=== PATIENT | male | born 1995 | race Two or more races ===

== ENCOUNTER 2020-07-23 11:13 | Outpatient (REF) | payer MEDICARE, MEDICAID, SELFPAY ==
[2020-07-23 12:30] LABS: Neut%MD 70.5 %; Neutrophils Absolute Auto 6.4 X10*3/uL (2.0-8.3)
== END 2020-07-23 11:14 | disposition home or self-care (01) ==
LOC: HO.LABR 11:13
PROVIDERS: PCP Internal Medicine; Visit Provider Clinical Nurse Specialist Psychiatric/Mental Health
DX: Z79.899 Other long term (current) drug therapy (principal)
CPT/HCPCS: 36415

== ENCOUNTER 2020-08-31 11:57 | Outpatient (REF) | payer MEDICARE, MEDICAID, SELFPAY ==
[2020-08-31 13:28] LABS: Neut%MD 67.1 %; Neutrophils Absolute Auto 5.8 X10*3/uL (2.0-8.3); WBCANC 8.6 X10*3/uL; White Blood Count 8.6 X10*3/uL (4.8-10.8)
== END 2020-08-31 11:58 | disposition home or self-care (01) ==
LOC: HO.LABR 11:57
PROVIDERS: PCP Internal Medicine; Visit Provider Clinical Nurse Specialist Psychiatric/Mental Health
DX: Z79.899 Other long term (current) drug therapy (principal)
CPT/HCPCS: 36415; 85048

== ENCOUNTER 2020-09-30 10:13 | Outpatient (REF) | payer MEDICARE, MEDICAID, SELFPAY ==
[2020-09-30 11:20] LABS: Neut%MD 63.8 %; Neutrophils Absolute Auto 4.6 X10*3/uL (2.0-8.3); WBCANC 7.3 X10*3/uL; White Blood Count 7.3 X10*3/uL (4.8-10.8)
== END 2020-09-30 10:14 | disposition home or self-care (01) ==
LOC: HO.LABR 10:13
PROVIDERS: PCP Internal Medicine; Visit Provider Clinical Nurse Specialist Psychiatric/Mental Health
DX: Z79.899 Other long term (current) drug therapy (principal)
CPT/HCPCS: 36415; 85048

== ENCOUNTER 2020-10-21 10:43 | Outpatient (REF) | payer MEDICARE, MEDICAID, SELFPAY ==
[2020-10-21 11:44] LABS: Neut%MD 64.1 %; Neutrophils Absolute Auto 4.4 X10*3/uL (2.0-8.3); WBCANC 6.9 X10*3/uL; White Blood Count 6.9 X10*3/uL (4.8-10.8)
[2020-10-24 20:27] LABS: Clozapine (Clozaril) 478 mcg/L; Norclozapine 237 mcg/L (25-400)
== END 2020-10-21 10:44 | disposition home or self-care (01) ==
LOC: HO.LABR 10:43
PROVIDERS: Visit Provider Clinical Nurse Specialist Psychiatric/Mental Health
DX: Z79.899 Other long term (current) drug therapy (principal)
CPT/HCPCS: 36415; 80159; 85048

== ENCOUNTER 2020-11-26 11:00 | Outpatient (REF) | payer MEDICARE, MEDICAID, SELFPAY ==
[2020-11-26 11:51] LABS: Neut%MD 68.2 %; Neutrophils Absolute Auto 4.4 X10*3/uL (2.0-8.3); WBCANC 6.5 X10*3/uL; White Blood Count 6.5 X10*3/uL (4.8-10.8)
== END 2020-11-26 11:01 | disposition home or self-care (01) ==
LOC: HO.LAB 11:00
PROVIDERS: PCP Internal Medicine; Visit Provider Clinical Nurse Specialist Psychiatric/Mental Health
DX: Z79.899 Other long term (current) drug therapy (principal)
CPT/HCPCS: 36415; 85048

== ENCOUNTER 2020-12-24 10:45 | Outpatient (REF) | payer MEDICARE, MEDICAID, SELFPAY ==
[2020-12-24 11:27] LABS: Neut%MD 67.1 %; Neutrophils Absolute Auto 5.2 X10*3/uL (2.0-8.3); WBCANC 7.7 X10*3/uL; White Blood Count 7.7 X10*3/uL (4.8-10.8)
== END 2020-12-24 10:46 | disposition home or self-care (01) ==
LOC: HO.LABR 10:45
PROVIDERS: PCP Internal Medicine; Visit Provider Clinical Nurse Specialist Psychiatric/Mental Health
DX: Z79.899 Other long term (current) drug therapy (principal)
CPT/HCPCS: 36415; 85048

== ENCOUNTER 2021-01-30 10:34 | Outpatient (REF) | payer MEDICARE, MEDICAID, SELFPAY ==
[2021-01-30 11:20] LABS: Neut%MD 64.5 %; Neutrophils Absolute Auto 4.7 X10*3/uL (2.0-8.3); WBCANC 7.3 X10*3/uL; White Blood Count 7.3 X10*3/uL (4.8-10.8)
== END 2021-01-30 10:35 | disposition home or self-care (01) ==
LOC: HO.LABR 10:34
PROVIDERS: Visit Provider Clinical Nurse Specialist Psychiatric/Mental Health
DX: Z79.899 Other long term (current) drug therapy (principal)
CPT/HCPCS: 36415; 85048

== ENCOUNTER 2021-02-18 12:32 | Outpatient (REF) | payer MEDICARE, MEDICAID, SELFPAY ==
[2021-02-18 13:16] LABS: Neut%MD 64.7 %; Neutrophils Absolute Auto 5.1 X10*3/uL (2.0-8.3); WBCANC 7.9 X10*3/uL; White Blood Count 7.9 X10*3/uL (4.8-10.8)
== END 2021-02-18 12:33 | disposition home or self-care (01) ==
LOC: HO.LABR 12:32
PROVIDERS: Visit Provider Clinical Nurse Specialist Psychiatric/Mental Health
DX: Z79.899 Other long term (current) drug therapy (principal)
CPT/HCPCS: 36415; 85048

== ENCOUNTER 2021-03-18 13:53 | Outpatient (REF) | payer MEDICARE, MEDICAID, SELFPAY ==
[2021-03-18 14:32] LABS: Neutrophils Absolute Auto 5.5 X10*3/uL (2.0-8.3); White Blood Count 7.8 X10*3/uL (4.8-10.8)
== END 2021-03-18 13:54 | disposition home or self-care (01) ==
LOC: HO.LABR 13:53
PROVIDERS: PCP Internal Medicine; Visit Provider Clinical Nurse Specialist Psychiatric/Mental Health
DX: Z79.899 Other long term (current) drug therapy (principal)
CPT/HCPCS: 36415; 85048

== ENCOUNTER 2021-04-22 11:56 | Outpatient (REF) | payer MEDICARE, MEDICAID, SELFPAY ==
[2021-04-22 13:05] LABS: White Blood Count 7.2 X10*3/uL (4.8-10.8)
== END 2021-04-22 11:57 | disposition home or self-care (01) ==
LOC: HO.LABR 11:56
PROVIDERS: Visit Provider Clinical Nurse Specialist Psychiatric/Mental Health
DX: Z79.899 Other long term (current) drug therapy (principal)
CPT/HCPCS: 36415; 85048

== ENCOUNTER 2021-05-13 13:52 | Inpatient (IN) | payer MEDICARE, MEDICAID, SELFPAY ==
--- NOTE | ~2021-05-13 | XR_ITS ---
EXAMINATION: XR WRIST, RIGHT CLINICAL INFORMATION: Status post fall COMPARISON: Right hand radiograph from 07/31/2015 TECHNIQUE: PA, lateral, and oblique views of the right wrist. FINDINGS: No acute visible fracture or dislocation. Joint spaces and alignment are maintained. Soft tissues are unremarkable. XR/XR wrist RT 2V IMPRESSION: No acute visible fracture or dislocation.
--- NOTE | ~2021-05-13 | XR_ITS ---
EXAMINATION: XR ANKLE, RIGHT CLINICAL INFORMATION: Status post fall COMPARISON: None TECHNIQUE: AP, lateral, and mortise views of the right ankle. FINDINGS: No acute visible fracture or dislocation. Ankle mortise is symmetric. Mild spurring of the dorsal talus. Joint spaces and alignment are otherwise maintained. No large ankle joint effusion. Soft tissues are unremarkable. XR/XR ankle RT 2V IMPRESSION: No acute visible fracture or dislocation.
[2021-05-13 13:55] VITALS: BP 137/85; PULSE 100; RESP 16; TEMP 35.9; O2SAT 98; BMI 30.5
--- NOTE | 2021-05-13 14:40 | ED.GENADULT ---
HPI - General Adult General Chief complaint: Psychiatric Symptoms Stated complaint: crisis Time Seen by Provider: 05/13/21 14:40 History of Present Illness HPI narrative: 26 years old male is here today with staff member for crisis. Patient was not compliant with his medication, past medical history of schizoaffective disorder. Patient was at the therapy session with the staff member when he voiced statement of wanting to hurt himself and others. No true plan. Patient states that he was not compliant with his medications, he felt like he did not want to take them. Patient was admitted in the past at [facility]. Patient is cooperative and agreeable to Related Data Home Medications Medication Instructions Recorded Confirmed acetaminophen 325 mg tablet (Mapap 650 mg PO Q6H PRN 05/13/21 05/13/21 (acetaminophen)) clozapine 100 mg tablet 3 tab PO BEDTIME 05/13/21 05/13/21 clozapine 25 mg tablet 2 tab PO BEDTIME 05/13/21 05/13/21 lorazepam 2 mg tablet 2 mg PO Q6H 05/13/21 05/13/21 losartan 25 mg tablet 1 tab PO QAM 05/13/21 05/13/21 mirtazapine 30 mg tablet 1 tab PO BEDTIME 05/13/21 05/13/21 montelukast 10 mg tablet 1 tab PO DAILY 05/13/21 05/13/21 prazosin 2 mg capsule 1 cap PO BEDTIME 05/13/21 05/13/21 psyllium 1 packet PO BEDTIME 05/13/21 05/13/21 ursodiol 250 mg tablet 2 tab PO TID 05/13/21 05/13/21 Allergies Allergy/AdvReac Type Severity Reaction Status Date / Time No Known Allergies Allergy Verified 05/13/21 14:00 Review of Systems Review of Systems: Constitutional : No Weight loss, No Fever, No Chills, No Night Sweats, No Fatigue, No Malaise ENT/Mouth : No Hearing loss, No Ear Pain, No Nasal Congestion, No Sinus Pain, No Hoarseness, No sore throat, No Rhinorrhea, No Swallowing Difficulty Eyes: No Eye Pain, No Swelling, No Redness, No Foreign Body, No Discharge, No Vision Changes Cardiovascular : No Chest Pain, No SOB, No Dyspnea on Exertion, No Orthopnea, No Edema, No Palpitations Respiratory : No Cough, No Sputum, No Wheezing, No Smoke Exposure, No Dyspnea Gastrointestinal : No Nausea, No Vomiting, No Diarrhea, No Constipation, No abdominal Pain, No Hematochezia, No Melena Genitourinary : no irregular bleeding, No Dysuria, No Urinary Frequency, No Hematuria, No Urinary Incontinence, No Urgency, No Flank Pain, No Urinary Flow Changes, No Hesitancy Musculoskeletal : No joint pain, No Myalgias, No Joint Swelling Skin : No Skin Lesions, No rash Neuro : No Weakness, No Numbness, No Paresthesias, No Loss of Consciousness, No Dizziness, No Headache Psych : No Anxiety/Panic, No Depression, No SI/HI no Social Issues, Heme/Lymph: No Bruising, No Bleeding,No Lymphadenopathy Endocrine : No Polyuria, No Polydipsia, No Temperature Intolerance [facility] Past Medical History Medical History (Updated 05/13/21 @ 19:[address] [facility]) Bipolar disorder Depression HTN (hypertension) PTSD (post-traumatic stress disorder) Schizophrenia Social History Social History Alcohol intake: never Smoked in Last 30 Days: No Use of substances other than those prescribed or required for medical reasons: No Advance Directives: No Advance Directives Information Provided: Yes Physical Exam Vital Signs: Vital Signs: Last Vital Signs Temp 96.7 F L 05/13/21 13:55 Pulse 100 05/13/21 13:55 Resp 16 05/13/21 13:55 BP 137/85 05/13/21 13:55 Pulse Ox 98 05/13/21 13:55 Body Mass Index 30.5 Const: General: healthy appearing, no acute distress and well developed Nutritional Appearance: well nourished Orientation/consciousness: patient oriented x3 Neck: Neck: Yes normal visual inspection, Yes full ROM and Yes no JVD Resp: Effort & Inspection: normal respiratory effort Auscultation: clear to auscultation bilaterally Cardio: Rate: regular rate Rhythm: regular rhythm GI: Inspection: Yes normal to inspection and No distended Palpation (GI): Soft to palpation, Firmness to palpation present (GI), nontender and no guarding Auscultation: normal bowel sounds Skin: General skin exam: elasticity normal, turgor normal and dry skin Neuro: General: patient oriented x3 and moves all extremities Psych: Appearance: grossly normal Mental Status: mental status grossly normal Speech and movement: Normal speech and movement present Affect: normal affect Attitude: cooperative Thought process: Normal thought process present Thought content: Suicidality present and Homicidality present Course Course Course Narrative: 26 years old male with past medical history of schizoaffective disorder is here today with staff member from [facility]. Patient was at therapy session and voiced to the therapist that he has not taking his medication and is having suicidal and homicidal thoughts. Patient has previously been admitted at [facility] as an inpatient. Patient does not have a true plan. We will order U tox, Tylenol, salicylate, ETOH and have him be seen by crisis team. Patient is cooperative to, plan discussed with him and he is agreeable to this. He was given the opportunity to ask questions and all questions answered. Reevaluation(s) Reevaluation #1: Patient was moved to Behavioral pod, he continues to be cooperative. Denies any neuro, cardiac, respiratory or GI symptoms. Will reconcile his medication awaiting for crisis team to see patient. Reevaluation #2: Spoke to Alejandra from care team. Patient is being interviewed by crisis team now. Most likely will be in patient bed search. Sign out to Jessica PASTRANA Medical Decision Making Lab Data Result diagrams: 05/13/21 17:01 05/13/21 17:01 Labs: Lab Results 05/13/21 05/13/21 05/13/21 Range/Units 16:27 17:01 17:01 WBC 8.5 (4.8-10.8) X10*3/uL RBC 5.28 (4.60-5.80) X10*6/uL Hgb 14.5 (14.0-18.0) g/dl Hct 45.2 (42-52) % MCV 85.6 (80-98) fL MCH 27.5 (27.0-33.0) pg MCHC 32.1 (31.0-36.0) g/dl RDW 14.6 (11.0-16.0) % Plt Count 287 (160-400) X10*3/uL MPV 10.3 (9.4-12.4) fL Immature Gran % (Auto) 0.6 H (0.0-0.4) % Neut % (Auto) 65.6 (45-73) % Lymph % (Auto) 26.1 (20-40) % [place] % (Auto) 7.2 (2-11) % Eos % (Auto) 0.0 (0-4) % Baso % (Auto) 0.5 (0-2) % Lymph # (Auto) 2.2 (1.2-4.9) X10*3/uL [place] # (Auto) 0.6 (0.1-1.2) X10*3/uL Eos # (Auto) 0.0 (0.0-0.4) X10*3/uL Baso # (Auto) 0.0 (0.0-0.2) X10*3/uL Abs Immat Gran (auto) 0.05 H (0.00-0.03) X10*3/uL Absolute Neuts (auto) 5.6 (2.0-8.3) X10*3/uL Absolute Nucleated RBC 0.000 (0.0-0.012) X10*3/uL Nucleated RBC % (auto) 0.0 (0.0-0.2) /100WBC Sodium (135-145) mmol/L Potassium (3.3-5.1) mmol/L Chloride (96-108) mmol/L Carbon Dioxide (22-29) mmol/L Anion Gap (12-20) BUN (9-16) mg/dL Creatinine (0.5-1.4) mg/dL Estim Creat Clear Calc Estimated GFR Random Glucose (60-115) mg/dL Calcium (8.4-10.2) mg/dL Total Bilirubin (0.0-1.0) mg/dL AST (5-37) U/L ALT (0-40) U/L Alkaline Phosphatase (39-117) U/L Total Protein (6.5-8.0) g/dL Albumin (3.5-5.0) g/dL Salicylates < 5.0 L (15-30) mg/dL Urine Opiates Screen Not Detected (Not Detect) Urine Fentanyl Screen Not Detected (Not Detect) Acetaminophen < 1 (<30) mcg/mL Ur Barbiturates Screen Not Detected (Not Detect) Ur Phencyclidine Scrn Not Detected (Not Detect) Ur Amphetamines Screen Not Detected (Not Detect) U Benzodiazepines Scrn Not Detected (Not Detect) Urine Cocaine Screen Not Detected (Not Detect) U Marijuana (THC) Screen Not Detected (Not Detect) COVID-19 ([place]) (Negative) COVID-19 Clin Com 05/13/21 05/13/21 Range/Units 17:01 17:02 WBC (4.8-10.8) X10*3/uL RBC (4.60-5.80) X10*6/uL Hgb (14.0-18.0) g/dl Hct (42-52) % MCV (80-98) fL MCH (27.0-33.0) pg MCHC (31.0-36.0) g/dl RDW (11.0-16.0) % Plt Count (160-400) X10*3/uL MPV (9.4-12.4) fL Immature Gran % (Auto) (0.0-0.4) % Neut % (Auto) (45-73) % Lymph % (Auto) (20-40) % [place] % (Auto) (2-11) % Eos % (Auto) (0-4) % Baso % (Auto) (0-2) % Lymph # (Auto) (1.2-4.9) X10*3/uL [place] # (Auto) (0.1-1.2) X10*3/uL Eos # (Auto) (0.0-0.4) X10*3/uL Baso # (Auto) (0.0-0.2) X10*3/uL Abs Immat Gran (auto) (0.00-0.03) X10*3/uL Absolute Neuts (auto) (2.0-8.3) X10*3/uL Absolute Nucleated RBC (0.0-0.012) X10*3/uL Nucleated RBC % (auto) (0.0-0.2) /100WBC Sodium 140 (135-145) mmol/L Potassium 4.2 (3.3-5.1) mmol/L Chloride 106 (96-108) mmol/L Carbon Dioxide 24 (22-29) mmol/L Anion Gap 14 (12-20) BUN 9 (9-16) mg/dL Creatinine 0.98 (0.5-1.4) mg/dL Estim Creat Clear Calc 137.1 Estimated GFR > 60 Random Glucose 88 (60-115) mg/dL Calcium 9.3 (8.4-10.2) mg/dL Total Bilirubin 0.3 (0.0-1.0) mg/dL AST 32 (5-37) U/L ALT 69 H (0-40) U/L Alkaline Phosphatase 135 H (39-117) U/L Total Protein 7.3 (6.5-8.0) g/dL Albumin 4.3 (3.5-5.0) g/dL Salicylates (15-30) mg/dL Urine Opiates Screen (Not Detect) Urine Fentanyl Screen (Not Detect) Acetaminophen (<30) mcg/mL Ur Barbiturates Screen (Not Detect) Ur Phencyclidine Scrn (Not Detect) Ur Amphetamines Screen (Not Detect) U Benzodiazepines Scrn (Not Detect) Urine Cocaine Screen (Not Detect) U Marijuana (THC) Screen (Not Detect) COVID-19 ([place]) Negative (Negative) COVID-19 Clin Com See Note Discharge Plan Discharge Clinical Impression: Suicidal ideation Prescriptions: No Action acetaminophen [Mapap (acetaminophen)] 325 mg Tablet 650 mg PO Q6H PRN (Reason: Pain) RF: 0 clozapine 100 mg tablet 3 tab PO BEDTIME RF: 0 Metamucil Packet 1 packet PO BEDTIME RF: 0 lorazepam 2 mg tablet 2 mg PO Q6H RF: 0 mirtazapine 30 mg tablet 1 tab PO BEDTIME RF: 0 ursodiol 250 mg tablet 2 tab PO TID RF: 0 losartan 25 mg tablet 1 tab PO QAM RF: 0 montelukast 10 mg tablet 1 tab PO DAILY RF: 0 clozapine 25 mg tablet 2 tab PO BEDTIME RF: 0 prazosin 2 mg capsule 1 cap PO BEDTIME RF: 0
--- NOTE | 2021-05-13 17:04 | PC.NURSE ---
report sent to [facility]- confirmation email obtained
[2021-05-13 17:07] LABS: MANUAL DIFF FLAG NO
[2021-05-13 17:08] LABS: Basophils Percent Auto 0.5 % (0-2); Hematocrit 45.2 % (42-52); Hemoglobin 14.5 g/dl (14.0-18.0); Imm Gran Abs Auto 0.05 X10*3/uL (0.00-0.03); Imm Gran Pct Auto 0.6 % (0.0-0.4); Lymphocytes Absolute Auto 2.2 X10*3/uL (1.2-4.9); Lymphocytes Percent Auto 26.1 % (20-40); Mean Corpuscular HGB Conc 32.1 g/dl (31.0-36.0); Mean Corpuscular Hemoglobin 27.5 pg (27.0-33.0); Mean Corpuscular Volume 85.6 fL (80-98); Mean Platelet Volume 10.3 fL (9.4-12.4); Monocytes Absolute Auto 0.6 X10*3/uL (0.1-1.2); Monocytes Percent Auto 7.2 % (2-11); Neutrophils Absolute Auto 5.6 X10*3/uL (2.0-8.3); Neutrophils Percent Auto 65.6 % (45-73); Platelet Count 287 X10*3/uL (160-400); Red Blood Count 5.28 X10*6/uL (4.60-5.80); Red Cell Distribution Width 14.6 % (11.0-16.0); White Blood Count 8.5 X10*3/uL (4.8-10.8)
[2021-05-13 17:12] LABS: Amphetamine Screen Urine Not Detected (Not Detect); Barbiturates, Urine Not Detected (Not Detect); Benzodiazepines Screen Urine Not Detected (Not Detect); Cannabinoid Screen Urine Not Detected (Not Detect); Cocaine Screen Urine Not Detected (Not Detect); Fentanyl, urine Not Detected (Not Detect); Opiate Screen Urine Not Detected (Not Detect); Phencyclidine Screen Urine Not Detected (Not Detect)
[2021-05-13 17:20] LABS: COVID-19 Test Negative (Negative)
[2021-05-13 17:33] LABS: Acetaminophen LAB < 1 mcg/mL (<30); Salicylate < 5.0 mg/dL (15-30)
[2021-05-13 17:34] LABS: Alanine Aminotransferase 69 U/L (0-40); Albumin Level 4.3 g/dL (3.5-5.0); Alkaline Phosphatase 135 U/L (39-117); Anion Gap 14 (12-20); Aspartate Amino Transferase 32 U/L (5-37); Bilirubin Total 0.3 mg/dL (0.0-1.0); Blood Urea Nitrogen 9 mg/dL (9-16); Calcium 9.3 mg/dL (8.4-10.2); Carbon Dioxide 24 mmol/L (22-29); Chloride 106 mmol/L (96-108); Creatinine Clr Calc Pharmacy 137.1; Estimated Glomerular Filt Rate > 60; Glucose Random 88 mg/dL (60-115); Potassium 4.2 mmol/L (3.3-5.1); Sodium 140 mmol/L (135-145); Total Protein 7.3 g/dL (6.5-8.0)
--- NOTE | 2021-05-13 18:23 | PHA.MEDREC ---
Pharmacy Consult ? Medication Reconciliation Pharmacy has completed the medication reconciliation. PT has reportedly not been compliant with meds.
--- NOTE | 2021-05-13 20:31 | MHC.CARE ---
CARE team assessed pt, pt will be an IP bedsearch
[2021-05-14 03:50] VITALS: BP 127/86; PULSE 78; RESP 18; TEMP 36.6; O2SAT 96
--- NOTE | 2021-05-14 06:06 | PC.NURSE ---
Patient slept through the night, no distress observed/reported, out of room x 2 for bathroom use and back, patient express need well, behavior appropriate with affect flat, med rec completed/provider not comfortable to resume medication based on the jail report that patient may be cheeking his medication, since patient is on Clozaril, psych consult was done to review his medication. will continue to monitor.
--- NOTE | 2021-05-14 07:16 | PC.NURSE ---
patient appears in no distress at present appears asleep with even respirations
[2021-05-14 08:42] VITALS: BP 139/80; PULSE 82; RESP 16; TEMP 36.9; O2SAT 100
--- NOTE | 2021-05-14 16:21 | PC.NURSE ---
nurse to nurse report given to Teresa from [facility], pt awaiting transfer to floor
[2021-05-14 16:52] VITALS: BP 138/84; PULSE 71; RESP 18; TEMP 36.5; O2SAT 100
[2021-05-15] MEDS: cloZAPine 25 MG TABLET PO (00:51)
--- NOTE | 2021-05-15 01:49 | PC.NURSE ---
PT came to the unit from ED, calm and cooperative. Initially endorsing SI and lack of med compliance. PT stated that he did not want to take medications because they made him feel special or SPED . PT also stated that he is experiencing auditory hallucinations with voices in his head. This nurse then asked the PT what the voices were telling him. Initially the PT did not answer this question, but when asked again the PT stated, I'm not actually hearing voices and I did not stop taking my meds. I lied about both so that I could get away from the long-term for a few days . The rest of the admission went smoothly, with no resistance from the PT. PT denied SI/HI. Denies auditory hallucinations. PT took his dose of Clozapine prior to bed.
[2021-05-15 06:00] VITALS: BP 130/75; PULSE 83; RESP 14; TEMP 36.6; O2SAT 98
--- NOTE | 2021-05-15 08:57 | HO.PSYADMNOT ---
HPI Chief Complaint: Psychosis Sources of Information: patient interviewed HPI Subjective Notes: Lau Warning and Conditional Voluntary Narrative: Alexis is a 26-year-old male who was admitted for psychosis and possible suicidal ideations. 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 He lives in [place] in a residential, supervised setting with some other clients. The only available source of information was Alexis who is a very poor historian and unable to give much detail and peripheral information. He had stated that he was hearing voices which were command in nature, telling him to hurt himself. Today he states that ?I sometimes like to leave the program). He does have history of schizophrenia versus schizoaffective disorder. Current medications include clozapine 350 mg daily, Ativan 2 mg p.r.n., Remeron 30 mg q.h.s. and prazosin 2 mg q.h.s.. He denies any side effects. He denies any current auditory or visual hallucinations. No delusions. He denies any current substance use or abuse but states that he used to ?drink a lot?. He denies any alcohol abuse for some years. Diagnosis: [place] I schizoaffective disorder. [place] II rule out developmental disorder [place] III are hypertension Medical Evaluation Reviewed: Hospitalist [place] Pending [facility] Medical History (Updated 05/15/21 @ 09:03 by Demetrio Roger MD) Bipolar disorder Depression HTN (hypertension) PTSD (post-traumatic stress disorder) Schizophrenia Diagnostics Vital Signs (24Hr): Vital Signs - 24 hr 05/14/21 16:52 05/15/21 06:00 Temperature 97.7 F 97.9 F Pulse Rate 71 83 Respiratory Rate 18 14 Blood Pressure 138/84 130/75 Pulse Oximetry 100 98 Body Mass Index 30.5 Labs Results: 05/13/21 17:01 05/13/21 17:01 Labs: Laboratory Results - last 48 hr 05/13/21 05/13/21 05/13/21 16:27 17:01 17:01 WBC 8.5 RBC 5.28 Hgb 14.5 Hct 45.2 MCV 85.6 MCH 27.5 MCHC 32.1 RDW 14.6 Plt Count 287 MPV 10.3 Immature Gran % (Auto) 0.6 H Neut % (Auto) 65.6 Lymph % (Auto) 26.1 [place] % (Auto) 7.2 Eos % (Auto) 0.0 Baso % (Auto) 0.5 Lymph # (Auto) 2.2 [place] # (Auto) 0.6 Eos # (Auto) 0.0 Baso # (Auto) 0.0 Abs Immat Gran (auto) 0.05 H Absolute Neuts (auto) 5.6 Absolute Nucleated RBC 0.000 Nucleated RBC % (auto) 0.0 Sodium Potassium Chloride Carbon Dioxide Anion Gap BUN Creatinine Estim Creat Clear Calc Estimated GFR Random Glucose Calcium Total Bilirubin AST ALT Alkaline Phosphatase Total Protein Albumin Salicylates < 5.0 L Urine Opiates Screen Not Detected Urine Fentanyl Screen Not Detected Acetaminophen < 1 Ur Barbiturates Screen Not Detected Ur Phencyclidine Scrn Not Detected Ur Amphetamines Screen Not Detected U Benzodiazepines Scrn Not Detected Urine Cocaine Screen Not Detected U Marijuana (THC) Screen Not Detected COVID-19 ([place]) COVID-[employer] 05/13/21 05/13/21 17:01 17:02 WBC RBC Hgb Hct MCV MCH MCHC RDW Plt Count MPV Immature Gran % (Auto) Neut % (Auto) Lymph % (Auto) [place] % (Auto) Eos % (Auto) Baso % (Auto) Lymph # (Auto) [place] # (Auto) Eos # (Auto) Baso # (Auto) Abs Immat Gran (auto) Absolute Neuts (auto) Absolute Nucleated RBC Nucleated RBC % (auto) Sodium 140 Potassium 4.2 Chloride 106 Carbon Dioxide 24 Anion Gap 14 BUN 9 Creatinine 0.98 Estim Creat Clear Calc 137.1 Estimated GFR > 60 Random Glucose 88 Calcium 9.3 Total Bilirubin 0.3 AST 32 ALT 69 H Alkaline Phosphatase 135 H Total Protein 7.3 Albumin 4.3 Salicylates Urine Opiates Screen Urine Fentanyl Screen Acetaminophen Ur Barbiturates Screen Ur Phencyclidine Scrn Ur Amphetamines Screen U Benzodiazepines Scrn Urine Cocaine Screen U Marijuana (THC) Screen COVID-19 ([place]) Negative COVID-19 [employer] See Note Meds/Allergies Meds Home Medications Acetaminophen (Acetaminophen 325 Mg Tablet) 650 mg PO Q6H PRN PRN Reason: Headache/Pain Mild Scale (1-3) Al Hydroxide/Mg Hydroxide (Magnesium Hydrox/Alum Hydrox 30 Ml Oral.Susp) 30 ml PO Q6H PRN PRN Reason: Heartburn/Nausea Clozapine (Clozapine 100 Mg Tablet) 300 mg PO BEDTIME NORMA Clozapine (Clozapine 25 Mg Tablet) 50 mg PO DAILY NORMA Hydroxyzine HCl (Hydroxyzine Hcl 25 Mg Tablet) 25 mg PO BEDTIME PRN PRN Reason: Anxiety Lorazepam (Lorazepam 1 Mg Tablet) 2 mg PO DAILY PRN PRN Reason: agitation, anxiety Losartan Potassium (Losartan Potassium 25 Mg Tablet) 25 mg PO DAILY NORMA; Protocol Magnesium Hydroxide (Milk Of Magnesia 30 Ml Oral.Susp) 30 ml PO DAILY PRN PRN Reason: Constipation Mirtazapine (Mirtazapine 30 Mg Tablet) 30 mg PO BEDTIME NORMA Montelukast Sodium (Montelukast Sodium 10 Mg Tablet) 10 mg PO DAILY NORMA Prazosin HCl (Prazosin Hcl 1 Mg Capsule) 2 mg PO BEDTIME NORMA; Protocol Psyllium Hydrophilic Mucilloid (Psyllium Seed 3.4 Gm Powd.Pack) 3.4 gm PO BEDTIME NORMA Trazodone HCl (Trazodone Hcl 50 Mg Tablet) 50 mg PO BEDTIME PRN PRN Reason: Insomnia Ursodiol (Ursodiol 300 Mg Capsule) 600 mg PO TID NORMA Allergies Allergies Allergy/AdvReac Type Severity Reaction Status Date / Time No Known Allergies Allergy Verified 05/13/21 14:00 Mental Status Exam Mental Status Exam Narrative: Alexis was seen for the evaluation today after his admission. He is alert, oriented and cooperative. Speech is normal. Moderate eye contact. Affect is appropriate and subdued. He denies any current auditory or visual hallucinations. No delusions. Cognitively he appears limited. He denies any current suicidal or homicidal ideations. Judgment is intact Assessment & Plan Assessment & Plan (1) Suicidal ideation: Status: Acute Code(s): R45.851 - Suicidal ideations Assessment and Plan: Patient's medications were reviewed and clozapine had been ordered only as 25 mg and the additional 325 mg was added. Admission workup to be done. He will meet with his treatment team on 05/17/2021. Contacts to be made with history years and the program that he is involved with for additional information. I did also speak to the senior db2 systems programmer who verified that he had been taking his Clozaril up to the time he was brought to the emergency room (2) Schizoaffective disorder, bipolar type: Status: Acute Code(s): F25.0 - Schizoaffective disorder, bipolar type Patient educated on: diagnosis, medication risk/benefits, substance abuse, ECT, TMS, therapeutic strategies, medical condition and other Reason for continued inpatient stay Substantial Risk for: harm to self and med/psych decompensation
[2021-05-15 09:09] VITALS: BP 130/62; PULSE 78; TEMP 36.1; O2SAT 98
[2021-05-15] MEDS: UrsodioL 300 MG CAPSULE 600 MG PO ×3 (09:25→21:12)
[2021-05-15] MEDS: Montelukast Sodium 10 MG TABLET PO (09:25)
[2021-05-15] MEDS: cloZAPine 25 MG TABLET 50 MG PO (09:25)
[2021-05-15 09:26] VITALS: BP 130/62; PULSE 78
[2021-05-15] MEDS: Losartan Potassium 25 MG TABLET PO (09:26)
[2021-05-15] MEDS: Mirtazapine 30 MG TABLET PO (21:13)
[2021-05-15] MEDS: cloZAPine 100 MG TABLET 300 MG PO (21:13)
[2021-05-15 21:24] VITALS: BP 129/99; PULSE 92
[2021-05-15] MEDS: Prazosin HCL 1 MG CAPSULE 2 MG PO (21:24)
[2021-05-15 21:48] VITALS: BP 129/99; PULSE 92; RESP 16; TEMP 36.4; O2SAT 95
[2021-05-16 06:00] VITALS: BP 135/80; PULSE 92; RESP 18; TEMP 36.8; O2SAT 98
[2021-05-16 08:41] VITALS: BP 135/80; PULSE 104
[2021-05-16] MEDS: Montelukast Sodium 10 MG TABLET PO (08:41)
[2021-05-16] MEDS: cloZAPine 25 MG TABLET 50 MG PO (08:41)
[2021-05-16] MEDS: Losartan Potassium 25 MG TABLET PO (08:41)
[2021-05-16] MEDS: UrsodioL 300 MG CAPSULE 600 MG PO ×3 (08:41→20:34)
--- NOTE | 2021-05-16 09:31 | HO.PSYCHPN ---
Subjective Subjective Date of Service: 05/16/21 Reason For Visit: Psychosis Subjective Notes: Conditional Voluntary Interim History: Patient was seen in rounds today. He has settled down and is doing fairly well. He continues to deny any auditory hallucinations but is observed to be responding to internal stimuli, having thought blocking. He is med compliant. Attending groups. No complaints for side effects. Eating and sleeping adequately. No changes were made today Medication Compliance: Yes Side effects from medications: No Mental Status Exam Mental Status Exam Narrative: in today's visit he is alert, oriented and pleasant. Normal speech. Good eye contact. Affect is constricted. Thought processes are slow. He denies auditory and visual hallucinations but is observed to be responding to some internal stimuli. No SI. Cognitively limited. Judgment is marginal. Diagnostics Vital Signs (24Hr): Vital Signs - 24 hr 05/15/21 21:24 05/15/21 21:48 05/16/21 06:00 Temperature 97.6 F 98.2 F Pulse Rate 92 92 92 Respiratory Rate 16 18 Blood Pressure 129/99 H 129/99 H 135/80 Pulse Oximetry 95 98 05/16/21 08:41 Temperature Pulse Rate 104 H Respiratory Rate Blood Pressure 135/80 Pulse Oximetry Body Mass Index 30.5 Labs Results: 05/13/21 17:01 05/13/21 17:01 Medications Medications Current Medications Generic Name Dose Route Start Last Admin Trade Name Freq PRN Reason Stop Dose Admin Acetaminophen 650 mg 05/14/21 22:06 Acetaminophen 325 Mg Tablet PO Q6H PRN Headache/Pain Mild Scale (1-3) Al Hydroxide/Mg Hydroxide 30 ml 05/14/21 22:06 Magnesium Hydrox/Alum Hydrox 30 Ml Oral.Susp PO Q6H PRN Heartburn/Nausea Clozapine 300 mg 05/15/21 21:00 05/15/21 21:13 Clozapine 100 Mg Tablet PO 300 mg BEDTIME NORMA Administration Clozapine 50 mg 05/15/21 09:00 05/16/21 08:41 Clozapine 25 Mg Tablet PO 50 mg DAILY NORMA Administration Hydroxyzine HCl 25 mg 05/14/21 22:06 Hydroxyzine Hcl 25 Mg Tablet PO BEDTIME PRN Anxiety Lorazepam 2 mg 05/14/21 22:10 Lorazepam 1 Mg Tablet PO DAILY PRN agitation, anxiety Losartan Potassium 25 mg 05/15/21 09:00 05/16/21 08:41 Losartan Potassium 25 Mg Tablet PO 25 mg DAILY NORMA Administration Protocol Magnesium Hydroxide 30 ml 05/14/21 22:06 Milk Of Magnesia 30 Ml Oral.Susp PO DAILY PRN Constipation Mirtazapine 30 mg 05/15/21 21:00 05/15/21 21:13 Mirtazapine 30 Mg Tablet PO 30 mg BEDTIME NORMA Administration Montelukast Sodium 10 mg 05/15/21 09:00 05/16/21 08:41 Montelukast Sodium 10 Mg Tablet PO 10 mg DAILY NORMA Administration Prazosin HCl 2 mg 05/15/21 21:00 05/15/21 21:24 Prazosin Hcl 1 Mg Capsule PO 2 mg BEDTIME NORMA Administration Protocol Psyllium Hydrophilic Mucilloid 3.4 gm 05/15/21 21:00 05/15/21 21:13 Psyllium Seed 3.4 Gm Powd.Pack PO 3.4 gm BEDTIME NORMA Administration Trazodone HCl 50 mg 05/14/21 22:06 Trazodone Hcl 50 Mg Tablet PO BEDTIME PRN Insomnia Ursodiol 600 mg 05/15/21 09:00 05/16/21 08:41 Ursodiol 300 Mg Capsule PO 600 mg TID NORMA Administration Allergies Allergies Allergy/AdvReac Type Severity Reaction Status Date / Time No Known Allergies Allergy Verified 05/13/21 14:00 Assessment & Plan Assessment & Plan (1) Suicidal ideation: Status: Acute Code(s): R45.851 - Suicidal ideations Assessment and Plan: Continue current medication regimen and plans (2) Schizoaffective disorder, bipolar type: Status: Acute Code(s): F25.0 - Schizoaffective disorder, bipolar type Greater than 50% of the session was spent on counseling and/or coordination of care Reason for contiued inpatient stay Substantial Risk for: med/psych decompensation
[2021-05-16 09:35] VITALS: BP 133/80; PULSE 92; RESP 18; TEMP 36.8; O2SAT 98
[2021-05-16 19:21] VITALS: BP 134/75; PULSE 105; TEMP 36.1; O2SAT 96
[2021-05-16 20:34] VITALS: BP 118/85; PULSE 105
[2021-05-16] MEDS: Mirtazapine 30 MG TABLET PO (20:34)
[2021-05-16] MEDS: cloZAPine 100 MG TABLET 300 MG PO (20:34)
[2021-05-16] MEDS: Prazosin HCL 1 MG CAPSULE 2 MG PO (20:34)
[2021-05-17 06:00] VITALS: BP 143/80; PULSE 84; RESP 16; TEMP 36.3; O2SAT 99
[2021-05-17] MEDS: UrsodioL 300 MG CAPSULE 600 MG PO ×3 (09:25→20:03)
[2021-05-17 09:26] VITALS: BP 138/73; PULSE 100
[2021-05-17] MEDS: cloZAPine 25 MG TABLET 50 MG PO (09:26)
[2021-05-17] MEDS: Montelukast Sodium 10 MG TABLET PO (09:26)
[2021-05-17] MEDS: Losartan Potassium 25 MG TABLET PO (09:26)
--- NOTE | 2021-05-17 10:48 | PC.NURSE ---
Pt states he does not want any nicotine replacement at this time. Reports to this RN he only smokes occasionally states When i am bored
[2021-05-17] MEDS: Acetaminophen 325 MG TABLET 650 MG PO ×2 (11:04→19:33)
--- NOTE | 2021-05-17 18:35 | P.PNPSI_ITS ---
Subjective Subjective Date of Service: 05/17/21 Reason For Visit: Psychosis Subjective Notes: Conditional Voluntary Healthcare Proxy: No Guardianship: No Medical Problems Affecting Mental Status: No Interim History: Pt willing to meet, quiet, engaged, review of medications. Asks for nicotine gum and assist with sleep but reports he sleeps well. Denies SI, HI. Denies worries/concerns/fears. States he is feeling improved, but adds that this does not mean he wants to discharge. Told pt we were just beginning his care and treatment, wanting to understand precipitants and do some active probl em solving and planning with him. I would really like that. Medication Compliance: Yes Side effects from medications: No Attending Groups: No Review of Systems Acute medical concerns: No Medical Review of Systems: unchanged Review of Systems Reports behavioral changes Psychiatric: Reports anxiety, Reports behavioral changes and Reports paranoia Mental Status Exam Mental Status Exam Patient Appearance: Appropriate Patient Orientation: Person and Place Level of Consciousness: Alert Patient Behavior: Talkative and Good Eye Contact Mood Description: Suspicious, Withdrawn and Apprehensive Affect Description: Suspicious, Withdrawn and Apprehensive Patient Cognition Impaired: Yes Ability to Follow Directions: Fair Speech Pattern: Spontaneous Speech Memory Description: Episodic Impaired Hallucinations: None (he denies at this time) Delusions: Paranoid Ideation Perceptual Disturbances: Derealization Thought Process: Distracted and Slowed Thinking Depressive Symptoms: Increased Irritability and Difficulty Concentrating Judgement: Fair Diagnostics Vital Signs (24Hr): Vital Signs - 24 hr 05/16/21 19:21 05/16/21 20:34 05/17/21 06:00 Temperature 96.9 F 97.4 F Pulse Rate 105 H 105 H 84 Respiratory Rate 16 Blood Pressure 134/75 118/85 143/80 H Pulse Oximetry 96 99 05/17/21 09:26 Temperature Pulse Rate 100 Respiratory Rate Blood Pressure 138/73 Pulse Oximetry Body Mass Index 30.5 Labs Results: 05/13/21 17:01 05/13/21 17:01 Medications Medications Current Medications Generic Name Dose Route Start Last Admin Trade Name Freq PRN Reason Stop Dose Admin Acetaminophen 650 mg 05/14/21 22:06 05/17/21 11:04 Acetaminophen 325 Mg Tablet PO 650 mg Q6H PRN Administration Headache/Pain Mild Scale (1-3) Al Hydroxide/Mg Hydroxide 30 ml 05/14/21 22:06 Magnesium Hydrox/Alum Hydrox 30 Ml Oral.Susp PO Q6H PRN Heartburn/Nausea Clozapine 300 mg 05/15/21 21:00 05/16/21 20:34 Clozapine 100 Mg Tablet PO 300 mg BEDTIME NORMA Administration Clozapine 50 mg 05/15/21 09:00 05/17/21 09:26 Clozapine 25 Mg Tablet PO 50 mg DAILY NORMA Administration Hydroxyzine HCl 25 mg 05/14/21 22:06 Hydroxyzine Hcl 25 Mg Tablet PO BEDTIME PRN Anxiety Lorazepam 2 mg 05/14/21 22:10 Lorazepam 1 Mg Tablet PO DAILY PRN agitation, anxiety Losartan Potassium 25 mg 05/15/21 09:00 05/17/21 09:26 Losartan Potassium 25 Mg Tablet PO 25 mg DAILY NORMA Administration Protocol Magnesium Hydroxide 30 ml 05/14/21 22:06 Milk Of Magnesia 30 Ml Oral.Susp PO DAILY PRN Constipation Mirtazapine 45 mg 05/17/21 21:00 Mirtazapine 15 Mg Tablet PO BEDTIME NORMA Montelukast Sodium 10 mg 05/15/21 09:00 05/17/21 09:26 Montelukast Sodium 10 Mg Tablet PO 10 mg DAILY NORMA Administration Nicotine Polacrilex 4 mg 05/17/21 14:54 Nicotine Polacrilex 2 Mg Gum BUCCAL Q2H PRN Nicotine Cravings Prazosin HCl 2 mg 05/15/21 21:00 05/16/21 20:34 Prazosin Hcl 1 Mg Capsule PO 2 mg BEDTIME NORMA Administration Protocol Psyllium Hydrophilic Mucilloid 3.4 gm 05/15/21 21:00 05/16/21 20:34 Psyllium Seed 3.4 Gm Powd.Pack PO 3.4 gm BEDTIME NORMA Administration Trazodone HCl 50 mg 05/14/21 22:06 Trazodone Hcl 50 Mg Tablet PO BEDTIME PRN Insomnia Ursodiol 600 mg 05/15/21 09:00 05/17/21 14:13 Ursodiol 300 Mg Capsule PO 600 mg TID NORMA Administration Allergies Allergies Allergy/AdvReac Type Severity Reaction Status Date / Time No Known Allergies Allergy Verified 05/13/21 14:00 Assessment & Plan Assessment & Plan (1) Suicidal ideation: Status: Acute Code(s): R45.851 - Suicidal ideations Assessment and Plan: Continue current medication regimen and plans (2) Schizoaffective disorder, bipolar type: Status: Acute Code(s): F25.0 - Schizoaffective disorder, bipolar type Assessment and Plan: Continue current regime Greater than 50% of the session was spent on counseling and/or coordination of care Patient educated on: medication risk/benefits and therapeutic strategies Informed Consent: understands and further education needed Reason for contiued inpatient stay Substantial Risk for: harm to self, harm to others, inability to function and rapid decompensation
[2021-05-17 19:55] VITALS: BP 129/73; PULSE 105; TEMP 36.4
[2021-05-17] MEDS: cloZAPine 100 MG TABLET 300 MG PO (20:00)
[2021-05-17] MEDS: Mirtazapine 15 MG TABLET 45 MG PO (20:00)
[2021-05-17 20:02] VITALS: BP 129/73; PULSE 105
[2021-05-17] MEDS: Prazosin HCL 1 MG CAPSULE 2 MG PO (20:02)
--- NOTE | 2021-05-18 | ECG_ITS ---
Test Reason : ATYPICAL USE Blood Pressure : / mmHG Vent. Rate : 090 BPM Atrial Rate : 090 BPM P-R Int : 140 ms QRS Dur : 088 ms QT Int : 334 ms P-R-T Axes : 065 070 030 degrees QTc Int : 408 ms Normal sinus rhythm Normal ECG No previous ECGs available Referred By: Cristina Arizmendi Electronically Signed By:STEPHANIE BYERS
[2021-05-18 06:00] VITALS: BP 140/88; PULSE 89; RESP 16; TEMP 35.5; O2SAT 98
[2021-05-18] MEDS: UrsodioL 300 MG CAPSULE 600 MG PO ×3 (07:55→20:30)
[2021-05-18] MEDS: cloZAPine 25 MG TABLET 50 MG PO (07:55)
[2021-05-18] MEDS: Montelukast Sodium 10 MG TABLET PO (07:55)
[2021-05-18 07:56] VITALS: BP 140/88; PULSE 89
[2021-05-18] MEDS: Losartan Potassium 25 MG TABLET PO (07:56)
[2021-05-18] MEDS: Acetaminophen 325 MG TABLET 650 MG PO ×2 (11:22→17:12)
--- NOTE | 2021-05-18 12:55 | HO.PSYCHPN ---
Subjective Subjective Date of Service: 05/18/21 Reason For Visit: Psychosis Subjective Notes: Conditional Voluntary Healthcare Proxy: No Guardianship: No Medical Problems Affecting Mental Status: No Interim History: Pt reports he is feeling safe on the unit-sleeping better here with medications and has no SI/HI. Wrote a list of items he would like from his home-asked tw to call his home to relay the list. Spoke with Martine who will drop off pt's belongings. Pt denies med SE, reports he is eating and drinking well (was filling out his menu before we met). He is somewhat evasive, minimal eye contact with a guarded, suspicious presentation. Medication Compliance: Yes Side effects from medications: No Attending Groups: No Review of Systems Acute medical concerns: No Medical Review of Systems: unchanged Review of Systems Psychiatric: Reports anxiety, Reports auditory hallucinations, Reports mood swings, Reports paranoia and Reports suicidal ideation (denies) Mental Status Exam Mental Status Exam Patient Appearance: Appropriate Patient Orientation: Person and Place Level of Consciousness: Awake and Alert Patient Behavior: Appropriate, Guarded, Cooperative, Passive, Suspicious, Anxious, Fearful, Avoidant, Distractible, Isolative, Pacing and Poor Eye Contact Mood Description: Suspicious, Withdrawn, Anxious, Nervous and Apprehensive Affect Description: Constricted Patient Cognition Impaired: Yes Ability to Follow Directions: Good Speech Pattern: Difficulty Finding Words, Spontaneous Speech and Soft-Spoken Memory Description: Episodic Impaired Hallucinations: Auditory Delusions: Paranoid Ideation and Present Thought Process: Distracted Thought Content: positive for [place], positive for Circumstantial and positive for Suicidal Ideation (denies) Depressive Symptoms: Increased Anxiety and Difficulty Concentrating Judgement: Fair Diagnostics Vital Signs (24Hr): Vital Signs - 24 hr 05/17/21 19:55 05/17/21 20:02 05/18/21 06:00 Temperature 97.6 F 96 F L Pulse Rate 105 H 105 H 89 Respiratory Rate 16 Blood Pressure 129/73 129/73 140/88 H Pulse Oximetry 98 05/18/21 07:56 Temperature Pulse Rate 89 Respiratory Rate Blood Pressure 140/88 H Pulse Oximetry Body Mass Index 30.5 Labs Results: 05/13/21 17:01 05/13/21 17:01 EKG EKG: reviewed EKG Comment: WNL Medications Medications Current Medications Generic Name Dose Route Start Last Admin Trade Name Freq PRN Reason Stop Dose Admin Acetaminophen 650 mg 05/14/21 22:06 05/18/21 11:22 Acetaminophen 325 Mg Tablet PO 650 mg Q6H PRN Administration Headache/Pain Mild Scale (1-3) Al Hydroxide/Mg Hydroxide 30 ml 05/14/21 22:06 Magnesium Hydrox/Alum Hydrox 30 Ml Oral.Susp PO Q6H PRN Heartburn/Nausea Clozapine 300 mg 05/15/21 21:00 05/17/21 20:00 Clozapine 100 Mg Tablet PO 300 mg BEDTIME NORMA Administration Clozapine 50 mg 05/15/21 09:00 05/18/21 07:55 Clozapine 25 Mg Tablet PO 50 mg DAILY NORMA Administration Hydroxyzine HCl 25 mg 05/14/21 22:06 Hydroxyzine Hcl 25 Mg Tablet PO BEDTIME PRN Anxiety Lorazepam 2 mg 05/14/21 22:10 Lorazepam 1 Mg Tablet PO DAILY PRN agitation, anxiety Losartan Potassium 25 mg 05/15/21 09:00 05/18/21 07:56 Losartan Potassium 25 Mg Tablet PO 25 mg DAILY NORMA Administration Protocol Magnesium Hydroxide 30 ml 05/14/21 22:06 Milk Of Magnesia 30 Ml Oral.Susp PO DAILY PRN Constipation Mirtazapine 45 mg 05/17/21 21:00 05/17/21 20:00 Mirtazapine 15 Mg Tablet PO 45 mg BEDTIME NORMA Administration Montelukast Sodium 10 mg 05/15/21 09:00 05/18/21 07:55 Montelukast Sodium 10 Mg Tablet PO 10 mg DAILY NORMA Administration Nicotine Polacrilex 4 mg 05/17/21 14:54 Nicotine Polacrilex 2 Mg Gum BUCCAL Q2H PRN Nicotine Cravings Prazosin HCl 2 mg 05/15/21 21:00 05/17/21 20:02 Prazosin Hcl 1 Mg Capsule PO 2 mg BEDTIME NORMA Administration Protocol Psyllium Hydrophilic Mucilloid 3.4 gm 05/15/21 21:00 05/17/21 20:00 Psyllium Seed 3.4 Gm Powd.Pack PO 3.4 gm BEDTIME NORMA Administration Trazodone HCl 50 mg 05/14/21 22:06 Trazodone Hcl 50 Mg Tablet PO BEDTIME PRN Insomnia Ursodiol 600 mg 05/15/21 09:00 05/18/21 07:55 Ursodiol 300 Mg Capsule PO 600 mg TID NORMA Administration Allergies Allergies Allergy/AdvReac Type Severity Reaction Status Date / Time No Known Allergies Allergy Verified 05/13/21 14:00 Assessment & Plan Assessment & Plan (1) Suicidal ideation: Status: Acute Code(s): R45.851 - Suicidal ideations Assessment and Plan: Continue current medication regimen and plans (2) Schizoaffective disorder, bipolar type: Status: Acute Code(s): F25.0 - Schizoaffective disorder, bipolar type Assessment and Plan: Continue current regime Greater than 50% of the session was spent on counseling and/or coordination of care Patient educated on: medication risk/benefits and therapeutic strategies Informed Consent: further education needed Reason for contiued inpatient stay Substantial Risk for: harm to self, harm to others, inability to function and rapid decompensation
[2021-05-18 20:25] VITALS: BP 140/83; PULSE 82; TEMP 36.1
[2021-05-18] MEDS: Mirtazapine 15 MG TABLET 45 MG PO (20:29)
[2021-05-18] MEDS: cloZAPine 100 MG TABLET 300 MG PO (20:30)
[2021-05-18] MEDS: Prazosin HCL 1 MG CAPSULE 2 MG PO (20:30)
[2021-05-19 06:33] VITALS: BP 138/85; PULSE 104; RESP 18; O2SAT 96
[2021-05-19] MEDS: Acetaminophen 325 MG TABLET 650 MG PO ×2 (06:44→21:59)
[2021-05-19 08:29] LABS: Neut%MD 72.5 %; Neutrophils Absolute Auto 5.8 X10*3/uL (2.0-8.3)
[2021-05-19 09:01] LABS: Cholesterol 197 mg/dL; HDL Cholesterol 34 mg/dL; LDL Cholesterol Calculated 120 mg/dl; Triglycerides 218 mg/dL
[2021-05-19 09:17] VITALS: BP 135/77; PULSE 88
[2021-05-19] MEDS: cloZAPine 25 MG TABLET 50 MG PO (09:17)
[2021-05-19] MEDS: Montelukast Sodium 10 MG TABLET PO (09:17)
[2021-05-19] MEDS: UrsodioL 300 MG CAPSULE 600 MG PO ×3 (09:17→22:00)
[2021-05-19] MEDS: Losartan Potassium 25 MG TABLET PO (09:17)
[2021-05-19] MEDS: Nicotine 21 MG PATCH.TD24 TRANSDERMA (09:19)
[2021-05-19 09:20] LABS: Thyroid Stimulating Hormone 1.04 uIU/mL (0.32-4.0)
[2021-05-19 09:51] LABS: Folate 11.7 ng/mL (> or = 4.0); Vitamin B12 446 pg/mL (200-900)
[2021-05-19] MEDS: Milk of Magnesia 30 ML ORAL.SUSP PO (11:01)
[2021-05-19 11:17] LABS: Estimated Average Glucose 94 mg/dL; Hemoglobin A1c % 4.9 %
--- NOTE | 2021-05-19 12:28 | HO.PSYCHPN ---
Subjective Subjective Date of Service: 05/19/21 Reason For Visit: Psychosis Subjective Notes: Conditional Voluntary Healthcare Proxy: No Guardianship: No Medical Problems Affecting Mental Status: No Interim History: I feel good No, I don't need to talk-can I shave-I think I want to go to group. Pt appears calmer today with more social engagement focus. Tells team there are still perceptual alterations in the form of deamons. Ambivalent about medications-tells tw no changes are needed. Reports he is feeling safe on the unit. EKG, labs reviewed. No evidence of agitation. Medication Compliance: Yes Side effects from medications: No (denies current SE but resistant to changes he reports.) Attending Groups: Intermittent Review of Systems Acute medical concerns: No Medical Review of Systems: unchanged Mental Status Exam Mental Status Exam Patient Appearance: Appropriate Patient Orientation: Person, Place and Situation Level of Consciousness: Alert Patient Behavior: Appropriate, Guarded, Talkative, Cooperative, Suspicious, Anxious, Avoidant, Distractible, Isolative, Good Eye Contact and Pacing Mood Description: Flat Affect Description: Flat Patient Cognition Impaired: Yes Ability to Follow Directions: Good Speech Pattern: Clear, Appropriate, Spontaneous Speech, Soft-Spoken and Long Pauses Memory Description: Episodic Impaired Hallucinations: Auditory and Visual Delusions: Paranoid Ideation Thought Process: Distracted Thought Content: positive for [place], positive for Suicidal Ideation (denies) and positive for Homicidal Ideation (denies) Depressive Symptoms: Isolating-Friends/Family and Difficulty Concentrating Judgement: Fair Diagnostics Vital Signs (24Hr): Vital Signs - 24 hr 05/18/21 20:25 05/19/21 06:33 05/19/21 09:17 Temperature 97.0 F Pulse Rate 82 104 H 88 Respiratory Rate 18 Blood Pressure 140/83 H 138/85 135/77 Pulse Oximetry 96 Body Mass Index 30.5 Labs Results: 05/13/21 17:01 05/13/21 17:01 Labs: Laboratory Results - last 48 hr 05/19/21 05/19/21 05/19/21 08:00 08:00 08:00 Absolute Neuts (auto) Estimat Average Glucose 94 Hemoglobin A1c % 4.9 Triglycerides 218 Cholesterol 197 LDL Cholesterol, Calc 120 HDL Cholesterol 34 Vitamin B12 446 Folate 11.7 TSH 1.04 05/19/21 08:00 Absolute Neuts (auto) 5.8 Estimat Average Glucose Hemoglobin A1c % Triglycerides Cholesterol LDL Cholesterol, Calc HDL Cholesterol Vitamin B12 Folate TSH Medications Medications Current Medications Generic Name Dose Route Start Last Admin Trade Name Freq PRN Reason Stop Dose Admin Acetaminophen 650 mg 05/14/21 22:06 05/19/21 06:44 Acetaminophen 325 Mg Tablet PO 650 mg Q6H PRN Administration Headache/Pain Mild Scale (1-3) Al Hydroxide/Mg Hydroxide 30 ml 05/14/21 22:06 Magnesium Hydrox/Alum Hydrox 30 Ml Oral.Susp PO Q6H PRN Heartburn/Nausea Clozapine 300 mg 05/15/21 21:00 05/18/21 20:30 Clozapine 100 Mg Tablet PO 300 mg BEDTIME NORMA Administration Clozapine 50 mg 05/15/21 09:00 05/19/21 09:17 Clozapine 25 Mg Tablet PO 50 mg DAILY NORMA Administration Hydroxyzine HCl 25 mg 05/14/21 22:06 Hydroxyzine Hcl 25 Mg Tablet PO BEDTIME PRN Anxiety Lorazepam 2 mg 05/14/21 22:10 Lorazepam 1 Mg Tablet PO DAILY PRN agitation, anxiety Losartan Potassium 25 mg 05/15/21 09:00 05/19/21 09:17 Losartan Potassium 25 Mg Tablet PO 25 mg DAILY NORMA Administration Protocol Magnesium Hydroxide 30 ml 05/14/21 22:06 05/19/21 11:01 Milk Of Magnesia 30 Ml Oral.Susp PO 30 ml DAILY PRN Administration Constipation Mirtazapine 45 mg 05/17/21 21:00 05/18/21 20:29 Mirtazapine 15 Mg Tablet PO 45 mg BEDTIME NORMA Administration Montelukast Sodium 10 mg 05/15/21 09:00 05/19/21 09:17 Montelukast Sodium 10 Mg Tablet PO 10 mg DAILY NORMA Administration Nicotine 21 mg 05/18/21 15:30 05/19/21 09:19 Nicotine 21 Mg Patch.Td24 TRANSDERMA 21 mg DAILY NORMA Administration Nicotine Polacrilex 4 mg 05/17/21 14:54 Nicotine Polacrilex 2 Mg Gum BUCCAL Q2H PRN Nicotine Cravings Prazosin HCl 2 mg 05/15/21 21:00 05/18/21 20:30 Prazosin Hcl 1 Mg Capsule PO 2 mg BEDTIME NORMA Administration Protocol Psyllium Hydrophilic Mucilloid 3.4 gm 05/15/21 21:00 05/18/21 20:30 Psyllium Seed 3.4 Gm Powd.Pack PO 3.4 gm BEDTIME NORMA Administration Trazodone HCl 50 mg 05/14/21 22:06 Trazodone Hcl 50 Mg Tablet PO BEDTIME PRN Insomnia Ursodiol 600 mg 05/15/21 09:00 05/19/21 09:17 Ursodiol 300 Mg Capsule PO 600 mg TID NORMA Administration Allergies Allergies Allergy/AdvReac Type Severity Reaction Status Date / Time No Known Allergies Allergy Verified 05/13/21 14:00 Assessment & Plan Assessment & Plan (1) Schizoaffective disorder, bipolar type: Status: Acute Code(s): F25.0 - Schizoaffective disorder, bipolar type Assessment and Plan: Continue current regime. Discussed with pt briefly adding another medication to assist with improved symptom managment. He declines today but will consider. Greater than 50% of the session was spent on counseling and/or coordination of care Reason for contiued inpatient stay Substantial Risk for: harm to self, harm to others, inability to function and rapid decompensation
[2021-05-19 17:47] VITALS: BP 118/72; PULSE 109; RESP 18; TEMP 36
[2021-05-19 21:59] VITALS: BP 126/91; PULSE 103
[2021-05-19] MEDS: Prazosin HCL 1 MG CAPSULE 2 MG PO (21:59)
[2021-05-19] MEDS: cloZAPine 100 MG TABLET 300 MG PO (22:00)
[2021-05-19] MEDS: Mirtazapine 15 MG TABLET 45 MG PO (22:00)
[2021-05-20 06:50] VITALS: BP 117/63; PULSE 93; TEMP 36.6; O2SAT 98
[2021-05-20 07:00] VITALS: BMI 32.1
[2021-05-20] MEDS: Nicotine 21 MG PATCH.TD24 TRANSDERMA (09:20)
[2021-05-20] MEDS: cloZAPine 25 MG TABLET 50 MG PO (09:21)
[2021-05-20] MEDS: Montelukast Sodium 10 MG TABLET PO (09:22)
[2021-05-20] MEDS: UrsodioL 300 MG CAPSULE 600 MG PO ×3 (09:23→21:52)
[2021-05-20 09:24] VITALS: BP 138/76; PULSE 101
[2021-05-20] MEDS: Losartan Potassium 25 MG TABLET PO (09:24)
[2021-05-20 09:26] LABS: Estimated Average Glucose 97 mg/dL
[2021-05-20] MEDS: Acetaminophen 325 MG TABLET 650 MG PO ×2 (10:21→19:34)
[2021-05-20 17:15] VITALS: BP 134/72; PULSE 105; RESP 18; TEMP 36.4; O2SAT 94
[2021-05-20] MEDS: LORazepam 1 MG TABLET 2 MG PO (19:35)
--- NOTE | 2021-05-20 19:42 | P.PNPSI_ITS ---
Subjective Subjective Date of Service: 05/20/21 Reason For Visit: Psychosis Subjective Notes: Conditional Voluntary Healthcare Proxy: No Guardianship: No Medical Problems Affecting Mental Status: No Interim History: Alexis reports he is feeling well. He believes his medications are effective, denies perceptual alterations, SI, HI. Reports he is safe on the unit. Team reports some observation of response to internal stimuli, however pt denies when asked. Medication Compliance: Yes Side effects from medications: No Attending Groups: No Review of Systems Acute medical concerns: No Medical Review of Systems: unchanged Review of Systems Reports behavioral changes Psychiatric: Reports behavioral changes, Reports auditory hallucinations, Reports mood swings, Reports paranoia and Reports suicidal ideation (denies SI, plan or intent) Mental Status Exam Mental Status Exam Patient Appearance: Appropriate Patient Orientation: Person, Place and Situation Level of Consciousness: Alert Patient Behavior: Guarded, Talkative, Suspicious and Poor Eye Contact Mood Description: Suspicious and Withdrawn Affect Description: Suspicious and Withdrawn Patient Cognition Impaired: No Ability to Follow Directions: Good Speech Pattern: Spontaneous Speech and Soft-Spoken Memory Description: Episodic Impaired Hallucinations: Auditory Delusions: Paranoid Ideation Thought Process: Distracted Thought Content: positive for [place] Depressive Symptoms: Increased Irritability Judgement: Fair Diagnostics Vital Signs (24Hr): Vital Signs - 24 hr 05/19/21 21:59 05/20/21 06:50 05/20/21 09:24 Temperature 97.8 F Pulse Rate 103 H 93 101 H Respiratory Rate Blood Pressure 126/91 H 117/63 138/76 Pulse Oximetry 98 05/20/21 17:15 Temperature 97.5 F Pulse Rate 105 H Respiratory Rate 18 Blood Pressure 134/72 Pulse Oximetry 94 Body Mass Index 32.1 Labs Results: 05/13/21 17:01 05/13/21 17:01 Labs: Laboratory Results - last 48 hr 05/19/21 05/19/21 05/19/21 08:00 08:00 08:00 Absolute Neuts (auto) Estimat Average Glucose 94 Hemoglobin A1c % 4.9 Triglycerides 218 Cholesterol 197 LDL Cholesterol, Calc 120 HDL Cholesterol 34 Vitamin B12 446 Folate 11.7 TSH 1.04 05/19/21 05/20/21 08:00 08:08 Absolute Neuts (auto) 5.8 Estimat Average Glucose 97 Hemoglobin A1c % 5.0 Triglycerides Cholesterol LDL Cholesterol, Calc HDL Cholesterol Vitamin B12 Folate TSH Medications Medications Current Medications Generic Name Dose Route Start Last Admin Trade Name Freq PRN Reason Stop Dose Admin Acetaminophen 650 mg 05/14/21 22:06 05/20/21 19:34 Acetaminophen 325 Mg Tablet PO 650 mg Q6H PRN Administration Headache/Pain Mild Scale (1-3) Al Hydroxide/Mg Hydroxide 30 ml 05/14/21 22:06 Magnesium Hydrox/Alum Hydrox 30 Ml Oral.Susp PO Q6H PRN Heartburn/Nausea Clozapine 300 mg 05/15/21 21:00 05/19/21 22:00 Clozapine 100 Mg Tablet PO 300 mg BEDTIME NORMA Administration Clozapine 50 mg 05/15/21 09:00 05/20/21 09:21 Clozapine 25 Mg Tablet PO 50 mg DAILY NORMA Administration Hydroxyzine HCl 25 mg 05/14/21 22:06 Hydroxyzine Hcl 25 Mg Tablet PO BEDTIME PRN Anxiety Lorazepam 2 mg 05/14/21 22:10 05/20/21 19:35 Lorazepam 1 Mg Tablet PO 2 mg DAILY PRN Administration agitation, anxiety Losartan Potassium 25 mg 05/15/21 09:00 05/20/21 09:24 Losartan Potassium 25 Mg Tablet PO 25 mg DAILY NORMA Administration Protocol Magnesium Hydroxide 30 ml 05/14/21 22:06 05/19/21 11:01 Milk Of Magnesia 30 Ml Oral.Susp PO 30 ml DAILY PRN Administration Constipation Mirtazapine 45 mg 05/17/21 21:00 05/19/21 22:00 Mirtazapine 15 Mg Tablet PO 45 mg BEDTIME NORMA Administration Montelukast Sodium 10 mg 05/15/21 09:00 05/20/21 09:22 Montelukast Sodium 10 Mg Tablet PO 10 mg DAILY NORMA Administration Nicotine 21 mg 05/18/21 15:30 05/20/21 09:20 Nicotine 21 Mg Patch.Td24 TRANSDERMA 21 mg DAILY NORMA Administration Nicotine Polacrilex 4 mg 05/17/21 14:54 Nicotine Polacrilex 2 Mg Gum BUCCAL Q2H PRN Nicotine Cravings Prazosin HCl 2 mg 05/15/21 21:00 05/19/21 21:59 Prazosin Hcl 1 Mg Capsule PO 2 mg BEDTIME NORMA Administration Protocol Psyllium Hydrophilic Mucilloid 3.4 gm 05/15/21 21:00 05/19/21 22:00 Psyllium Seed 3.4 Gm Powd.Pack PO 3.4 gm BEDTIME NORMA Administration Trazodone HCl 50 mg 05/14/21 22:06 Trazodone Hcl 50 Mg Tablet PO BEDTIME PRN Insomnia Ursodiol 600 mg 05/15/21 09:00 05/20/21 14:42 Ursodiol 300 Mg Capsule PO 600 mg TID NORMA Administration Allergies Allergies Allergy/AdvReac Type Severity Reaction Status Date / Time No Known Allergies Allergy Verified 05/13/21 14:00 Assessment & Plan Assessment & Plan (1) Schizoaffective disorder, bipolar type: Status: Acute Code(s): F25.0 - Schizoaffective disorder, bipolar type Assessment and Plan: Continue current regime. Greater than 50% of the session was spent on counseling and/or coordination of care Reason for contiued inpatient stay Substantial Risk for: harm to self, harm to others, inability to function and rapid decompensation
[2021-05-20] MEDS: traZODone HCL 50 MG TABLET PO (21:52)
[2021-05-20] MEDS: cloZAPine 100 MG TABLET 300 MG PO (21:52)
[2021-05-20 21:53] VITALS: BP 143/78; PULSE 99
[2021-05-20] MEDS: Mirtazapine 15 MG TABLET 45 MG PO (21:53)
[2021-05-20] MEDS: Prazosin HCL 1 MG CAPSULE 2 MG PO (21:53)
[2021-05-21] MEDS: Nicotine 21 MG PATCH.TD24 TRANSDERMA (08:48)
[2021-05-21] MEDS: UrsodioL 300 MG CAPSULE 600 MG PO ×3 (08:49→20:51)
[2021-05-21] MEDS: Montelukast Sodium 10 MG TABLET PO (08:50)
[2021-05-21] MEDS: cloZAPine 25 MG TABLET 50 MG PO (08:50)
[2021-05-21 08:51] VITALS: BP 133/70; PULSE 92
[2021-05-21] MEDS: Losartan Potassium 25 MG TABLET PO (08:51)
[2021-05-21] MEDS: Acetaminophen 325 MG TABLET 650 MG PO ×3 (08:52→20:51)
[2021-05-21] MEDS: Milk of Magnesia 30 ML ORAL.SUSP PO (11:20)
[2021-05-21 14:51] VITALS: BMI 32.1
--- NOTE | 2021-05-21 15:35 | HO.PSYCHPN ---
Subjective Subjective Date of Service: 05/21/21 Reason For Visit: Psychosis Subjective Notes: Conditional Voluntary Healthcare Proxy: No Guardianship: No Medical Problems Affecting Mental Status: No Interim History: Team reports an increase in anxiety and isolation with environmental stimuli. They also report he asked them this a.m. what his name was. Pt seen in his room-he was folding laundry, states he is well, appears anxious and isolative-denies SI,HI. Denies internal stimuli. Is alert, oriented to person, place and time. Appears anxious. Declines Clozapine increase. Medication Compliance: No Side effects from medications: No Attending Groups: Intermittent Review of Systems Acute medical concerns: No Medical Review of Systems: unchanged Review of Systems Reports behavioral changes Psychiatric: Reports anxiety, Reports behavioral changes, Reports difficulty concentrating, Reports paranoia, Reports homicidal ideation (denies) and Reports suicidal ideation (denies) Mental Status Exam Mental Status Exam Patient Appearance: Appropriate Patient Orientation: Person, Place and Situation Level of Consciousness: Alert Patient Behavior: Guarded, Talkative, Suspicious and Poor Eye Contact Mood Description: Suspicious and Withdrawn Affect Description: Suspicious and Withdrawn Patient Cognition Impaired: No Ability to Follow Directions: Good Speech Pattern: Spontaneous Speech and Soft-Spoken Memory Description: Episodic Impaired Hallucinations: Auditory Delusions: Paranoid Ideation Thought Process: Distracted Thought Content: positive for [place] Depressive Symptoms: Increased Irritability Judgement: Fair Diagnostics Vital Signs (24Hr): Vital Signs - 24 hr 05/20/21 17:15 05/20/21 21:53 05/21/21 08:51 Temperature 97.5 F Pulse Rate 105 H 99 92 Respiratory Rate 18 Blood Pressure 134/72 143/78 H 133/70 Pulse Oximetry 94 Body Mass Index 32.1 Labs Results: 05/13/21 17:01 05/13/21 17:01 Labs: Laboratory Results - last 48 hr 05/20/21 08:08 Estimat Average Glucose 97 Hemoglobin A1c % 5.0 Medications Medications Current Medications Generic Name Dose Route Start Last Admin Trade Name Freq PRN Reason Stop Dose Admin Acetaminophen 650 mg 05/14/21 22:06 05/21/21 15:10 Acetaminophen 325 Mg Tablet PO 650 mg Q6H PRN Administration Headache/Pain Mild Scale (1-3) Al Hydroxide/Mg Hydroxide 30 ml 05/14/21 22:06 Magnesium Hydrox/Alum Hydrox 30 Ml Oral.Susp PO Q6H PRN Heartburn/Nausea Clozapine 300 mg 05/15/21 21:00 05/20/21 21:52 Clozapine 100 Mg Tablet PO 300 mg BEDTIME NORMA Administration Clozapine 50 mg 05/15/21 09:00 05/21/21 08:50 Clozapine 25 Mg Tablet PO 50 mg DAILY NORMA Administration Hydroxyzine HCl 25 mg 05/14/21 22:06 Hydroxyzine Hcl 25 Mg Tablet PO BEDTIME PRN Anxiety Lamotrigine 25 mg 05/21/21 21:00 Lamotrigine 25 Mg Tablet PO BEDTIME NORMA Lorazepam 2 mg 05/14/21 22:10 05/20/21 19:35 Lorazepam 1 Mg Tablet PO 2 mg DAILY PRN Administration agitation, anxiety Losartan Potassium 25 mg 05/15/21 09:00 05/21/21 08:51 Losartan Potassium 25 Mg Tablet PO 25 mg DAILY NORMA Administration Protocol Magnesium Hydroxide 30 ml 05/14/21 22:06 05/21/21 11:20 Milk Of Magnesia 30 Ml Oral.Susp PO 30 ml DAILY PRN Administration Constipation Mirtazapine 45 mg 05/17/21 21:00 05/20/21 21:53 Mirtazapine 15 Mg Tablet PO 45 mg BEDTIME NORMA Administration Montelukast Sodium 10 mg 05/15/21 09:00 05/21/21 08:50 Montelukast Sodium 10 Mg Tablet PO 10 mg DAILY NORMA Administration Nicotine 21 mg 05/18/21 15:30 05/21/21 08:48 Nicotine 21 Mg Patch.Td24 TRANSDERMA 21 mg DAILY NORMA Administration Nicotine Polacrilex 4 mg 05/17/21 14:54 Nicotine Polacrilex 2 Mg Gum BUCCAL Q2H PRN Nicotine Cravings Prazosin HCl 2 mg 05/15/21 21:00 05/20/21 21:53 Prazosin Hcl 1 Mg Capsule PO 2 mg BEDTIME NORMA Administration Protocol Psyllium Hydrophilic Mucilloid 3.4 gm 05/15/21 21:00 05/20/21 21:52 Psyllium Seed 3.4 Gm Powd.Pack PO 3.4 gm BEDTIME NORMA Administration Trazodone HCl 50 mg 05/14/21 22:06 05/20/21 21:52 Trazodone Hcl 50 Mg Tablet PO 50 mg BEDTIME PRN Administration Insomnia Ursodiol 600 mg 05/15/21 09:00 05/21/21 15:08 Ursodiol 300 Mg Capsule PO 600 mg TID NORMA Administration Allergies Allergies Allergy/AdvReac Type Severity Reaction Status Date / Time No Known Allergies Allergy Verified 05/13/21 14:00 Assessment & Plan Assessment & Plan (1) Schizoaffective disorder, bipolar type: Status: Acute Code(s): F25.0 - Schizoaffective disorder, bipolar type Assessment and Plan: Continue current regime. Lamictal 25 mg HS to assist with mood, anxiety mgt. Greater than 50% of the session was spent on counseling and/or coordination of care Patient educated on: medication risk/benefits Informed Consent: further education needed Reason for contiued inpatient stay Substantial Risk for: harm to self, harm to others, inability to function and rapid decompensation
[2021-05-21 18:00] VITALS: BP 146/70; PULSE 110; TEMP 36.4
[2021-05-21 20:50] VITALS: BP 146/70; PULSE 113
[2021-05-21] MEDS: Prazosin HCL 1 MG CAPSULE 2 MG PO (20:50)
[2021-05-21] MEDS: cloZAPine 100 MG TABLET 300 MG PO (20:50)
[2021-05-21] MEDS: lamoTRIgine 25 MG TABLET PO (20:51)
[2021-05-21] MEDS: Mirtazapine 15 MG TABLET 45 MG PO (20:51)
[2021-05-21] MEDS: hydrOXYzine HCL 25 MG TABLET PO (21:34)
[2021-05-22] MEDS: cloZAPine 25 MG TABLET 50 MG PO (08:55)
[2021-05-22 08:56] VITALS: BP 121/84; PULSE 95
[2021-05-22] MEDS: Montelukast Sodium 10 MG TABLET PO (08:56)
[2021-05-22] MEDS: Losartan Potassium 25 MG TABLET PO (08:56)
[2021-05-22] MEDS: UrsodioL 300 MG CAPSULE 600 MG PO ×3 (08:57→20:23)
[2021-05-22] MEDS: Nicotine 21 MG PATCH.TD24 TRANSDERMA (08:58)
[2021-05-22] MEDS: Acetaminophen 325 MG TABLET 650 MG PO (13:23)
[2021-05-22 16:57] VITALS: BP 139/71; PULSE 102; RESP 16; TEMP 36.6; O2SAT 98
[2021-05-22] MEDS: Mirtazapine 15 MG TABLET 45 MG PO (20:22)
[2021-05-22 20:23] VITALS: BP 140/78; PULSE 102
[2021-05-22] MEDS: Prazosin HCL 1 MG CAPSULE 2 MG PO (20:23)
[2021-05-22] MEDS: lamoTRIgine 25 MG TABLET PO (20:23)
[2021-05-22] MEDS: cloZAPine 100 MG TABLET 300 MG PO (20:24)
--- NOTE | 2021-05-22 21:03 | PM.PSYDC ---
DS: Providers Provider Date of admission: 05/14/21 20:49 Primary care physician: HAYES MURRAY MD Consults: 05/13/21 15:24 Consult to Crisis Stat Reason for consultation: SUSHMA GLORIA 05/13/21 22:16 Consult to Psychiatry Stat Consulting Provider: Laz Lopez Reason for consultation: med review clozaril DS: Diagnosis Discharge Diagnosis (1) Schizoaffective disorder, bipolar type: Status: Acute DS: Medications Discharge Medications Home Medications: Home Medications Medication Instructions Recorded Confirmed acetaminophen 325 mg tablet (Mapap 650 mg PO Q6H PRN 05/13/21 05/13/21 (acetaminophen)) clozapine 100 mg tablet 3 tab PO BEDTIME 05/13/21 05/13/21 clozapine 25 mg tablet 2 tab PO QAM 05/13/21 05/13/21 lorazepam 2 mg tablet 2 mg PO Q6H 05/13/21 05/13/21 losartan 25 mg tablet 1 tab PO QAM 05/13/21 05/13/21 mirtazapine 30 mg tablet 1 tab PO BEDTIME 05/13/21 05/13/21 montelukast 10 mg tablet 1 tab PO DAILY 05/13/21 05/13/21 prazosin 2 mg capsule 1 cap PO BEDTIME 05/13/21 05/13/21 psyllium 1 packet PO BEDTIME 05/13/21 05/13/21 ursodiol 250 mg tablet 2 tab PO TID 05/13/21 05/13/21 Data Data Completed and Pending Completed studies during hospitalization [Text1]: 05/19/21 05/19/21 05/19/21 08:00 08:00 08:00 Absolute Neuts (auto) Estimat Average Glucose 94 Hemoglobin A1c % 4.9 Triglycerides 218 Cholesterol 197 LDL Cholesterol, Calc 120 HDL Cholesterol 34 Vitamin B12 446 Folate 11.7 TSH 1.04 05/19/21 05/20/21 08:00 08:08 Absolute Neuts (auto) 5.8 Estimat Average Glucose 97 Hemoglobin A1c % 5.0 Triglycerides Cholesterol LDL Cholesterol, Calc HDL Cholesterol Vitamin B12 Folate TSH DS: Summary Time Spent with Patient Time attestation: Total time spent providing and/or coordinating discharge services: Discharge Plan Discharge Referrals: Hayes Murray [Primary Care Provider] - 1 Week Discharge Medications: No Action acetaminophen [Mapap (acetaminophen)] 325 mg Tablet 650 mg PO Q6H PRN (Reason: Pain) RF: 0 clozapine 100 mg tablet 3 tab PO BEDTIME RF: 0 Metamucil Packet 1 packet PO BEDTIME RF: 0 lorazepam 2 mg tablet 2 mg PO Q6H RF: 0 mirtazapine 30 mg tablet 1 tab PO BEDTIME RF: 0 ursodiol 250 mg tablet 2 tab PO TID RF: 0 losartan 25 mg tablet 1 tab PO QAM RF: 0 montelukast 10 mg tablet 1 tab PO DAILY RF: 0 clozapine 25 mg tablet 2 tab PO QAM RF: 0 prazosin 2 mg capsule 1 cap PO BEDTIME RF: 0
--- NOTE | 2021-05-22 21:05 | HO.PSYCHPN ---
Subjective Subjective Date of Service: 05/22/21 Reason For Visit: Psychosis Subjective Notes: Conditional Voluntary Medical Problems Affecting Mental Status: No Medication Compliance: Yes Side effects from medications: No Review of Systems Acute medical concerns: No Review of Systems Review of Systems no change Yes all other systems are reviewed and are negative Mental Status Exam Mental Status Exam Patient Appearance: Disheveled Level of Consciousness: Awake Patient Behavior: Appropriate, Guarded and Suspicious Mood Description: Suspicious, Anxious and Apprehensive Affect Description: Suspicious Ability to Follow Directions: Fair Speech Pattern: Spontaneous Speech Thought Process: Distracted Thought Content: positive for Preoccupation and positive for Disorganized Judgement: Fair Diagnostics Vital Signs (24Hr): Vital Signs - 24 hr 05/22/21 08:56 05/22/21 16:57 05/22/21 20:23 Temperature 97.9 F Pulse Rate 95 102 H 102 H Respiratory Rate 16 Blood Pressure 121/84 139/71 140/78 H Pulse Oximetry 98 Body Mass Index 32.1 Labs Results: 05/13/21 17:01 05/13/21 17:01 Medications Medications Current Medications Generic Name Dose Route Start Last Admin Trade Name Freq PRN Reason Stop Dose Admin Acetaminophen 650 mg 05/14/21 22:06 05/22/21 13:23 Acetaminophen 325 Mg Tablet PO 650 mg Q6H PRN Administration Headache/Pain Mild Scale (1-3) Al Hydroxide/Mg Hydroxide 30 ml 05/14/21 22:06 Magnesium Hydrox/Alum Hydrox 30 Ml Oral.Susp PO Q6H PRN Heartburn/Nausea Clozapine 300 mg 05/15/21 21:00 05/22/21 20:24 Clozapine 100 Mg Tablet PO 300 mg BEDTIME NORMA Administration Clozapine 50 mg 05/15/21 09:00 05/22/21 08:55 Clozapine 25 Mg Tablet PO 50 mg DAILY NORMA Administration Hydroxyzine HCl 25 mg 05/14/21 22:06 05/21/21 21:34 Hydroxyzine Hcl 25 Mg Tablet PO 25 mg BEDTIME PRN Administration Anxiety Lamotrigine 25 mg 05/21/21 21:00 05/22/21 20:23 Lamotrigine 25 Mg Tablet PO 25 mg BEDTIME NORMA Administration Lorazepam 2 mg 05/14/21 22:10 05/20/21 19:35 Lorazepam 1 Mg Tablet PO 2 mg DAILY PRN Administration agitation, anxiety Losartan Potassium 25 mg 05/15/21 09:00 05/22/21 08:56 Losartan Potassium 25 Mg Tablet PO 25 mg DAILY NORMA Administration Protocol Magnesium Hydroxide 30 ml 05/14/21 22:06 05/21/21 11:20 Milk Of Magnesia 30 Ml Oral.Susp PO 30 ml DAILY PRN Administration Constipation Mirtazapine 45 mg 05/17/21 21:00 05/22/21 20:22 Mirtazapine 15 Mg Tablet PO 45 mg BEDTIME NORMA Administration Montelukast Sodium 10 mg 05/15/21 09:00 05/22/21 08:56 Montelukast Sodium 10 Mg Tablet PO 10 mg DAILY NORMA Administration Nicotine 21 mg 05/18/21 15:30 05/22/21 08:58 Nicotine 21 Mg Patch.Td24 TRANSDERMA 21 mg DAILY NORMA Administration Nicotine Polacrilex 4 mg 05/17/21 14:54 Nicotine Polacrilex 2 Mg Gum BUCCAL Q2H PRN Nicotine Cravings Prazosin HCl 2 mg 05/15/21 21:00 05/22/21 20:23 Prazosin Hcl 1 Mg Capsule PO 2 mg BEDTIME NORMA Administration Protocol Psyllium Hydrophilic Mucilloid 3.4 gm 05/15/21 21:00 05/22/21 20:24 Psyllium Seed 3.4 Gm Powd.Pack PO 3.4 gm BEDTIME NORMA Administration Trazodone HCl 50 mg 05/14/21 22:06 05/20/21 21:52 Trazodone Hcl 50 Mg Tablet PO 50 mg BEDTIME PRN Administration Insomnia Ursodiol 600 mg 05/15/21 09:00 05/22/21 20:23 Ursodiol 300 Mg Capsule PO 600 mg TID NORMA Administration Allergies Allergies Allergy/AdvReac Type Severity Reaction Status Date / Time No Known Allergies Allergy Verified 05/13/21 14:00 Assessment & Plan Assessment & Plan (1) Schizoaffective disorder, bipolar type: Status: Acute Code(s): F25.0 - Schizoaffective disorder, bipolar type Assessment and Plan: Continue plan below: Continue current regime. Lamictal 25 mg HS to assist with mood, anxiety mgt. Greater than 50% of the session was spent on counseling and/or coordination of care Reason for contiued inpatient stay Substantial Risk for: harm to self, inability to function and med/psych decompensation
--- NOTE | 2021-05-22 21:09 | PC.NURSE ---
Pt put in a 3-Day Notice on Tuesday 05/22 up on Saturday 05/26.
--- NOTE | 2021-05-22 23:38 | PC.NURSE ---
Pt signed a 3-day notice 05/22, up on 05/26.
[2021-05-23 06:00] VITALS: BP 138/88; PULSE 88; TEMP 36.2; O2SAT 100
[2021-05-23 08:31] VITALS: BP 144/82; PULSE 100
[2021-05-23] MEDS: cloZAPine 25 MG TABLET 50 MG PO (08:31)
[2021-05-23] MEDS: Losartan Potassium 25 MG TABLET PO (08:31)
[2021-05-23] MEDS: Montelukast Sodium 10 MG TABLET PO (08:32)
[2021-05-23] MEDS: UrsodioL 300 MG CAPSULE 600 MG PO ×3 (08:32→20:33)
[2021-05-23] MEDS: Nicotine 21 MG PATCH.TD24 TRANSDERMA (08:33)
--- NOTE | 2021-05-23 11:07 | HO.PSYCHPN ---
Subjective Subjective Date of Service: 05/23/21 Reason For Visit: Psychosis Subjective Notes: 3 Day Medical Problems Affecting Mental Status: No Interim History: quiet, withdrawn, denies complaints, focused on going home Medication Compliance: Yes Side effects from medications: No Attending Groups: Intermittent Review of Systems Acute medical concerns: No Medical Review of Systems: unchanged Review of Systems Review of Systems unchanged Yes all other systems are reviewed and are negative Reports behavioral changes Psychiatric: Reports anxiety, Reports behavioral changes, Reports difficulty concentrating, Reports auditory hallucinations, Reports mood swings, Reports paranoia, Reports homicidal ideation (denies) and Reports suicidal ideation (denies) Mental Status Exam Mental Status Exam Patient Appearance: Disheveled Patient Orientation: Person, Place and Situation Level of Consciousness: Awake Patient Behavior: Appropriate, Guarded and Suspicious Mood Description: Suspicious, Anxious and Apprehensive Affect Description: Suspicious and Withdrawn Patient Cognition Impaired: No Ability to Follow Directions: Fair Speech Pattern: Spontaneous Speech Memory Description: Episodic Impaired Judgement: Fair Diagnostics Vital Signs (24Hr): Vital Signs - 24 hr 05/22/21 16:57 05/22/21 20:23 05/23/21 06:00 Temperature 97.9 F 97.1 F Pulse Rate 102 H 102 H 88 Respiratory Rate 16 Blood Pressure 139/71 140/78 H 138/88 Pulse Oximetry 98 100 05/23/21 08:31 Temperature Pulse Rate 100 Respiratory Rate Blood Pressure 144/82 H Pulse Oximetry Body Mass Index 32.1 Labs Results: 05/13/21 17:01 05/13/21 17:01 Medications Medications Current Medications Generic Name Dose Route Start Last Admin Trade Name Freq PRN Reason Stop Dose Admin Acetaminophen 650 mg 05/14/21 22:06 05/22/21 13:23 Acetaminophen 325 Mg Tablet PO 650 mg Q6H PRN Administration Headache/Pain Mild Scale (1-3) Al Hydroxide/Mg Hydroxide 30 ml 05/14/21 22:06 Magnesium Hydrox/Alum Hydrox 30 Ml Oral.Susp PO Q6H PRN Heartburn/Nausea Clozapine 300 mg 05/15/21 21:00 05/22/21 20:24 Clozapine 100 Mg Tablet PO 300 mg BEDTIME NORMA Administration Clozapine 50 mg 05/15/21 09:00 05/23/21 08:31 Clozapine 25 Mg Tablet PO 50 mg DAILY NORMA Administration Hydroxyzine HCl 25 mg 05/14/21 22:06 05/21/21 21:34 Hydroxyzine Hcl 25 Mg Tablet PO 25 mg BEDTIME PRN Administration Anxiety Lamotrigine 25 mg 05/21/21 21:00 05/22/21 20:23 Lamotrigine 25 Mg Tablet PO 25 mg BEDTIME NORMA Administration Lorazepam 2 mg 05/14/21 22:10 05/20/21 19:35 Lorazepam 1 Mg Tablet PO 2 mg DAILY PRN Administration agitation, anxiety Losartan Potassium 25 mg 05/15/21 09:00 05/23/21 08:31 Losartan Potassium 25 Mg Tablet PO 25 mg DAILY NORMA Administration Protocol Magnesium Hydroxide 30 ml 05/14/21 22:06 05/21/21 11:20 Milk Of Magnesia 30 Ml Oral.Susp PO 30 ml DAILY PRN Administration Constipation Mirtazapine 45 mg 05/17/21 21:00 05/22/21 20:22 Mirtazapine 15 Mg Tablet PO 45 mg BEDTIME NORMA Administration Montelukast Sodium 10 mg 05/15/21 09:00 05/23/21 08:32 Montelukast Sodium 10 Mg Tablet PO 10 mg DAILY NORMA Administration Nicotine 21 mg 05/18/21 15:30 05/23/21 08:33 Nicotine 21 Mg Patch.Td24 TRANSDERMA 21 mg DAILY NORMA Administration Nicotine Polacrilex 4 mg 05/17/21 14:54 Nicotine Polacrilex 2 Mg Gum BUCCAL Q2H PRN Nicotine Cravings Prazosin HCl 2 mg 05/15/21 21:00 05/22/21 20:23 Prazosin Hcl 1 Mg Capsule PO 2 mg BEDTIME NORMA Administration Protocol Psyllium Hydrophilic Mucilloid 3.4 gm 05/15/21 21:00 05/22/21 20:24 Psyllium Seed 3.4 Gm Powd.Pack PO 3.4 gm BEDTIME NORMA Administration Trazodone HCl 50 mg 05/14/21 22:06 05/20/21 21:52 Trazodone Hcl 50 Mg Tablet PO 50 mg BEDTIME PRN Administration Insomnia Ursodiol 600 mg 05/15/21 09:00 05/23/21 08:32 Ursodiol 300 Mg Capsule PO 600 mg TID NORMA Administration Allergies Allergies Allergy/AdvReac Type Severity Reaction Status Date / Time No Known Allergies Allergy Verified 05/13/21 14:00 Assessment & Plan Assessment & Plan (1) Schizoaffective disorder, bipolar type: Status: Acute Code(s): F25.0 - Schizoaffective disorder, bipolar type Assessment and Plan: Continue plan below: Continue current regime. Lamictal 25 mg HS to assist with mood, anxiety mgt. Greater than 50% of the session was spent on counseling and/or coordination of care Reason for contiued inpatient stay Substantial Risk for: harm to self, inability to function and rapid decompensation
[2021-05-23] MEDS: Nicotine Polacrilex 2 MG GUM 4 MG BUCCAL (14:40)
[2021-05-23 20:15] VITALS: BP 132/69; PULSE 97; TEMP 36.9
[2021-05-23 20:32] VITALS: BP 132/69; PULSE 97
[2021-05-23] MEDS: Mirtazapine 15 MG TABLET 45 MG PO (20:32)
[2021-05-23] MEDS: Prazosin HCL 1 MG CAPSULE 2 MG PO (20:32)
[2021-05-23] MEDS: cloZAPine 100 MG TABLET 300 MG PO (20:33)
[2021-05-23] MEDS: lamoTRIgine 25 MG TABLET PO (20:34)
[2021-05-24 06:00] VITALS: BP 135/85; PULSE 93; RESP 16; TEMP 36.4; O2SAT 93
[2021-05-24] MEDS: Nicotine 21 MG PATCH.TD24 TRANSDERMA (08:27)
[2021-05-24] MEDS: Losartan Potassium 25 MG TABLET PO (08:28)
[2021-05-24] MEDS: Montelukast Sodium 10 MG TABLET PO (08:28)
[2021-05-24] MEDS: cloZAPine 25 MG TABLET 50 MG PO (08:28)
[2021-05-24] MEDS: UrsodioL 300 MG CAPSULE 600 MG PO ×3 (08:28→20:45)
[2021-05-24] MEDS: Acetaminophen 325 MG TABLET 650 MG PO ×2 (08:39→18:15)
--- NOTE | 2021-05-24 12:26 | HO.PSYCHPN ---
Subjective Subjective Date of Service: 05/24/21 Reason For Visit: Psychosis Subjective Notes: Conditional Voluntary Healthcare Proxy: No Guardianship: No Medical Problems Affecting Mental Status: No Interim History: Pt continues to report he is well, not in need of medication changes and is ready for discharge. He has signed a three day notice of intent. 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 Team reports pt is not sleeping well and is up staring for parts of the night. Mother visited. Medication Compliance: Yes Side effects from medications: No Attending Groups: Yes Review of Systems Acute medical concerns: No Medical Review of Systems: unchanged Review of Systems Psychiatric: Reports abnormal sleep pattern, Reports anxiety, Reports auditory hallucinations and Reports paranoia Mental Status Exam Mental Status Exam Patient Appearance: Appropriate Patient Orientation: Person and Place Level of Consciousness: Alert Patient Behavior: Guarded, Talkative, Cooperative, Suspicious, Avoidant and Poor Eye Contact Mood Description: Suspicious, Withdrawn and Constricted Affect Description: Suspicious, Withdrawn and Constricted Patient Cognition Impaired: Yes Ability to Follow Directions: Good Speech Pattern: Spontaneous Speech Memory Description: Remote Impaired and Episodic Impaired Hallucinations: Auditory Delusions: Paranoid Ideation Thought Process: Distracted and Goal Oriented Thought Content: positive for Goal Oriented and positive for Thought Blocking Depressive Symptoms: Insomnia, Difficulty Sleeping and Difficulty Concentrating Abnormal Motor Activity Signs and Symptoms: Restlessness Judgement: Fair Diagnostics Vital Signs (24Hr): Vital Signs - 24 hr 05/23/21 20:15 05/23/21 20:32 05/24/21 06:00 Temperature 98.5 F 97.6 F Pulse Rate 97 97 93 Respiratory Rate 16 Blood Pressure 132/69 132/69 135/85 Pulse Oximetry 93 Body Mass Index 32.1 Labs Results: 05/13/21 17:01 05/13/21 17:01 Medications Medications Current Medications Generic Name Dose Route Start Last Admin Trade Name Freq PRN Reason Stop Dose Admin Acetaminophen 650 mg 05/14/21 22:06 05/24/21 08:39 Acetaminophen 325 Mg Tablet PO 650 mg Q6H PRN Administration Headache/Pain Mild Scale (1-3) Al Hydroxide/Mg Hydroxide 30 ml 05/14/21 22:06 Magnesium Hydrox/Alum Hydrox 30 Ml Oral.Susp PO Q6H PRN Heartburn/Nausea Clozapine 300 mg 05/15/21 21:00 05/23/21 20:33 Clozapine 100 Mg Tablet PO 300 mg BEDTIME NORMA Administration Clozapine 50 mg 05/15/21 09:00 05/24/21 08:28 Clozapine 25 Mg Tablet PO 50 mg DAILY NORMA Administration Hydroxyzine HCl 25 mg 05/14/21 22:06 05/21/21 21:34 Hydroxyzine Hcl 25 Mg Tablet PO 25 mg BEDTIME PRN Administration Anxiety Lamotrigine 25 mg 05/21/21 21:00 05/23/21 20:34 Lamotrigine 25 Mg Tablet PO 25 mg BEDTIME NORMA Administration Lorazepam 2 mg 05/14/21 22:10 05/20/21 19:35 Lorazepam 1 Mg Tablet PO 2 mg DAILY PRN Administration agitation, anxiety Losartan Potassium 25 mg 05/15/21 09:00 05/24/21 08:28 Losartan Potassium 25 Mg Tablet PO 25 mg DAILY NORMA Administration Protocol Magnesium Hydroxide 30 ml 05/14/21 22:06 05/21/21 11:20 Milk Of Magnesia 30 Ml Oral.Susp PO 30 ml DAILY PRN Administration Constipation Mirtazapine 45 mg 05/17/21 21:00 05/23/21 20:32 Mirtazapine 15 Mg Tablet PO 45 mg BEDTIME NORMA Administration Montelukast Sodium 10 mg 05/15/21 09:00 05/24/21 08:28 Montelukast Sodium 10 Mg Tablet PO 10 mg DAILY NORMA Administration Nicotine 21 mg 05/18/21 15:30 05/24/21 08:27 Nicotine 21 Mg Patch.Td24 TRANSDERMA 21 mg DAILY NORMA Administration Nicotine Polacrilex 4 mg 05/17/21 14:54 05/23/21 14:40 Nicotine Polacrilex 2 Mg Gum BUCCAL 4 mg Q2H PRN Administration Nicotine Cravings Prazosin HCl 2 mg 05/15/21 21:00 05/23/21 20:32 Prazosin Hcl 1 Mg Capsule PO 2 mg BEDTIME NORMA Administration Protocol Psyllium Hydrophilic Mucilloid 3.4 gm 05/15/21 21:00 05/23/21 20:34 Psyllium Seed 3.4 Gm Powd.Pack PO 3.4 gm BEDTIME NORMA Administration Trazodone HCl 50 mg 05/14/21 22:06 05/20/21 21:52 Trazodone Hcl 50 Mg Tablet PO 50 mg BEDTIME PRN Administration Insomnia Ursodiol 600 mg 05/15/21 09:00 05/24/21 08:28 Ursodiol 300 Mg Capsule PO 600 mg TID NORMA Administration Allergies Allergies Allergy/AdvReac Type Severity Reaction Status Date / Time No Known Allergies Allergy Verified 05/13/21 14:00 Assessment & Plan Assessment & Plan (1) Schizoaffective disorder, bipolar type: Status: Acute Code(s): F25.0 - Schizoaffective disorder, bipolar type Assessment and Plan: Continue current regime. Meeting 05/25/21 with pt, Naresh VELAZQUEZ, and pt's laboratory director, Martine, who has worked with him for several years. Greater than 50% of the session was spent on counseling and/or coordination of care Patient educated on: medication risk/benefits and therapeutic strategies Informed Consent: does not understand Reason for contiued inpatient stay Substantial Risk for: harm to self, harm to others, inability to function and rapid decompensation
[2021-05-24] MEDS: Nicotine Polacrilex 2 MG GUM 4 MG BUCCAL (12:38)
[2021-05-24 18:00] VITALS: BP 136/74; PULSE 103; RESP 16; TEMP 37.2; O2SAT 99
[2021-05-24] MEDS: Mirtazapine 15 MG TABLET 45 MG PO (20:44)
[2021-05-24] MEDS: cloZAPine 100 MG TABLET 300 MG PO (20:44)
[2021-05-24] MEDS: lamoTRIgine 25 MG TABLET PO (20:45)
[2021-05-24 20:48] VITALS: BP 136/74; PULSE 99
[2021-05-24] MEDS: Prazosin HCL 1 MG CAPSULE 2 MG PO (20:48)
[2021-05-25 06:00] VITALS: BP 139/77; PULSE 100; RESP 16; TEMP 36.1; O2SAT 99
[2021-05-25 08:19] LABS: Neut%MD 63.3 %; WBCANC 6.4 X10*3/uL
[2021-05-25 08:37] VITALS: BP 133/82; PULSE 102
[2021-05-25] MEDS: Losartan Potassium 25 MG TABLET PO (08:37)
[2021-05-25] MEDS: UrsodioL 300 MG CAPSULE 600 MG PO ×3 (08:37→20:26)
[2021-05-25] MEDS: cloZAPine 25 MG TABLET 50 MG PO (08:37)
[2021-05-25] MEDS: Montelukast Sodium 10 MG TABLET PO (08:37)
[2021-05-25] MEDS: Nicotine 21 MG PATCH.TD24 TRANSDERMA (08:38)
[2021-05-25] MEDS: Acetaminophen 325 MG TABLET 650 MG PO (14:10)
[2021-05-25 16:11] VITALS: BP 138/78; PULSE 109; TEMP 36.2; O2SAT 99
[2021-05-25] MEDS: cloZAPine 100 MG TABLET 350 MG PO (20:21)
[2021-05-25] MEDS: Mirtazapine 15 MG TABLET 45 MG PO (20:24)
[2021-05-25] MEDS: lamoTRIgine 25 MG TABLET PO (20:24)
[2021-05-25] MEDS: traZODone HCL 50 MG TABLET PO (20:25)
[2021-05-25 20:27] VITALS: BP 151/76; PULSE 101
[2021-05-25] MEDS: Prazosin HCL 1 MG CAPSULE 2 MG PO (20:27)
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
[2021-05-25 20:38] VITALS: BP 151/76; PULSE 101; O2SAT 99
[2021-05-26 06:00] VITALS: BP 147/66; PULSE 98; RESP 16; TEMP 36.1; O2SAT 98
[2021-05-26] MEDS: Nicotine 21 MG PATCH.TD24 TRANSDERMA (08:26)
[2021-05-26 08:27] VITALS: BP 145/68; PULSE 96
[2021-05-26] MEDS: cloZAPine 25 MG TABLET 50 MG PO (08:27)
[2021-05-26] MEDS: Acetaminophen 325 MG TABLET 650 MG PO ×2 (08:27→17:53)
[2021-05-26] MEDS: Losartan Potassium 25 MG TABLET PO (08:27)
[2021-05-26] MEDS: UrsodioL 300 MG CAPSULE 600 MG PO ×3 (08:27→20:44)
[2021-05-26] MEDS: Montelukast Sodium 10 MG TABLET PO (08:27)
[2021-05-26] MEDS: Nicotine Polacrilex 2 MG GUM 4 MG BUCCAL ×2 (08:38→14:38)
[2021-05-26 17:11] VITALS: BP 138/74; PULSE 111; RESP 18; TEMP 35.9; O2SAT 97
--- NOTE | 2021-05-26 17:53 | HO.PSYCHPN ---
Subjective Subjective Date of Service: 05/26/21 Reason For Visit: Psychosis Subjective Notes: Conditional Voluntary Healthcare Proxy: No Guardianship: Yes (Srinivas [facility]) Medical Problems Affecting Mental Status: No Interim History: Pt reports he was able to sleep last night. Remains isolative, staying in his room much of the time. Denies med SE from Clozaril increase at this time. Medication Compliance: Yes Side effects from medications: No Attending Groups: Intermittent Review of Systems Acute medical concerns: No Medical Review of Systems: unchanged Review of Systems Psychiatric: Reports anxiety, Reports depression, Reports auditory hallucinations, Reports anhedonia and Reports paranoia Mental Status Exam Mental Status Exam Patient Appearance: Appropriate Patient Orientation: Person, Place, Time and Situation Level of Consciousness: Alert Patient Behavior: Appropriate, Cooperative, Avoidant, Isolative and Good Eye Contact Mood Description: Suspicious and Withdrawn Affect Description: Suspicious and Withdrawn Patient Cognition Impaired: Yes Ability to Follow Directions: Good Speech Pattern: Spontaneous Speech and Long Pauses Memory Description: Episodic Impaired Hallucinations: Auditory Delusions: Paranoid Ideation Thought Process: Distracted Thought Content: positive for Perseveration and positive for Thought Blocking Judgement: Fair Diagnostics Vital Signs (24Hr): Vital Signs - 24 hr 05/25/21 20:27 05/25/21 20:38 05/26/21 06:00 Temperature 97 F Pulse Rate 101 H 101 H 98 Respiratory Rate 16 Blood Pressure 151/76 H 151/76 H 147/66 H Pulse Oximetry 99 98 05/26/21 08:27 05/26/21 17:11 Temperature 96.7 F L Pulse Rate 96 111 H Respiratory Rate 18 Blood Pressure 145/68 H 138/74 Pulse Oximetry 97 Body Mass Index 32.1 Labs Results: 05/13/21 17:01 05/13/21 17:01 Labs: Laboratory Results - last 48 hr 05/25/21 07:59 Absolute Neuts (auto) 4.0 Medications Medications Current Medications Generic Name Dose Route Start Last Admin Trade Name Freq PRN Reason Stop Dose Admin Acetaminophen 650 mg 05/14/21 22:06 05/26/21 17:53 Acetaminophen 325 Mg Tablet PO 650 mg Q6H PRN Administration Headache/Pain Mild Scale (1-3) Al Hydroxide/Mg Hydroxide 30 ml 05/14/21 22:06 Magnesium Hydrox/Alum Hydrox 30 Ml Oral.Susp PO Q6H PRN Heartburn/Nausea Clozapine 50 mg 05/15/21 09:00 05/26/21 08:27 Clozapine 25 Mg Tablet PO 50 mg DAILY NORMA Administration Clozapine 350 mg 05/25/21 21:00 05/25/21 20:21 Clozapine 100 Mg Tablet PO 350 mg BEDTIME NORMA Administration Hydroxyzine HCl 25 mg 05/14/21 22:06 05/21/21 21:34 Hydroxyzine Hcl 25 Mg Tablet PO 25 mg BEDTIME PRN Administration Anxiety Ibuprofen 600 mg 05/26/21 09:55 Ibuprofen 600 Mg Tablet PO Q8H PRN Pain, Mild (Pain Scale 1-3) Lamotrigine 25 mg 05/21/21 21:00 05/25/21 20:24 Lamotrigine 25 Mg Tablet PO 25 mg BEDTIME NORMA Administration Losartan Potassium 25 mg 05/15/21 09:00 05/26/21 08:27 Losartan Potassium 25 Mg Tablet PO 25 mg DAILY NORMA Administration Protocol Magnesium Hydroxide 30 ml 05/14/21 22:06 05/21/21 11:20 Milk Of Magnesia 30 Ml Oral.Susp PO 30 ml DAILY PRN Administration Constipation Mirtazapine 45 mg 05/17/21 21:00 05/25/21 20:24 Mirtazapine 15 Mg Tablet PO 45 mg BEDTIME NORMA Administration Montelukast Sodium 10 mg 05/15/21 09:00 05/26/21 08:27 Montelukast Sodium 10 Mg Tablet PO 10 mg DAILY NORMA Administration Nicotine 21 mg 05/18/21 15:30 05/26/21 08:26 Nicotine 21 Mg Patch.Td24 TRANSDERMA 21 mg DAILY NORMA Administration Nicotine Polacrilex 4 mg 05/17/21 14:54 05/26/21 14:38 Nicotine Polacrilex 2 Mg Gum BUCCAL 4 mg Q2H PRN Administration Nicotine Cravings Prazosin HCl 2 mg 05/15/21 21:00 05/25/21 20:27 Prazosin Hcl 1 Mg Capsule PO 2 mg BEDTIME NORMA Administration Protocol Psyllium Hydrophilic Mucilloid 3.4 gm 05/15/21 21:00 05/25/21 20:33 Psyllium Seed 3.4 Gm Powd.Pack PO 3.4 gm BEDTIME NORMA Administration Trazodone HCl 50 mg 05/25/21 21:00 05/25/21 20:25 Trazodone Hcl 50 Mg Tablet PO 50 mg BEDTIME NORMA Administration Ursodiol 600 mg 05/15/21 09:00 05/26/21 14:35 Ursodiol 300 Mg Capsule PO 600 mg TID NORMA Administration Allergies Allergies Allergy/AdvReac Type Severity Reaction Status Date / Time No Known Allergies Allergy Verified 05/13/21 14:00 Assessment & Plan Assessment & Plan (1) Schizoaffective disorder, bipolar type: Status: Acute Code(s): F25.0 - Schizoaffective disorder, bipolar type Assessment and Plan: Continue HS Clozaril 350 mg. Trazodone 50 mg HS scheduled. Possibly add Risperdal, Invega for improved sx mgt if Clozaril increase is not helpful. Greater than 50% of the session was spent on counseling and/or coordination of care Reason for contiued inpatient stay Substantial Risk for: harm to self, harm to others, inability to function and rapid decompensation
[2021-05-26] MEDS: Mirtazapine 15 MG TABLET 45 MG PO (20:42)
[2021-05-26] MEDS: cloZAPine 100 MG TABLET 350 MG PO (20:42)
[2021-05-26 20:44] VITALS: BP 146/71; PULSE 94
[2021-05-26] MEDS: lamoTRIgine 25 MG TABLET PO (20:44)
[2021-05-26] MEDS: Prazosin HCL 1 MG CAPSULE 2 MG PO (20:44)
[2021-05-26] MEDS: traZODone HCL 50 MG TABLET PO (20:53)
[2021-05-27 06:00] VITALS: BP 147/81; PULSE 85; RESP 16; TEMP 35.9; O2SAT 99
[2021-05-27] MEDS: Acetaminophen 325 MG TABLET 650 MG PO (08:21)
[2021-05-27] MEDS: UrsodioL 300 MG CAPSULE 600 MG PO ×3 (08:22→20:19)
[2021-05-27] MEDS: cloZAPine 25 MG TABLET 50 MG PO (08:22)
[2021-05-27] MEDS: Montelukast Sodium 10 MG TABLET PO (08:22)
[2021-05-27] MEDS: Losartan Potassium 25 MG TABLET PO (08:22)
[2021-05-27] MEDS: Nicotine 21 MG PATCH.TD24 TRANSDERMA (08:23)
[2021-05-27 08:28] VITALS: BP 141/86; PULSE 106
[2021-05-27 18:00] VITALS: BP 164/72; PULSE 110; TEMP 37
[2021-05-27 20:17] VITALS: BP 164/72; PULSE 110
[2021-05-27] MEDS: Prazosin HCL 1 MG CAPSULE 2 MG PO (20:17)
[2021-05-27] MEDS: lamoTRIgine 25 MG TABLET PO (20:17)
[2021-05-27] MEDS: Mirtazapine 15 MG TABLET 45 MG PO (20:19)
[2021-05-27] MEDS: cloZAPine 100 MG TABLET 350 MG PO (20:19)
[2021-05-27] MEDS: traZODone HCL 50 MG TABLET PO (20:19)
--- NOTE | 2021-05-27 21:29 | HO.PSYCHPN ---
Subjective Subjective Date of Service: 05/27/21 Reason For Visit: Psychosis Subjective Notes: Conditional Voluntary Healthcare Proxy: No Guardianship: Yes (david shrestha) Medical Problems Affecting Mental Status: No Interim History: Tolerating Clozaril increase. If no relief will augment with Risperdal on 05/28. Pt in agreement. He remains isolative. He does report voices happen off and on. He reports feeling safe on M5. He reports improved sleep quality. Medication Compliance: Yes Side effects from medications: No Attending Groups: No Review of Systems Acute medical concerns: No Medical Review of Systems: unchanged Review of Systems Reports behavioral changes Psychiatric: Reports abnormal sleep pattern, Reports behavioral changes, Reports difficulty concentrating, Reports auditory hallucinations, Reports hopelessness, Reports irritability, Reports paranoia, Reports visual hallucinations, Reports homicidal ideation (denies) and Reports suicidal ideation (denies) Mental Status Exam Mental Status Exam Patient Appearance: Appropriate Patient Orientation: Person, Place, Time and Situation Level of Consciousness: Alert Patient Behavior: Appropriate, Cooperative, Avoidant, Isolative and Good Eye Contact Mood Description: Suspicious and Withdrawn Affect Description: Suspicious and Withdrawn Patient Cognition Impaired: Yes Ability to Follow Directions: Good Speech Pattern: Spontaneous Speech and Long Pauses Memory Description: Episodic Impaired Hallucinations: Auditory Delusions: Paranoid Ideation Thought Process: Distracted Thought Content: positive for Per[place] and positive for Thought Blocking Judgement: Fair Diagnostics Vital Signs (24Hr): Vital Signs - 24 hr 05/27/21 06:00 05/27/21 08:28 05/27/21 18:00 Temperature 96.6 F L 98.6 F Pulse Rate 85 106 H 110 H Respiratory Rate 16 Blood Pressure 147/81 H 141/86 H 164/72 H Pulse Oximetry 99 05/27/21 20:17 Temperature Pulse Rate 110 H Respiratory Rate Blood Pressure 164/72 H Pulse Oximetry Body Mass Index 32.1 Labs Results: 05/13/21 17:01 05/13/21 17:01 Medications Medications Current Medications Generic Name Dose Route Start Last Admin Trade Name Freq PRN Reason Stop Dose Admin Acetaminophen 650 mg 05/14/21 22:06 05/27/21 08:21 Acetaminophen 325 Mg Tablet PO 650 mg Q6H PRN Administration Headache/Pain Mild Scale (1-3) Al Hydroxide/Mg Hydroxide 30 ml 05/14/21 22:06 Magnesium Hydrox/Alum Hydrox 30 Ml Oral.Susp PO Q6H PRN Heartburn/Nausea Clozapine 50 mg 05/15/21 09:00 05/27/21 08:22 Clozapine 25 Mg Tablet PO 50 mg DAILY NORMA Administration Clozapine 350 mg 05/25/21 21:00 05/27/21 20:19 Clozapine 100 Mg Tablet PO 350 mg BEDTIME NORMA Administration Hydroxyzine HCl 25 mg 05/14/21 22:06 05/21/21 21:34 Hydroxyzine Hcl 25 Mg Tablet PO 25 mg BEDTIME PRN Administration Anxiety Ibuprofen 600 mg 05/26/21 09:55 Ibuprofen 600 Mg Tablet PO Q8H PRN Pain, Mild (Pain Scale 1-3) Lamotrigine 25 mg 05/21/21 21:00 05/27/21 20:17 Lamotrigine 25 Mg Tablet PO 25 mg BEDTIME NORMA Administration Losartan Potassium 25 mg 05/15/21 09:00 05/27/21 08:22 Losartan Potassium 25 Mg Tablet PO 25 mg DAILY NORMA Administration Protocol Magnesium Hydroxide 30 ml 05/14/21 22:06 05/21/21 11:20 Milk Of Magnesia 30 Ml Oral.Susp PO 30 ml DAILY PRN Administration Constipation Mirtazapine 45 mg 05/17/21 21:00 05/27/21 20:19 Mirtazapine 15 Mg Tablet PO 45 mg BEDTIME NORMA Administration Montelukast Sodium 10 mg 05/15/21 09:00 05/27/21 08:22 Montelukast Sodium 10 Mg Tablet PO 10 mg DAILY NORMA Administration Nicotine 21 mg 05/18/21 15:30 05/27/21 08:23 Nicotine 21 Mg Patch.Td24 TRANSDERMA 21 mg DAILY NORMA Administration Nicotine Polacrilex 4 mg 05/17/21 14:54 05/26/21 14:38 Nicotine Polacrilex 2 Mg Gum BUCCAL 4 mg Q2H PRN Administration Nicotine Cravings Prazosin HCl 2 mg 05/15/21 21:00 05/27/21 20:17 Prazosin Hcl 1 Mg Capsule PO 2 mg BEDTIME NORMA Administration Protocol Psyllium Hydrophilic Mucilloid 3.4 gm 05/15/21 21:00 05/27/21 20:20 Psyllium Seed 3.4 Gm Powd.Pack PO 3.4 gm BEDTIME NORMA Administration Trazodone HCl 50 mg 05/25/21 21:00 05/27/21 20:19 Trazodone Hcl 50 Mg Tablet PO 50 mg BEDTIME NORMA Administration Ursodiol 600 mg 05/15/21 09:00 05/27/21 20:19 Ursodiol 300 Mg Capsule PO 600 mg TID NORMA Administration Allergies Allergies Allergy/AdvReac Type Severity Reaction Status Date / Time No Known Allergies Allergy Verified 05/13/21 14:00 Assessment & Plan Assessment & Plan (1) Schizoaffective disorder, bipolar type: Status: Acute Code(s): F25.0 - Schizoaffective disorder, bipolar type Assessment and Plan: Continue HS Clozaril 350 mg. Trazodone 50 mg HS scheduled. Possibly add Risperdal, Invega for improved sx mgt if Clozaril increase is not helpful. Greater than 50% of the session was spent on counseling and/or coordination of care Reason for contiued inpatient stay Substantial Risk for: harm to self, harm to others, inability to function and rapid decompensation
[2021-05-28] MEDS: Acetaminophen 325 MG TABLET 650 MG PO ×2 (05:37→19:11)
[2021-05-28] MEDS: Nicotine 21 MG PATCH.TD24 TRANSDERMA (08:19)
[2021-05-28 08:20] VITALS: BP 164/72; PULSE 110
[2021-05-28] MEDS: cloZAPine 25 MG TABLET 50 MG PO (08:20)
[2021-05-28] MEDS: Ibuprofen 600 MG TABLET PO (08:20)
[2021-05-28] MEDS: Montelukast Sodium 10 MG TABLET PO (08:20)
[2021-05-28] MEDS: UrsodioL 300 MG CAPSULE 600 MG PO ×3 (08:20→20:29)
[2021-05-28] MEDS: Losartan Potassium 25 MG TABLET PO (08:20)
[2021-05-28 18:00] VITALS: BP 137/80; PULSE 106; TEMP 37.1
--- NOTE | 2021-05-28 18:00 | HO.PSYCHPN ---
Subjective Subjective Date of Service: 05/29/21 Reason For Visit: Psychosis Subjective Notes: Conditional Voluntary Healthcare Proxy: No Guardianship: Yes (david shrestha) Medical Problems Affecting Mental Status: No Interim History: Alexis reports he is able to sleep longer, reports some decrease in auditory perceptual alterations and reports feeling hungry (eating a brownie when we met). He presents with an increased relaxed modality and it appears easier for him to respond to questions although perceptual alterations are still present. Reported headache but then reports it was because I was not eating enough food. Denies current headache Medication Compliance: Yes Side effects from medications: No Attending Groups: No Review of Systems Acute medical concerns: No Medical Review of Systems: unchanged Review of Systems Psychiatric: Reports abnormal sleep pattern (improving per his report), Reports anxiety, Reports depression, Reports auditory hallucinations, Reports paranoia and Reports suicidal ideation (denies) Mental Status Exam Mental Status Exam Patient Appearance: Appropriate Patient Orientation: Person, Place, Time and Situation Level of Consciousness: Alert Patient Behavior: Appropriate, Cooperative, Avoidant, Isolative and Good Eye Contact Mood Description: Suspicious and Withdrawn Affect Description: Suspicious and Withdrawn Patient Cognition Impaired: Yes Ability to Follow Directions: Good Speech Pattern: Spontaneous Speech and Long Pauses Memory Description: Episodic Impaired Hallucinations: Auditory Delusions: Paranoid Ideation Thought Process: Distracted Thought Content: positive for [place] and positive for Thought Blocking Judgement: Fair Diagnostics Vital Signs (24Hr): Vital Signs - 24 hr 05/27/21 20:17 05/28/21 08:20 Pulse Rate 110 H 110 H Blood Pressure 164/72 H 164/72 H Body Mass Index 32.1 Labs Results: 05/13/21 17:01 05/13/21 17:01 Medications Medications Current Medications Generic Name Dose Route Start Last Admin Trade Name Freq PRN Reason Stop Dose Admin Acetaminophen 650 mg 05/14/21 22:06 05/28/21 05:37 Acetaminophen 325 Mg Tablet PO 650 mg Q6H PRN Administration Headache/Pain Mild Scale (1-3) Al Hydroxide/Mg Hydroxide 30 ml 05/14/21 22:06 Magnesium Hydrox/Alum Hydrox 30 Ml Oral.Susp PO Q6H PRN Heartburn/Nausea Clozapine 50 mg 05/15/21 09:00 05/28/21 08:20 Clozapine 25 Mg Tablet PO 50 mg DAILY NORMA Administration Clozapine 350 mg 05/25/21 21:00 05/27/21 20:19 Clozapine 100 Mg Tablet PO 350 mg BEDTIME NORMA Administration Hydroxyzine HCl 25 mg 05/14/21 22:06 05/21/21 21:34 Hydroxyzine Hcl 25 Mg Tablet PO 25 mg BEDTIME PRN Administration Anxiety Ibuprofen 600 mg 05/26/21 09:55 05/28/21 08:20 Ibuprofen 600 Mg Tablet PO 600 mg Q8H PRN Administration Pain, Mild (Pain Scale 1-3) Lamotrigine 25 mg 05/21/21 21:00 05/27/21 20:17 Lamotrigine 25 Mg Tablet PO 25 mg BEDTIME NORMA Administration Losartan Potassium 25 mg 05/15/21 09:00 05/28/21 08:20 Losartan Potassium 25 Mg Tablet PO 25 mg DAILY NORMA Administration Protocol Magnesium Hydroxide 30 ml 05/14/21 22:06 05/21/21 11:20 Milk Of Magnesia 30 Ml Oral.Susp PO 30 ml DAILY PRN Administration Constipation Mirtazapine 45 mg 05/17/21 21:00 05/27/21 20:19 Mirtazapine 15 Mg Tablet PO 45 mg BEDTIME NORMA Administration Montelukast Sodium 10 mg 05/15/21 09:00 05/28/21 08:20 Montelukast Sodium 10 Mg Tablet PO 10 mg DAILY NORMA Administration Nicotine 21 mg 05/18/21 15:30 05/28/21 08:19 Nicotine 21 Mg Patch.Td24 TRANSDERMA 21 mg DAILY NORMA Administration Nicotine Polacrilex 4 mg 05/17/21 14:54 05/26/21 14:38 Nicotine Polacrilex 2 Mg Gum BUCCAL 4 mg Q2H PRN Administration Nicotine Cravings Prazosin HCl 2 mg 05/15/21 21:00 05/27/21 20:17 Prazosin Hcl 1 Mg Capsule PO 2 mg BEDTIME NORMA Administration Protocol Psyllium Hydrophilic Mucilloid 3.4 gm 05/15/21 21:00 05/27/21 20:20 Psyllium Seed 3.4 Gm Powd.Pack PO 3.4 gm BEDTIME NORMA Administration Trazodone HCl 50 mg 05/25/21 21:00 05/27/21 20:19 Trazodone Hcl 50 Mg Tablet PO 50 mg BEDTIME NORMA Administration Ursodiol 600 mg 05/15/21 09:00 05/28/21 14:37 Ursodiol 300 Mg Capsule PO 600 mg TID NORMA Administration Allergies Allergies Allergy/AdvReac Type Severity Reaction Status Date / Time No Known Allergies Allergy Verified 05/13/21 14:00 Assessment & Plan Assessment & Plan (1) Schizoaffective disorder, bipolar type: Status: Acute Code(s): F25.0 - Schizoaffective disorder, bipolar type Assessment and Plan: Continue HS Clozaril 350 mg. Trazodone 50 mg HS scheduled. Possibly add Risperdal, Invega for improved sx mgt if Clozaril increase is not helpful. Greater than 50% of the session was spent on counseling and/or coordination of care Reason for contiued inpatient stay Substantial Risk for: harm to self, harm to others, inability to function and rapid decompensation
[2021-05-28 20:27] VITALS: BP 137/80; PULSE 106
[2021-05-28] MEDS: Prazosin HCL 1 MG CAPSULE 2 MG PO (20:27)
[2021-05-28] MEDS: cloZAPine 100 MG TABLET 350 MG PO (20:28)
[2021-05-28] MEDS: traZODone HCL 50 MG TABLET PO (20:29)
[2021-05-28] MEDS: lamoTRIgine 25 MG TABLET PO (20:30)
[2021-05-28] MEDS: Mirtazapine 15 MG TABLET 45 MG PO (20:30)
[2021-05-29] MEDS: Acetaminophen 325 MG TABLET 650 MG PO ×2 (05:52→14:25)
[2021-05-29] MEDS: cloZAPine 25 MG TABLET 50 MG PO (08:17)
[2021-05-29] MEDS: Nicotine 21 MG PATCH.TD24 TRANSDERMA (08:17)
[2021-05-29] MEDS: Montelukast Sodium 10 MG TABLET PO (08:17)
[2021-05-29] MEDS: UrsodioL 300 MG CAPSULE 600 MG PO ×3 (08:18→20:53)
[2021-05-29] MEDS: Ibuprofen 600 MG TABLET PO ×2 (08:18→18:19)
[2021-05-29] MEDS: Losartan Potassium 25 MG TABLET PO (08:18)
[2021-05-29] MEDS: Nicotine Polacrilex 2 MG GUM 4 MG BUCCAL (08:27)
[2021-05-29 18:00] VITALS: BP 137/63; PULSE 104; TEMP 36.8
--- NOTE | 2021-05-29 20:16 | HO.PSYCHPN ---
Subjective Subjective Date of Service: 05/29/21 Reason For Visit: Psychosis Subjective Notes: Conditional Voluntary Healthcare Proxy: No Guardianship: Yes (david shrestha) Medical Problems Affecting Mental Status: No Interim History: Team reports Alexis is more visable in milieu with less time in his room. Pt reports a decrease in sx of perceptual alterations, internal stimuli. He appears more relaxed and less hesitant to engage. Medication Compliance: Yes Side effects from medications: No Attending Groups: Intermittent Review of Systems Acute medical concerns: No Medical Review of Systems: unchanged Review of Systems Psychiatric: Reports anxiety, Reports auditory hallucinations (decreased) and Reports visual hallucinations (decreased) Mental Status Exam Mental Status Exam Patient Appearance: Appropriate Patient Orientation: Person, Place and Situation Level of Consciousness: Alert Patient Behavior: Guarded and Good Eye Contact Mood Description: Constricted Affect Description: Constricted Patient Cognition Impaired: Yes Ability to Follow Directions: Good Speech Pattern: Spontaneous Speech Memory Description: Episodic Impaired Hallucinations: Auditory (decreased) and Visual (decreased) Delusions: Paranoid Ideation and Present (decreased) Thought Process: Distracted Thought Content: positive for [place] and positive for Thought Blocking Depressive Symptoms: Increased Anxiety Judgement: Poor Diagnostics Vital Signs (24Hr): Vital Signs - 24 hr 05/28/21 20:27 Pulse Rate 106 H Blood Pressure 137/80 Body Mass Index 32.1 Labs Results: 05/13/21 17:01 05/13/21 17:01 Medications Medications Current Medications Generic Name Dose Route Start Last Admin Trade Name Freq PRN Reason Stop Dose Admin Acetaminophen 650 mg 05/14/21 22:06 05/29/21 14:25 Acetaminophen 325 Mg Tablet PO 650 mg Q6H PRN Administration Headache/Pain Mild Scale (1-3) Al Hydroxide/Mg Hydroxide 30 ml 05/14/21 22:06 Magnesium Hydrox/Alum Hydrox 30 Ml Oral.Susp PO Q6H PRN Heartburn/Nausea Clozapine 50 mg 05/15/21 09:00 05/29/21 08:17 Clozapine 25 Mg Tablet PO 50 mg DAILY NORMA Administration Clozapine 350 mg 05/25/21 21:00 05/28/21 20:28 Clozapine 100 Mg Tablet PO 350 mg BEDTIME NORMA Administration Hydroxyzine HCl 25 mg 05/14/21 22:06 05/21/21 21:34 Hydroxyzine Hcl 25 Mg Tablet PO 25 mg BEDTIME PRN Administration Anxiety Ibuprofen 600 mg 05/26/21 09:55 05/29/21 18:19 Ibuprofen 600 Mg Tablet PO 600 mg Q8H PRN Administration Pain, Mild (Pain Scale 1-3) Lamotrigine 25 mg 05/21/21 21:00 05/28/21 20:30 Lamotrigine 25 Mg Tablet PO 25 mg BEDTIME NORMA Administration Losartan Potassium 25 mg 05/15/21 09:00 05/29/21 08:18 Losartan Potassium 25 Mg Tablet PO 25 mg DAILY NORMA Administration Protocol Magnesium Hydroxide 30 ml 05/14/21 22:06 05/21/21 11:20 Milk Of Magnesia 30 Ml Oral.Susp PO 30 ml DAILY PRN Administration Constipation Mirtazapine 45 mg 05/17/21 21:00 05/28/21 20:30 Mirtazapine 15 Mg Tablet PO 45 mg BEDTIME NORMA Administration Montelukast Sodium 10 mg 05/15/21 09:00 05/29/21 08:17 Montelukast Sodium 10 Mg Tablet PO 10 mg DAILY NORMA Administration Nicotine 21 mg 05/18/21 15:30 05/29/21 08:17 Nicotine 21 Mg Patch.Td24 TRANSDERMA 21 mg DAILY NORMA Administration Nicotine Polacrilex 4 mg 05/17/21 14:54 05/29/21 08:27 Nicotine Polacrilex 2 Mg Gum BUCCAL 4 mg Q2H PRN Administration Nicotine Cravings Prazosin HCl 2 mg 05/15/21 21:00 05/28/21 20:27 Prazosin Hcl 1 Mg Capsule PO 2 mg BEDTIME NORMA Administration Protocol Psyllium Hydrophilic Mucilloid 3.4 gm 05/15/21 21:00 05/28/21 20:30 Psyllium Seed 3.4 Gm Powd.Pack PO 3.4 gm BEDTIME NORMA Administration Trazodone HCl 50 mg 05/25/21 21:00 05/28/21 20:29 Trazodone Hcl 50 Mg Tablet PO 50 mg BEDTIME NORMA Administration Ursodiol 600 mg 05/15/21 09:00 05/29/21 14:25 Ursodiol 300 Mg Capsule PO 600 mg TID NORMA Administration Allergies Allergies Allergy/AdvReac Type Severity Reaction Status Date / Time No Known Allergies Allergy Verified 05/13/21 14:00 Assessment & Plan Assessment & Plan (1) Schizoaffective disorder, bipolar type: Status: Acute Code(s): F25.0 - Schizoaffective disorder, bipolar type Assessment and Plan: Continue HS Clozaril 350 mg. Some improvement noted. Trazodone 50 mg HS scheduled. Begin Risperdal 0.5 mg bid for augmentation. Greater than 50% of the session was spent on counseling and/or coordination of care Patient educated on: medication risk/benefits and therapeutic strategies Informed Consent: understands and further education needed Reason for contiued inpatient stay Substantial Risk for: harm to self, harm to others, inability to function and rapid decompensation
[2021-05-29 20:50] VITALS: BP 137/63; PULSE 104
[2021-05-29] MEDS: Prazosin HCL 1 MG CAPSULE 2 MG PO (20:50)
[2021-05-29] MEDS: lamoTRIgine 25 MG TABLET PO (20:53)
[2021-05-29] MEDS: Mirtazapine 15 MG TABLET 45 MG PO (20:53)
[2021-05-29] MEDS: traZODone HCL 50 MG TABLET PO (20:53)
[2021-05-29] MEDS: cloZAPine 100 MG TABLET 350 MG PO (20:54)
[2021-05-30 08:52] VITALS: BP 134/76; PULSE 104
[2021-05-30] MEDS: Nicotine 21 MG PATCH.TD24 TRANSDERMA (08:52)
[2021-05-30] MEDS: cloZAPine 25 MG TABLET 50 MG PO (08:52)
[2021-05-30] MEDS: Losartan Potassium 25 MG TABLET PO (08:52)
[2021-05-30] MEDS: UrsodioL 300 MG CAPSULE 600 MG PO ×3 (08:53→20:29)
[2021-05-30] MEDS: Acetaminophen 325 MG TABLET 650 MG PO ×2 (08:53→15:22)
[2021-05-30] MEDS: risperiDONE 0.5 MG TABLET PO ×2 (08:53→20:29)
[2021-05-30] MEDS: Montelukast Sodium 10 MG TABLET PO (08:53)
[2021-05-30] MEDS: Nicotine Polacrilex 2 MG GUM 4 MG BUCCAL ×2 (09:01→15:22)
[2021-05-30 18:00] VITALS: BP 152/71; PULSE 104; TEMP 36.6
--- NOTE | 2021-05-30 18:12 | P.PNPSI_ITS ---
Subjective Subjective Date of Service: 05/30/21 Reason For Visit: Psychosis Interim History: Some improvement noted. Initiates conversation, visable in milieu, more peer interaction. Denies med SE Medication Compliance: Yes Side effects from medications: No Attending Groups: Intermittent Review of Systems Acute medical concerns: No Medical Review of Systems: unchanged Review of Systems Psychiatric: Reports anxiety, Reports auditory hallucinations (decreased) and Reports visual hallucinations (decreased) Mental Status Exam Mental Status Exam Patient Appearance: Appropriate Patient Orientation: Person, Place and Situation Level of Consciousness: Alert Patient Behavior: Guarded and Good Eye Contact Mood Description: Constricted Affect Description: Constricted Patient Cognition Impaired: Yes Ability to Follow Directions: Good Speech Pattern: Spontaneous Speech Memory Description: Episodic Impaired Hallucinations: Auditory (decreased) and Visual (decreased) Delusions: Paranoid Ideation and Present (decreased) Thought Process: Distracted Thought Content: positive for [place] and positive for Thought Blocking Depressive Symptoms: Increased Anxiety Judgement: Poor Diagnostics Vital Signs (24Hr): Vital Signs - 24 hr 05/29/21 20:50 05/30/21 08:52 Pulse Rate 104 H 104 H Blood Pressure 137/63 134/76 Body Mass Index 32.1 Labs Results: 05/13/21 17:01 05/13/21 17:01 Medications Medications Current Medications Generic Name Dose Route Start Last Admin Trade Name Freq PRN Reason Stop Dose Admin Acetaminophen 650 mg 05/14/21 22:06 05/30/21 15:22 Acetaminophen 325 Mg Tablet PO 650 mg Q6H PRN Administration Headache/Pain Mild Scale (1-3) Al Hydroxide/Mg Hydroxide 30 ml 05/14/21 22:06 Magnesium Hydrox/Alum Hydrox 30 Ml Oral.Susp PO Q6H PRN Heartburn/Nausea Clozapine 50 mg 05/15/21 09:00 05/30/21 08:52 Clozapine 25 Mg Tablet PO 50 mg DAILY NORMA Administration Clozapine 350 mg 05/25/21 21:00 05/29/21 20:54 Clozapine 100 Mg Tablet PO 350 mg BEDTIME NORMA Administration Hydroxyzine HCl 25 mg 05/14/21 22:06 05/21/21 21:34 Hydroxyzine Hcl 25 Mg Tablet PO 25 mg BEDTIME PRN Administration Anxiety Ibuprofen 600 mg 05/26/21 09:55 05/29/21 18:19 Ibuprofen 600 Mg Tablet PO 600 mg Q8H PRN Administration Pain, Mild (Pain Scale 1-3) Lamotrigine 25 mg 05/21/21 21:00 05/29/21 20:53 Lamotrigine 25 Mg Tablet PO 25 mg BEDTIME NORMA Administration Losartan Potassium 25 mg 05/15/21 09:00 05/30/21 08:52 Losartan Potassium 25 Mg Tablet PO 25 mg DAILY NORMA Administration Protocol Magnesium Hydroxide 30 ml 05/14/21 22:06 05/21/21 11:20 Milk Of Magnesia 30 Ml Oral.Susp PO 30 ml DAILY PRN Administration Constipation Mirtazapine 45 mg 05/17/21 21:00 05/29/21 20:53 Mirtazapine 15 Mg Tablet PO 45 mg BEDTIME NORMA Administration Montelukast Sodium 10 mg 05/15/21 09:00 05/30/21 08:53 Montelukast Sodium 10 Mg Tablet PO 10 mg DAILY NORMA Administration Nicotine 21 mg 05/18/21 15:30 05/30/21 08:52 Nicotine 21 Mg Patch.Td24 TRANSDERMA 21 mg DAILY NORMA Administration Nicotine Polacrilex 4 mg 05/17/21 14:54 05/30/21 15:22 Nicotine Polacrilex 2 Mg Gum BUCCAL 4 mg Q2H PRN Administration Nicotine Cravings Prazosin HCl 2 mg 05/15/21 21:00 05/29/21 20:50 Prazosin Hcl 1 Mg Capsule PO 2 mg BEDTIME NORMA Administration Protocol Psyllium Hydrophilic Mucilloid 3.4 gm 05/15/21 21:00 05/29/21 20:51 Psyllium Seed 3.4 Gm Powd.Pack PO 3.4 gm BEDTIME NORMA Administration Risperidone 0.5 mg 05/30/21 09:00 05/30/21 08:53 Risperidone 0.5 Mg Tablet PO 0.5 mg BID NORMA Administration Trazodone HCl 50 mg 05/25/21 21:00 05/29/21 20:53 Trazodone Hcl 50 Mg Tablet PO 50 mg BEDTIME NORMA Administration Ursodiol 600 mg 05/15/21 09:00 05/30/21 14:47 Ursodiol 300 Mg Capsule PO 600 mg TID NORMA Administration Allergies Allergies Allergy/AdvReac Type Severity Reaction Status Date / Time No Known Allergies Allergy Verified 05/13/21 14:00 Assessment & Plan Assessment & Plan (1) Schizoaffective disorder, bipolar type: Status: Acute Code(s): F25.0 - Schizoaffective disorder, bipolar type Assessment and Plan: Continue HS Clozaril 350 mg. Some improvement noted. Trazodone 50 mg HS scheduled. Begin Risperdal 0.5 mg bid for augmentation. Greater than 50% of the session was spent on counseling and/or coordination of c are Informed Consent: understands Reason for contiued inpatient stay Substantial Risk for: harm to self, harm to others, inability to function and rapid decompensation
[2021-05-30] MEDS: Ibuprofen 600 MG TABLET PO (18:40)
[2021-05-30] MEDS: lamoTRIgine 25 MG TABLET PO (20:28)
[2021-05-30] MEDS: Mirtazapine 15 MG TABLET 45 MG PO (20:28)
[2021-05-30] MEDS: traZODone HCL 50 MG TABLET PO (20:29)
[2021-05-30] MEDS: cloZAPine 100 MG TABLET 350 MG PO (20:30)
[2021-05-30 20:31] VITALS: BP 152/71; PULSE 104
[2021-05-30] MEDS: Prazosin HCL 1 MG CAPSULE 2 MG PO (20:31)
[2021-05-31 06:00] VITALS: PULSE 96; RESP 16; TEMP 35.9; O2SAT 100
[2021-05-31] MEDS: cloZAPine 25 MG TABLET 50 MG PO (08:09)
[2021-05-31] MEDS: UrsodioL 300 MG CAPSULE 600 MG PO ×3 (08:09→20:11)
[2021-05-31] MEDS: Montelukast Sodium 10 MG TABLET PO (08:11)
[2021-05-31] MEDS: risperiDONE 0.5 MG TABLET PO ×2 (08:12→20:13)
[2021-05-31 08:16] VITALS: BP 150/80; PULSE 92
[2021-05-31] MEDS: Losartan Potassium 25 MG TABLET PO (08:16)
[2021-05-31] MEDS: Nicotine 21 MG PATCH.TD24 TRANSDERMA (08:18)
[2021-05-31] MEDS: hydroCHLOROthiazide 12.5 MG TABLET PO (11:12)
--- NOTE | 2021-05-31 14:22 | P.PNPSI_ITS ---
Subjective Subjective Date of Service: 05/31/21 Reason For Visit: Psychosis Subjective Notes: Conditional Voluntary Guardianship: Yes (Srinivas Forrester) Medical Problems Affecting Mental Status: Yes (Increase in BP) Interim History: Reports anxiety-identifies the cause as I don't want to have a room-mate Identifies 02/08. BP elevations since 05/30. Discussed low dose antihypertensive with pt who agrees. Discussed effects of anxiety on blood pressure. Team reports pt is attending groups, but is continuing to respond to internal stimuli. Pt reports feeling safe on the unit. Medication Compliance: Yes Side effects from medications: No Attending Groups: Intermittent Review of Systems Acute medical concerns: Yes HTN Medical Review of Systems: unchanged Review of Systems Cardiovascular: Reports other (HTN) Psychiatric: Reports anxiety, Reports auditory hallucinations, Reports anhedonia, Reports paranoia, Reports homicidal ideation (denies) and Reports randy cidal ideation (denies) Mental Status Exam Mental Status Exam Patient Appearance: Appropriate Patient Orientation: Person, Place, Time and Situation Level of Consciousness: Alert Patient Behavior: Talkative and Good Eye Contact Mood Description: Flat Affect Description: Flat Patient Cognition Impaired: Yes Ability to Follow Directions: Good Speech Pattern: Spontaneous Speech Memory Description: Episodic Impaired Hallucinations: Auditory Delusions: Paranoid Ideation Thought Process: Distracted Thought Content: positive for Circumstantial Depressive Symptoms: Increased Anxiety Judgement: Fair Diagnostics Vital Signs (24Hr): Vital Signs - 24 hr 05/30/21 18:00 05/30/21 20:31 05/31/21 06:00 Temperature 97.8 F 96.6 F L Pulse Rate 104 H 104 H 96 Respiratory Rate 16 Blood Pressure 152/71 H 152/71 H Pulse Oximetry 100 05/31/21 08:16 Temperature Pulse Rate 92 Respiratory Rate Blood Pressure 150/80 H Pulse Oximetry Body Mass Index 32.1 Labs Results: 06/01/21 08:04 05/13/21 17:01 Medications Medications Current Medications Generic Name Dose Route Start Last Admin Trade Name Freq PRN Reason Stop Dose Admin Acetaminophen 650 mg 05/14/21 22:06 05/30/21 15:22 Acetaminophen 325 Mg Tablet PO 650 mg Q6H PRN Administration Headache/Pain Mild Scale (1-3) Al Hydroxide/Mg Hydroxide 30 ml 05/14/21 22:06 Magnesium Hydrox/Alum Hydrox 30 Ml Oral.Susp PO Q6H PRN Heartburn/Nausea Clozapine 50 mg 05/15/21 09:00 05/31/21 08:09 Clozapine 25 Mg Tablet PO 50 mg DAILY NORMA Administration Clozapine 350 mg 05/25/21 21:00 05/30/21 20:30 Clozapine 100 Mg Tablet PO 350 mg BEDTIME NORMA Administration Hydrochlorothiazide 12.5 mg 05/31/21 09:15 05/31/21 11:12 Hydrochlorothiazide 12.5 Mg Tablet PO 12.5 mg DAILY NORMA Administration Protocol Hydroxyzine HCl 25 mg 05/14/21 22:06 05/21/21 21:34 Hydroxyzine Hcl 25 Mg Tablet PO 25 mg BEDTIME PRN Administration Anxiety Ibuprofen 600 mg 05/26/21 09:55 05/30/21 18:40 Ibuprofen 600 Mg Tablet PO 600 mg Q8H PRN Administration Pain, Mild (Pain Scale 1-3) Lamotrigine 25 mg 05/21/21 21:00 05/30/21 20:28 Lamotrigine 25 Mg Tablet PO 25 mg BEDTIME NORMA Administration Losartan Potassium 25 mg 05/15/21 09:00 05/31/21 08:16 Losartan Potassium 25 Mg Tablet PO 25 mg DAILY NORMA Administration Protocol Magnesium Hydroxide 30 ml 05/14/21 22:06 05/21/21 11:20 Milk Of Magnesia 30 Ml Oral.Susp PO 30 ml DAILY PRN Administration Constipation Mirtazapine 45 mg 05/17/21 21:00 05/30/21 20:28 Mirtazapine 15 Mg Tablet PO 45 mg BEDTIME NORMA Administration Montelukast Sodium 10 mg 05/15/21 09:00 05/31/21 08:11 Montelukast Sodium 10 Mg Tablet PO 10 mg DAILY NORMA Administration Nicotine 21 mg 05/18/21 15:30 05/31/21 08:18 Nicotine 21 Mg Patch.Td24 TRANSDERMA 21 mg DAILY NORMA Administration Nicotine Polacrilex 4 mg 05/17/21 14:54 05/30/21 15:22 Nicotine Polacrilex 2 Mg Gum BUCCAL 4 mg Q2H PRN Administration Nicotine Cravings Prazosin HCl 2 mg 05/15/21 21:00 05/30/21 20:31 Prazosin Hcl 1 Mg Capsule PO 2 mg BEDTIME NORMA Administration Protocol Psyllium Hydrophilic Mucilloid 3.4 gm 05/15/21 21:00 05/30/21 20:33 Psyllium Seed 3.4 Gm Powd.Pack PO 3.4 gm BEDTIME NORMA Administration Risperidone 0.5 mg 05/30/21 09:00 05/31/21 08:12 Risperidone 0.5 Mg Tablet PO 0.5 mg BID NORMA Administration Trazodone HCl 50 mg 05/25/21 21:00 05/30/21 20:29 Trazodone Hcl 50 Mg Tablet PO 50 mg BEDTIME NORMA Administration Ursodiol 600 mg 05/15/21 09:00 05/31/21 08:09 Ursodiol 300 Mg Capsule PO 600 mg TID NORMA Administration Allergies Allergies Allergy/AdvReac Type Severity Reaction Status Date / Time No Known Allergies Allergy Verified 05/13/21 14:00 Assessment & Plan Assessment & Plan (1) Schizoaffective disorder, bipolar type: Status: Acute Code(s): F25.0 - Schizoaffective disorder, bipolar type Assessment and Plan: Continue current regime HCTZ 12.5 mg daily Greater than 50% of the session was spent on counseling and/or coordination of care Patient educated on: medication risk/benefits and therapeutic strategies Informed Consent: further education needed Reason for contiued inpatient stay Substantial Risk for: harm to self, inability to function and rapid decompensation
[2021-05-31 17:35] VITALS: BP 143/86; PULSE 104; RESP 16; TEMP 36.7; O2SAT 96
[2021-05-31] MEDS: lamoTRIgine 25 MG TABLET PO (20:12)
[2021-05-31] MEDS: Mirtazapine 15 MG TABLET 45 MG PO (20:12)
[2021-05-31] MEDS: traZODone HCL 50 MG TABLET PO (20:13)
[2021-05-31] MEDS: cloZAPine 100 MG TABLET 350 MG PO (20:13)
[2021-05-31] MEDS: Nicotine Polacrilex 2 MG GUM 4 MG BUCCAL (20:14)
[2021-05-31] MEDS: Prazosin HCL 1 MG CAPSULE 2 MG PO (20:14)
[2021-05-31] MEDS: Acetaminophen 325 MG TABLET 650 MG PO (23:52)
[2021-06-01 06:00] VITALS: BP 142/70; PULSE 92; RESP 16; TEMP 36.1; O2SAT 98
[2021-06-01] MEDS: cloZAPine 25 MG TABLET 50 MG PO (08:20)
[2021-06-01 08:21] VITALS: BP 142/77; PULSE 95
[2021-06-01] MEDS: hydroCHLOROthiazide 12.5 MG TABLET PO (08:21)
[2021-06-01] MEDS: Losartan Potassium 25 MG TABLET PO (08:21)
[2021-06-01 08:22] LABS: MANUAL DIFF FLAG NO
[2021-06-01] MEDS: Montelukast Sodium 10 MG TABLET PO (08:22)
[2021-06-01] MEDS: risperiDONE 0.5 MG TABLET PO ×2 (08:23→20:00)
[2021-06-01] MEDS: UrsodioL 300 MG CAPSULE 600 MG PO ×3 (08:23→20:00)
[2021-06-01] MEDS: Nicotine 21 MG PATCH.TD24 TRANSDERMA (08:24)
[2021-06-01 08:30] LABS: Basophils Percent Auto 0.3 % (0-2); Hematocrit 44.2 % (42-52); Hemoglobin 14.2 g/dl (14.0-18.0); Imm Gran Abs Auto 0.07 X10*3/uL (0.00-0.03); Imm Gran Pct Auto 0.9 % (0.0-0.4); Lymphocytes Absolute Auto 1.7 X10*3/uL (1.2-4.9); Lymphocytes Percent Auto 21.4 % (20-40); Mean Corpuscular HGB Conc 32.1 g/dl (31.0-36.0); Mean Corpuscular Hemoglobin 26.8 pg (27.0-33.0); Mean Corpuscular Volume 83.6 fL (80-98); Monocytes Absolute Auto 0.5 X10*3/uL (0.1-1.2); Monocytes Percent Auto 6.8 % (2-11); Neutrophils Absolute Auto 5.5 X10*3/uL (2.0-8.3); Neutrophils Percent Auto 70.6 % (45-73); Platelet Count 277 X10*3/uL (160-400); Red Blood Count 5.29 X10*6/uL (4.60-5.80); White Blood Count 7.8 X10*3/uL (4.8-10.8)
[2021-06-01 16:06] VITALS: BP 149/70; PULSE 106; TEMP 36.6
--- NOTE | 2021-06-01 16:47 | P.PNPSI_ITS ---
Subjective Subjective Date of Service: 06/01/21 Reason For Visit: Psychosis Subjective Notes: Conditional Voluntary Healthcare Proxy: No Guardianship: Yes ([facility]) Medical Problems Affecting Mental Status: No Interim History: Requested to meet today. Reviewed his menu. Several questions regarding his treatment plan and what he should do to be considered ready for discharge. Discussed how he is feeling-difficult to have others in his room with him but I am going to try to be OK with this . Anxiety 01/09. Review of meds and purpose for use. Review of regime, care plan with his Ricardo's guardian as well. Medication Compliance: Yes Side effects from medications: No Attending Groups: Intermittent Review of Systems Acute medical concerns: No Medical Review of Systems: unchanged Review of Systems Psychiatric: Reports anxiety, Reports auditory hallucinations, Reports homicidal ideation (denies) and Reports suicidal ideation (denies) Mental Status Exam Mental Status Exam Patient Appearance: Appropriate Patient Orientation: Person, Place and Situation Level of Consciousness: Alert Patient Behavior: Appropriate and Talkative Mood Description: Calm Affect Description: Calm Patient Cognition Impaired: Yes Ability to Follow Directions: Good Speech Pattern: Spontaneous Speech Memory Description: Intact Hallucinations: Auditory Delusions: Paranoid Ideation Thought Process: Goal Oriented Thought Content: positive for [place], positive for Circumstantial and positive for Goal Oriented Judgement: Fair Diagnostics Vital Signs (24Hr): Vital Signs - 24 hr 05/31/21 17:35 06/01/21 06:00 06/01/21 08:21 Temperature 98.0 F 97 F Pulse Rate 104 H 92 95 Respiratory Rate 16 16 Blood Pressure 143/86 H 142/70 H 142/77 H Pulse Oximetry 96 98 06/01/21 16:06 Temperature 97.8 F Pulse Rate 106 H Respiratory Rate Blood Pressure 149/70 H Pulse Oximetry Body Mass Index 32.1 Labs Results: 06/01/21 08:04 05/13/21 17:01 Labs: Laboratory Results - last 48 hr 06/01/21 08:04 WBC 7.8 RBC 5.29 Hgb 14.2 Hct 44.2 MCV 83.6 MCH 26.8 L MCHC 32.1 RDW 14.0 Plt Count 277 MPV 10.0 Immature Gran % (Auto) 0.9 H Neut % (Auto) 70.6 Lymph % (Auto) 21.4 [place] % (Auto) 6.8 Eos % (Auto) 0.0 Baso % (Auto) 0.3 Lymph # (Auto) 1.7 [place] # (Auto) 0.5 Eos # (Auto) 0.0 Baso # (Auto) 0.0 Abs Immat Gran (auto) 0.07 H Absolute Neuts (auto) 5.5 Absolute Nucleated RBC 0.000 Nucleated RBC % (auto) 0.0 Medications Medications Current Medications Generic Name Dose Route Start Last Admin Trade Name Freq PRN Reason Stop Dose Admin Acetaminophen 650 mg 05/14/21 22:06 05/31/21 23:52 Acetaminophen 325 Mg Tablet PO 650 mg Q6H PRN Administration Headache/Pain Mild Scale (1-3) Al Hydroxide/Mg Hydroxide 30 ml 05/14/21 22:06 Magnesium Hydrox/Alum Hydrox 30 Ml Oral.Susp PO Q6H PRN Heartburn/Nausea Clozapine 50 mg 05/15/21 09:00 06/01/21 08:20 Clozapine 25 Mg Tablet PO 50 mg DAILY NORMA Administration Clozapine 350 mg 05/25/21 21:00 05/31/21 20:13 Clozapine 100 Mg Tablet PO 350 mg BEDTIME NORMA Administration Hydrochlorothiazide 12.5 mg 05/31/21 09:15 06/01/21 08:21 Hydrochlorothiazide 12.5 Mg Tablet PO 12.5 mg DAILY NORMA Administration Protocol Hydroxyzine HCl 25 mg 05/14/21 22:06 05/21/21 21:34 Hydroxyzine Hcl 25 Mg Tablet PO 25 mg BEDTIME PRN Administration Anxiety Ibuprofen 600 mg 05/26/21 09:55 05/30/21 18:40 Ibuprofen 600 Mg Tablet PO 600 mg Q8H PRN Administration Pain, Mild (Pain Scale 1-3) Lamotrigine 25 mg 05/21/21 21:00 05/31/21 20:12 Lamotrigine 25 Mg Tablet PO 25 mg BEDTIME NORMA Administration Losartan Potassium 25 mg 05/15/21 09:00 06/01/21 08:21 Losartan Potassium 25 Mg Tablet PO 25 mg DAILY NORMA Administration Protocol Magnesium Hydroxide 30 ml 05/14/21 22:06 05/21/21 11:20 Milk Of Magnesia 30 Ml Oral.Susp PO 30 ml DAILY PRN Administration Constipation Mirtazapine 45 mg 05/17/21 21:00 05/31/21 20:12 Mirtazapine 15 Mg Tablet PO 45 mg BEDTIME NORMA Administration Montelukast Sodium 10 mg 05/15/21 09:00 06/01/21 08:22 Montelukast Sodium 10 Mg Tablet PO 10 mg DAILY NORMA Administration Nicotine 21 mg 05/18/21 15:30 06/01/21 08:24 Nicotine 21 Mg Patch.Td24 TRANSDERMA 21 mg DAILY NORMA Administration Nicotine Polacrilex 4 mg 05/17/21 14:54 05/31/21 20:14 Nicotine Polacrilex 2 Mg Gum BUCCAL 4 mg Q2H PRN Administration Nicotine Cravings Prazosin HCl 2 mg 05/15/21 21:00 05/31/21 20:14 Prazosin Hcl 1 Mg Capsule PO 2 mg BEDTIME NORMA Administration Protocol Psyllium Hydrophilic Mucilloid 3.4 gm 05/15/21 21:00 05/31/21 20:15 Psyllium Seed 3.4 Gm Powd.Pack PO 3.4 gm BEDTIME NORMA Administration Risperidone 0.5 mg 05/30/21 09:00 06/01/21 08:23 Risperidone 0.5 Mg Tablet PO 0.5 mg BID NORMA Administration Trazodone HCl 50 mg 05/25/21 21:00 05/31/21 20:13 Trazodone Hcl 50 Mg Tablet PO 50 mg BEDTIME NORMA Administration Ursodiol 600 mg 05/15/21 09:00 06/01/21 14:06 Ursodiol 300 Mg Capsule PO 600 mg TID NORMA Administration Allergies Allergies Allergy/AdvReac Type Severity Reaction Status Date / Time No Known Allergies Allergy Verified 05/13/21 14:00 Assessment & Plan Assessment & Plan (1) Schizoaffective disorder, bipolar type: Status: Acute Code(s): F25.0 - Schizoaffective disorder, bipolar type Assessment and Plan: Continue HS Clozaril 350 mg. Some improvement noted. Trazodone 50 mg HS scheduled. Begin Risperdal 0.5 mg bid for augmentation. Greater than 50% of the session was spent on counseling and/or coordination of care Reason for contiued inpatient stay Substantial Risk for: harm to self, harm to others, inability to function and rapid decompensation
[2021-06-01 19:45] VITALS: BP 128/77; PULSE 107
[2021-06-01] MEDS: cloZAPine 100 MG TABLET 350 MG PO (20:00)
[2021-06-01 20:01] VITALS: BP 128/77; PULSE 107
[2021-06-01] MEDS: lamoTRIgine 25 MG TABLET PO (20:01)
[2021-06-01] MEDS: Prazosin HCL 1 MG CAPSULE 2 MG PO (20:01)
[2021-06-01] MEDS: Mirtazapine 15 MG TABLET 45 MG PO (20:01)
[2021-06-02 06:00] VITALS: BP 163/87; PULSE 101; RESP 16; TEMP 36.2; O2SAT 98
[2021-06-02] MEDS: Nicotine Polacrilex 2 MG GUM 4 MG BUCCAL ×2 (06:35→18:47)
[2021-06-02] MEDS: Nicotine 21 MG PATCH.TD24 TRANSDERMA (08:07)
[2021-06-02] MEDS: UrsodioL 300 MG CAPSULE 600 MG PO ×3 (08:07→20:25)
[2021-06-02] MEDS: cloZAPine 25 MG TABLET 50 MG PO (08:07)
[2021-06-02 08:08] VITALS: BP 141/82; PULSE 104
[2021-06-02] MEDS: Losartan Potassium 25 MG TABLET PO (08:08)
[2021-06-02] MEDS: Montelukast Sodium 10 MG TABLET PO (08:08)
[2021-06-02] MEDS: hydroCHLOROthiazide 12.5 MG TABLET PO (08:08)
[2021-06-02] MEDS: risperiDONE 0.5 MG TABLET PO ×2 (08:08→20:26)
[2021-06-02 18:00] VITALS: BP 139/82; PULSE 106; TEMP 36.5
[2021-06-02] MEDS: Acetaminophen 325 MG TABLET 650 MG PO (18:47)
[2021-06-02 20:24] VITALS: BP 139/82; PULSE 106
[2021-06-02] MEDS: Prazosin HCL 1 MG CAPSULE 2 MG PO (20:24)
[2021-06-02] MEDS: Mirtazapine 15 MG TABLET 45 MG PO (20:26)
[2021-06-02] MEDS: traZODone HCL 50 MG TABLET PO (20:26)
[2021-06-02] MEDS: lamoTRIgine 25 MG TABLET PO (20:27)
[2021-06-02] MEDS: cloZAPine 100 MG TABLET 350 MG PO (20:27)
[2021-06-03] MEDS: Nicotine Polacrilex 2 MG GUM 4 MG BUCCAL ×3 (04:49→17:15)
[2021-06-03] MEDS: Acetaminophen 325 MG TABLET 650 MG PO ×2 (04:50→16:42)
[2021-06-03 06:00] VITALS: BP 132/70; PULSE 92; RESP 16; TEMP 36.4; O2SAT 99
[2021-06-03 07:00] VITALS: BMI 33.6
[2021-06-03] MEDS: Nicotine 21 MG PATCH.TD24 TRANSDERMA (08:43)
[2021-06-03 08:48] VITALS: BP 136/70; PULSE 101
[2021-06-03] MEDS: hydroCHLOROthiazide 12.5 MG TABLET PO (08:48)
[2021-06-03] MEDS: UrsodioL 300 MG CAPSULE 600 MG PO ×3 (08:48→20:17)
[2021-06-03] MEDS: Montelukast Sodium 10 MG TABLET PO (08:48)
[2021-06-03] MEDS: Losartan Potassium 25 MG TABLET PO (08:48)
[2021-06-03] MEDS: cloZAPine 25 MG TABLET 50 MG PO (08:48)
[2021-06-03] MEDS: risperiDONE 0.5 MG TABLET PO (08:49)
--- NOTE | 2021-06-03 13:38 | P.PNPSI_ITS ---
Subjective Subjective Date of Service: 06/02/21 Reason For Visit: Psychosis Subjective Notes: Conditional Voluntary Healthcare Proxy: No Guardianship: Yes ([facility]) Medical Problems Affecting Mental Status: No Interim History: Met with pt, Naresh VELAZQUEZ and pts home mortgage disclosure act specialist, Martine. Pt and Martine believe there is improvement. Discussed having his housing team visit him next week to offer their perspective and possibly plan discharge which pt agrees to. Pt reports voices yesterday of self-harm and harm to others. Pt reports he is now able to sleep in his room, without a light and is more comfortable with his room-mate. He feels an overall decrease in worry.Pt's mother will plan a visit on Monday. Pt reports he feels having Martine visit is a good spiritual help for him and appreciates her time spent with him. Pt feeling ready to plan to go home. He does report an increase in appetite and required a snack during our meeting. Medication Compliance: Yes Side effects from medications: Yes (Increase in appetite) Attending Groups: Intermittent Review of Systems Acute medical concerns: No Medical Review of Systems: unchanged Review of Systems Psychiatric: Reports anxiety and Reports change in appetite Mental Status Exam Mental Status Exam Patient Appearance: Appropriate Patient Orientation: Person, Place, Time and Situation Level of Consciousness: Alert Patient Behavior: Talkative and Good Eye Contact Mood Description: Calm and Withdrawn Affect Description: Calm and Withdrawn Patient Cognition Impaired: Yes Ability to Follow Directions: Good Speech Pattern: Spontaneous Speech and Long Pauses Memory Description: Intact Hallucinations: None Delusions: Not Present Thought Process: Distracted Thought Content: positive for [place], positive for Suicidal Ideation (denies) and positive for Homicidal Ideation (denies) Depressive Symptoms: Changes in Appetite Judgement: Fair Diagnostics Vital Signs (24Hr): Vital Signs - 24 hr 06/02/21 18:00 06/02/21 20:24 06/03/21 06:00 Temperature 97.7 F 97.6 F Pulse Rate 106 H 106 H 92 Respiratory Rate 16 Blood Pressure 139/82 139/82 132/70 Pulse Oximetry 99 06/03/21 08:48 Temperature Pulse Rate 101 H Respiratory Rate Blood Pressure 136/70 Pulse Oximetry Body Mass Index 32.1 Labs Results: 06/01/21 08:04 05/13/21 17:01 Medications Medications Current Medications Generic Name Dose Route Start Last Admin Trade Name Freq PRN Reason Stop Dose Admin Acetaminophen 650 mg 05/14/21 22:06 06/03/21 04:50 Acetaminophen 325 Mg Tablet PO 650 mg Q6H PRN Administration Headache/Pain Mild Scale (1-3) Al Hydroxide/Mg Hydroxide 30 ml 05/14/21 22:06 Magnesium Hydrox/Alum Hydrox 30 Ml Oral.Susp PO Q6H PRN Heartburn/Nausea Clozapine 50 mg 05/15/21 09:00 06/03/21 08:48 Clozapine 25 Mg Tablet PO 50 mg DAILY NORMA Administration Clozapine 350 mg 05/25/21 21:00 06/02/21 20:27 Clozapine 100 Mg Tablet PO 350 mg BEDTIME NORMA Administration Hydrochlorothiazide 12.5 mg 05/31/21 09:15 06/03/21 08:48 Hydrochlorothiazide 12.5 Mg Tablet PO 12.5 mg DAILY NORMA Administration Protocol Hydroxyzine HCl 25 mg 05/14/21 22:06 05/21/21 21:34 Hydroxyzine Hcl 25 Mg Tablet PO 25 mg BEDTIME PRN Administration Anxiety Ibuprofen 600 mg 05/26/21 09:55 05/30/21 18:40 Ibuprofen 600 Mg Tablet PO 600 mg Q8H PRN Administration Pain, Mild (Pain Scale 1-3) Lamotrigine 25 mg 05/21/21 21:00 06/02/21 20:27 Lamotrigine 25 Mg Tablet PO 25 mg BEDTIME NORMA Administration Losartan Potassium 25 mg 05/15/21 09:00 06/03/21 08:48 Losartan Potassium 25 Mg Tablet PO 25 mg DAILY NORMA Administration Protocol Magnesium Hydroxide 30 ml 05/14/21 22:06 05/21/21 11:20 Milk Of Magnesia 30 Ml Oral.Susp PO 30 ml DAILY PRN Administration Constipation Mirtazapine 45 mg 05/17/21 21:00 06/02/21 20:26 Mirtazapine 15 Mg Tablet PO 45 mg BEDTIME NORMA Administration Montelukast Sodium 10 mg 05/15/21 09:00 06/03/21 08:48 Montelukast Sodium 10 Mg Tablet PO 10 mg DAILY NORMA Administration Nicotine 21 mg 05/18/21 15:30 06/03/21 08:43 Nicotine 21 Mg Patch.Td24 TRANSDERMA 21 mg DAILY NORMA Administration Nicotine Polacrilex 4 mg 05/17/21 14:54 06/03/21 11:14 Nicotine Polacrilex 2 Mg Gum BUCCAL 4 mg Q2H PRN Administration Nicotine Cravings Prazosin HCl 2 mg 05/15/21 21:00 06/02/21 20:24 Prazosin Hcl 1 Mg Capsule PO 2 mg BEDTIME NORMA Administration Protocol Psyllium Hydrophilic Mucilloid 3.4 gm 05/15/21 21:00 06/02/21 20:27 Psyllium Seed 3.4 Gm Powd.Pack PO 3.4 gm BEDTIME NORMA Administration Risperidone 0.5 mg 06/04/21 09:00 Risperidone 0.5 Mg Tablet PO DAILY NORMA Risperidone 1 mg 06/03/21 21:00 Risperidone 1 Mg Tablet PO BEDTIME NORMA Trazodone HCl 50 mg 05/25/21 21:00 06/02/21 20:26 Trazodone Hcl 50 Mg Tablet PO 50 mg BEDTIME NORMA Administration Ursodiol 600 mg 05/15/21 09:00 06/03/21 08:48 Ursodiol 300 Mg Capsule PO 600 mg TID NORMA Administration Allergies Allergies Allergy/AdvReac Type Severity Reaction Status Date / Time No Known Allergies Allergy Verified 05/13/21 14:00 Assessment & Plan Assessment & Plan (1) Schizoaffective disorder, bipolar type: Status: Acute Code(s): F25.0 - Schizoaffective disorder, bipolar type Assessment and Plan: Increase Risperdal to 0.5 mg a.m. and 1 mg p.m. Continue remainder of regime. Labs, EKG next week Greater than 50% of the session was spent on counseling and/or coordination of care Reason for contiued inpatient stay Substantial Risk for: harm to self, harm to others, inability to function and rapid decompensation
--- NOTE | 2021-06-03 17:20 | HO.PSYCHPN ---
Subjective Subjective Date of Service: 06/03/21 Reason For Visit: Psychosis Subjective Notes: Conditional Voluntary Healthcare Proxy: No Guardianship: Yes ([facility]) Medical Problems Affecting Mental Status: No Interim History: Denies anxiety, some response to internal stimuli. Continuing to titrate Risperdal Medication Compliance: Yes Side effects from medications: No Attending Groups: Intermittent Review of Systems Acute medical concerns: No Medical Review of Systems: unchanged Review of Systems Psychiatric: Reports anxiety and Reports change in appetite Mental Status Exam Mental Status Exam Patient Appearance: Appropriate Patient Orientation: Person, Place, Time and Situation Level of Consciousness: Alert Patient Behavior: Talkative and Good Eye Contact Mood Description: Calm and Withdrawn Affect Description: Calm and Withdrawn Patient Cognition Impaired: Yes Ability to Follow Directions: Good Speech Pattern: Spontaneous Speech and Long Pauses Memory Description: Intact Hallucinations: None Delusions: Not Present Thought Process: Distracted Thought Content: positive for [place], positive for Suicidal Ideation (denies) and positive for Homicidal Ideation (denies) Depressive Symptoms: Changes in Appetite Judgement: Fair Diagnostics Vital Signs (24Hr): Vital Signs - 24 hr 06/02/21 18:00 06/02/21 20:24 06/03/21 06:00 Temperature 97.7 F 97.6 F Pulse Rate 106 H 106 H 92 Respiratory Rate 16 Blood Pressure 139/82 139/82 132/70 Pulse Oximetry 99 06/03/21 08:48 Temperature Pulse Rate 101 H Respiratory Rate Blood Pressure 136/70 Pulse Oximetry Body Mass Index 33.6 Labs Results: 06/01/21 08:04 05/13/21 17:01 Medications Medications Current Medications Generic Name Dose Route Start Last Admin Trade Name Freq PRN Reason Stop Dose Admin Acetaminophen 650 mg 05/14/21 22:06 06/03/21 16:42 Acetaminophen 325 Mg Tablet PO 650 mg Q6H PRN Administration Headache/Pain Mild Scale (1-3) Al Hydroxide/Mg Hydroxide 30 ml 05/14/21 22:06 Magnesium Hydrox/Alum Hydrox 30 Ml Oral.Susp PO Q6H PRN Heartburn/Nausea Clozapine 50 mg 05/15/21 09:00 06/03/21 08:48 Clozapine 25 Mg Tablet PO 50 mg DAILY NORMA Administration Clozapine 350 mg 05/25/21 21:00 06/02/21 20:27 Clozapine 100 Mg Tablet PO 350 mg BEDTIME NORMA Administration Hydrochlorothiazide 12.5 mg 05/31/21 09:15 06/03/21 08:48 Hydrochlorothiazide 12.5 Mg Tablet PO 12.5 mg DAILY NORMA Administration Protocol Hydroxyzine HCl 25 mg 05/14/21 22:06 05/21/21 21:34 Hydroxyzine Hcl 25 Mg Tablet PO 25 mg BEDTIME PRN Administration Anxiety Ibuprofen 600 mg 05/26/21 09:55 05/30/21 18:40 Ibuprofen 600 Mg Tablet PO 600 mg Q8H PRN Administration Pain, Mild (Pain Scale 1-3) Lamotrigine 25 mg 05/21/21 21:00 06/02/21 20:27 Lamotrigine 25 Mg Tablet PO 25 mg BEDTIME NORMA Administration Losartan Potassium 25 mg 05/15/21 09:00 06/03/21 08:48 Losartan Potassium 25 Mg Tablet PO 25 mg DAILY NORMA Administration Protocol Magnesium Hydroxide 30 ml 05/14/21 22:06 05/21/21 11:20 Milk Of Magnesia 30 Ml Oral.Susp PO 30 ml DAILY PRN Administration Constipation Mirtazapine 45 mg 05/17/21 21:00 06/02/21 20:26 Mirtazapine 15 Mg Tablet PO 45 mg BEDTIME NORMA Administration Montelukast Sodium 10 mg 05/15/21 09:00 06/03/21 08:48 Montelukast Sodium 10 Mg Tablet PO 10 mg DAILY NORMA Administration Nicotine 21 mg 05/18/21 15:30 06/03/21 08:43 Nicotine 21 Mg Patch.Td24 TRANSDERMA 21 mg DAILY NORMA Administration Nicotine Polacrilex 4 mg 05/17/21 14:54 06/03/21 17:15 Nicotine Polacrilex 2 Mg Gum BUCCAL 4 mg Q2H PRN Administration Nicotine Cravings Prazosin HCl 2 mg 05/15/21 21:00 06/02/21 20:24 Prazosin Hcl 1 Mg Capsule PO 2 mg BEDTIME NORMA Administration Protocol Psyllium Hydrophilic Mucilloid 3.4 gm 05/15/21 21:00 06/02/21 20:27 Psyllium Seed 3.4 Gm Powd.Pack PO 3.4 gm BEDTIME NORMA Administration Risperidone 0.5 mg 06/04/21 09:00 Risperidone 0.5 Mg Tablet PO DAILY NORMA Risperidone 1 mg 06/03/21 21:00 Risperidone 1 Mg Tablet PO BEDTIME NORMA Trazodone HCl 50 mg 05/25/21 21:00 09/01/21 20:26 Trazodone Hcl 50 Mg Tablet PO 50 mg BEDTIME NORMA Administration Ursodiol 600 mg 05/15/21 09:00 06/03/21 14:38 Ursodiol 300 Mg Capsule PO 600 mg TID NORMA Administration Allergies Allergies Allergy/AdvReac Type Severity Reaction Status Date / Time No Known Allergies Allergy Verified 05/13/21 14:00 Assessment & Plan Assessment & Plan (1) Schizoaffective disorder, bipolar type: Status: Acute Code(s): F25.0 - Schizoaffective disorder, bipolar type Assessment and Plan: Increase Risperdal to 0.5 mg a.m. and 1 mg p.m. Continue remainder of regime. Labs, EKG next week Greater than 50% of the session was spent on counseling and/or coordination of care Patient educated on: medication risk/benefits Informed Consent: further education needed Reason for contiued inpatient stay Substantial Risk for: harm to self, harm to others, inability to function and rapid decompensation
[2021-06-03 18:00] VITALS: BP 137/78; PULSE 99; TEMP 36.7
[2021-06-03] MEDS: Mirtazapine 15 MG TABLET 45 MG PO (20:15)
[2021-06-03] MEDS: lamoTRIgine 25 MG TABLET PO (20:15)
[2021-06-03] MEDS: cloZAPine 100 MG TABLET 350 MG PO (20:16)
[2021-06-03] MEDS: traZODone HCL 50 MG TABLET PO (20:17)
[2021-06-03] MEDS: risperiDONE 1 MG TABLET PO (20:17)
[2021-06-03 20:18] VITALS: BP 137/78; PULSE 99
[2021-06-03] MEDS: Prazosin HCL 1 MG CAPSULE 2 MG PO (20:18)
[2021-06-04 06:00] VITALS: BP 138/74; PULSE 104; RESP 18; TEMP 36.6; O2SAT 97
[2021-06-04] MEDS: Nicotine 21 MG PATCH.TD24 TRANSDERMA (08:53)
[2021-06-04 08:54] VITALS: BP 140/73; PULSE 97
[2021-06-04] MEDS: Losartan Potassium 25 MG TABLET PO (08:54)
[2021-06-04] MEDS: cloZAPine 25 MG TABLET 50 MG PO (08:54)
[2021-06-04] MEDS: Montelukast Sodium 10 MG TABLET PO (08:54)
[2021-06-04] MEDS: hydroCHLOROthiazide 12.5 MG TABLET PO (08:55)
[2021-06-04] MEDS: risperiDONE 0.5 MG TABLET PO (08:55)
[2021-06-04] MEDS: UrsodioL 300 MG CAPSULE 600 MG PO ×3 (08:55→20:37)
[2021-06-04 18:00] VITALS: BP 151/66; PULSE 113; TEMP 36.9
[2021-06-04 20:36] VITALS: BP 151/66; PULSE 113
[2021-06-04] MEDS: Prazosin HCL 1 MG CAPSULE 2 MG PO (20:36)
[2021-06-04] MEDS: lamoTRIgine 25 MG TABLET PO (20:38)
[2021-06-04] MEDS: cloZAPine 100 MG TABLET 350 MG PO (20:38)
[2021-06-04] MEDS: Mirtazapine 15 MG TABLET 45 MG PO (20:40)
[2021-06-04] MEDS: traZODone HCL 50 MG TABLET PO (20:40)
[2021-06-04] MEDS: risperiDONE 1 MG TABLET PO (22:33)
[2021-06-05 06:00] VITALS: BP 136/81; PULSE 98; RESP 20; TEMP 36.1; O2SAT 98
[2021-06-05] MEDS: risperiDONE 0.5 MG TABLET PO (08:31)
[2021-06-05] MEDS: Montelukast Sodium 10 MG TABLET PO (08:31)
[2021-06-05] MEDS: UrsodioL 300 MG CAPSULE 600 MG PO ×3 (08:31→20:37)
[2021-06-05] MEDS: cloZAPine 25 MG TABLET 50 MG PO (08:31)
[2021-06-05] MEDS: Nicotine 21 MG PATCH.TD24 TRANSDERMA (08:31)
[2021-06-05 08:32] VITALS: BP 156/87; PULSE 101
[2021-06-05] MEDS: hydroCHLOROthiazide 12.5 MG TABLET PO (08:32)
[2021-06-05] MEDS: Losartan Potassium 25 MG TABLET PO (08:32)
[2021-06-05] MEDS: Acetaminophen 325 MG TABLET 650 MG PO (11:44)
[2021-06-05] MEDS: Nicotine Polacrilex 2 MG GUM 4 MG BUCCAL ×2 (11:44→16:51)
--- NOTE | 2021-06-05 13:08 | HO.PSYCHPN ---
Subjective Subjective Date of Service: 06/05/21 Reason For Visit: Psychosis Interim History: had a positive visit with his mom yesterday. Medication adherent. Awaiting meeting with director group sales as part of disposition planning. With proposal manager writer today he was pleasant but concrete. Was focused on cranberry juice and orange juice. Was also focused on getting a certain type brush for his hair and also hair gel. Denied depression. Denied psychosis or SI. No medication concerns. Medication Compliance: Yes Side effects from medications: No Review of Systems Acute medical concerns: No Review of Systems Review of Systems Noncontributory Mental Status Exam Mental Status Exam Narrative: casually dressed. Fair hygiene. [place]. Flat affect. No SI. No HI. No overt psychosis. Insight and judgment fair Diagnostics Vital Signs (24Hr): Vital Signs - 24 hr 06/04/21 18:00 06/04/21 20:36 06/05/21 06:00 Temperature 98.4 F 96.9 F Pulse Rate 113 H 113 H 98 Respiratory Rate 20 Blood Pressure 151/66 H 151/66 H 136/81 Pulse Oximetry 98 06/05/21 08:32 Temperature Pulse Rate 101 H Respiratory Rate Blood Pressure 156/87 H Pulse Oximetry Body Mass Index 33.6 Labs Results: 06/01/21 08:04 05/13/21 17:01 Medications Medications Current Medications Generic Name Dose Route Start Last Admin Trade Name Rolando PRN Reason Stop Dose Admin Acetaminophen 650 mg 05/14/21 22:06 06/05/21 11:44 Acetaminophen 325 Mg Tablet PO 650 mg Q6H PRN Administration Headache/Pain Mild Scale (1-3) Al Hydroxide/Mg Hydroxide 30 ml 05/14/21 22:06 Magnesium Hydrox/Alum Hydrox 30 Ml Oral.Susp PO Q6H PRN Heartburn/Nausea Clozapine 50 mg 05/15/21 09:00 06/05/21 08:31 Clozapine 25 Mg Tablet PO 50 mg DAILY NORMA Administration Clozapine 350 mg 05/25/21 21:00 06/04/21 20:38 Clozapine 100 Mg Tablet PO 350 mg BEDTIME NORMA Administration Hydrochlorothiazide 12.5 mg 05/31/21 09:15 06/05/21 08:32 Hydrochlorothiazide 12.5 Mg Tablet PO 12.5 mg DAILY NORMA Administration Protocol Hydroxyzine HCl 25 mg 05/14/21 22:06 05/21/21 21:34 Hydroxyzine Hcl 25 Mg Tablet PO 25 mg BEDTIME PRN Administration Anxiety Ibuprofen 600 mg 05/26/21 09:55 05/30/21 18:40 Ibuprofen 600 Mg Tablet PO 600 mg Q8H PRN Administration Pain, Mild (Pain Scale 1-3) Lamotrigine 25 mg 05/21/21 21:00 06/04/21 20:38 Lamotrigine 25 Mg Tablet PO 25 mg BEDTIME NORMA Administration Losartan Potassium 25 mg 05/15/21 09:00 06/05/21 08:32 Losartan Potassium 25 Mg Tablet PO 25 mg DAILY NORMA Administration Protocol Magnesium Hydroxide 30 ml 05/14/21 22:06 05/21/21 11:20 Milk Of Magnesia 30 Ml Oral.Susp PO 30 ml DAILY PRN Administration Constipation Mirtazapine 45 mg 05/17/21 21:00 06/04/21 20:40 Mirtazapine 15 Mg Tablet PO 45 mg BEDTIME NORMA Administration Montelukast Sodium 10 mg 05/15/21 09:00 06/05/21 08:31 Montelukast Sodium 10 Mg Tablet PO 10 mg DAILY NORMA Administration Nicotine 21 mg 05/18/21 15:30 06/05/21 08:31 Nicotine 21 Mg Patch.Td24 TRANSDERMA 21 mg DAILY NORMA Administration Nicotine Polacrilex 4 mg 05/17/21 14:54 06/05/21 11:44 Nicotine Polacrilex 2 Mg Gum BUCCAL 4 mg Q2H PRN Administration Nicotine Cravings Prazosin HCl 2 mg 05/15/21 21:00 06/04/21 20:36 Prazosin Hcl 1 Mg Capsule PO 2 mg BEDTIME NORMA Administration Protocol Psyllium Hydrophilic Mucilloid 3.4 gm 05/15/21 21:00 06/04/21 20:36 Psyllium Seed 3.4 Gm Powd.Pack PO 3.4 gm BEDTIME NORMA Administration Risperidone 0.5 mg 06/04/21 09:00 06/05/21 08:31 Risperidone 0.5 Mg Tablet PO 0.5 mg DAILY NORMA Administration Risperidone 1 mg 06/03/21 21:00 06/04/21 22:33 Risperidone 1 Mg Tablet PO 1 mg BEDTIME NORMA Administration Trazodone HCl 50 mg 05/25/21 21:00 06/04/21 20:40 Trazodone Hcl 50 Mg Tablet PO 50 mg BEDTIME NORMA Administration Ursodiol 600 mg 05/15/21 09:00 06/05/21 08:31 Ursodiol 300 Mg Capsule PO 600 mg TID NORMA Administration Allergies Allergies Allergy/AdvReac Type Severity Reaction Status Date / Time No Known Allergies Allergy Verified 05/13/21 14:00 Assessment & Plan Assessment & Plan (1) Schizoaffective disorder, bipolar type: Status: Acute Code(s): F25.0 - Schizoaffective disorder, bipolar type Assessment and Plan: Increase Risperdal to 0.5 mg a.m. and 1 mg p.m. Continue remainder of regime. Labs, EKG next week 06/05/2021: No changes to primary treatment team's plan Greater than 50% of the session was spent on counseling and/or coordination of care Reason for contiued inpatient stay Substantial Risk for: inability to function and rapid decompensation
[2021-06-05 16:10] VITALS: BP 112/68; PULSE 111; TEMP 36.5
[2021-06-05 20:36] VITALS: BP 143/84; PULSE 99
[2021-06-05] MEDS: lamoTRIgine 25 MG TABLET PO (20:36)
[2021-06-05] MEDS: Prazosin HCL 1 MG CAPSULE 2 MG PO (20:36)
[2021-06-05] MEDS: Mirtazapine 15 MG TABLET 45 MG PO (20:36)
[2021-06-05] MEDS: cloZAPine 100 MG TABLET 350 MG PO (20:37)
[2021-06-05] MEDS: traZODone HCL 50 MG TABLET PO (20:38)
[2021-06-05] MEDS: risperiDONE 1 MG TABLET PO (20:38)
[2021-06-06 05:15] VITALS: BP 142/72; PULSE 95; RESP 18; TEMP 36.2; O2SAT 98
[2021-06-06] MEDS: Acetaminophen 325 MG TABLET 650 MG PO ×2 (06:26→16:52)
[2021-06-06] MEDS: UrsodioL 300 MG CAPSULE 600 MG PO ×3 (07:55→19:39)
[2021-06-06 07:56] VITALS: BP 141/79; PULSE 95
[2021-06-06] MEDS: cloZAPine 25 MG TABLET 50 MG PO (07:56)
[2021-06-06] MEDS: Nicotine Polacrilex 2 MG GUM 4 MG BUCCAL (07:56)
[2021-06-06] MEDS: risperiDONE 0.5 MG TABLET PO (07:56)
[2021-06-06] MEDS: Losartan Potassium 25 MG TABLET PO (07:56)
[2021-06-06] MEDS: Nicotine 21 MG PATCH.TD24 TRANSDERMA (07:56)
[2021-06-06] MEDS: hydroCHLOROthiazide 12.5 MG TABLET PO (07:56)
[2021-06-06] MEDS: Montelukast Sodium 10 MG TABLET PO (07:56)
[2021-06-06] MEDS: Ibuprofen 600 MG TABLET PO (12:02)
--- NOTE | 2021-06-06 12:27 | HO.PSYCHPN ---
Subjective Subjective Date of Service: 06/06/21 Reason For Visit: Psychosis Interim History: Medication adherent. Awaiting meeting with group home worker as part of disposition planning. With typewriter ribbon winder today he was pleasant and concrete. looking forward to next visit with mom. Denied depression. Denied psychosis or SI. No medication concerns. Medication Compliance: Yes Side effects from medications: No Review of Systems Acute medical concerns: No Review of Systems Review of Systems Noncontributory Mental Status Exam Mental Status Exam Narrative: casually dressed. Fair hygiene. [place]. Flat affect. No SI. No HI. No overt psychosis. Insight and judgment fair Diagnostics Vital Signs (24Hr): Vital Signs - 24 hr 06/05/21 16:10 06/05/21 20:36 06/06/21 05:15 Temperature 97.7 F 97.1 F Pulse Rate 111 H 99 95 Respiratory Rate 18 Blood Pressure 112/68 143/84 H 142/72 H Pulse Oximetry 98 06/06/21 07:56 Temperature Pulse Rate 95 Respiratory Rate Blood Pressure 141/79 H Pulse Oximetry Body Mass Index 33.6 Labs Results: 06/01/21 08:04 05/13/21 17:01 Medications Medications Current Medications Generic Name Dose Route Start Last Admin Trade Name Freq PRN Reason Stop Dose Admin Acetaminophen 650 mg 05/14/21 22:06 06/06/21 06:26 Acetaminophen 325 Mg Tablet PO 650 mg Q6H PRN Administration Headache/Pain Mild Scale (1-3) Al Hydroxide/Mg Hydroxide 30 ml 05/14/21 22:06 Magnesium Hydrox/Alum Hydrox 30 Ml Oral.Susp PO Q6H PRN Heartburn/Nausea Clozapine 50 mg 05/15/21 09:00 06/06/21 07:56 Clozapine 25 Mg Tablet PO 50 mg DAILY NORMA Administration Clozapine 350 mg 05/25/21 21:00 06/05/21 20:37 Clozapine 100 Mg Tablet PO 350 mg BEDTIME NORMA Administration Hydrochlorothiazide 12.5 mg 05/31/21 09:15 06/06/21 07:56 Hydrochlorothiazide 12.5 Mg Tablet PO 12.5 mg DAILY NORMA Administration Protocol Hydroxyzine HCl 25 mg 05/14/21 22:06 05/21/21 21:34 Hydroxyzine Hcl 25 Mg Tablet PO 25 mg BEDTIME PRN Administration Anxiety Ibuprofen 600 mg 05/26/21 09:55 06/06/21 12:02 Ibuprofen 600 Mg Tablet PO 600 mg Q8H PRN Administration Pain, Mild (Pain Scale 1-3) Lamotrigine 25 mg 05/21/21 21:00 06/05/21 20:36 Lamotrigine 25 Mg Tablet PO 25 mg BEDTIME NORMA Administration Losartan Potassium 25 mg 05/15/21 09:00 06/06/21 07:56 Losartan Potassium 25 Mg Tablet PO 25 mg DAILY NORMA Administration Protocol Magnesium Hydroxide 30 ml 05/14/21 22:06 05/21/21 11:20 Milk Of Magnesia 30 Ml Oral.Susp PO 30 ml DAILY PRN Administration Constipation Mirtazapine 45 mg 05/17/21 21:00 06/05/21 20:36 Mirtazapine 15 Mg Tablet PO 45 mg BEDTIME NORMA Administration Montelukast Sodium 10 mg 05/15/21 09:00 06/06/21 07:56 Montelukast Sodium 10 Mg Tablet PO 10 mg DAILY NORMA Administration Nicotine 21 mg 05/18/21 15:30 06/06/21 07:56 Nicotine 21 Mg Patch.Td24 TRANSDERMA 21 mg DAILY NORMA Administration Nicotine Polacrilex 4 mg 05/17/21 14:54 06/06/21 07:56 Nicotine Polacrilex 2 Mg Gum BUCCAL 4 mg Q2H PRN Administration Nicotine Cravings Prazosin HCl 2 mg 05/15/21 21:00 06/05/21 20:36 Prazosin Hcl 1 Mg Capsule PO 2 mg BEDTIME NORMA Administration Protocol Psyllium Hydrophilic Mucilloid 3.4 gm 05/15/21 21:00 06/05/21 20:38 Psyllium Seed 3.4 Gm Powd.Pack PO 3.4 gm BEDTIME NORMA Administration Risperidone 0.5 mg 06/04/21 09:00 06/06/21 07:56 Risperidone 0.5 Mg Tablet PO 0.5 mg DAILY NORMA Administration Risperidone 1 mg 06/03/21 21:00 06/05/21 20:38 Risperidone 1 Mg Tablet PO 1 mg BEDTIME NORMA Administration Trazodone HCl 50 mg 05/25/21 21:00 06/05/21 20:38 Trazodone Hcl 50 Mg Tablet PO 50 mg BEDTIME NORMA Administration Ursodiol 600 mg 05/15/21 09:00 06/06/21 07:55 Ursodiol 300 Mg Capsule PO 600 mg TID NORMA Administration Allergies Allergies Allergy/AdvReac Type Severity Reaction Status Date / Time No Known Allergies Allergy Verified 05/13/21 14:00 Assessment & Plan Assessment & Plan (1) Schizoaffective disorder, bipolar type: Status: Acute Code(s): F25.0 - Schizoaffective disorder, bipolar type Assessment and Plan: Increase Risperdal to 0.5 mg a.m. and 1 mg p.m. Continue remainder of regime. Labs, EKG next week 06/06/2021: No changes to primary treatment team's plan Greater than 50% of the session was spent on counseling and/or coordination of care Reason for contiued inpatient stay Substantial Risk for: inability to function
[2021-06-06 16:31] VITALS: BP 165/96; PULSE 100; TEMP 36.6
[2021-06-06] MEDS: risperiDONE 1 MG TABLET PO (19:38)
[2021-06-06] MEDS: Mirtazapine 15 MG TABLET 45 MG PO (19:38)
[2021-06-06] MEDS: lamoTRIgine 25 MG TABLET PO (19:38)
[2021-06-06] MEDS: traZODone HCL 50 MG TABLET PO (19:38)
[2021-06-06 19:39] VITALS: BP 143/78; PULSE 108
[2021-06-06] MEDS: Prazosin HCL 1 MG CAPSULE 2 MG PO (19:39)
[2021-06-06] MEDS: cloZAPine 100 MG TABLET 350 MG PO (19:39)
[2021-06-07 06:00] VITALS: BP 133/87; PULSE 99; RESP 18; TEMP 36.5; O2SAT 99
[2021-06-07 07:50] LABS: Neut%MD 71.4 %; Neutrophils Absolute Auto 5.3 X10*3/uL (2.0-8.3); WBCANC 7.4 X10*3/uL
[2021-06-07] MEDS: Nicotine 21 MG PATCH.TD24 TRANSDERMA (08:14)
[2021-06-07] MEDS: hydroCHLOROthiazide 12.5 MG TABLET PO (08:15)
[2021-06-07] MEDS: Montelukast Sodium 10 MG TABLET PO (08:17)
[2021-06-07] MEDS: UrsodioL 300 MG CAPSULE 600 MG PO ×3 (08:17→20:22)
[2021-06-07 08:18] VITALS: BP 139/73; PULSE 91
[2021-06-07] MEDS: cloZAPine 25 MG TABLET 50 MG PO (08:18)
[2021-06-07] MEDS: Losartan Potassium 25 MG TABLET PO (08:18)
[2021-06-07] MEDS: risperiDONE 0.5 MG TABLET PO (08:18)
[2021-06-07] MEDS: Acetaminophen 325 MG TABLET 650 MG PO (12:27)
--- NOTE | 2021-06-07 12:28 | HO.PSYCHPN ---
Subjective Subjective Date of Service: 06/07/21 Reason For Visit: Psychosis Interim History: Medication adherent. [place]. Denied depression. Denied psychosis or SI. No medication concerns. was showing junior technical writer some paperwork around coping skills at things that help him when he feels upset. Awaiting meeting with numerical analysis group manager as part of disposition planning. . Medication Compliance: Yes Side effects from medications: No Review of Systems Acute medical concerns: No Review of Systems Review of Systems Noncontributory Mental Status Exam Mental Status Exam Narrative: ?casually dressed.? Fair hygiene.? [place].? Flat affect.? No SI.? No HI.? No overt psychosis.? Insight and judgment fair Diagnostics Vital Signs (24Hr): Vital Signs - 24 hr 06/06/21 16:31 06/06/21 19:39 06/07/21 06:00 Temperature 97.9 F 97.7 F Pulse Rate 100 108 H 99 Respiratory Rate 18 Blood Pressure 165/96 H 143/78 H 133/87 Pulse Oximetry 99 06/07/21 08:18 Temperature Pulse Rate 91 Respiratory Rate Blood Pressure 139/73 Pulse Oximetry Body Mass Index 33.6 Labs Results: 06/01/21 08:04 05/13/21 17:01 Labs: Laboratory Results - last 48 hr 06/07/21 07:42 Absolute Neuts (auto) 5.3 Medications Medications Current Medications Generic Name Dose Route Start Last Admin Trade Name Freq PRN Reason Stop Dose Admin Acetaminophen 650 mg 05/14/21 22:06 06/07/21 12:27 Acetaminophen 325 Mg Tablet PO 650 mg Q6H PRN Administration Headache/Pain Mild Scale (1-3) Al Hydroxide/Mg Hydroxide 30 ml 05/14/21 22:06 Magnesium Hydrox/Alum Hydrox 30 Ml Oral.Susp PO Q6H PRN Heartburn/Nausea Clozapine 50 mg 05/15/21 09:00 06/07/21 08:18 Clozapine 25 Mg Tablet PO 50 mg DAILY NORMA Administration Clozapine 350 mg 05/25/21 21:00 06/06/21 19:39 Clozapine 100 Mg Tablet PO 350 mg BEDTIME NORMA Administration Hydrochlorothiazide 12.5 mg 05/31/21 09:15 06/07/21 08:15 Hydrochlorothiazide 12.5 Mg Tablet PO 12.5 mg DAILY NORMA Administration Protocol Hydroxyzine HCl 25 mg 05/14/21 22:06 05/21/21 21:34 Hydroxyzine Hcl 25 Mg Tablet PO 25 mg BEDTIME PRN Administration Anxiety Ibuprofen 600 mg 05/26/21 09:55 06/06/21 12:02 Ibuprofen 600 Mg Tablet PO 600 mg Q8H PRN Administration Pain, Mild (Pain Scale 1-3) Lamotrigine 25 mg 05/21/21 21:00 06/06/21 19:38 Lamotrigine 25 Mg Tablet PO 25 mg BEDTIME NORMA Administration Losartan Potassium 25 mg 05/15/21 09:00 06/07/21 08:18 Losartan Potassium 25 Mg Tablet PO 25 mg DAILY NORMA Administration Protocol Magnesium Hydroxide 30 ml 05/14/21 22:06 05/21/21 11:20 Milk Of Magnesia 30 Ml Oral.Susp PO 30 ml DAILY PRN Administration Constipation Mirtazapine 45 mg 05/17/21 21:00 06/06/21 19:38 Mirtazapine 15 Mg Tablet PO 45 mg BEDTIME NORMA Administration Montelukast Sodium 10 mg 05/15/21 09:00 06/07/21 08:17 Montelukast Sodium 10 Mg Tablet PO 10 mg DAILY NORMA Administration Nicotine 21 mg 05/18/21 15:30 06/07/21 08:14 Nicotine 21 Mg Patch.Td24 TRANSDERMA 21 mg DAILY NORMA Administration Nicotine Polacrilex 4 mg 05/17/21 14:54 06/06/21 07:56 Nicotine Polacrilex 2 Mg Gum BUCCAL 4 mg Q2H PRN Administration Nicotine Cravings Prazosin HCl 2 mg 05/15/21 21:00 06/06/21 19:39 Prazosin Hcl 1 Mg Capsule PO 2 mg BEDTIME NORMA Administration Protocol Psyllium Hydrophilic Mucilloid 3.4 gm 05/15/21 21:00 06/06/21 19:39 Psyllium Seed 3.4 Gm Powd.Pack PO 3.4 gm BEDTIME NORMA Administration Risperidone 0.5 mg 06/04/21 09:00 06/07/21 08:18 Risperidone 0.5 Mg Tablet PO 0.5 mg DAILY NORMA Administration Risperidone 1 mg 06/03/21 21:00 06/06/21 19:38 Risperidone 1 Mg Tablet PO 1 mg BEDTIME NORMA Administration Trazodone HCl 50 mg 05/25/21 21:00 06/06/21 19:38 Trazodone Hcl 50 Mg Tablet PO 50 mg BEDTIME NORMA Administration Ursodiol 600 mg 05/15/21 09:00 06/07/21 08:17 Ursodiol 300 Mg Capsule PO 600 mg TID NORMA Administration Allergies Allergies Allergy/AdvReac Type Severity Reaction Status Date / Time No Known Allergies Allergy Verified 05/13/21 14:00 Assessment & Plan Assessment & Plan (1) Schizoaffective disorder, bipolar type: Status: Acute Code(s): F25.0 - Schizoaffective disorder, bipolar type Assessment and Plan: Increase Risperdal to 0.5 mg a.m. and 1 mg p.m. Continue remainder of regime. Labs, EKG next week 06/07/2021: No changes to primary treatment team's plan Greater than 50% of the session was spent on counseling and/or coordination of care Reason for contiued inpatient stay Substantial Risk for: inability to function
[2021-06-07] MEDS: Nicotine Polacrilex 2 MG GUM 4 MG BUCCAL (14:13)
[2021-06-07 18:00] VITALS: BP 124/77; PULSE 104; TEMP 36.2
[2021-06-07 20:22] VITALS: BP 124/71; PULSE 104
[2021-06-07] MEDS: Prazosin HCL 1 MG CAPSULE 2 MG PO (20:22)
[2021-06-07] MEDS: lamoTRIgine 25 MG TABLET PO (20:23)
[2021-06-07] MEDS: traZODone HCL 50 MG TABLET PO (20:24)
[2021-06-07] MEDS: risperiDONE 1 MG TABLET PO (20:24)
[2021-06-07] MEDS: Mirtazapine 15 MG TABLET 45 MG PO (20:24)
[2021-06-07] MEDS: cloZAPine 100 MG TABLET 350 MG PO (20:25)
[2021-06-08 06:00] VITALS: BP 133/86; PULSE 93; RESP 16; TEMP 35.7; O2SAT 98
[2021-06-08] MEDS: Nicotine 21 MG PATCH.TD24 TRANSDERMA (08:22)
[2021-06-08 08:23] VITALS: BP 133/86; PULSE 93
[2021-06-08] MEDS: hydroCHLOROthiazide 12.5 MG TABLET PO (08:23)
[2021-06-08] MEDS: Losartan Potassium 25 MG TABLET PO (08:23)
[2021-06-08] MEDS: UrsodioL 300 MG CAPSULE 600 MG PO ×3 (08:23→20:09)
[2021-06-08] MEDS: Montelukast Sodium 10 MG TABLET PO (08:23)
[2021-06-08] MEDS: cloZAPine 25 MG TABLET 50 MG PO (08:24)
[2021-06-08] MEDS: risperiDONE 0.5 MG TABLET PO (08:24)
[2021-06-08] MEDS: Nicotine Polacrilex 2 MG GUM 4 MG BUCCAL ×2 (08:29→20:16)
[2021-06-08 09:21] LABS: Alanine Aminotransferase 39 U/L (0-40); Albumin Level 4.4 g/dL (3.5-5.0); Alkaline Phosphatase 112 U/L (39-117); Anion Gap 10 (12-20); Aspartate Amino Transferase 28 U/L (5-37); Bilirubin Total 0.3 mg/dL (0.0-1.0); Blood Urea Nitrogen 18 mg/dL (9-16); Calcium 9.6 mg/dL (8.4-10.2); Carbon Dioxide 28 mmol/L (22-29); Chloride 105 mmol/L (96-108); Creatinine Clr Calc Pharmacy 158.1; Estimated Glomerular Filt Rate > 60; Glucose Random 112 mg/dL (60-115); Potassium 4.1 mmol/L (3.3-5.1); Sodium 139 mmol/L (135-145); Total Protein 7.4 g/dL (6.5-8.0)
[2021-06-08] MEDS: Acetaminophen 325 MG TABLET 650 MG PO ×2 (11:42→17:42)
[2021-06-08] MEDS: Ibuprofen 600 MG TABLET PO (14:01)
[2021-06-08] MEDS: cloZAPine 100 MG TABLET 350 MG PO (20:08)
[2021-06-08] MEDS: Prazosin HCL 1 MG CAPSULE 2 MG PO (20:08)
[2021-06-08] MEDS: traZODone HCL 50 MG TABLET PO (20:09)
[2021-06-08] MEDS: hydrOXYzine HCL 25 MG TABLET PO (20:09)
[2021-06-08] MEDS: lamoTRIgine 25 MG TABLET PO (20:09)
[2021-06-08] MEDS: Mirtazapine 15 MG TABLET 45 MG PO (20:09)
[2021-06-08] MEDS: risperiDONE 1 MG TABLET PO (20:09)
[2021-06-08 22:00] VITALS: BP 138/82; PULSE 88; TEMP 36.6; O2SAT 98
[2021-06-09 06:00] VITALS: BP 141/67; PULSE 102; TEMP 35.9; O2SAT 99
[2021-06-09] MEDS: Nicotine 21 MG PATCH.TD24 TRANSDERMA (08:12)
[2021-06-09] MEDS: UrsodioL 300 MG CAPSULE 600 MG PO ×3 (08:13→20:46)
[2021-06-09 08:14] VITALS: BP 141/67; PULSE 102
[2021-06-09] MEDS: Losartan Potassium 25 MG TABLET PO (08:14)
[2021-06-09] MEDS: cloZAPine 25 MG TABLET 50 MG PO (08:14)
[2021-06-09] MEDS: risperiDONE 0.5 MG TABLET PO (08:15)
[2021-06-09] MEDS: Montelukast Sodium 10 MG TABLET PO (08:15)
[2021-06-09] MEDS: hydroCHLOROthiazide 12.5 MG TABLET PO (08:15)
[2021-06-09] MEDS: Ibuprofen 600 MG TABLET PO (12:08)
[2021-06-09] MEDS: Acetaminophen 325 MG TABLET 650 MG PO (14:46)
[2021-06-09] MEDS: Nicotine Polacrilex 2 MG GUM 4 MG BUCCAL ×2 (14:46→19:40)
--- NOTE | 2021-06-09 16:11 | P.PNPSI_ITS ---
Subjective Subjective Date of Service: 06/08/21 Reason For Visit: Psychosis Interim History: Alexis reports feeling well. Some voices, not a lot. Denies SI, appears pre-occupied at times, however, more visable and participatory in group and milieu. Team reports pt spent much time during the weekend appearing blank and staring at the wall with organization to task but overall disorganization. Pt disagrees with this assessment, stating he does think about many things, but does not feel blank or disorganized. Today he is focused on ordering Greek food and obtaining his hair spring winder and hair products from his home. He reports he sleeps reasonably and enjoys organizing his daily tasks-laundry, self-care, and his room. Medication Compliance: Yes Side effects from medications: No Attending Groups: Yes Review of Systems Acute medical concerns: No Review of Systems Psychiatric: Reports anxiety, Reports paranoia and Reports suicidal ideation (denies SI plan or intent) Mental Status Exam Mental Status Exam Patient Appearance: Appropriate Patient Orientation: Person, Place and Situation Level of Consciousness: Alert Patient Behavior: Talkative and Good Eye Contact Mood Description: Anxious Affect Description: Anxious Patient Cognition Impaired: No Ability to Follow Directions: Good Speech Pattern: Spontaneous Speech and Soft-Spoken Memory Description: Intact Hallucinations: None (denies) Thought Process: Goal Oriented Thought Content: positive for Circumstantial and positive for Goal Oriented Depressive Symptoms: Increased Anxiety Judgement: Fair Diagnostics Vital Signs (24Hr): Vital Signs - 24 hr 06/08/21 22:00 06/09/21 06:00 06/09/21 08:14 Temperature 97.8 F 96.7 F L Pulse Rate 88 102 H 102 H Blood Pressure 138/82 141/67 H 141/67 H Pulse Oximetry 98 99 Body Mass Index 33.6 Labs Results: 06/01/21 08:04 06/08/21 08:42 Labs: Laboratory Results - last 48 hr 06/08/21 08:42 Sodium 139 Potassium 4.1 Chloride 105 Carbon Dioxide 28 Anion Gap 10 L BUN 18 H D Creatinine 0.89 Estim Creat Clear Calc 158.1 Estimated GFR > 60 Random Glucose 112 Calcium 9.6 Total Bilirubin 0.3 AST 28 ALT 39 Alkaline Phosphatase 112 Total Protein 7.4 Albumin 4.4 Medications Medications Current Medications Generic Name Dose Route Start Last Admin Trade Name Freq PRN Reason Stop Dose Admin Acetaminophen 650 mg 05/14/21 22:06 06/09/21 14:46 Acetaminophen 325 Mg Tablet PO 650 mg Q6H PRN Administration Headache/Pain Mild Scale (1-3) Al Hydroxide/Mg Hydroxide 30 ml 05/14/21 22:06 Magnesium Hydrox/Alum Hydrox 30 Ml Oral.Susp PO Q6H PRN Heartburn/Nausea Clozapine 50 mg 05/15/21 09:00 06/09/21 08:14 Clozapine 25 Mg Tablet PO 50 mg DAILY NORMA Administration Clozapine 350 mg 05/25/21 21:00 06/08/21 20:08 Clozapine 100 Mg Tablet PO 350 mg BEDTIME NORMA Administration Hydrochlorothiazide 12.5 mg 05/31/21 09:15 06/09/21 08:15 Hydrochlorothiazide 12.5 Mg Tablet PO 12.5 mg DAILY NORMA Administration Protocol Hydroxyzine HCl 25 mg 05/14/21 22:06 06/08/21 20:09 Hydroxyzine Hcl 25 Mg Tablet PO 25 mg BEDTIME PRN Administration Anxiety Ibuprofen 600 mg 05/26/21 09:55 06/09/21 12:08 Ibuprofen 600 Mg Tablet PO 600 mg Q8H PRN Administration Pain, Mild (Pain Scale 1-3) Lamotrigine 25 mg 05/21/21 21:00 06/08/21 20:09 Lamotrigine 25 Mg Tablet PO 25 mg BEDTIME NORMA Administration Losartan Potassium 25 mg 05/15/21 09:00 06/09/21 08:14 Losartan Potassium 25 Mg Tablet PO 25 mg DAILY NORMA Administration Protocol Magnesium Hydroxide 30 ml 05/14/21 22:06 05/21/21 11:20 Milk Of Magnesia 30 Ml Oral.Susp PO 30 ml DAILY PRN Administration Constipation Mirtazapine 45 mg 05/17/21 21:00 06/08/21 20:09 Mirtazapine 15 Mg Tablet PO 45 mg BEDTIME NORMA Administration Montelukast Sodium 10 mg 05/15/21 09:00 06/09/21 08:15 Montelukast Sodium 10 Mg Tablet PO 10 mg DAILY NORMA Administration Nicotine 21 mg 05/18/21 15:30 06/09/21 08:12 Nicotine 21 Mg Patch.Td24 TRANSDERMA 21 mg DAILY NORMA Administration Nicotine Polacrilex 4 mg 05/17/21 14:54 06/09/21 14:46 Nicotine Polacrilex 2 Mg Gum BUCCAL 4 mg Q2H PRN Administration Nicotine Cravings Prazosin HCl 2 mg 05/15/21 21:00 06/08/21 20:08 Prazosin Hcl 1 Mg Capsule PO 2 mg BEDTIME NORMA Administration Protocol Psyllium Hydrophilic Mucilloid 3.4 gm 05/15/21 21:00 06/08/21 20:16 Psyllium Seed 3.4 Gm Powd.Pack PO 3.4 gm BEDTIME NORMA Administration Risperidone 0.5 mg 06/04/21 09:00 06/09/21 08:15 Risperidone 0.5 Mg Tablet PO 0.5 mg DAILY NORMA Administration Risperidone 1 mg 06/03/21 21:00 06/08/21 20:09 Risperidone 1 Mg Tablet PO 1 mg BEDTIME NORMA Administration Trazodone HCl 50 mg 05/25/21 21:00 06/08/21 20:09 Trazodone Hcl 50 Mg Tablet PO 50 mg BEDTIME NORMA Administration Ursodiol 600 mg 05/15/21 09:00 06/09/21 14:18 Ursodiol 300 Mg Capsule PO 600 mg TID NORMA Administration Allergies Allergies Allergy/AdvReac Type Severity Reaction Status Date / Time No Known Allergies Allergy Verified 05/13/21 14:00 Assessment & Plan Assessment & Plan (1) Schizoaffective disorder, bipolar type: Status: Acute Code(s): F25.0 - Schizoaffective disorder, bipolar type Assessment and Plan: Continue current plan. Residential team will visit pt this week to assess his progress and give the team feedback. Greater than 50% of the session was spent on counseling and/or coordination of care Patient educated on: therapeutic strategies Guardian/Caregiver educated on: therapeutic strategies Informed Consent: understands and further education needed Reason for contiued inpatient stay Substantial Risk for: rapid decompensation
--- NOTE | 2021-06-09 16:58 | P.PNPSI_ITS ---
Subjective Subjective Date of Service: 06/09/21 Reason For Visit: Psychosis Interim History: Alexis reports he is feeling good . Denies SI, HI. Denies overt perceptual alterations, citing once in a while but not like it was . Reports he feels he is having proper sleep, appetite is increased. States he is looking forward to preparing to see his residential team. Tells tw sure, you can in crease the medicine, however, no current target sx he reports so will keep dosage consistent and continue to monitor as well as take feedback from residential team as well as our team. Medication Compliance: Yes Side effects from medications: No Attending Groups: Yes Review of Systems Acute medical concerns: No Medical Review of Systems: unchanged Review of Systems Psychiatric: Reports no additional psychiatric complaints Mental Status Exam Mental Status Exam Patient Appearance: Appropriate Patient Orientation: Person, Place, Time and Situation Level of Consciousness: Alert Patient Behavior: Appropriate, Talkative and Cooperative Mood Description: Anxious (mild) and Apprehensive (mild) Affect Description: Constricted Patient Cognition Impaired: Yes Ability to Follow Directions: Good Speech Pattern: Spontaneous Speech Memory Description: Episodic Impaired Hallucinations: None (denies) Delusions: Not Present Thought Process: Goal Oriented Thought Content: positive for Goal Oriented Depressive Symptoms: Increased Anxiety (mild) Judgement: Fair Diagnostics Vital Signs (24Hr): Vital Signs - 24 hr 06/08/21 22:00 06/09/21 06:00 06/09/21 08:14 Temperature 97.8 F 96.7 F L Pulse Rate 88 102 H 102 H Blood Pressure 138/82 141/67 H 141/67 H Pulse Oximetry 98 99 Body Mass Index 33.6 Labs Results: 06/01/21 08:04 06/08/21 08:42 Labs: Laboratory Results - last 48 hr 06/08/21 08:42 Sodium 139 Potassium 4.1 Chloride 105 Carbon Dioxide 28 Anion Gap 10 L BUN 18 H D Creatinine 0.89 Estim Creat Clear Calc 158.1 Estimated GFR > 60 Random Glucose 112 Calcium 9.6 Total Bilirubin 0.3 AST 28 ALT 39 Alkaline Phosphatase 112 Total Protein 7.4 Albumin 4.4 Medications Medications Current Medications Generic Name Dose Route Start Last Admin Trade Name Freq PRN Reason Stop Dose Admin Acetaminophen 650 mg 05/14/21 22:06 06/09/21 14:46 Acetaminophen 325 Mg Tablet PO 650 mg Q6H PRN Administration Headache/Pain Mild Scale (1-3) Al Hydroxide/Mg Hydroxide 30 ml 05/14/21 22:06 Magnesium Hydrox/Alum Hydrox 30 Ml Oral.Susp PO Q6H PRN Heartburn/Nausea Clozapine 50 mg 05/15/21 09:00 06/09/21 08:14 Clozapine 25 Mg Tablet PO 50 mg DAILY NORMA Administration Clozapine 350 mg 05/25/21 21:00 06/08/21 20:08 Clozapine 100 Mg Tablet PO 350 mg BEDTIME NORMA Administration Hydrochlorothiazide 12.5 mg 05/31/21 09:15 06/09/21 08:15 Hydrochlorothiazide 12.5 Mg Tablet PO 12.5 mg DAILY NORMA Administration Protocol Hydroxyzine HCl 25 mg 05/14/21 22:06 06/08/21 20:09 Hydroxyzine Hcl 25 Mg Tablet PO 25 mg BEDTIME PRN Administration Anxiety Ibuprofen 600 mg 05/26/21 09:55 06/09/21 12:08 Ibuprofen 600 Mg Tablet PO 600 mg Q8H PRN Administration Pain, Mild (Pain Scale 1-3) Lamotrigine 25 mg 05/21/21 21:00 06/08/21 20:09 Lamotrigine 25 Mg Tablet PO 25 mg BEDTIME NORMA Administration Losartan Potassium 25 mg 05/15/21 09:00 06/09/21 08:14 Losartan Potassium 25 Mg Tablet PO 25 mg DAILY NORMA Administration Protocol Magnesium Hydroxide 30 ml 05/14/21 22:06 05/21/21 11:20 Milk Of Magnesia 30 Ml Oral.Susp PO 30 ml DAILY PRN Administration Constipation Mirtazapine 45 mg 05/17/21 21:00 06/08/21 20:09 Mirtazapine 15 Mg Tablet PO 45 mg BEDTIME NORMA Administration Montelukast Sodium 10 mg 05/15/21 09:00 06/09/21 08:15 Montelukast Sodium 10 Mg Tablet PO 10 mg DAILY NORMA Administration Nicotine 21 mg 05/18/21 15:30 06/09/21 08:12 Nicotine 21 Mg Patch.Td24 TRANSDERMA 21 mg DAILY NORMA Administration Nicotine Polacrilex 4 mg 05/17/21 14:54 06/09/21 14:46 Nicotine Polacrilex 2 Mg Gum BUCCAL 4 mg Q2H PRN Administration Nicotine Cravings Prazosin HCl 2 mg 05/15/21 21:00 06/08/21 20:08 Prazosin Hcl 1 Mg Capsule PO 2 mg BEDTIME NORMA Administration Protocol Psyllium Hydrophilic Mucilloid 3.4 gm 05/15/21 21:00 06/08/21 20:16 Psyllium Seed 3.4 Gm Powd.Pack PO 3.4 gm BEDTIME NORMA Administration Risperidone 0.5 mg 06/04/21 09:00 06/09/21 08:15 Risperidone 0.5 Mg Tablet PO 0.5 mg DAILY NORMA Administration Risperidone 1 mg 06/03/21 21:00 06/08/21 20:09 Risperidone 1 Mg Tablet PO 1 mg BEDTIME NORMA Administration Trazodone HCl 50 mg 05/25/21 21:00 06/08/21 20:09 Trazodone Hcl 50 Mg Tablet PO 50 mg BEDTIME NORMA Administration Ursodiol 600 mg 05/15/21 09:00 06/09/21 14:18 Ursodiol 300 Mg Capsule PO 600 mg TID NORMA Administration Allergies Allergies Allergy/AdvReac Type Severity Reaction Status Date / Time No Known Allergies Allergy Verified 05/13/21 14:00 Assessment & Plan Assessment & Plan (1) Schizoaffective disorder, bipolar type: Status: Acute Code(s): F25.0 - Schizoaffective disorder, bipolar type Assessment and Plan: Continue current plan. Residential team will visit pt this week to assess his progress and give the team feedback. Greater than 50% of the session was spent on counseling and/or coordination of care Patient educated on: medication risk/benefits Informed Consent: understands and further education needed Reason for contiued inpatient stay Substantial Risk for: rapid decompensation
[2021-06-09 19:27] VITALS: BP 136/82; PULSE 103; RESP 18; TEMP 36.9; O2SAT 97
[2021-06-09] MEDS: Prazosin HCL 1 MG CAPSULE 2 MG PO (20:45)
[2021-06-09] MEDS: lamoTRIgine 25 MG TABLET PO (20:45)
[2021-06-09] MEDS: traZODone HCL 50 MG TABLET PO (20:45)
[2021-06-09] MEDS: cloZAPine 100 MG TABLET 350 MG PO (20:46)
[2021-06-09] MEDS: risperiDONE 1 MG TABLET PO (20:47)
[2021-06-09] MEDS: Mirtazapine 15 MG TABLET 45 MG PO (20:47)
[2021-06-10 06:00] VITALS: BP 142/75; PULSE 90; RESP 16; TEMP 36.1; O2SAT 99
[2021-06-10 08:25] VITALS: BP 142/75
[2021-06-10] MEDS: risperiDONE 0.5 MG TABLET PO (08:25)
[2021-06-10] MEDS: Nicotine 21 MG PATCH.TD24 TRANSDERMA (08:25)
[2021-06-10] MEDS: hydroCHLOROthiazide 12.5 MG TABLET PO (08:25)
[2021-06-10] MEDS: Losartan Potassium 25 MG TABLET PO (08:25)
[2021-06-10] MEDS: Montelukast Sodium 10 MG TABLET PO (08:25)
[2021-06-10] MEDS: cloZAPine 25 MG TABLET 50 MG PO (08:25)
[2021-06-10] MEDS: UrsodioL 300 MG CAPSULE 600 MG PO ×3 (08:26→21:34)
[2021-06-10] MEDS: Nicotine Polacrilex 2 MG GUM 4 MG BUCCAL ×3 (09:20→17:50)
[2021-06-10] MEDS: Ibuprofen 600 MG TABLET PO (13:51)
--- NOTE | 2021-06-10 17:07 | HO.PSYCHPN ---
Subjective Subjective Date of Service: 06/10/21 Reason For Visit: Psychosis Subjective Notes: Conditional Voluntary Healthcare Proxy: No Guardianship: Yes ([facility]ly [facility]) Medical Problems Affecting Mental Status: No Interim History: Team reports pt responding to internal stimuli today. Pt denies, but struggling with an active, tense milieu, ? dissociative sx. Several questions regarding another pt's difficult time and outbursts of emotion. Pt stating I have been there too-you will help him right? Pt reports sleep and appetite are intact. Expects mother to visit and residential team as well. Denies SI, HI. Visable in milieu. Well engaged this evening in the common area with other patients-observed relaxed talking laughing and interacting with ease. Medication Compliance: Yes Side effects from medications: No Attending Groups: Yes Review of Systems Acute medical concerns: No Medical Review of Systems: unchanged Review of Systems Psychiatric: Reports anxiety, Reports auditory hallucinations and Reports paranoia Mental Status Exam Mental Status Exam Patient Appearance: Appropriate Patient Orientation: Person, Place, Time and Situation Level of Consciousness: Alert Patient Behavior: Appropriate, Talkative and Cooperative Mood Description: Anxious (mild) and Apprehensive (mild) Affect Description: Constricted Patient Cognition Impaired: Yes Ability to Follow Directions: Good Speech Pattern: Spontaneous Speech Memory Description: Episodic Impaired Hallucinations: None (denies) Delusions: Not Present Thought Process: Goal Oriented Thought Content: positive for Goal Oriented Depressive Symptoms: Increased Anxiety (mild) Judgement: Fair Diagnostics Vital Signs (24Hr): Vital Signs - 24 hr 06/09/21 19:27 06/10/21 06:00 06/10/21 08:25 Temperature 98.4 F 97 F Pulse Rate 103 H 90 Respiratory Rate 18 16 Blood Pressure 136/82 142/75 H 142/75 H Pulse Oximetry 97 99 Body Mass Index 33.6 Labs Results: 06/01/21 08:04 06/08/21 08:42 Medications Medications Current Medications Generic Name Dose Route Start Last Admin Trade Name Freq PRN Reason Stop Dose Admin Acetaminophen 650 mg 05/14/21 22:06 06/09/21 14:46 Acetaminophen 325 Mg Tablet PO 650 mg Q6H PRN Administration Headache/Pain Mild Scale (1-3) Al Hydroxide/Mg Hydroxide 30 ml 05/14/21 22:06 Magnesium Hydrox/Alum Hydrox 30 Ml Oral.Susp PO Q6H PRN Heartburn/Nausea Clozapine 50 mg 05/15/21 09:00 06/10/21 08:25 Clozapine 25 Mg Tablet PO 50 mg DAILY NORMA Administration Clozapine 350 mg 05/25/21 21:00 06/09/21 20:46 Clozapine 100 Mg Tablet PO 350 mg BEDTIME NORMA Administration Hydrochlorothiazide 12.5 mg 05/31/21 09:15 06/10/21 08:25 Hydrochlorothiazide 12.5 Mg Tablet PO 12.5 mg DAILY NORMA Administration Protocol Hydroxyzine HCl 25 mg 05/14/21 22:06 06/08/21 20:09 Hydroxyzine Hcl 25 Mg Tablet PO 25 mg BEDTIME PRN Administration Anxiety Ibuprofen 600 mg 05/26/21 09:55 06/10/21 13:51 Ibuprofen 600 Mg Tablet PO 600 mg Q8H PRN Administration Pain, Mild (Pain Scale 1-3) Lamotrigine 25 mg 05/21/21 21:00 06/09/21 20:45 Lamotrigine 25 Mg Tablet PO 25 mg BEDTIME NORMA Administration Losartan Potassium 25 mg 05/15/21 09:00 06/10/21 08:25 Losartan Potassium 25 Mg Tablet PO 25 mg DAILY NORMA Administration Protocol Magnesium Hydroxide 30 ml 05/14/21 22:06 05/21/21 11:20 Milk Of Magnesia 30 Ml Oral.Susp PO 30 ml DAILY PRN Administration Constipation Mirtazapine 45 mg 05/17/21 21:00 06/09/21 20:47 Mirtazapine 15 Mg Tablet PO 45 mg BEDTIME NORMA Administration Montelukast Sodium 10 mg 05/15/21 09:00 06/10/21 08:25 Montelukast Sodium 10 Mg Tablet PO 10 mg DAILY NORMA Administration Nicotine 21 mg 05/18/21 15:30 06/10/21 08:25 Nicotine 21 Mg Patch.Td24 TRANSDERMA 21 mg DAILY NORMA Administration Nicotine Polacrilex 4 mg 05/17/21 14:54 06/10/21 15:09 Nicotine Polacrilex 2 Mg Gum BUCCAL 4 mg Q2H PRN Administration Nicotine Cravings Prazosin HCl 2 mg 05/15/21 21:00 06/09/21 20:45 Prazosin Hcl 1 Mg Capsule PO 2 mg BEDTIME NORMA Administration Protocol Psyllium Hydrophilic Mucilloid 3.4 gm 05/15/21 21:00 06/09/21 20:47 Psyllium Seed 3.4 Gm Powd.Pack PO 3.4 gm BEDTIME NORMA Administration Risperidone 0.5 mg 06/04/21 09:00 06/10/21 08:25 Risperidone 0.5 Mg Tablet PO 0.5 mg DAILY NORMA Administration Risperidone 1 mg 06/03/21 21:00 06/09/21 20:47 Risperidone 1 Mg Tablet PO 1 mg BEDTIME NORMA Administration Trazodone HCl 50 mg 05/25/21 21:00 06/09/21 20:45 Trazodone Hcl 50 Mg Tablet PO 50 mg BEDTIME NORMA Administration Ursodiol 600 mg 05/15/21 09:00 06/10/21 13:51 Ursodiol 300 Mg Capsule PO 600 mg TID NORMA Administration Allergies Allergies Allergy/AdvReac Type Severity Reaction Status Date / Time No Known Allergies Allergy Verified 05/13/21 14:00 Assessment & Plan Assessment & Plan (1) Schizoaffective disorder, bipolar type: Status: Acute Code(s): F25.0 - Schizoaffective disorder, bipolar type Assessment and Plan: Continue current plan. Residential team will visit pt this week to assess his progress and give the team feedback. Greater than 50% of the session was spent on counseling and/or coordination of care Patient educated on: therapeutic strategies Informed Consent: understands Reason for contiued inpatient stay Substantial Risk for: harm to self, harm to others, inability to function and rapid decompensation
[2021-06-10 17:34] VITALS: BP 134/78; PULSE 104; RESP 16
[2021-06-10] MEDS: Acetaminophen 325 MG TABLET 650 MG PO (17:51)
[2021-06-10] MEDS: traZODone HCL 50 MG TABLET PO (21:34)
[2021-06-10] MEDS: risperiDONE 1 MG TABLET PO (21:34)
[2021-06-10] MEDS: Mirtazapine 15 MG TABLET 45 MG PO (21:34)
[2021-06-10] MEDS: cloZAPine 100 MG TABLET 350 MG PO (21:34)
[2021-06-10] MEDS: lamoTRIgine 25 MG TABLET PO (21:34)
[2021-06-10 21:42] VITALS: BP 143/74
[2021-06-10] MEDS: Prazosin HCL 1 MG CAPSULE 2 MG PO (21:42)
[2021-06-11 05:59] VITALS: BP 141/82; PULSE 91; RESP 16; TEMP 36.1; O2SAT 98
[2021-06-11] MEDS: Losartan Potassium 25 MG TABLET PO (08:27)
[2021-06-11] MEDS: hydroCHLOROthiazide 12.5 MG TABLET PO (08:27)
[2021-06-11] MEDS: risperiDONE 0.5 MG TABLET PO (08:27)
[2021-06-11] MEDS: Montelukast Sodium 10 MG TABLET PO (08:27)
[2021-06-11] MEDS: cloZAPine 25 MG TABLET 50 MG PO (08:27)
[2021-06-11] MEDS: Acetaminophen 325 MG TABLET 650 MG PO (08:27)
[2021-06-11] MEDS: UrsodioL 300 MG CAPSULE 600 MG PO ×3 (08:27→21:02)
[2021-06-11] MEDS: Nicotine Polacrilex 2 MG GUM 4 MG BUCCAL ×4 (08:28→21:10)
[2021-06-11] MEDS: Nicotine 21 MG PATCH.TD24 TRANSDERMA (08:28)
--- NOTE | 2021-06-11 12:04 | P.PNPSI_ITS ---
Subjective Subjective Date of Service: 06/11/21 Reason For Visit: Psychosis Interim History: Pt's residential team met with him today. They describe improvement but do not believe he is prepared to discharge. 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 Medication Compliance: Yes Side effects from medications: No Attending Groups: No Review of Systems Acute medical concerns: No Medical Review of Systems: unchanged Review of Systems Psychiatric: Reports anxiety, Reports auditory hallucinations and Reports paranoia Mental Status Exam Mental Status Exam Patient Appearance: Appropriate Patient Orientation: Person, Place, Time and Situation Level of Consciousness: Alert Patient Behavior: Appropriate, Talkative and Cooperative Mood Description: Anxious (mild) and Apprehensive (mild) Affect Description: Constricted Patient Cognition Impaired: Yes Ability to Follow Directions: Good Speech Pattern: Spontaneous Speech Memory Description: Episodic Impaired Hallucinations: Auditory (residential team observes these sx in pt although he denies.) Delusions: Not Present and Paranoid Ideation Thought Process: Goal Oriented Thought Content: positive for Goal Oriented Depressive Symptoms: Increased Anxiety (mild) Judgement: Fair Diagnostics Vital Signs (24Hr): Vital Signs - 24 hr 06/10/21 17:34 06/10/21 21:42 06/11/21 05:59 Temperature 96.9 F Pulse Rate 104 H 91 Respiratory Rate 16 16 Blood Pressure 134/78 143/74 H 141/82 H Pulse Oximetry 98 Body Mass Index 33.6 Labs Results: 06/01/21 08:04 06/08/21 08:42 Medications Medications Current Medications Generic Name Dose Route Start Last Admin Trade Name Freq PRN Reason Stop Dose Admin Acetaminophen 650 mg 05/14/21 22:06 06/11/21 08:27 Acetaminophen 325 Mg Tablet PO 650 mg Q6H PRN Administration Headache/Pain Mild Scale (1-3) Al Hydroxide/Mg Hydroxide 30 ml 05/14/21 22:06 Magnesium Hydrox/Alum Hydrox 30 Ml Oral.Susp PO Q6H PRN Heartburn/Nausea Clozapine 50 mg 05/15/21 09:00 06/11/21 08:27 Clozapine 25 Mg Tablet PO 50 mg DAILY NORMA Administration Clozapine 350 mg 05/25/21 21:00 06/10/21 21:34 Clozapine 100 Mg Tablet PO 350 mg BEDTIME NORMA Administration Hydrochlorothiazide 12.5 mg 05/31/21 09:15 06/11/21 08:27 Hydrochlorothiazide 12.5 Mg Tablet PO 12.5 mg DAILY NORMA Administration Protocol Hydroxyzine HCl 25 mg 05/14/21 22:06 06/08/21 20:09 Hydroxyzine Hcl 25 Mg Tablet PO 25 mg BEDTIME PRN Administration Anxiety Ibuprofen 600 mg 05/26/21 09:55 06/10/21 13:51 Ibuprofen 600 Mg Tablet PO 600 mg Q8H PRN Administration Pain, Mild (Pain Scale 1-3) Lamotrigine 25 mg 05/21/21 21:00 06/10/21 21:34 Lamotrigine 25 Mg Tablet PO 25 mg BEDTIME NORMA Administration Losartan Potassium 25 mg 05/15/21 09:00 06/11/21 08:27 Losartan Potassium 25 Mg Tablet PO 25 mg DAILY NORMA Administration Protocol Magnesium Hydroxide 30 ml 05/14/21 22:06 05/21/21 11:20 Milk Of Magnesia 30 Ml Oral.Susp PO 30 ml DAILY PRN Administration Constipation Mirtazapine 45 mg 05/17/21 21:00 06/10/21 21:34 Mirtazapine 15 Mg Tablet PO 45 mg BEDTIME NORMA Administration Montelukast Sodium 10 mg 05/15/21 09:00 06/11/21 08:27 Montelukast Sodium 10 Mg Tablet PO 10 mg DAILY NORMA Administration Nicotine 21 mg 05/18/21 15:30 06/11/21 08:28 Nicotine 21 Mg Patch.Td24 TRANSDERMA 21 mg DAILY NORMA Administration Nicotine Polacrilex 4 mg 05/17/21 14:54 06/11/21 11:58 Nicotine Polacrilex 2 Mg Gum BUCCAL 4 mg Q2H PRN Administration Nicotine Cravings Prazosin HCl 2 mg 05/15/21 21:00 06/10/21 21:42 Prazosin Hcl 1 Mg Capsule PO 2 mg BEDTIME NORMA Administration Protocol Psyllium Hydrophilic Mucilloid 3.4 gm 05/15/21 21:00 06/10/21 21:35 Psyllium Seed 3.4 Gm Powd.Pack PO 3.4 gm BEDTIME NORMA Administration Risperidone 0.5 mg 06/04/21 09:00 06/11/21 08:27 Risperidone 0.5 Mg Tablet PO 0.5 mg DAILY NORMA Administration Risperidone 1 mg 06/03/21 21:00 06/10/21 21:34 Risperidone 1 Mg Tablet PO 1 mg BEDTIME NORMA Administration Trazodone HCl 50 mg 05/25/21 21:00 06/10/21 21:34 Trazodone Hcl 50 Mg Tablet PO 50 mg BEDTIME NORMA Administration Ursodiol 600 mg 05/15/21 09:00 06/11/21 08:27 Ursodiol 300 Mg Capsule PO 600 mg TID NORMA Administration Allergies Allergies Allergy/AdvReac Type Severity Reaction Status Date / Time No Known Allergies Allergy Verified 05/13/21 14:00 Assessment & Plan Assessment & Plan (1) Schizoaffective disorder, bipolar type: Status: Acute Code(s): F25.0 - Schizoaffective disorder, bipolar type Assessment and Plan: Residential team input appreciated. 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 As a result, will titrate Risperdal to 1.5 mg bid. Greater than 50% of the session was spent on counseling and/or coordination of care Patient educated on: medication risk/benefits Informed Consent: understands and further education needed Reason for contiued inpatient stay Substantial Risk for: harm to self, harm to others, inability to function and rapid decompensation
[2021-06-11 17:41] VITALS: BP 141/68; PULSE 94; RESP 18; TEMP 36.8; O2SAT 98
[2021-06-11] MEDS: risperiDONE 0.5 MG TABLET 1.5 MG PO (21:02)
[2021-06-11] MEDS: cloZAPine 100 MG TABLET 350 MG PO (21:02)
[2021-06-11] MEDS: Mirtazapine 15 MG TABLET 45 MG PO (21:02)
[2021-06-11] MEDS: traZODone HCL 50 MG TABLET PO (21:02)
[2021-06-11] MEDS: lamoTRIgine 25 MG TABLET PO (21:02)
[2021-06-11] MEDS: Prazosin HCL 1 MG CAPSULE 2 MG PO (21:02)
[2021-06-11] MEDS: Ibuprofen 600 MG TABLET PO (21:21)
[2021-06-12 06:00] VITALS: BP 150/68; PULSE 97; RESP 16; TEMP 36.4; O2SAT 100
[2021-06-12 08:29] VITALS: BP 134/72; PULSE 99; RESP 16
[2021-06-12] MEDS: UrsodioL 300 MG CAPSULE 600 MG PO ×3 (08:33→20:35)
[2021-06-12] MEDS: Nicotine 21 MG PATCH.TD24 TRANSDERMA (08:33)
[2021-06-12] MEDS: Losartan Potassium 25 MG TABLET PO (08:33)
[2021-06-12] MEDS: Montelukast Sodium 10 MG TABLET PO (08:33)
[2021-06-12] MEDS: cloZAPine 25 MG TABLET 50 MG PO (08:33)
[2021-06-12] MEDS: hydroCHLOROthiazide 12.5 MG TABLET PO (08:33)
[2021-06-12] MEDS: risperiDONE 0.5 MG TABLET 1.5 MG PO ×2 (08:33→20:35)
[2021-06-12] MEDS: Nicotine Polacrilex 2 MG GUM 4 MG BUCCAL ×2 (08:59→13:16)
[2021-06-12 19:30] VITALS: BP 137/78; PULSE 113; RESP 18; TEMP 36.3; O2SAT 97
[2021-06-12] MEDS: lamoTRIgine 25 MG TABLET PO (20:35)
[2021-06-12] MEDS: traZODone HCL 50 MG TABLET PO (20:35)
[2021-06-12] MEDS: Mirtazapine 15 MG TABLET 45 MG PO (20:35)
[2021-06-12] MEDS: cloZAPine 100 MG TABLET 350 MG PO (20:35)
[2021-06-12] MEDS: Prazosin HCL 1 MG CAPSULE 2 MG PO (20:35)
--- NOTE | 2021-06-13 00:26 | P.PNPSI_ITS ---
Subjective Subjective Date of Service: 06/12/21 Reason For Visit: Psychosis Subjective Notes: Lau Warning and Conditional Voluntary Healthcare Proxy: No Guardianship: No Medical Problems Affecting Mental Status: No Interim History: Patient seen and discussed with team. Per staff, he has been improved on medication, closer to baseline, less isolative. CBC reviewed, ANC wnl. Patient evaluated this morning and upon interview he is doing good, sleep and appetite are good. Says his medications are working. Initially says I need a stronger dose for my pain and my head and stuff, but then says his meds and doses are good. Reports I oversleep, no nightmares. Does not want med adjus tments as he says sleep is helpful. Denies anxiety. denies hallucinations, says i space out sometimes. In the milieu, patient is safe and appropriate in behavior, more visible, did his hair and presenting with improved hygiene. Denies SI/SIB/HI upon inquiry. Denies irritability or assaultive ideation. Says he feels safe. Medication Compliance: Yes Side effects from medications: No Attending Groups: Yes Review of Systems Medical Review of Systems: unchanged Mental Status Exam Mental Status Exam Narrative: Patient Appearance:?Appropriate Patient Orientation:?Person, Place, Time and Situation Level of Consciousness:?Alert Patient Behavior:?Appropriate, Talkative and Cooperative Mood Description:?Anxious (mild) and Apprehensive (mild) Affect Description:?Constricted Patient Cognition Impaired:?Yes Ability to Follow Directions:?Good Speech Pattern:?Spontaneous Speech Memory Description:?Episodic Impaired Hallucinations:?Auditory (residential team observes these sx in pt although he denies.) Delusions:?Not Present and Paranoid Ideation Thought Process:?Goal Oriented Thought Content:?positive for Goal Oriented Depressive Symptoms:?Increased Anxiety (mild) Judgement:?Fair Diagnostics Vital Signs (24Hr): Vital Signs - 24 hr 06/12/21 06:00 06/12/21 08:29 06/12/21 19:30 Temperature 97.6 F 97.3 F Pulse Rate 97 99 113 H Respiratory Rate 16 16 18 Blood Pressure 150/68 H 134/72 137/78 Pulse Oximetry 100 97 Body Mass Index 33.6 Labs Results: 06/01/21 08:04 06/08/21 08:42 Medications Medications Current Medications Generic Name Dose Route Start Last Admin Trade Name Freq PRN Reason Stop Dose Admin Acetaminophen 650 mg 05/14/21 22:06 06/11/21 08:27 Acetaminophen 325 Mg Tablet PO 650 mg Q6H PRN Administration Headache/Pain Mild Scale (1-3) Al Hydroxide/Mg Hydroxide 30 ml 05/14/21 22:06 Magnesium Hydrox/Alum Hydrox 30 Ml Oral.Susp PO Q6H PRN Heartburn/Nausea Clozapine 50 mg 05/15/21 09:00 06/12/21 08:33 Clozapine 25 Mg Tablet PO 50 mg DAILY NORMA Administration Clozapine 350 mg 05/25/21 21:00 06/12/21 20:35 Clozapine 100 Mg Tablet PO 350 mg BEDTIME NORMA Administration Hydrochlorothiazide 12.5 mg 05/31/21 09:15 06/12/21 08:33 Hydrochlorothiazide 12.5 Mg Tablet PO 12.5 mg DAILY NORMA Administration Protocol Hydroxyzine HCl 25 mg 05/14/21 22:06 06/08/21 20:09 Hydroxyzine Hcl 25 Mg Tablet PO 25 mg BEDTIME PRN Administration Anxiety Ibuprofen 600 mg 05/26/21 09:55 06/11/21 21:21 Ibuprofen 600 Mg Tablet PO 600 mg Q8H PRN Administration Pain, Mild (Pain Scale 1-3) Lamotrigine 25 mg 05/21/21 21:00 06/12/21 20:35 Lamotrigine 25 Mg Tablet PO 25 mg BEDTIME NORMA Administration Losartan Potassium 25 mg 05/15/21 09:00 06/12/21 08:33 Losartan Potassium 25 Mg Tablet PO 25 mg DAILY NORMA Administration Protocol Magnesium Hydroxide 30 ml 05/14/21 22:06 05/21/21 11:20 Milk Of Magnesia 30 Ml Oral.Susp PO 30 ml DAILY PRN Administration Constipation Mirtazapine 45 mg 05/17/21 21:00 06/12/21 20:35 Mirtazapine 15 Mg Tablet PO 45 mg BEDTIME NORMA Administration Montelukast Sodium 10 mg 05/15/21 09:00 06/12/21 08:33 Montelukast Sodium 10 Mg Tablet PO 10 mg DAILY NORMA Administration Nicotine 21 mg 05/18/21 15:30 06/12/21 08:33 Nicotine 21 Mg Patch.Td24 TRANSDERMA 21 mg DAILY NORMA Administration Nicotine Polacrilex 4 mg 05/17/21 14:54 06/12/21 13:16 Nicotine Polacrilex 2 Mg Gum BUCCAL 4 mg Q2H PRN Administration Nicotine Cravings Prazosin HCl 2 mg 05/15/21 21:00 06/12/21 20:35 Prazosin Hcl 1 Mg Capsule PO 2 mg BEDTIME NORMA Administration Protocol Psyllium Hydrophilic Mucilloid 3.4 gm 05/15/21 21:00 06/12/21 20:34 Psyllium Seed 3.4 Gm Powd.Pack PO 3.4 gm BEDTIME NORMA Administration Risperidone 1.5 mg 06/11/21 21:00 06/12/21 20:35 Risperidone 0.5 Mg Tablet PO 1.5 mg BID NORMA Administration Trazodone HCl 50 mg 05/25/21 21:00 06/12/21 20:35 Trazodone Hcl 50 Mg Tablet PO 50 mg BEDTIME NORMA Administration Ursodiol 600 mg 05/15/21 09:00 06/12/21 20:35 Ursodiol 300 Mg Capsule PO 600 mg TID NORMA Administration Allergies Allergies Allergy/AdvReac Type Severity Reaction Status Date / Time No Known Allergies Allergy Verified 05/13/21 14:00 Assessment & Plan Assessment & Plan (1) Schizoaffective disorder, bipolar type: Status: Acute Code(s): F25.0 - Schizoaffective disorder, bipolar type Assessment and Plan: Residential team input appreciated. 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 As a result, will titrate Risperdal to 1.5 mg bid. 06/12: Continue meds per primary team, staff report improvement in overall sx, no behavioral concerns. Greater than 50% of the session was spent on counseling and/or coordination of care Reason for contiued inpatient stay Substantial Risk for: rapid decompensation and med/psych decompensation
[2021-06-13 06:00] VITALS: BP 154/92; PULSE 85; TEMP 36.4; O2SAT 99
[2021-06-13 08:05] VITALS: BP 154/92
[2021-06-13] MEDS: Nicotine 21 MG PATCH.TD24 TRANSDERMA (08:05)
[2021-06-13] MEDS: Losartan Potassium 25 MG TABLET PO (08:05)
[2021-06-13] MEDS: risperiDONE 0.5 MG TABLET 1.5 MG PO ×2 (08:06→21:01)
[2021-06-13] MEDS: cloZAPine 25 MG TABLET 50 MG PO (08:06)
[2021-06-13] MEDS: UrsodioL 300 MG CAPSULE 600 MG PO ×3 (08:06→21:02)
[2021-06-13] MEDS: Montelukast Sodium 10 MG TABLET PO (08:06)
[2021-06-13] MEDS: hydroCHLOROthiazide 12.5 MG TABLET PO (08:06)
--- NOTE | 2021-06-13 15:04 | HO.PSYCHPN ---
Subjective Subjective Date of Service: 06/13/21 Reason For Visit: Psychosis Subjective Notes: Lau Warning and Conditional Voluntary Healthcare Proxy: No Guardianship: No Medical Problems Affecting Mental Status: No Interim History: Patient seen and discussed with team. Per staff, he has been improved on medication, closer to baseline, less isolative. CBC reviewed, ANC wnl. Staff report he still needs help with med management as he can be forgetful and requires redirection. Patient evaluated this morning and upon interview he is doing good. Denies having questions or concerns. Says I slept good and overall I feel better on medication. Says he plans to go back to [employer] program on discharge, asked about getting labs at [facility] monthly. Denies anxiety. Energy is tired. In the milieu, patient is safe and appropriate in behavior, more visible, did his hair and presenting with improved hygiene. Denies SI/SIB/HI upon inquiry. Denies irritability or assaultive ideation. Says he feels safe. Medication Compliance: Yes Side effects from medications: No Attending Groups: Yes Review of Systems Medical Review of Systems: unchanged Mental Status Exam Mental Status Exam Narrative: Narrative:?Patient Appearance:?Appropriate Patient Orientation:?Person, Place, Time and Situation Level of Consciousness:?Alert Patient Behavior:?Appropriate, Talkative and Cooperative Mood Description:?Anxious (mild) and Apprehensive (mild) Affect Description:?Constricted Patient Cognition Impaired:?Yes Ability to Follow Directions:?Good Speech Pattern:?Spontaneous Speech Memory Description:?Episodic Impaired Hallucinations:?Auditory (residential team observes these sx in pt although he denies.) Delusions:?Not Present and Paranoid Ideation Thought Process:?Goal Oriented Thought Content:?positive for Goal Oriented Depressive Symptoms:?Increased Anxiety (mild) Judgement:?Fair Diagnostics Vital Signs (24Hr): Vital Signs - 24 hr 06/12/21 19:30 06/13/21 06:00 06/13/21 08:05 Temperature 97.3 F 97.5 F Pulse Rate 113 H 85 Respiratory Rate 18 Blood Pressure 137/78 154/92 H 154/92 H Pulse Oximetry 97 99 Body Mass Index 33.6 Labs Results: 06/01/21 08:04 06/08/21 08:42 Medications Medications Current Medications Generic Name Dose Route Start Last Admin Trade Name Freq PRN Reason Stop Dose Admin Acetaminophen 650 mg 05/14/21 22:06 06/11/21 08:27 Acetaminophen 325 Mg Tablet PO 650 mg Q6H PRN Administration Headache/Pain Mild Scale (1-3) Al Hydroxide/Mg Hydroxide 30 ml 05/14/21 22:06 Magnesium Hydrox/Alum Hydrox 30 Ml Oral.Susp PO Q6H PRN Heartburn/Nausea Clozapine 50 mg 05/15/21 09:00 06/13/21 08:06 Clozapine 25 Mg Tablet PO 50 mg DAILY NORMA Administration Clozapine 350 mg 05/25/21 21:00 06/12/21 20:35 Clozapine 100 Mg Tablet PO 350 mg BEDTIME NORMA Administration Hydrochlorothiazide 12.5 mg 05/31/21 09:15 06/13/21 08:06 Hydrochlorothiazide 12.5 Mg Tablet PO 12.5 mg DAILY NORMA Administration Protocol Hydroxyzine HCl 25 mg 05/14/21 22:06 06/08/21 20:09 Hydroxyzine Hcl 25 Mg Tablet PO 25 mg BEDTIME PRN Administration Anxiety Ibuprofen 600 mg 05/26/21 09:55 06/11/21 21:21 Ibuprofen 600 Mg Tablet PO 600 mg Q8H PRN Administration Pain, Mild (Pain Scale 1-3) Lamotrigine 25 mg 05/21/21 21:00 06/12/21 20:35 Lamotrigine 25 Mg Tablet PO 25 mg BEDTIME NORMA Administration Losartan Potassium 25 mg 05/15/21 09:00 06/13/21 08:05 Losartan Potassium 25 Mg Tablet PO 25 mg DAILY NORMA Administration Protocol Magnesium Hydroxide 30 ml 05/14/21 22:06 05/21/21 11:20 Milk Of Magnesia 30 Ml Oral.Susp PO 30 ml DAILY PRN Administration Constipation Mirtazapine 45 mg 05/17/21 21:00 06/12/21 20:35 Mirtazapine 15 Mg Tablet PO 45 mg BEDTIME NORMA Administration Montelukast Sodium 10 mg 05/15/21 09:00 06/13/21 08:06 Montelukast Sodium 10 Mg Tablet PO 10 mg DAILY NORMA Administration Nicotine 21 mg 05/18/21 15:30 06/13/21 08:05 Nicotine 21 Mg Patch.Td24 TRANSDERMA 21 mg DAILY NORMA Administration Nicotine Polacrilex 4 mg 05/17/21 14:54 06/12/21 13:16 Nicotine Polacrilex 2 Mg Gum BUCCAL 4 mg Q2H PRN Administration Nicotine Cravings Prazosin HCl 2 mg 05/15/21 21:00 06/12/21 20:35 Prazosin Hcl 1 Mg Capsule PO 2 mg BEDTIME NORMA Administration Protocol Psyllium Hydrophilic Mucilloid 3.4 gm 05/15/21 21:00 06/12/21 20:34 Psyllium Seed 3.4 Gm Powd.Pack PO 3.4 gm BEDTIME NORMA Administration Risperidone 1.5 mg 06/11/21 21:00 06/13/21 08:06 Risperidone 0.5 Mg Tablet PO 1.5 mg BID NORMA Administration Trazodone HCl 50 mg 05/25/21 21:00 06/12/21 20:35 Trazodone Hcl 50 Mg Tablet PO 50 mg BEDTIME NORMA Administration Ursodiol 600 mg 05/15/21 09:00 06/13/21 14:49 Ursodiol 300 Mg Capsule PO 600 mg TID NORMA Administration Allergies Allergies Allergy/AdvReac Type Severity Reaction Status Date / Time No Known Allergies Allergy Verified 05/13/21 14:00 Assessment & Plan Assessment & Plan (1) Schizoaffective disorder, bipolar type: Status: Acute Code(s): F25.0 - Schizoaffective disorder, bipolar type Assessment and Plan: Residential team input appreciated. 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 As a result, will titrate Risperdal to 1.5 mg bid. 06/12: Continue meds per primary team, staff report improvement in overall sx, no behavioral concerns. 06/13: Continue medication regimen due to positive benefit, has been more visible and asking appropriate questions about his meds, lab monitoring. Greater than 50% of the session was spent on counseling and/or coordination of care Reason for contiued inpatient stay Substantial Risk for: rapid decompensation and med/psych decompensation
[2021-06-13 16:56] VITALS: BP 139/90; PULSE 106; RESP 18; TEMP 36.1; O2SAT 97
[2021-06-13 21:01] VITALS: BP 144/91; PULSE 99
[2021-06-13] MEDS: Mirtazapine 15 MG TABLET 45 MG PO (21:01)
[2021-06-13] MEDS: Prazosin HCL 1 MG CAPSULE 2 MG PO (21:01)
[2021-06-13] MEDS: cloZAPine 100 MG TABLET 350 MG PO (21:02)
[2021-06-13] MEDS: lamoTRIgine 25 MG TABLET PO (21:02)
[2021-06-13] MEDS: traZODone HCL 50 MG TABLET PO (21:02)
[2021-06-14 06:00] VITALS: BP 139/80; PULSE 94; RESP 18; TEMP 36.2; O2SAT 97
[2021-06-14 08:12] LABS: Neut%MD 68.9 %; Neutrophils Absolute Auto 5.7 X10*3/uL (2.0-8.3); WBCANC 8.3 X10*3/uL
[2021-06-14] MEDS: cloZAPine 25 MG TABLET 50 MG PO (09:05)
[2021-06-14] MEDS: Montelukast Sodium 10 MG TABLET PO (09:06)
[2021-06-14] MEDS: UrsodioL 300 MG CAPSULE 600 MG PO ×3 (09:06→20:48)
[2021-06-14 09:07] VITALS: BP 140/85; PULSE 94
[2021-06-14] MEDS: hydroCHLOROthiazide 12.5 MG TABLET PO (09:07)
[2021-06-14] MEDS: Losartan Potassium 25 MG TABLET PO (09:07)
[2021-06-14] MEDS: risperiDONE 0.5 MG TABLET 1.5 MG PO ×2 (09:08→20:46)
[2021-06-14] MEDS: Nicotine Polacrilex 2 MG GUM 4 MG BUCCAL (09:10)
[2021-06-14] MEDS: Nicotine 21 MG PATCH.TD24 TRANSDERMA (10:29)
[2021-06-14 18:00] VITALS: BP 138/83; PULSE 107; TEMP 36.7
[2021-06-14] MEDS: cloZAPine 100 MG TABLET 350 MG PO (20:45)
[2021-06-14] MEDS: lamoTRIgine 25 MG TABLET PO (20:47)
[2021-06-14] MEDS: traZODone HCL 50 MG TABLET PO (20:47)
[2021-06-14] MEDS: Mirtazapine 15 MG TABLET 45 MG PO (20:47)
[2021-06-14 20:49] VITALS: BP 138/83; PULSE 107
[2021-06-14] MEDS: Prazosin HCL 1 MG CAPSULE 2 MG PO (20:49)
[2021-06-15 06:00] VITALS: BP 135/78; PULSE 94; TEMP 36.1; O2SAT 98
[2021-06-15] MEDS: Nicotine 21 MG PATCH.TD24 TRANSDERMA (08:48)
[2021-06-15] MEDS: risperiDONE 0.5 MG TABLET 1.5 MG PO (08:48)
[2021-06-15 08:49] VITALS: BP 138/80; PULSE 97
[2021-06-15] MEDS: cloZAPine 25 MG TABLET 50 MG PO (08:49)
[2021-06-15] MEDS: Losartan Potassium 25 MG TABLET PO (08:49)
[2021-06-15] MEDS: Montelukast Sodium 10 MG TABLET PO (08:49)
[2021-06-15] MEDS: UrsodioL 300 MG CAPSULE 600 MG PO ×3 (08:49→20:42)
[2021-06-15] MEDS: hydroCHLOROthiazide 12.5 MG TABLET PO (08:49)
[2021-06-15 11:15] LABS: Clozapine (Clozaril) 433 mcg/L; Norclozapine 315 mcg/L (25-400)
[2021-06-15] MEDS: Nicotine Polacrilex 2 MG GUM 4 MG BUCCAL (13:34)
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
[2021-06-15 18:00] VITALS: BP 140/83; PULSE 96
[2021-06-15] MEDS: lamoTRIgine 25 MG TABLET PO (20:41)
[2021-06-15] MEDS: traZODone HCL 50 MG TABLET PO (20:41)
[2021-06-15] MEDS: Prazosin HCL 1 MG CAPSULE 2 MG PO (20:41)
[2021-06-15] MEDS: Mirtazapine 15 MG TABLET 45 MG PO (20:42)
[2021-06-15] MEDS: risperiDONE 1 MG TABLET PO (20:42)
[2021-06-15] MEDS: cloZAPine 100 MG TABLET 350 MG PO (20:42)
[2021-06-16 06:00] VITALS: BP 129/86; PULSE 94; RESP 18; TEMP 36.3; O2SAT 97
[2021-06-16 10:05] VITALS: BP 146/71; PULSE 99
[2021-06-16] MEDS: UrsodioL 300 MG CAPSULE 600 MG PO ×3 (10:05→21:01)
[2021-06-16] MEDS: Nicotine 21 MG PATCH.TD24 TRANSDERMA (10:05)
[2021-06-16] MEDS: Montelukast Sodium 10 MG TABLET PO (10:05)
[2021-06-16] MEDS: hydroCHLOROthiazide 12.5 MG TABLET PO (10:05)
[2021-06-16] MEDS: cloZAPine 25 MG TABLET 50 MG PO (10:05)
[2021-06-16] MEDS: Losartan Potassium 25 MG TABLET PO (10:05)
[2021-06-16] MEDS: risperiDONE 1 MG TABLET PO (10:05)
--- NOTE | 2021-06-16 15:43 | P.PNPSI_ITS ---
Subjective Subjective Date of Service: 06/16/21 Reason For Visit: Psychosis Subjective Notes: Conditional Voluntary Healthcare Proxy: No Guardianship: Yes Medical Problems Affecting Mental Status: No Interim History: Meeting with pt's residential team who reports they do not assess a return to baseline as yet. Discussed recent medication titrations with pt report of feeling overmedicated and resulting decrease. Team reports pt will often say this when he is feeling improved as he does not believe he is in need of medication. Asked team to begin to meet with pt daily to assess as we will be setting a discharge date with them soon. They agreed. Pt reports appropriate sleep, appetite, able to sleep without a light. Also more visable in milieu and social with peers. Medication Compliance: Yes Side effects from medications: No Attending Groups: Intermittent Review of Systems Acute medical concerns: No Review of Systems Reports behavioral changes (in the meeting today, pt seemed anxious and was rubbing his hair often) Psychiatric: Reports anxiety, Reports behavioral changes (in the meeting today, pt seemed anxious and was rubbing his hair often), Reports auditory hallucinations (denies) and Reports visual hallucinations (denies) Mental Status Exam Mental Status Exam Patient Appearance: Appropriate Patient Orientation: Person, Place, Time and Situation Level of Consciousness: Alert Patient Behavior: Appropriate, Talkative, Cooperative and Anxious Mood Description: Anxious and Blunted Affect Description: Blunted Patient Cognition Impaired: Yes Ability to Follow Directions: Good Speech Pattern: Spontaneous Speech Memory Description: Intact Hallucinations: None (denies) Delusions: Not Present Thought Process: Distracted, Rumination and Goal Oriented Thought Content: positive for [place], positive for Circumstantial, positive for Goal Oriented (wanting to return home), positive for Suicidal Ideation ( denies) and positive for Homicidal Ideation (denies) Depressive Symptoms: Increased Anxiety Abnormal Motor Activity Signs and Symptoms: Restlessness Judgement: Fair Diagnostics Vital Signs (24Hr): Vital Signs - 24 hr 06/15/21 18:00 06/16/21 06:00 06/16/21 10:05 Temperature 97.4 F Pulse Rate 96 94 99 Respiratory Rate 18 Blood Pressure 140/83 H 129/86 146/71 H Pulse Oximetry 97 Body Mass Index 33.6 Labs Results: 06/01/21 08:04 06/08/21 08:42 Labs: Laboratory Results - last 48 hr 06/10/21 07:48 Clozapine 433 Norclozapine 315 Medications Medications Current Medications Generic Name Dose Route Start Last Admin Trade Name Freq PRN Reason Stop Dose Admin Acetaminophen 650 mg 05/14/21 22:06 06/11/21 08:27 Acetaminophen 325 Mg Tablet PO 650 mg Q6H PRN Administration Headache/Pain Mild Scale (1-3) Al Hydroxide/Mg Hydroxide 30 ml 05/14/21 22:06 Magnesium Hydrox/Alum Hydrox 30 Ml Oral.Susp PO Q6H PRN Heartburn/Nausea Clozapine 50 mg 05/15/21 09:00 06/16/21 10:05 Clozapine 25 Mg Tablet PO 50 mg DAILY NORMA Administration Clozapine 350 mg 05/25/21 21:00 06/15/21 20:42 Clozapine 100 Mg Tablet PO 350 mg BEDTIME NORMA Administration Hydrochlorothiazide 12.5 mg 05/31/21 09:15 06/16/21 10:05 Hydrochlorothiazide 12.5 Mg Tablet PO 12.5 mg DAILY NORMA Administration Protocol Hydroxyzine HCl 25 mg 05/14/21 22:06 06/08/21 20:09 Hydroxyzine Hcl 25 Mg Tablet PO 25 mg BEDTIME PRN Administration Anxiety Ibuprofen 600 mg 05/26/21 09:55 06/11/21 21:21 Ibuprofen 600 Mg Tablet PO 600 mg Q8H PRN Administration Pain, Mild (Pain Scale 1-3) Lamotrigine 50 mg 06/16/21 21:00 Lamotrigine 25 Mg Tablet PO BEDTIME NORMA Losartan Potassium 25 mg 05/15/21 09:00 06/16/21 10:05 Losartan Potassium 25 Mg Tablet PO 25 mg DAILY NORMA Administration Protocol Magnesium Hydroxide 30 ml 05/14/21 22:06 05/21/21 11:20 Milk Of Magnesia 30 Ml Oral.Susp PO 30 ml DAILY PRN Administration Constipation Mirtazapine 45 mg 05/17/21 21:00 06/15/21 20:42 Mirtazapine 15 Mg Tablet PO 45 mg BEDTIME NORMA Administration Montelukast Sodium 10 mg 05/15/21 09:00 06/16/21 10:05 Montelukast Sodium 10 Mg Tablet PO 10 mg DAILY NORMA Administration Nicotine 21 mg 05/18/21 15:30 06/16/21 10:05 Nicotine 21 Mg Patch.Td24 TRANSDERMA 21 mg DAILY NORMA Administration Nicotine Polacrilex 4 mg 05/17/21 14:54 06/15/21 13:34 Nicotine Polacrilex 2 Mg Gum BUCCAL 4 mg Q2H PRN Administration Nicotine Cravings Prazosin HCl 2 mg 05/15/21 21:00 06/15/21 20:41 Prazosin Hcl 1 Mg Capsule PO 2 mg BEDTIME NORMA Administration Protocol Psyllium Hydrophilic Mucilloid 3.4 gm 05/15/21 21:00 06/15/21 20:41 Psyllium Seed 3.4 Gm Powd.Pack PO 3.4 gm BEDTIME NORMA Administration Risperidone 1 mg 06/17/21 09:00 Risperidone 1 Mg Tablet PO DAILY NORMA Risperidone 2 mg 06/16/21 21:00 Risperidone 2 Mg Tablet PO BEDTIME NORMA Trazodone HCl 50 mg 05/25/21 21:00 06/15/21 20:41 Trazodone Hcl 50 Mg Tablet PO 50 mg BEDTIME NORMA Administration Ursodiol 600 mg 05/15/21 09:00 06/16/21 15:35 Ursodiol 300 Mg Capsule PO 600 mg TID NORMA Administration Allergies Allergies Allergy/AdvReac Type Severity Reaction Status Date / Time No Known Allergies Allergy Verified 05/13/21 14:00 Assessment & Plan Assessment & Plan (1) Schizoaffective disorder, bipolar type: Status: Acute Code(s): F25.0 - Schizoaffective disorder, bipolar type Assessment and Plan: Residential team assessment is that pt is still symptomatic. They report that pt will often tell providers that he feels overmedicated when his symptoms are well controlled as he does not believe he has a need for the medication. They are not willing to have pt return to the residence. We have requested daily visits from the residence to have ongoing assessment. 1. Increase Lamictal to 50 mg daily 2. Increase Risperdal to 1 mg am, 2 mg hs Greater than 50% of the session was spent on counseling and/or coordination of care Patient educated on: medication risk/benefits and therapeutic strategies Informed Consent: further education needed Reason for contiued inpatient stay Substantial Risk for: harm to self, harm to others, inability to function and rapid decompensation
[2021-06-16 18:00] VITALS: BP 142/72; PULSE 101; RESP 18; TEMP 36.5; O2SAT 98
[2021-06-16] MEDS: Nicotine Polacrilex 2 MG GUM 4 MG BUCCAL (19:31)
[2021-06-16] MEDS: cloZAPine 100 MG TABLET 350 MG PO (20:58)
[2021-06-16] MEDS: Mirtazapine 15 MG TABLET 45 MG PO (20:58)
[2021-06-16] MEDS: traZODone HCL 50 MG TABLET PO (21:01)
[2021-06-16] MEDS: risperiDONE 2 MG TABLET PO (21:01)
[2021-06-16 21:02] VITALS: BP 128/56; PULSE 99
[2021-06-16] MEDS: lamoTRIgine 25 MG TABLET 50 MG PO (21:02)
[2021-06-16] MEDS: Prazosin HCL 1 MG CAPSULE 2 MG PO (21:02)
[2021-06-17 06:00] VITALS: BP 138/77; PULSE 89; RESP 16; TEMP 36; O2SAT 98
[2021-06-17 07:00] VITALS: BMI 34.6
[2021-06-17] MEDS: cloZAPine 25 MG TABLET 50 MG PO (09:41)
[2021-06-17] MEDS: hydroCHLOROthiazide 12.5 MG TABLET PO (09:42)
[2021-06-17] MEDS: UrsodioL 300 MG CAPSULE 600 MG PO ×3 (09:44→20:57)
[2021-06-17 09:45] VITALS: BP 140/75; PULSE 95
[2021-06-17] MEDS: Losartan Potassium 25 MG TABLET PO (09:45)
[2021-06-17] MEDS: Montelukast Sodium 10 MG TABLET PO (09:45)
[2021-06-17] MEDS: Nicotine 21 MG PATCH.TD24 TRANSDERMA (09:45)
[2021-06-17] MEDS: risperiDONE 1 MG TABLET PO (10:08)
[2021-06-17] MEDS: Nicotine Polacrilex 2 MG GUM 4 MG BUCCAL ×2 (10:35→17:53)
--- NOTE | 2021-06-17 16:14 | P.PNPSI_ITS ---
Subjective Subjective Date of Service: 06/18/21 Reason For Visit: Psychosis Subjective Notes: Conditional Voluntary Healthcare Proxy: No Guardianship: Yes ([facility]) Medical Problems Affecting Mental Status: No Interim History: Alexis reports feeling well. He asks about going home. We di scussed that his residential team will visit daily to review his progress and we will plan for discharge next week. Team reports some isolative behaviors. Today, pt is at the nursing station for a good amount of time, denies current need, states just seeing what is happening here. Regarding sleep, there are mixed reports-he reports to tw he slept, to team that he did not and team documentation report states he slept. Will continue to monitor. Denies any SE from med [facility]. Medication Compliance: Yes Side effects from medications: No Attending Groups: Intermittent Review of Systems Acute medical concerns: No Medical Review of Systems: unchanged Review of Systems Psychiatric: Reports no additional psychiatric complaints Mental Status Exam Mental Status Exam Patient Appearance: Appropriate Patient Orientation: Person, Place, Time and Situation Level of Consciousness: Alert Patient Behavior: Appropriate, Talkative, Cooperative and Anxious Mood Description: Anxious and Blunted Affect Description: Blunted Patient Cognition Impaired: Yes Ability to Follow Directions: Good Speech Pattern: Spontaneous Speech Memory Description: Intact Hallucinations: None (denies) Delusions: Not Present Thought Process: Distracted, Rumination and Goal Oriented Thought Content: positive for [place], positive for Circumstantial, positive for Goal Oriented (wanting to return home), positive for Suicidal Ideation (denies) and positive for Homicidal Ideation (denies) Abnormal Motor Activity Signs and Symptoms: Restlessness Judgement: Fair Diagnostics Vital Signs (24Hr): Vital Signs - 24 hr 06/16/21 18:00 06/16/21 21:02 06/17/21 06:00 Temperature 97.7 F 96.8 F Pulse Rate 101 H 99 89 Respiratory Rate 18 16 Blood Pressure 142/72 H 128/56 L 138/77 Pulse Oximetry 98 98 06/17/21 09:45 Temperature Pulse Rate 95 Respiratory Rate Blood Pressure 140/75 H Pulse Oximetry Body Mass Index 34.6 Labs Results: 06/01/21 08:04 06/08/21 08:42 Medications Medications Current Medications Generic Name Dose Route Start Last Admin Trade Name Freq PRN Reason Stop Dose Admin Acetaminophen 650 mg 05/14/21 22:06 06/11/21 08:27 Acetaminophen 325 Mg Tablet PO 650 mg Q6H PRN Administration Headache/Pain Mild Scale (1-3) Al Hydroxide/Mg Hydroxide 30 ml 05/14/21 22:06 Magnesium Hydrox/Alum Hydrox 30 Ml Oral.Susp PO Q6H PRN Heartburn/Nausea Clozapine 50 mg 05/15/21 09:00 06/17/21 09:41 Clozapine 25 Mg Tablet PO 50 mg DAILY NORMA Administration Clozapine 350 mg 05/25/21 21:00 06/16/21 20:58 Clozapine 100 Mg Tablet PO 350 mg BEDTIME [facility]MA Administration Hydrochlorothiazide 12.5 mg 05/31/21 09:15 06/17/21 09:42 Hydrochlorothiazide 12.5 Mg Tablet PO 12.5 mg DAILY NORMA Administration Protocol Hydroxyzine HCl 25 mg 05/14/21 22:06 06/08/21 20:09 Hydroxyzine Hcl 25 Mg Tablet PO 25 mg BEDTIME PRN Administration Anxiety Ibuprofen 600 mg 05/26/21 09:55 06/11/21 21:21 Ibuprofen 600 Mg Tablet PO 600 mg Q8H PRN Administration Pain, Mild (Pain Scale 1-3) Lamotrigine 50 mg 06/16/21 21:00 06/16/21 21:02 Lamotrigine 25 Mg Tablet PO 50 mg BEDTIME NORMA Administration Losartan Potassium 25 mg 05/15/21 09:00 06/17/21 09:45 Losartan Potassium 25 Mg Tablet PO 25 mg DAILY NORMA Administration Protocol Magnesium Hydroxide 30 ml 05/14/21 22:06 05/21/21 11:20 Milk Of Magnesia 30 Ml Oral.Susp PO 30 ml DAILY PRN Administration Constipation Mirtazapine 45 mg 05/17/21 21:00 06/16/21 20:58 Mirtazapine 15 Mg Tablet PO 45 mg BEDTIME [facility] Administration Montelukast Sodium 10 mg 05/15/21 09:00 06/17/21 09:45 Montelukast Sodium 10 Mg Tablet PO 10 mg DAILY [facility]MA Administration Nicotine 21 mg 05/18/21 15:30 06/17/21 09:45 Nicotine 21 Mg Patch.Td24 TRANSDERMA 21 mg DAILY [facility]MA Administration Nicotine Polacrilex 4 mg 05/17/21 14:54 06/17/21 10:35 Nicotine Polacrilex 2 Mg Gum BUCCAL 4 mg Q2H PRN Administration Nicotine Cravings Prazosin HCl 2 mg 05/15/21 21:00 06/16/21 21:02 Prazosin Hcl 1 Mg Capsule PO 2 mg BEDTIME [facility] Administration Protocol Psyllium Hydrophilic Mucilloid 3.4 gm 05/15/21 21:00 06/16/21 20:58 Psyllium Seed 3.4 Gm Powd.Pack PO 3.4 gm BEDTIME NORMA Administration Risperidone 1 mg 06/17/21 09:00 06/17/21 10:08 Risperidone 1 Mg Tablet PO 1 mg DAILY NORMA Administration Risperidone 2 mg 06/16/21 21:00 06/16/21 21:01 Risperidone 2 Mg Tablet PO 2 mg BEDTIME [facility]MA Administration Trazodone HCl 50 mg 05/25/21 21:00 06/16/21 21:01 Trazodone Hcl 50 Mg Tablet PO 50 mg BEDTIME [facility] Administration Ursodiol 600 mg 05/15/21 09:00 06/17/21 15:04 Ursodiol 300 Mg Capsule PO 600 mg TID NORMA Administration Allergies Allergies Allergy/AdvReac Type Severity Reaction Status Date / Time No Known Allergies Allergy Verified 05/13/21 14:00 Assessment & Plan Assessment & Plan (1) Schizoaffective disorder, bipolar type: Status: Acute Code(s): F25.0 - Schizoaffective disorder, bipolar type Assessment and Plan: Continue current regime Daily assessment by residential team in preparation for discharge Greater than 50% of the session was spent on counseling and/or coordination of care Patient educated on: therapeutic strategies Informed Consent: understands Reason for contiued inpatient stay Substantial Risk for: harm to self, harm to others, inability to function and rapid decompensation
[2021-06-17] MEDS: cloZAPine 100 MG TABLET 350 MG PO (20:55)
[2021-06-17 20:56] VITALS: BP 165/75; PULSE 80
[2021-06-17] MEDS: Prazosin HCL 1 MG CAPSULE 2 MG PO (20:56)
[2021-06-17] MEDS: risperiDONE 2 MG TABLET PO (20:58)
[2021-06-17] MEDS: lamoTRIgine 25 MG TABLET 50 MG PO (20:58)
[2021-06-17] MEDS: Mirtazapine 15 MG TABLET 45 MG PO (20:58)
[2021-06-17] MEDS: traZODone HCL 50 MG TABLET PO (21:00)
[2021-06-17 21:12] VITALS: BP 160/80; PULSE 80; TEMP 36.7
[2021-06-18 06:00] VITALS: BP 130/78; PULSE 80; RESP 15; TEMP 36.6; O2SAT 98
[2021-06-18] MEDS: hydroCHLOROthiazide 12.5 MG TABLET PO (08:16)
[2021-06-18] MEDS: UrsodioL 300 MG CAPSULE 600 MG PO ×3 (08:16→19:51)
[2021-06-18 08:17] VITALS: BP 130/77; PULSE 80
[2021-06-18] MEDS: Losartan Potassium 25 MG TABLET PO (08:17)
[2021-06-18] MEDS: risperiDONE 1 MG TABLET PO (08:17)
[2021-06-18] MEDS: Montelukast Sodium 10 MG TABLET PO (08:17)
[2021-06-18] MEDS: cloZAPine 25 MG TABLET 50 MG PO (08:17)
[2021-06-18] MEDS: Nicotine 21 MG PATCH.TD24 TRANSDERMA (08:18)
--- NOTE | 2021-06-18 09:05 | P.PNPSI_ITS ---
Subjective Subjective Date of Service: 06/18/21 Reason For Visit: Psychosis Subjective Notes: Conditional Voluntary Healthcare Proxy: No Guardianship: No Medical Problems Affecting Mental Status: No Interim History: Alexis denies perceptual alterations, SI, HI. He did express anger with room-mate as he alleges room-mate was going through his belongings. At home he reports he has more privacy and space. He is missing this and hopes to be discharged soon. Team reports he appears pre-occupied at times with blank staring episodes and self-dialoguing. Overt sx he denies. X rays of right wrist and ankle are negative. Team reports pt was walking backwards in the [place] and sustained a fall. Medication Compliance: Yes Side effects from medications: No Attending Groups: Yes Review of Systems Acute medical concerns: No Medical Review of Systems: unchanged Review of Systems Psychiatric: Reports no additional psychiatric complaints Mental Status Exam Mental Status Exam Patient Appearance: Appropriate Patient Orientation: Person, Place, Time and Situation Level of Consciousness: Alert Patient Behavior: Appropriate, Talkative, Cooperative and Anxious Mood Description: Anxious and Blunted Affect Description: Blunted Patient Cognition Impaired: Yes Ability to Follow Directions: Good Speech Pattern: Spontaneous Speech Memory Description: Intact Hallucinations: None (denies) Delusions: Not Present Thought Process: Distracted, Rumination and Goal Oriented Thought Content: positive for [place], positive for Circumstantial, positive for Goal Oriented (wanting to return home), positive for Suicidal Ideation (denies) and positive for Homicidal Ideation (denies) Abnormal Motor Activity Signs and Symptoms: Restlessness Judgement: Fair Diagnostics Vital Signs (24Hr): Vital Signs - 24 hr 06/17/21 09:45 06/17/21 20:56 06/17/21 21:12 Temperature 98.0 F Pulse Rate 95 80 80 Blood Pressure 140/75 H 165/75 H 160/80 H 06/18/21 08:17 Temperature Pulse Rate 80 Blood Pressure 130/77 Body Mass Index 34.6 Labs Results: 06/01/21 08:04 06/08/21 08:42 Medications Medications Current Medications Generic Name Dose Route Start Last Admin Trade Name Freq PRN Reason Stop Dose Admin Acetaminophen 650 mg 05/14/21 22:06 06/11/21 08:27 Acetaminophen 325 Mg Tablet PO 650 mg Q6H PRN Administration Headache/Pain Mild Scale (1-3) Al Hydroxide/Mg Hydroxide 30 ml 05/14/21 22:06 Magnesium Hydrox/Alum Hydrox 30 Ml Oral.Susp PO Q6H PRN Heartburn/Nausea Clozapine 50 mg 05/15/21 09:00 06/18/21 08:17 Clozapine 25 Mg Tablet PO 50 mg DAILY NORMA Administration Clozapine 350 mg 05/25/21 21:00 06/17/21 20:55 Clozapine 100 Mg Tablet PO 350 mg BEDTIME NORMA Administration Hydrochlorothiazide 12.5 mg 05/31/21 09:15 06/18/21 08:16 Hydrochlorothiazide 12.5 Mg Tablet PO 12.5 mg DAILY NORMA Administration Protocol Hydroxyzine HCl 25 mg 05/14/21 22:06 06/08/21 20:09 Hydroxyzine Hcl 25 Mg Tablet PO 25 mg BEDTIME PRN Administration Anxiety Ibuprofen 600 mg 05/26/21 09:55 06/11/21 21:21 Ibuprofen 600 Mg Tablet PO 600 mg Q8H PRN Administration Pain, Mild (Pain Scale 1-3) Lamotrigine 50 mg 06/16/21 21:00 06/17/21 20:58 Lamotrigine 25 Mg Tablet PO 50 mg BEDTIME NORMA Administration Losartan Potassium 25 mg 05/15/21 09:00 06/18/21 08:17 Losartan Potassium 25 Mg Tablet PO 25 mg DAILY NORMA Administration Protocol Magnesium Hydroxide 30 ml 05/14/21 22:06 05/21/21 11:20 Milk Of Magnesia 30 Ml Oral.Susp PO 30 ml DAILY PRN Administration Constipation Mirtazapine 45 mg 05/17/21 21:00 06/17/21 20:58 Mirtazapine 15 Mg Tablet PO 45 mg BEDTIME [facility] Administration Montelukast Sodium 10 mg 05/15/21 09:00 06/18/21 08:17 Montelukast Sodium 10 Mg Tablet PO 10 mg DAILY NORMA Administration Nicotine 21 mg 05/18/21 15:30 06/18/21 08:18 Nicotine 21 Mg Patch.Td24 TRANSDERMA 21 mg DAILY NORMA Administration Nicotine Polacrilex 4 mg 05/17/21 14:54 06/17/21 17:53 Nicotine Polacrilex 2 Mg Gum BUCCAL 4 mg Q2H PRN Administration Nicotine Cravings Prazosin HCl 2 mg 05/15/21 21:00 06/17/21 20:56 Prazosin Hcl 1 Mg Capsule PO 2 mg BEDTIME [facility] Administration Protocol Psyllium Hydrophilic Mucilloid 3.4 gm 05/15/21 21:00 06/17/21 21:00 Psyllium Seed 3.4 Gm Powd.Pack PO 3.4 gm BEDTIME NORMA Administration Risperidone 1 mg 06/17/21 09:00 06/18/21 08:17 Risperidone 1 Mg Tablet PO 1 mg DAILY NORMA Administration Risperidone 2 mg 06/16/21 21:00 06/17/21 20:58 Risperidone 2 Mg Tablet PO 2 mg BEDTIME [facility] Administration Trazodone HCl 50 mg 05/25/21 21:00 06/17/21 21:00 Trazodone Hcl 50 Mg Tablet PO 50 mg BEDTIME [facility] Administration Ursodiol 600 mg 05/15/21 09:00 06/18/21 08:16 Ursodiol 300 Mg Capsule PO 600 mg TID NORMA Administration Allergies Allergies Allergy/AdvReac Type Severity Reaction Status Date / Time No Known Allergies Allergy Verified 05/13/21 14:00 Assessment & Plan Assessment & Plan (1) Schizoaffective disorder, bipolar type: Status: Acute Code(s): F25.0 - Schizoaffective disorder, bipolar type Assessment and Plan: Continue current regime Daily assessment by residential team in preparation for discharge Greater than 50% of the session was spent on counseling and/or coordination of care Reason for contiued inpatient stay Substantial Risk for: harm to self, harm to others, inability to function and rapid decompensation
[2021-06-18 18:25] VITALS: BP 144/83; PULSE 98; TEMP 37
[2021-06-18 19:51] VITALS: BP 155/91; PULSE 102
[2021-06-18] MEDS: Prazosin HCL 1 MG CAPSULE 2 MG PO (19:51)
[2021-06-18] MEDS: lamoTRIgine 25 MG TABLET 50 MG PO (19:51)
[2021-06-18] MEDS: traZODone HCL 50 MG TABLET PO (19:51)
[2021-06-18] MEDS: risperiDONE 2 MG TABLET PO (19:51)
[2021-06-18] MEDS: cloZAPine 100 MG TABLET 350 MG PO (19:52)
[2021-06-18] MEDS: Mirtazapine 15 MG TABLET 45 MG PO (19:52)
[2021-06-19 06:00] VITALS: BP 157/91; PULSE 88; RESP 16; TEMP 36.8; O2SAT 98
[2021-06-19] MEDS: cloZAPine 25 MG TABLET 50 MG PO (08:13)
[2021-06-19] MEDS: hydroCHLOROthiazide 12.5 MG TABLET PO (08:14)
[2021-06-19] MEDS: UrsodioL 300 MG CAPSULE 600 MG PO ×3 (08:14→20:33)
[2021-06-19] MEDS: risperiDONE 1 MG TABLET PO (08:14)
[2021-06-19 08:15] VITALS: BP 126/70; PULSE 80
[2021-06-19] MEDS: Montelukast Sodium 10 MG TABLET PO (08:15)
[2021-06-19] MEDS: Losartan Potassium 25 MG TABLET PO (08:15)
[2021-06-19] MEDS: Nicotine 21 MG PATCH.TD24 TRANSDERMA (08:16)
--- NOTE | 2021-06-19 09:45 | HO.PSYCHPN ---
Subjective Subjective Date of Service: 06/19/21 Reason For Visit: Psychosis Interim History: pt seen on 06/19 pt reports he's good. he denies SI, HI or aVH and says he feels ready to discharge home. Pt also reports he's sleeping and eating well., No other complaints, no requests. Mental Status Exam Mental Status Exam Narrative: Patient Appearance:?Appropriate Patient Orientation:?Person, Place, Time and Situation Level of Consciousness:?Alert Patient Behavior:?Appropriate, Talkative, Cooperative and Anxious Mood Description: good Affect Description:?Blunted Patient Cognition Impaired:?Yes Ability to Follow Directions:?Good Speech Pattern:?Spontaneous Speech Memory Description:?Intact Hallucinations:?None (denies) Delusions:?Not Present Thought Process:?Goal Oriented, concrete Thought Content:?Denies SI and HI; on discharge Judgement:?Fair Diagnostics Vital Signs (24Hr): Vital Signs - 24 hr 06/18/21 18:25 06/18/21 19:51 06/19/21 06:00 Temperature 98.6 F 98.3 F Pulse Rate 98 102 H 88 Respiratory Rate 16 Blood Pressure 144/83 H 155/91 H 157/91 H Pulse Oximetry 98 06/19/21 08:15 Temperature Pulse Rate 80 Respiratory Rate Blood Pressure 126/70 Pulse Oximetry Body Mass Index 34.6 Labs Results: 06/01/21 08:04 06/08/21 08:42 Imaging Radiology Impressions: ITS Impressions Ankle X-Ray 06/18/21 14:20 IMPRESSION: No acute visible fracture or dislocation. Wrist X-Ray 06/18/21 14:20 IMPRESSION: No acute visible fracture or dislocation. Medications Medications Current Medications Acetaminophen (Acetaminophen 325 Mg Tablet) 650 mg PO Q6H PRN PRN Reason: Headache/Pain Mild Scale (1-3) Last Admin: 06/11/21 08:27 Dose: 650 mg Documented by: Al Hydroxide/Mg Hydroxide (Magnesium Hydrox/Alum Hydrox 30 Ml Oral.Susp) 30 ml PO Q6H PRN PRN Reason: Heartburn/Nausea Clozapine (Clozapine 25 Mg Tablet) 50 mg PO DAILY NORMA Last Admin: 06/19/21 08:13 Dose: 50 mg Documented by: Clozapine (Clozapine 100 Mg Tablet) 350 mg PO BEDTIME NORMA Last Admin: 06/18/21 19:52 Dose: 350 mg Documented by: Hydrochlorothiazide (Hydrochlorothiazide 12.5 Mg Tablet) 12.5 mg PO DAILY NORMA; Protocol Last Admin: 06/19/21 08:14 Dose: 12.5 mg Documented by: Hydroxyzine HCl (Hydroxyzine Hcl 25 Mg Tablet) 25 mg PO BEDTIME PRN PRN Reason: Anxiety Last Admin: 06/08/21 20:09 Dose: 25 mg Documented by: Ibuprofen (Ibuprofen 600 Mg Tablet) 600 mg PO Q8H PRN PRN Reason: Pain, Mild (Pain Scale 1-3) Last Admin: 06/11/21 21:21 Dose: 600 mg Documented by: Lamotrigine (Lamotrigine 25 Mg Tablet) 50 mg PO BEDTIME NORMA Last Admin: 06/18/21 19:51 Dose: 50 mg Documented by: Losartan Potassium (Losartan Potassium 25 Mg Tablet) 25 mg PO DAILY NORMA; Protocol Last Admin: 06/19/21 08:15 Dose: 25 mg Documented by: Magnesium Hydroxide (Milk Of Magnesia 30 Ml Oral.Susp) 30 ml PO DAILY PRN PRN Reason: Constipation Last Admin: 05/21/21 11:20 Dose: 30 ml Documented by: Mirtazapine (Mirtazapine 15 Mg Tablet) 45 mg PO BEDTIME NORMA Last Admin: 06/18/21 19:52 Dose: 45 mg Documented by: Montelukast Sodium (Montelukast Sodium 10 Mg Tablet) 10 mg PO DAILY NORMA Last Admin: 06/19/21 08:15 Dose: 10 mg Documented by: Nicotine (Nicotine 21 Mg Patch.Td24) 21 mg TRANSDERMA DAILY [facility]MA Last Admin: 06/19/21 08:16 Dose: 21 mg Documented by: Nicotine Polacrilex (Nicotine Polacrilex 2 Mg Gum) 4 mg BUCCAL Q2H PRN PRN Reason: Nicotine Cravings Last Admin: 06/17/21 17:53 Dose: 4 mg Documented by: Prazosin HCl (Prazosin Hcl 1 Mg Capsule) 2 mg PO BEDTIME NORMA; Protocol Last Admin: 06/18/21 19:51 Dose: 2 mg Documented by: Psyllium Hydrophilic Mucilloid (Psyllium Seed 3.4 Gm Powd.Pack) 3.4 gm PO BEDTIME NORMA Last Admin: 06/18/21 19:51 Dose: 3.4 gm Documented by: Risperidone (Risperidone 1 Mg Tablet) 1 mg PO DAILY NORMA Last Admin: 06/19/21 08:14 Dose: 1 mg Documented by: Risperidone (Risperidone 2 Mg Tablet) 2 mg PO BEDTIME [facility] Last Admin: 06/18/21 19:51 Dose: 2 mg Documented by: Trazodone HCl (Trazodone Hcl 50 Mg Tablet) 50 mg PO BEDTIME [facility] Last Admin: 06/18/21 19:51 Dose: 50 mg Documented by: Ursodiol (Ursodiol 300 Mg Capsule) 600 mg PO TID [facility] Last Admin: 06/19/21 08:14 Dose: 600 mg Documented by: Allergies Allergies Allergy/AdvReac Type Severity Reaction Status Date / Time No Known Allergies Allergy Verified 05/13/21 14:00 Assessment & Plan Assessment & Plan (1) Schizoaffective disorder, bipolar type: Status: Acute Code(s): F25.0 - Schizoaffective disorder, bipolar type Assessment and Plan: 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
[2021-06-19] MEDS: Nicotine Polacrilex 2 MG GUM 4 MG BUCCAL (17:54)
[2021-06-19 20:32] VITALS: BP 187/83; PULSE 99
[2021-06-19] MEDS: Prazosin HCL 1 MG CAPSULE 2 MG PO (20:32)
[2021-06-19] MEDS: traZODone HCL 50 MG TABLET PO (20:32)
[2021-06-19] MEDS: risperiDONE 2 MG TABLET PO (20:32)
[2021-06-19] MEDS: Mirtazapine 15 MG TABLET 45 MG PO (20:32)
[2021-06-19] MEDS: lamoTRIgine 25 MG TABLET 50 MG PO (20:33)
[2021-06-19] MEDS: cloZAPine 100 MG TABLET 350 MG PO (20:33)
[2021-06-20 06:00] VITALS: BP 155/73; PULSE 97; RESP 16; TEMP 35.5; O2SAT 97
[2021-06-20] MEDS: hydroCHLOROthiazide 12.5 MG TABLET PO (08:10)
[2021-06-20] MEDS: risperiDONE 1 MG TABLET PO (08:10)
[2021-06-20] MEDS: Nicotine 21 MG PATCH.TD24 TRANSDERMA (08:11)
[2021-06-20] MEDS: cloZAPine 25 MG TABLET 50 MG PO (08:11)
[2021-06-20] MEDS: UrsodioL 300 MG CAPSULE 600 MG PO ×3 (08:11→22:11)
[2021-06-20 08:42] VITALS: BP 130/78; PULSE 80
[2021-06-20] MEDS: Losartan Potassium 25 MG TABLET PO (08:42)
[2021-06-20] MEDS: Montelukast Sodium 10 MG TABLET PO (08:48)
[2021-06-20] MEDS: Nicotine Polacrilex 2 MG GUM 4 MG BUCCAL (14:35)
--- NOTE | 2021-06-20 21:23 | HO.PSYCHPN ---
Subjective Subjective Date of Service: 06/20/21 Reason For Visit: Psychosis Interim History: pt continues to reports he's good and denies any SI, HI or aVH. He says he feels ready for discharge and will discuss this with primary team tomorrow. Mental Status Exam Mental Status Exam Narrative: Patient Appearance:?Appropriate Patient Orientation:?Person, Place, Time and Situation Level of Consciousness:?Alert Patient Behavior:?Appropriate, Talkative, Cooperative and Anxious Mood Description: good Affect Description:?Blunted Patient Cognition Impaired:?Yes Ability to Follow Directions:?Good Speech Pattern:?Spontaneous Speech Memory Description:?Intact Hallucinations:?None (denies) Delusions:?Not Present Thought Process:?Goal Oriented, concrete Thought Content:?Denies SI and HI; on discharge Judgement:?Fair Diagnostics Vital Signs (24Hr): Vital Signs - 24 hr 06/20/21 06:00 06/20/21 08:42 Temperature 96 F L Pulse Rate 97 80 Respiratory Rate 16 Blood Pressure 155/73 H 130/78 Pulse Oximetry 97 Body Mass Index 34.6 Labs Results: 06/01/21 08:04 06/08/21 08:42 Imaging Radiology Impressions: ITS Impressions Ankle X-Ray 06/18/21 14:20 IMPRESSION: No acute visible fracture or dislocation. Wrist X-Ray 06/18/21 14:20 IMPRESSION: No acute visible fracture or dislocation. Medications Medications Current Medications Acetaminophen (Acetaminophen 325 Mg Tablet) 650 mg PO Q6H PRN PRN Reason: Headache/Pain Mild Scale (1-3) Last Admin: 06/11/21 08:27 Dose: 650 mg Documented by: Al Hydroxide/Mg Hydroxide (Magnesium Hydrox/Alum Hydrox 30 Ml Oral.Susp) 30 ml PO Q6H PRN PRN Reason: Heartburn/Nausea Clozapine (Clozapine 25 Mg Tablet) 50 mg PO DAILY [facility]MA Last Admin: 06/20/21 08:11 Dose: 50 mg Documented by: Clozapine (Clozapine 100 Mg Tablet) 350 mg PO BEDTIME [facility] Last Admin: 06/19/21 20:33 Dose: 350 mg Documented by: Hydrochlorothiazide (Hydrochlorothiazide 12.5 Mg Tablet) 12.5 mg PO DAILY NORMA; Protocol Last Admin: 06/20/21 08:10 Dose: 12.5 mg Documented by: Hydroxyzine HCl (Hydroxyzine Hcl 25 Mg Tablet) 25 mg PO BEDTIME PRN PRN Reason: Anxiety Last Admin: 06/08/21 20:09 Dose: 25 mg Documented by: Ibuprofen (Ibuprofen 600 Mg Tablet) 600 mg PO Q8H PRN PRN Reason: Pain, Mild (Pain Scale 1-3) Last Admin: 06/11/21 21:21 Dose: 600 mg Documented by: Lamotrigine (Lamotrigine 25 Mg Tablet) 50 mg PO BEDTIME [facility] Last Admin: 06/19/21 20:33 Dose: 50 mg Documented by: Losartan Potassium (Losartan Potassium 25 Mg Tablet) 25 mg PO DAILY NORMA; Protocol Last Admin: 06/20/21 08:42 Dose: 25 mg Documented by: Magnesium Hydroxide (Milk Of Magnesia 30 Ml Oral.Susp) 30 ml PO DAILY PRN PRN Reason: Constipation Last Admin: 05/21/21 11:20 Dose: 30 ml Documented by: Mirtazapine (Mirtazapine 15 Mg Tablet) 45 mg PO BEDTIME [facility] Last Admin: 06/19/21 20:32 Dose: 45 mg Documented by: Montelukast Sodium (Montelukast Sodium 10 Mg Tablet) 10 mg PO DAILY [facility]MA Last Admin: 06/20/21 08:48 Dose: 10 mg Documented by: Nicotine (Nicotine 21 Mg Patch.Td24) 21 mg TRANSDERMA DAILY [facility] Last Admin: 06/20/21 08:11 Dose: 21 mg Documented by: Nicotine Polacrilex (Nicotine Polacrilex 2 Mg Gum) 4 mg BUCCAL Q2H PRN PRN Reason: Nicotine Cravings Last Admin: 06/20/21 14:35 Dose: 4 mg Documented by: Prazosin HCl (Prazosin Hcl 1 Mg Capsule) 2 mg PO BEDTIME NORMA; Protocol Last Admin: 06/19/21 20:32 Dose: 2 mg Documented by: Psyllium Hydrophilic Mucilloid (Psyllium Seed 3.4 Gm Powd.Pack) 3.4 gm PO BEDTIME NORMA Last Admin: 06/19/21 20:34 Dose: 3.4 gm Documented by: Risperidone (Risperidone 1 Mg Tablet) 1 mg PO DAILY [facility]MA Last Admin: 06/20/21 08:10 Dose: 1 mg Documented by: Risperidone (Risperidone 2 Mg Tablet) 2 mg PO BEDTIME [facility]MA Last Admin: 06/19/21 20:32 Dose: 2 mg Documented by: Trazodone HCl (Trazodone Hcl 50 Mg Tablet) 50 mg PO BEDTIME [facility] Last Admin: 06/19/21 20:32 Dose: 50 mg Documented by: Ursodiol (Ursodiol 300 Mg Capsule) 600 mg PO TID [facility] Last Admin: 06/20/21 14:28 Dose: 600 mg Documented by: Allergies Allergies Allergy/AdvReac Type Severity Reaction Status Date / Time No Known Allergies Allergy Verified 05/13/21 14:00 Assessment & Plan Assessment & Plan (1) Schizoaffective disorder, bipolar type: Status: Acute Code(s): F25.0 - Schizoaffective disorder, bipolar type Assessment and Plan: 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
[2021-06-20 22:00] VITALS: BP 149/79; PULSE 91; TEMP 36.7
[2021-06-20] MEDS: cloZAPine 100 MG TABLET 350 MG PO (22:09)
[2021-06-20] MEDS: Mirtazapine 15 MG TABLET 45 MG PO (22:11)
[2021-06-20] MEDS: lamoTRIgine 25 MG TABLET 50 MG PO (22:11)
[2021-06-20 22:12] VITALS: BP 149/79; PULSE 91
[2021-06-20] MEDS: Prazosin HCL 1 MG CAPSULE 2 MG PO (22:12)
[2021-06-20] MEDS: traZODone HCL 50 MG TABLET PO (22:12)
[2021-06-20] MEDS: risperiDONE 2 MG TABLET PO (22:12)
[2021-06-21 06:50] VITALS: BP 141/68; PULSE 88; TEMP 36.8
[2021-06-21 08:25] VITALS: BP 128/78; PULSE 86
[2021-06-21] MEDS: Losartan Potassium 25 MG TABLET PO (08:25)
[2021-06-21] MEDS: Nicotine 21 MG PATCH.TD24 TRANSDERMA (08:25)
[2021-06-21] MEDS: cloZAPine 25 MG TABLET 50 MG PO (08:25)
[2021-06-21] MEDS: risperiDONE 1 MG TABLET PO (08:26)
[2021-06-21] MEDS: hydroCHLOROthiazide 12.5 MG TABLET PO (08:26)
[2021-06-21] MEDS: UrsodioL 300 MG CAPSULE 600 MG PO ×3 (08:26→20:20)
[2021-06-21 08:35] LABS: Neut%MD 66.3 %; WBCANC 7.6 X10*3/uL
[2021-06-21] MEDS: Montelukast Sodium 10 MG TABLET PO (08:44)
[2021-06-21] MEDS: Nicotine Polacrilex 2 MG GUM 4 MG BUCCAL (08:59)
[2021-06-21 16:23] VITALS: BP 142/81; PULSE 98; TEMP 36.1
--- NOTE | 2021-06-21 16:35 | P.PNPSI_ITS ---
Subjective Subjective Date of Service: 06/21/21 Reason For Visit: Psychosis Subjective Notes: Conditional Voluntary Healthcare Proxy: No Guardianship: No Medical Problems Affecting Mental Status: No Interim History: Pt and team report a positive weekend. Described as a model patient. 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 Reports he is feeling well, sleeping, eating, denies SI, HI, denies voices. Does appear at times to be lost in thought, ?responding to internal stimuli, ?thought blocking. Pt believes he is prepared to leave. Medication Compliance: Yes Side effects from medications: No Attending Groups: Yes Review of Systems Acute medical concerns: No Medical Review of Systems: unchanged Review of Systems Review of Systems Yes all other systems are reviewed and are negative Psychiatric: Reports anxiety, Reports homicidal ideation (denies HI plan or intent) and Reports suicidal ideation (denies SI plan or intent) Mental Status Exam Mental Status Exam Patient Appearance: Appropriate Patient Orientation: Person, Place, Time and Situation Level of Consciousness: Alert Patient Behavior: Appropriate, Talkative, Cooperative and Good Eye Contact Mood Description: Apprehensive Affect Description: Flat Patient Cognition Impaired: Yes Ability to Follow Directions: Good Speech Pattern: Spontaneous Speech and Soft-Spoken Memory Description: Intact Hallucinations: None (denies) Delusions: Not Present Thought Process: Distracted Thought Content: positive for [place], positive for Circumstantial, positive for Goal Oriented and positive for Thought Blocking Judgement: Good Diagnostics Vital Signs (24Hr): Vital Signs - 24 hr 06/20/21 22:00 06/20/21 22:12 06/21/21 06:50 Temperature 98.1 F 98.3 F Pulse Rate 91 91 88 Blood Pressure 149/79 H 149/79 H 141/68 H 06/21/21 08:25 06/21/21 16:23 Temperature 97.0 F Pulse Rate 86 98 Blood Pressure 128/78 142/81 H Body Mass Index 34.6 Labs Results: 06/01/21 08:04 06/08/21 08:42 Labs: Laboratory Results - last 48 hr 06/21/21 07:53 Absolute Neuts (auto) 5.0 Imaging Radiology Impressions: ITS Impressions Ankle X-Ray 06/18/21 14:20 IMPRESSION: No acute visible fracture or dislocation. Wrist X-Ray 06/18/21 14:20 IMPRESSION: No acute visible fracture or dislocation. Medications Medications Current Medications Acetaminophen (Acetaminophen 325 Mg Tablet) 650 mg PO Q6H PRN PRN Reason: Headache/Pain Mild Scale (1-3) Last Admin: 06/11/21 08:27 Dose: 650 mg Documented by: Al Hydroxide/Mg Hydroxide (Magnesium Hydrox/Alum Hydrox 30 Ml Oral.Susp) 30 ml PO Q6H PRN PRN Reason: Heartburn/Nausea Clozapine (Clozapine 25 Mg Tablet) 50 mg PO DAILY [facility] Last Admin: 06/21/21 08:25 Dose: 50 mg Documented by: Clozapine (Clozapine 100 Mg Tablet) 350 mg PO BEDTIME NORMA Last Admin: 06/20/21 22:09 Dose: 350 mg Documented by: Hydrochlorothiazide (Hydrochlorothiazide 12.5 Mg Tablet) 12.5 mg PO DAILY [facility]; Protocol Last Admin: 06/21/21 08:26 Dose: 12.5 mg Documented by: Hydroxyzine HCl (Hydroxyzine Hcl 25 Mg Tablet) 25 mg PO BEDTIME PRN PRN Reason: Anxiety Last Admin: 06/08/21 20:09 Dose: 25 mg Documented by: Ibuprofen (Ibuprofen 600 Mg Tablet) 600 mg PO Q8H PRN PRN Reason: Pain, Mild (Pain Scale 1-3) Last Admin: 06/11/21 21:21 Dose: 600 mg Documented by: Lamotrigine (Lamotrigine 25 Mg Tablet) 50 mg PO BEDTIME NORMA Last Admin: 06/20/21 22:11 Dose: 50 mg Documented by: Losartan Potassium (Losartan Potassium 25 Mg Tablet) 25 mg PO DAILY [facility]MA; Protocol Last Admin: 06/21/21 08:25 Dose: 25 mg Documented by: Magnesium Hydroxide (Milk Of Magnesia 30 Ml Oral.Susp) 30 ml PO DAILY PRN PRN Reason: Constipation Last Admin: 05/21/21 11:20 Dose: 30 ml Documented by: Mirtazapine (Mirtazapine 15 Mg Tablet) 45 mg PO BEDTIME NORMA Last Admin: 06/20/21 22:11 Dose: 45 mg Documented by: Montelukast Sodium (Montelukast Sodium 10 Mg Tablet) 10 mg PO DAILY [facility] Last Admin: 06/21/21 08:44 Dose: 10 mg Documented by: Nicotine (Nicotine 21 Mg Patch.Td24) 21 mg TRANSDERMA DAILY NORMA Last Admin: 06/21/21 08:25 Dose: 21 mg Documented by: Nicotine Polacrilex (Nicotine Polacrilex 2 Mg Gum) 4 mg BUCCAL Q2H PRN PRN Reason: Nicotine Cravings Last Admin: 06/21/21 08:59 Dose: 4 mg Documented by: Prazosin HCl (Prazosin Hcl 1 Mg Capsule) 2 mg PO BEDTIME NORMA; Protocol Last Admin: 06/20/21 22:12 Dose: 2 mg Documented by: Psyllium Hydrophilic Mucilloid (Psyllium Seed 3.4 Gm Powd.Pack) 3.4 gm PO BEDTIME NORMA Last Admin: 06/20/21 22:13 Dose: 3.4 gm Documented by: Risperidone (Risperidone 1 Mg Tablet) 1 mg PO DAILY [facility]MA Last Admin: 06/21/21 08:26 Dose: 1 mg Documented by: Risperidone (Risperidone 2 Mg Tablet) 2 mg PO BEDTIME NORMA Last Admin: 06/20/21 22:12 Dose: 2 mg Documented by: Trazodone HCl (Trazodone Hcl 50 Mg Tablet) 50 mg PO BEDTIME NORMA Last Admin: 06/20/21 22:12 Dose: 50 mg Documented by: Ursodiol (Ursodiol 300 Mg Capsule) 600 mg PO TID NORMA Last Admin: 06/21/21 14:28 Dose: 600 mg Documented by: Allergies Allergies Allergy/AdvReac Type Severity Reaction Status Date / Time No Known Allergies Allergy Verified 05/13/21 14:00 Assessment & Plan Assessment & Plan (1) Schizoaffective disorder, bipolar type: Status: Acute Code(s): F25.0 - Schizoaffective disorder, bipolar type Assessment and Plan: Discharge 06/22/21. Greater than 50% of the session was spent on counseling and/or coordination of care Patient educated on: medication risk/benefits Informed Consent: understands and further education needed Reason for contiued inpatient stay Substantial Risk for: stable for discharge
[2021-06-21] MEDS: lamoTRIgine 25 MG TABLET 50 MG PO (20:20)
[2021-06-21] MEDS: risperiDONE 2 MG TABLET PO (20:20)
[2021-06-21] MEDS: traZODone HCL 50 MG TABLET PO (20:20)
[2021-06-21] MEDS: Prazosin HCL 1 MG CAPSULE 2 MG PO (20:20)
[2021-06-21] MEDS: cloZAPine 100 MG TABLET 350 MG PO (20:21)
[2021-06-21] MEDS: Mirtazapine 15 MG TABLET 45 MG PO (20:23)
[2021-06-21] MEDS: Ibuprofen 600 MG TABLET PO (22:11)
[2021-06-22 06:00] VITALS: BP 151/74; PULSE 82; RESP 16; TEMP 36.3; O2SAT 97
[2021-06-22 08:59] VITALS: BP 147/74; PULSE 85; TEMP 36.5
[2021-06-22] MEDS: hydroCHLOROthiazide 12.5 MG TABLET PO (09:10)
[2021-06-22] MEDS: Losartan Potassium 25 MG TABLET PO (09:10)
[2021-06-22] MEDS: cloZAPine 25 MG TABLET 50 MG PO (09:10)
[2021-06-22] MEDS: UrsodioL 300 MG CAPSULE 600 MG PO ×2 (09:10→14:26)
[2021-06-22] MEDS: Montelukast Sodium 10 MG TABLET PO (09:10)
[2021-06-22] MEDS: risperiDONE 1 MG TABLET PO (09:10)
[2021-06-22] MEDS: Nicotine 21 MG PATCH.TD24 TRANSDERMA (09:10)
--- NOTE | 2021-06-23 21:36 | PM.PSYDC ---
DS: Providers Provider Date of Service: 06/22/21 Date of admission: 05/14/21 20:49 Date of discharge: 06/22/21 Primary care physician: BALDEMAR NAJERA MD Admitting clinician: Demetrio Roger Attending physician on admission: Demetrio Roger Consults: 05/13/21 15:24 Consult to Crisis Stat Reason for consultation: SI, HI 05/13/21 22:16 Consult to Psychiatry Stat Consulting Provider: Laz Lopez Reason for consultation: med review clozaril Attending physician on discharge: Laz Lopez Discharging clinician: Cristina Arizmendi DS: Diagnosis Discharge Diagnosis (1) Schizoaffective disorder, bipolar type: Status: Acute DS: Medications Discharge Medications Home Medications: Home Medications Medication Instructions Recorded Confirmed acetaminophen 325 mg tablet (Mapap 650 mg PO Q6H PRN 05/13/21 05/13/21 (acetaminophen)) Previous Rx's Medication Instructions Recorded clozapine 100 mg tablet 350 mg PO BEDTIME #105 tab 06/21/21 clozapine 25 mg tablet 2 tab PO QAM #60 tab 06/21/21 hydrochlorothiazide 12.5 mg tablet 12.5 mg PO DAILY #15 tab 06/21/21 lamotrigine 25 mg tablet 50 mg PO BEDTIME #60 tab 06/21/21 losartan 25 mg tablet 1 tab PO QAM #30 tab 06/21/21 mirtazapine 15 mg tablet 45 mg PO BEDTIME #30 tab 06/21/21 montelukast 10 mg tablet 1 tab PO DAILY #30 tab 06/21/21 prazosin 2 mg capsule 1 cap PO BEDTIME #30 cap 06/21/21 psyllium husk (aspartame) 3.4 gram 3.4 g PO BEDTIME #30 ea 06/21/21 oral powder packet (Metamucil Fiber Singles) risperidone 1 mg tablet 1 mg PO DAILY #30 tab 06/21/21 risperidone 2 mg tablet 2 mg PO BEDTIME #30 tab 06/21/21 ursodiol 300 mg capsule 600 mg PO TID #90 cap 06/21/21 Mental Status Exam Mental Status Exam Patient Appearance: Appropriate Patient Orientation: Person, Place, Time and Situation Level of Consciousness: Alert Patient Behavior: Appropriate, Talkative, Cooperative and Good Eye Contact Mood Description: Apprehensive Affect Description: Flat Patient Cognition Impaired: Yes Ability to Follow Directions: Good Speech Pattern: Spontaneous Speech and Soft-Spoken Memory Description: Intact Hallucinations: None (denies) Delusions: Not Present Thought Process: Distracted Thought Content: positive for [place], positive for Circumstantial, positive for Goal Oriented and positive for Thought Blocking Judgement: Good Data Data Completed and Pending Completed studies during hospitalization [Text1]: 06/21/21 07:53 Absolute Neuts (auto) 5.0 Imaging Diagnostic Imaging Impressions Ankle X-Ray 06/18/21 14:20 IMPRESSION: No acute visible fracture or dislocation. Wrist X-Ray 06/18/21 14:20 IMPRESSION: No acute visible fracture or dislocation. DS: Summary Hospital Course Hospital Course: Pt admitted under conditional voluntary status. Pt is a resident of a community [facility] and [facility] and guardian in place Folder Machine Adjuster Aamir Isael [phone]. Parameters of the [facility] were kept, medications adjusted and titrated. Pt's residential team was very involved with the admission, offering helpful input on pts progress and baseline so the team could accurately evaluate progress on an ongoing basis. Initially, pt was guarded, isolative and did not interact much with the team. This decreased somewhat as the admission progressed. Gradually, pt's symptoms did resolve to a level where his team was comfortable in having him return to the program and his out pt team. Time spent discussing smoking cessation with patient: 3 to 10 minutes Status at Discharge Cognitive/behavioral status at discharge: non-psychotic, non-suicidal. Pleased to be going home. Functional status at discharge: independent ambulation Overall status at discharge: patient is progressing back to baseline Time Spent with Patient Time attestation: Total time spent providing and/or coordinating discharge services: 35 Time spent: Greater than 30 minutes Discharge Plan Discharge Anticipated Discharge Date/Time: 06/22/21 13:55 Patient Disposition: Home, Self-Care Discharge Diagnosis: Schizoaffective Disorder, Bipolar Type Referrals: Ligia Cunningham [Other] - 07/01/21 11:00 am (Psychiatry Appointment with Ligia at [facility] following discharge from Inpatient Hospitalization. Patient needs to conduct psychiatry via zoom from home. However if unable to do so needs to present to [facility] and be set up by staff for scheduled appointment.) Ashley Walsh [Other] - 06/24/21 1:15 pm (therapy appointment with Ashley at [facility] following discharge from inpatient hospitalization. ) Baldemar Najera [Primary Care Provider] - 06/01/21 2:00 pm (in office. KATHYFELIBERTO MOSQUEDA WILL BE COVERING DR. FERGUSON) Discharge Medications: New clozapine 100 mg Tablet 350 mg PO BEDTIME Qty: 105 RF: 0 mirtazapine 15 mg Tablet 45 mg PO BEDTIME Qty: 30 RF: 0 lamotrigine 25 mg Tablet 50 mg PO BEDTIME Qty: 60 RF: 0 risperidone 2 mg Tablet 2 mg PO BEDTIME Qty: 30 RF: 0 ursodiol 300 mg Capsule 600 mg PO TID Qty: 90 RF: 0 risperidone 1 mg Tablet 1 mg PO DAILY Qty: 30 RF: 0 hydrochlorothiazide 12.5 mg Tablet 12.5 mg PO DAILY Qty: 15 RF: 0 Metamucil Fiber Singles 3.4 gram Powder In Packet 3.4 g PO BEDTIME Qty: 30 RF: 0 Continued acetaminophen [Mapap (acetaminophen)] 325 mg Tablet 650 mg PO Q6H PRN (Reason: Pain) RF: 0 losartan 25 mg tablet 1 tab PO QAM Qty: 30 RF: 0 montelukast 10 mg tablet 1 tab PO DAILY Qty: 30 RF: 0 clozapine 25 mg tablet 2 tab PO QAM Qty: 60 RF: 0 prazosin 2 mg capsule 1 cap PO BEDTIME Qty: 30 RF: 0 Discontinued clozapine 100 mg tablet 3 tab PO BEDTIME RF: 0 Metamucil Packet 1 packet PO BEDTIME RF: 0 lorazepam 2 mg tablet 2 mg PO Q6H RF: 0 mirtazapine 30 mg tablet 1 tab PO BEDTIME RF: 0 ursodiol 250 mg tablet 2 tab PO TID RF: 0 Discharge Orders: Discharge Order (Routine); Ordered 06/22/21 Ordered By: Anita Pratt Diet: advance to usual diet Activity on Discharge: As tolerated Stand Alone Forms: Patient Portal Discharge page Care Plan Goals: Stabilization of mood and thoughts Health Concerns: Schizoaffective Disorder, Bipolar Type Plan of Treatment: Attend scheduled appointments Take medications as directed Assessment: Pt less guarded, less paranoid. No signs of aggression towards self or others. No SI/HI. Less AH. Discharge Date/Time: 06/22/21 15:10
== END 2021-06-22 15:10 | disposition home or self-care (01) | DRG 885 ==
LOC: HO.ED 05-14 08:38 → HO.PM5 05-14 20:54
PROVIDERS: Nurse Practitioner Family; Admitting Provider Registered Nurse; Emergency Provider Emergency Medicine Emergency Medical Services; PCP Internal Medicine; Visit Provider Clinical Nurse Specialist Psychiatric/Mental Health, Adult
DX: F25.0 Schizoaffective disorder, bipolar type (principal); R45.851 Suicidal ideations; F17.210 Nicotine dependence, cigarettes, uncomplicated; Z71.6 Tobacco abuse counseling; Z20.822 Contact with and (suspected) exposure to COVID-19; Z79.899 Other long term (current) drug therapy
CPT/HCPCS: 36415; 73100; 73600; 80053; 80061; 80143; 80159; 80179; 80307; 82607; 82746; 83036; 84443; 85025; 85048; 87635; 93005; 99285

== ENCOUNTER 2021-07-01 14:18 | Outpatient (REF) | payer MEDICARE, MEDICAID, SELFPAY ==
[2021-07-01 14:37] LABS: Neutrophils Absolute Auto 6.4 X10*3/uL (2.0-8.3)
== END 2021-07-01 14:19 | disposition home or self-care (01) ==
LOC: HO.LABR 14:18
PROVIDERS: PCP Internal Medicine; Visit Provider Clinical Nurse Specialist Psychiatric/Mental Health
DX: Z79.899 Other long term (current) drug therapy (principal)
CPT/HCPCS: 36415; 85048

== ENCOUNTER 2021-07-08 12:32 | Outpatient (REF) | payer MEDICARE, MEDICAID, SELFPAY ==
[2021-07-08 13:03] LABS: Neutrophils Absolute Auto 4.9 X10*3/uL (2.0-8.3); White Blood Count 7.5 X10*3/uL (4.8-10.8)
== END 2021-07-08 12:33 | disposition home or self-care (01) ==
LOC: HO.LABR 12:32
PROVIDERS: Visit Provider Clinical Nurse Specialist Psychiatric/Mental Health
DX: Z79.899 Other long term (current) drug therapy (principal)
CPT/HCPCS: 36415; 85048

== ENCOUNTER 2021-07-15 12:15 | Outpatient (REF) | payer MEDICARE, MEDICAID, SELFPAY ==
[2021-07-15 12:46] LABS: Neut%MD 68.7 %; Neutrophils Absolute Auto 5.4 X10*3/uL (2.0-8.3); WBCANC 7.8 X10*3/uL
== END 2021-07-15 12:16 | disposition home or self-care (01) ==
LOC: HO.LABR 12:15
PROVIDERS: PCP Internal Medicine; Visit Provider Clinical Nurse Specialist Psychiatric/Mental Health
DX: Z79.899 Other long term (current) drug therapy (principal)
CPT/HCPCS: 36415; 85048

== ENCOUNTER 2021-07-22 12:12 | Outpatient (REF) | payer MEDICARE, MEDICAID, SELFPAY ==
[2021-07-22 13:41] LABS: Neutrophils Absolute Auto 4.5 X10*3/uL (2.0-8.3)
== END 2021-07-22 12:13 | disposition home or self-care (01) ==
LOC: HO.LABR 12:12
PROVIDERS: PCP Internal Medicine; Visit Provider Clinical Nurse Specialist Psychiatric/Mental Health
DX: Z79.899 Other long term (current) drug therapy (principal)
CPT/HCPCS: 36415; 85048

== ENCOUNTER 2021-07-29 12:22 | Outpatient (REF) | payer MEDICARE, MEDICAID, SELFPAY ==
[2021-07-29 13:01] LABS: Neutrophils Absolute Auto 4.3 X10*3/uL (2.0-8.3)
== END 2021-07-29 12:23 | disposition home or self-care (01) ==
LOC: HO.LABR 12:22
PROVIDERS: PCP Internal Medicine; Visit Provider Clinical Nurse Specialist Psychiatric/Mental Health
DX: Z79.899 Other long term (current) drug therapy (principal)
CPT/HCPCS: 36415; 85048

== ENCOUNTER 2021-08-05 12:20 | Outpatient (REF) | payer MEDICARE, MEDICAID, SELFPAY ==
[2021-08-05 13:12] LABS: Neutrophils Absolute Auto 4.51 x10*3/uL (2.0-8.3); White Blood Count 6.7 X10*3/uL (4.8-10.8)
== END 2021-08-05 12:21 | disposition home or self-care (01) ==
LOC: HO.LABR 12:20
PROVIDERS: Visit Provider Clinical Nurse Specialist Psychiatric/Mental Health
DX: Z79.899 Other long term (current) drug therapy (principal)
CPT/HCPCS: 36415; 85048

== ENCOUNTER 2021-08-12 12:10 | Outpatient (REF) | payer MEDICARE, MEDICAID, SELFPAY ==
[2021-08-12 13:37] LABS: White Blood Count 6.2 X10*3/uL (4.8-10.8)
== END 2021-08-12 12:11 | disposition home or self-care (01) ==
LOC: HO.LABR 12:10
PROVIDERS: PCP Internal Medicine; Visit Provider Clinical Nurse Specialist Psychiatric/Mental Health
DX: Z79.899 Other long term (current) drug therapy (principal)
CPT/HCPCS: 36415; 85048

== ENCOUNTER 2021-08-19 11:52 | Outpatient (REF) | payer MEDICARE, MEDICAID, SELFPAY ==
[2021-08-19 12:29] LABS: Neutrophils Absolute Auto 4.8 x10*3/uL (2.0-8.3); White Blood Count 7.3 X10*3/uL (4.8-10.8)
== END 2021-08-19 11:53 | disposition home or self-care (01) ==
LOC: HO.LABR 11:52
PROVIDERS: PCP Internal Medicine; Visit Provider Clinical Nurse Specialist Psychiatric/Mental Health
DX: Z79.899 Other long term (current) drug therapy (principal)
CPT/HCPCS: 36415; 85048

== ENCOUNTER 2021-08-27 11:05 | Outpatient (REF) | payer MEDICARE, MEDICAID, SELFPAY ==
[2021-08-27 11:13] LABS: MANUAL DIFF FLAG NO
[2021-08-27 11:23] LABS: Basophils Percent Auto 0.5 % (0-2); Eosinophils Percent Auto 0.1 % (0-4); Hematocrit 45.1 % (42.0-52.0); Hemoglobin 14.4 g/dl (14.0-18.0); Imm Gran Abs Auto 0.05 X10*3/uL (0.00-0.03); Imm Gran Pct Auto 0.6 % (0.0-0.4); Lymphocytes Absolute Auto 1.9 X10*3/uL (1.2-4.9); Lymphocytes Percent Auto 24.5 % (20-40); Mean Corpuscular HGB Conc 31.9 g/dl (31.0-36.0); Mean Corpuscular Hemoglobin 26.3 pg (27.0-33.0); Mean Corpuscular Volume 82.4 fL (80.0-98.0); Mean Platelet Volume 9.9 fL (9.4-12.4); Monocytes Absolute Auto 0.6 X10*3/uL (0.1-1.2); Monocytes Percent Auto 7.8 % (2-11); Neutrophils Absolute Auto 5.3 x10*3/uL (2.0-8.3); Neutrophils Percent Auto 66.5 % (45-73); Platelet Count 277 X10*3/uL (160-400); Red Blood Count 5.47 X10*6/uL (4.60-5.80); Red Cell Distribution Width 14.5 % (11.0-16.0); White Blood Count 7.9 X10*3/uL (4.8-10.8)
== END 2021-08-27 11:06 | disposition home or self-care (01) ==
LOC: HO.LABR 11:05
PROVIDERS: PCP Internal Medicine; Visit Provider Clinical Nurse Specialist Psychiatric/Mental Health
DX: Z79.899 Other long term (current) drug therapy (principal)
CPT/HCPCS: 36415; 85025

== ENCOUNTER 2021-09-02 11:47 | Outpatient (REF) | payer MEDICARE, MEDICAID, SELFPAY ==
[2021-09-02 12:44] LABS: Neutrophils Absolute Auto 4.7 x10*3/uL (2.0-8.3); White Blood Count 7.2 X10*3/uL (4.8-10.8)
== END 2021-09-02 11:48 | disposition home or self-care (01) ==
LOC: HO.LAB 11:47
PROVIDERS: PCP Internal Medicine; Visit Provider Clinical Nurse Specialist Psychiatric/Mental Health
DX: Z79.899 Other long term (current) drug therapy (principal)
CPT/HCPCS: 36415; 85048

== ENCOUNTER 2021-09-09 12:14 | Outpatient (REF) | payer MEDICARE, MEDICAID, SELFPAY ==
[2021-09-09 12:28] LABS: MANUAL DIFF FLAG NO
[2021-09-09 12:40] LABS: Basophils Percent Auto 0.4 % (0-2); Hematocrit 44.1 % (42.0-52.0); Hemoglobin 14.3 g/dl (14.0-18.0); Imm Gran Abs Auto 0.03 X10*3/uL (0.00-0.03); Imm Gran Pct Auto 0.4 % (0.0-0.4); Lymphocytes Absolute Auto 1.7 X10*3/uL (1.2-4.9); Lymphocytes Percent Auto 24.3 % (20-40); Mean Corpuscular HGB Conc 32.4 g/dl (31.0-36.0); Mean Corpuscular Hemoglobin 26.5 pg (27.0-33.0); Mean Corpuscular Volume 81.8 fL (80.0-98.0); Mean Platelet Volume 9.9 fL (9.4-12.4); Monocytes Absolute Auto 0.7 X10*3/uL (0.1-1.2); Monocytes Percent Auto 9.5 % (2-11); Neutrophils Absolute Auto 4.5 x10*3/uL (2.0-8.3); Neutrophils Percent Auto 65.4 % (45-73); Platelet Count 281 X10*3/uL (160-400); Red Blood Count 5.39 X10*6/uL (4.60-5.80); Red Cell Distribution Width 14.1 % (11.0-16.0)
== END 2021-09-09 12:15 | disposition home or self-care (01) ==
LOC: HO.LABR 12:14
PROVIDERS: PCP Internal Medicine; Visit Provider Clinical Nurse Specialist Psychiatric/Mental Health
DX: Z79.899 Other long term (current) drug therapy (principal)
CPT/HCPCS: 36415; 85025

== ENCOUNTER 2021-09-16 11:12 | Outpatient (REF) | payer MEDICARE, MEDICAID, SELFPAY ==
[2021-09-16 11:45] LABS: Neutrophils Absolute Auto 4.8 x10*3/uL (2.0-8.3); White Blood Count 7.3 X10*3/uL (4.8-10.8)
== END 2021-09-16 11:13 | disposition home or self-care (01) ==
LOC: HO.LABR 11:12
PROVIDERS: PCP Internal Medicine; Visit Provider Clinical Nurse Specialist Psychiatric/Mental Health
DX: Z79.899 Other long term (current) drug therapy (principal)
CPT/HCPCS: 36415; 85048

== ENCOUNTER 2021-09-23 12:07 | Outpatient (REF) | payer MEDICARE, MEDICAID, SELFPAY ==
[2021-09-23 12:54] LABS: Neutrophils Absolute Auto 4.6 x10*3/uL (2.0-8.3); White Blood Count 7.1 X10*3/uL (4.8-10.8)
== END 2021-09-23 12:08 | disposition home or self-care (01) ==
LOC: HO.LABR 12:07
PROVIDERS: Visit Provider Clinical Nurse Specialist Psychiatric/Mental Health
DX: Z79.899 Other long term (current) drug therapy (principal)
CPT/HCPCS: 36415; 85048

== ENCOUNTER 2021-09-30 11:13 | Outpatient (REF) | payer MEDICARE, MEDICAID, SELFPAY ==
[2021-09-30 11:42] LABS: MANUAL DIFF FLAG NO
[2021-09-30 11:53] LABS: Basophils Percent Auto 0.4 % (0-2); Hematocrit 44.2 % (42.0-52.0); Hemoglobin 14.3 g/dl (14.0-18.0); Imm Gran Abs Auto 0.03 X10*3/uL (0.00-0.03); Imm Gran Pct Auto 0.4 % (0.0-0.4); Lymphocytes Absolute Auto 1.9 X10*3/uL (1.2-4.9); Lymphocytes Percent Auto 24.9 % (20-40); Mean Corpuscular HGB Conc 32.4 g/dl (31.0-36.0); Mean Corpuscular Hemoglobin 26.6 pg (27.0-33.0); Mean Corpuscular Volume 82.3 fL (80.0-98.0); Mean Platelet Volume 10.1 fL (9.4-12.4); Monocytes Absolute Auto 0.6 X10*3/uL (0.1-1.2); Monocytes Percent Auto 7.6 % (2-11); Neutrophils Absolute Auto 5.2 x10*3/uL (2.0-8.3); Neutrophils Percent Auto 66.7 % (45-73); Platelet Count 259 X10*3/uL (160-400); Red Blood Count 5.37 X10*6/uL (4.60-5.80); Red Cell Distribution Width 14.2 % (11.0-16.0); White Blood Count 7.7 X10*3/uL (4.8-10.8)
== END 2021-09-30 11:14 | disposition home or self-care (01) ==
LOC: HO.LABR 11:13
PROVIDERS: PCP Clinical Nurse Specialist Psychiatric/Mental Health; Visit Provider Clinical Nurse Specialist Psychiatric/Mental Health
DX: Z79.899 Other long term (current) drug therapy (principal)
CPT/HCPCS: 36415; 85025

== ENCOUNTER 2021-10-07 12:56 | Outpatient (REF) | payer MEDICARE, MEDICAID, SELFPAY ==
[2021-10-07 13:18] LABS: Neutrophils Absolute Auto 4.4 x10*3/uL (2.0-8.3); White Blood Count 7.1 X10*3/uL (4.8-10.8)
== END 2021-10-07 12:57 | disposition home or self-care (01) ==
LOC: HO.LABR 12:56
PROVIDERS: Visit Provider Clinical Nurse Specialist Psychiatric/Mental Health
DX: Z79.899 Other long term (current) drug therapy (principal)
CPT/HCPCS: 36415; 85048

== ENCOUNTER 2021-10-14 11:30 | Outpatient (REF) | payer MEDICARE, MEDICAID, SELFPAY ==
[2021-10-14 13:05] LABS: Neutrophils Absolute Auto 4.5 x10*3/uL (2.0-8.3)
== END 2021-10-14 11:31 | disposition home or self-care (01) ==
LOC: HO.LABR 11:30
PROVIDERS: PCP Clinical Nurse Specialist Psychiatric/Mental Health; Visit Provider Clinical Nurse Specialist Psychiatric/Mental Health
DX: Z79.899 Other long term (current) drug therapy (principal)
CPT/HCPCS: 36415; 85048

== ENCOUNTER 2021-10-21 12:14 | Outpatient (REF) | payer MEDICARE, MEDICAID, SELFPAY ==
[2021-10-21 12:43] LABS: Neutrophils Absolute Auto 4.3 x10*3/uL (2.0-8.3); White Blood Count 6.8 X10*3/uL (4.8-10.8)
== END 2021-10-21 12:15 | disposition home or self-care (01) ==
LOC: HO.LABR 12:14
PROVIDERS: PCP Internal Medicine; Visit Provider Clinical Nurse Specialist Psychiatric/Mental Health
DX: Z79.899 Other long term (current) drug therapy (principal)
CPT/HCPCS: 36415; 85048

== ENCOUNTER 2021-10-28 12:19 | Outpatient (REF) | payer MEDICARE, MEDICAID, SELFPAY ==
[2021-10-28 13:04] LABS: Neutrophils Absolute Auto 4.1 x10*3/uL (2.0-8.3); White Blood Count 6.5 X10*3/uL (4.8-10.8)
== END 2021-10-28 12:20 | disposition home or self-care (01) ==
LOC: HO.LABR 12:19
PROVIDERS: PCP Internal Medicine; Visit Provider Clinical Nurse Specialist Psychiatric/Mental Health
DX: Z79.899 Other long term (current) drug therapy (principal)
CPT/HCPCS: 36415; 85048

== ENCOUNTER 2021-11-04 11:53 | Outpatient (REF) | payer MEDICARE, MEDICAID, SELFPAY ==
[2021-11-04 12:37] LABS: Neutrophils Absolute Auto 4.7 x10*3/uL (2.0-8.3); White Blood Count 7.2 X10*3/uL (4.8-10.8)
== END 2021-11-04 11:54 | disposition home or self-care (01) ==
LOC: HO.LABR 11:53
PROVIDERS: Visit Provider Clinical Nurse Specialist Psychiatric/Mental Health
DX: Z79.899 Other long term (current) drug therapy (principal)
CPT/HCPCS: 36415; 85048

== ENCOUNTER 2021-11-11 12:36 | Outpatient (REF) | payer MEDICARE, MEDICAID, SELFPAY ==
[2021-11-11 13:03] LABS: Neutrophils Absolute Auto 4.5 x10*3/uL (2.0-8.3); White Blood Count 7.2 X10*3/uL (4.8-10.8)
== END 2021-11-11 12:37 | disposition home or self-care (01) ==
LOC: HO.LABR 12:36
PROVIDERS: Visit Provider Clinical Nurse Specialist Psychiatric/Mental Health
DX: Z79.899 Other long term (current) drug therapy (principal)
CPT/HCPCS: 36415; 85048

== ENCOUNTER 2021-11-18 12:20 | Outpatient (REF) | payer MEDICARE, MEDICAID, SELFPAY ==
[2021-11-18 12:44] LABS: Neutrophils Absolute Auto 3.7 x10*3/uL (2.0-8.3)
== END 2021-11-18 12:21 | disposition home or self-care (01) ==
LOC: HO.LABR 12:20
PROVIDERS: Visit Provider Clinical Nurse Specialist Psychiatric/Mental Health
DX: Z79.899 Other long term (current) drug therapy (principal)
CPT/HCPCS: 36415; 85048

== ENCOUNTER 2021-11-25 14:14 | Outpatient (REF) | payer MEDICARE, MEDICAID, SELFPAY ==
[2021-11-25 14:58] LABS: Baso%MD 0.3 %; Hematocrit 42.7 % (42.0-52.0); Hemoglobin 13.6 g/dl (14.0-18.0); IG%MD 0.3 %; Lymph%MD 26.6 %; Mean Corpuscular HGB Conc 31.9 g/dl (31.0-36.0); Mean Corpuscular Hemoglobin 26.7 pg (27.0-33.0); Mean Corpuscular Volume 83.7 fL (80.0-98.0); Mean Platelet Volume 10.3 fL (9.4-12.4); Mono%MD 7.7 %; Neut%MD 65.1 %; Neutrophils Absolute Auto 4.6 x10*3/uL (2.0-8.3); Platelet Count 223 X10*3/uL (160-400); Red Cell Distribution Width 13.9 % (11.0-16.0)
[2021-11-25 16:19] LABS: Basophils Abs Manual 0.1 X10*3/uL (0.0-0.2); Basophils Percent Manual 1 % (0-2); Lymphocytes Absolute Manual 1.8 X10*3/uL (1.2-4.9); Lymphocytes Percent Manual 26 % (20-40); Monocytes Absolute Manual 0.3 X10*3/uL (0.1-1.2); Monocytes Percent Manual 4 % (2-11); Neutrophils Percent Manual 69 % (45-73); Platelet Estimate NORMAL (NORMAL); Platelet Morphology Comment NORMAL; RBC Morphology NORMAL
[2021-11-25 16:20] LABS: Neutrophils Absolute Manual 4.8 X10*3/uL (2.0-8.3)
== END 2021-11-25 14:15 | disposition home or self-care (01) ==
LOC: HO.LABR 14:14
PROVIDERS: Visit Provider Registered Nurse
DX: Z51.81 Encounter for therapeutic drug level monitoring (principal)
CPT/HCPCS: 36415; 85007; 85027; 85048

== ENCOUNTER 2021-12-23 11:26 | Outpatient (REF) | payer MEDICARE, MEDICAID, SELFPAY ==
[2021-12-23 12:17] LABS: Baso%MD 0.3 %; Hematocrit 45.9 % (42.0-52.0); Hemoglobin 14.5 g/dl (14.0-18.0); IG%MD 0.4 %; Lymph%MD 24.6 %; Mean Corpuscular HGB Conc 31.6 g/dl (31.0-36.0); Mean Corpuscular Hemoglobin 26.9 pg (27.0-33.0); Mean Platelet Volume 10.6 fL (9.4-12.4); Mono%MD 8.5 %; Neut%MD 66.2 %; Platelet Count 254 X10*3/uL (160-400); Red Cell Distribution Width 14.5 % (11.0-16.0); White Blood Count 7.3 X10*3/uL (4.8-10.8)
[2021-12-23 13:02] LABS: Band Neutrophils Percent 4 % (3-5); Lymphocytes Absolute Manual 1.6 X10*3/uL (1.2-4.9); Lymphocytes Percent Manual 22 % (20-40); Monocytes Absolute Manual 0.6 X10*3/uL (0.1-1.2); Monocytes Percent Manual 8 % (2-11); Neutrophils Absolute Manual 5.1 X10*3/uL (2.0-8.3); Neutrophils Percent Manual 66 % (45-73); Platelet Estimate NORMAL (NORMAL); Platelet Morphology Comment NORMAL; RBC Morphology NORMAL
== END 2021-12-23 11:27 | disposition home or self-care (01) ==
LOC: HO.LABR 11:26
PROVIDERS: Visit Provider Registered Nurse
DX: Z79.899 Other long term (current) drug therapy (principal)
CPT/HCPCS: 36415; 85007; 85027

== ENCOUNTER 2021-12-30 10:16 | Outpatient (REF) | payer MEDICARE, MEDICAID, SELFPAY ==
[2021-12-30 11:07] LABS: MANUAL DIFF FLAG NO
[2021-12-30 11:51] LABS: Basophils Percent Auto 0.3 % (0-2); Hematocrit 45.1 % (42.0-52.0); Hemoglobin 14.6 g/dl (14.0-18.0); Imm Gran Abs Auto 0.02 X10*3/uL (0.00-0.03); Imm Gran Pct Auto 0.3 % (0.0-0.4); Lymphocytes Absolute Auto 1.7 X10*3/uL (1.2-4.9); Lymphocytes Percent Auto 23.3 % (20-40); Mean Corpuscular HGB Conc 32.4 g/dl (31.0-36.0); Mean Corpuscular Hemoglobin 26.9 pg (27.0-33.0); Mean Corpuscular Volume 83.1 fL (80.0-98.0); Mean Platelet Volume 10.6 fL (9.4-12.4); Monocytes Absolute Auto 0.6 X10*3/uL (0.1-1.2); Monocytes Percent Auto 8.4 % (2-11); Neutrophils Percent Auto 67.7 % (45-73); Platelet Count 246 X10*3/uL (160-400); Red Blood Count 5.43 X10*6/uL (4.60-5.80); Red Cell Distribution Width 14.2 % (11.0-16.0); White Blood Count 7.3 X10*3/uL (4.8-10.8)
[2022-01-04 17:31] LABS: Clozapine (Clozaril) 366 mcg/L; Norclozapine 293 mcg/L (25-400)
== END 2021-12-30 10:17 | disposition home or self-care (01) ==
LOC: HO.LABR 10:16
PROVIDERS: Visit Provider Registered Nurse
DX: Z79.899 Other long term (current) drug therapy (principal)
CPT/HCPCS: 36415; 80159; 85025

== ENCOUNTER 2022-01-06 10:50 | Outpatient (REF) | payer MEDICARE, MEDICAID, SELFPAY ==
[2022-01-06 11:04] LABS: MANUAL DIFF FLAG NO
[2022-01-06 11:59] LABS: Basophils Percent Auto 0.4 % (0-2); Hematocrit 45.4 % (42.0-52.0); Hemoglobin 14.3 g/dl (14.0-18.0); Imm Gran Abs Auto 0.03 X10*3/uL (0.00-0.03); Imm Gran Pct Auto 0.4 % (0.0-0.4); Lymphocytes Absolute Auto 1.8 X10*3/uL (1.2-4.9); Lymphocytes Percent Auto 26.9 % (20-40); Mean Corpuscular HGB Conc 31.5 g/dl (31.0-36.0); Mean Corpuscular Hemoglobin 26.2 pg (27.0-33.0); Mean Corpuscular Volume 83.3 fL (80.0-98.0); Mean Platelet Volume 10.6 fL (9.4-12.4); Monocytes Absolute Auto 0.6 X10*3/uL (0.1-1.2); Monocytes Percent Auto 9.3 % (2-11); Neutrophils Absolute Auto 4.2 x10*3/uL (2.0-8.3); Platelet Count 260 X10*3/uL (160-400); Red Blood Count 5.45 X10*6/uL (4.60-5.80); White Blood Count 6.7 X10*3/uL (4.8-10.8)
== END 2022-01-06 10:51 | disposition home or self-care (01) ==
LOC: HO.LABR 10:50
PROVIDERS: Visit Provider Registered Nurse
DX: Z79.899 Other long term (current) drug therapy (principal)
CPT/HCPCS: 36415; 85025

== ENCOUNTER 2022-01-13 10:23 | Outpatient (REF) | payer MEDICARE, MEDICAID, SELFPAY ==
[2022-01-13 10:43] LABS: MANUAL DIFF FLAG NO
[2022-01-13 11:34] LABS: Basophils Percent Auto 0.4 % (0-2); Hematocrit 43.7 % (42.0-52.0); Imm Gran Abs Auto 0.02 X10*3/uL (0.00-0.03); Imm Gran Pct Auto 0.3 % (0.0-0.4); Lymphocytes Percent Auto 26.7 % (20-40); Mean Corpuscular Hemoglobin 26.8 pg (27.0-33.0); Mean Corpuscular Volume 83.7 fL (80.0-98.0); Mean Platelet Volume 10.5 fL (9.4-12.4); Monocytes Absolute Auto 0.6 X10*3/uL (0.1-1.2); Monocytes Percent Auto 8.1 % (2-11); Neutrophils Absolute Auto 4.9 x10*3/uL (2.0-8.3); Neutrophils Percent Auto 64.5 % (45-73); Platelet Count 262 X10*3/uL (160-400); Red Blood Count 5.22 X10*6/uL (4.60-5.80); Red Cell Distribution Width 13.9 % (11.0-16.0); White Blood Count 7.5 X10*3/uL (4.8-10.8)
== END 2022-01-13 10:24 | disposition home or self-care (01) ==
LOC: HO.LABR 10:23
PROVIDERS: Visit Provider Registered Nurse
DX: Z79.899 Other long term (current) drug therapy (principal)
CPT/HCPCS: 36415; 85025

== ENCOUNTER 2022-01-20 10:03 | Outpatient (REF) | payer MEDICARE, MEDICAID, SELFPAY ==
[2022-01-20 10:15] LABS: MANUAL DIFF FLAG NO
[2022-01-20 10:32] LABS: Basophils Percent Auto 0.5 % (0-2); Hematocrit 44.6 % (42.0-52.0); Hemoglobin 14.5 g/dl (14.0-18.0); Imm Gran Abs Auto 0.02 X10*3/uL (0.00-0.03); Imm Gran Pct Auto 0.3 % (0.0-0.4); Lymphocytes Absolute Auto 1.7 X10*3/uL (1.2-4.9); Lymphocytes Percent Auto 26.3 % (20-40); Mean Corpuscular HGB Conc 32.5 g/dl (31.0-36.0); Mean Corpuscular Hemoglobin 27.3 pg (27.0-33.0); Mean Corpuscular Volume 83.8 fL (80.0-98.0); Mean Platelet Volume 10.4 fL (9.4-12.4); Monocytes Absolute Auto 0.3 X10*3/uL (0.1-1.2); Monocytes Percent Auto 5.4 % (2-11); Neutrophils Absolute Auto 4.2 x10*3/uL (2.0-8.3); Neutrophils Percent Auto 67.5 % (45-73); Platelet Count 236 X10*3/uL (160-400); Red Blood Count 5.32 X10*6/uL (4.60-5.80); Red Cell Distribution Width 14.1 % (11.0-16.0); White Blood Count 6.3 X10*3/uL (4.8-10.8)
== END 2022-01-20 10:04 | disposition home or self-care (01) ==
LOC: HO.LABR 10:03
PROVIDERS: PCP Nurse Practitioner Family; Visit Provider Registered Nurse
DX: Z79.899 Other long term (current) drug therapy (principal)
CPT/HCPCS: 36415; 85025; 85048

== ENCOUNTER 2022-01-27 11:53 | Outpatient (REF) | payer MEDICARE, MEDICAID, SELFPAY ==
[2022-01-27 12:09] LABS: MANUAL DIFF FLAG NO
[2022-01-27 12:38] LABS: Basophils Percent Auto 0.4 % (0-2); Hematocrit 45.3 % (42.0-52.0); Hemoglobin 14.7 g/dl (14.0-18.0); Imm Gran Abs Auto 0.03 X10*3/uL (0.00-0.03); Imm Gran Pct Auto 0.4 % (0.0-0.4); Lymphocytes Absolute Auto 1.8 X10*3/uL (1.2-4.9); Lymphocytes Percent Auto 22.2 % (20-40); Mean Corpuscular HGB Conc 32.5 g/dl (31.0-36.0); Mean Corpuscular Hemoglobin 27.1 pg (27.0-33.0); Mean Corpuscular Volume 83.6 fL (80.0-98.0); Mean Platelet Volume 11.1 fL (9.4-12.4); Monocytes Absolute Auto 0.6 X10*3/uL (0.1-1.2); Monocytes Percent Auto 7.7 % (2-11); Neutrophils Absolute Auto 5.7 x10*3/uL (2.0-8.3); Neutrophils Percent Auto 69.3 % (45-73); Platelet Count 248 X10*3/uL (160-400); Red Blood Count 5.42 X10*6/uL (4.60-5.80); Red Cell Distribution Width 13.8 % (11.0-16.0); White Blood Count 8.2 X10*3/uL (4.8-10.8)
== END 2022-01-27 11:54 | disposition home or self-care (01) ==
LOC: HO.LABR 11:53
PROVIDERS: PCP Internal Medicine; Visit Provider Registered Nurse
DX: Z79.899 Other long term (current) drug therapy (principal)
CPT/HCPCS: 36415; 85025; 85048

== ENCOUNTER 2022-02-03 11:53 | Outpatient (REF) | payer MEDICARE, MEDICAID, SELFPAY ==
[2022-02-03 12:10] LABS: MANUAL DIFF FLAG NO
[2022-02-03 12:25] LABS: Basophils Percent Auto 0.2 % (0-2); Hematocrit 44.4 % (42.0-52.0); Hemoglobin 14.1 g/dl (14.0-18.0); Imm Gran Abs Auto 0.03 X10*3/uL (0.00-0.03); Imm Gran Pct Auto 0.4 % (0.0-0.4); Lymphocytes Absolute Auto 2.1 X10*3/uL (1.2-4.9); Lymphocytes Percent Auto 25.2 % (20-40); Mean Corpuscular HGB Conc 31.8 g/dl (31.0-36.0); Mean Corpuscular Hemoglobin 26.2 pg (27.0-33.0); Mean Corpuscular Volume 82.5 fL (80.0-98.0); Mean Platelet Volume 10.3 fL (9.4-12.4); Monocytes Absolute Auto 0.6 X10*3/uL (0.1-1.2); Monocytes Percent Auto 7.1 % (2-11); Neutrophils Absolute Auto 5.5 x10*3/uL (2.0-8.3); Neutrophils Percent Auto 67.1 % (45-73); Platelet Count 256 X10*3/uL (160-400); Red Blood Count 5.38 X10*6/uL (4.60-5.80); Red Cell Distribution Width 13.8 % (11.0-16.0); White Blood Count 8.3 X10*3/uL (4.8-10.8)
== END 2022-02-03 11:54 | disposition home or self-care (01) ==
LOC: HO.LABR 11:53
PROVIDERS: PCP Registered Nurse; Visit Provider Registered Nurse
DX: Z79.899 Other long term (current) drug therapy (principal)
CPT/HCPCS: 36415; 85025

== ENCOUNTER 2022-02-10 12:12 | Outpatient (REF) | payer MEDICARE, MEDICAID, SELFPAY ==
[2022-02-10 12:52] LABS: MANUAL DIFF FLAG NO
[2022-02-10 13:00] LABS: Basophils Percent Auto 0.4 % (0-2); Eosinophils Percent Auto 0.1 % (0-4); Hematocrit 43.2 % (42.0-52.0); Hemoglobin 14.2 g/dl (14.0-18.0); Imm Gran Abs Auto 0.04 X10*3/uL (0.00-0.03); Imm Gran Pct Auto 0.4 % (0.0-0.4); Lymphocytes Percent Auto 21.7 % (20-40); Mean Corpuscular HGB Conc 32.9 g/dl (31.0-36.0); Mean Corpuscular Hemoglobin 26.9 pg (27.0-33.0); Mean Platelet Volume 10.2 fL (9.4-12.4); Monocytes Absolute Auto 0.6 X10*3/uL (0.1-1.2); Monocytes Percent Auto 6.4 % (2-11); Neutrophils Absolute Auto 6.4 x10*3/uL (2.0-8.3); Platelet Count 262 X10*3/uL (160-400); Red Blood Count 5.27 X10*6/uL (4.60-5.80); Red Cell Distribution Width 13.6 % (11.0-16.0); White Blood Count 9.1 X10*3/uL (4.8-10.8)
== END 2022-02-10 12:13 | disposition home or self-care (01) ==
LOC: HO.LABR 12:12
PROVIDERS: Visit Provider Registered Nurse
DX: Z79.899 Other long term (current) drug therapy (principal)
CPT/HCPCS: 36415; 85025; 85048

== ENCOUNTER 2022-02-17 11:26 | Outpatient (REF) | payer MEDICARE, MEDICAID, SELFPAY ==
[2022-02-17 12:16] LABS: MANUAL DIFF FLAG NO
[2022-02-17 12:37] LABS: Basophils Percent Auto 0.4 % (0-2); Hemoglobin 14.7 g/dl (14.0-18.0); Imm Gran Abs Auto 0.02 X10*3/uL (0.00-0.03); Imm Gran Pct Auto 0.2 % (0.0-0.4); Lymphocytes Absolute Auto 1.9 X10*3/uL (1.2-4.9); Lymphocytes Percent Auto 23.3 % (20-40); Mean Corpuscular HGB Conc 32.7 g/dl (31.0-36.0); Mean Corpuscular Hemoglobin 26.7 pg (27.0-33.0); Mean Corpuscular Volume 81.8 fL (80.0-98.0); Mean Platelet Volume 10.1 fL (9.4-12.4); Monocytes Absolute Auto 0.6 X10*3/uL (0.1-1.2); Monocytes Percent Auto 7.1 % (2-11); Neutrophils Absolute Auto 5.8 x10*3/uL (2.0-8.3); Platelet Count 268 X10*3/uL (160-400); Red Cell Distribution Width 13.4 % (11.0-16.0); White Blood Count 8.3 X10*3/uL (4.8-10.8)
== END 2022-02-17 11:27 | disposition home or self-care (01) ==
LOC: HO.LABR 11:26
PROVIDERS: PCP Internal Medicine; Visit Provider Registered Nurse
DX: Z79.899 Other long term (current) drug therapy (principal)
CPT/HCPCS: 36415; 85025

== ENCOUNTER 2022-02-24 11:26 | Outpatient (REF) | payer MEDICARE, MEDICAID, SELFPAY ==
[2022-02-24 11:36] LABS: MANUAL DIFF FLAG NO
[2022-02-24 11:58] LABS: Basophils Percent Auto 0.4 % (0-2); Hematocrit 43.1 % (42.0-52.0); Imm Gran Abs Auto 0.02 X10*3/uL (0.00-0.03); Imm Gran Pct Auto 0.3 % (0.0-0.4); Lymphocytes Percent Auto 26.1 % (20-40); Mean Corpuscular HGB Conc 32.5 g/dl (31.0-36.0); Mean Corpuscular Hemoglobin 26.9 pg (27.0-33.0); Mean Corpuscular Volume 82.9 fL (80.0-98.0); Mean Platelet Volume 10.4 fL (9.4-12.4); Monocytes Absolute Auto 0.7 X10*3/uL (0.1-1.2); Monocytes Percent Auto 8.7 % (2-11); Neutrophils Absolute Auto 4.9 x10*3/uL (2.0-8.3); Neutrophils Percent Auto 64.5 % (45-73); Platelet Count 253 X10*3/uL (160-400); Red Cell Distribution Width 13.6 % (11.0-16.0); White Blood Count 7.6 X10*3/uL (4.8-10.8)
== END 2022-02-24 11:27 | disposition home or self-care (01) ==
LOC: HO.LABR 11:26
PROVIDERS: PCP Internal Medicine; Visit Provider Registered Nurse
DX: Z79.899 Other long term (current) drug therapy (principal)
CPT/HCPCS: 36415; 85025

== ENCOUNTER 2022-03-10 13:59 | Outpatient (REF) | payer MEDICARE, MEDICAID, SELFPAY ==
[2022-03-10 14:14] LABS: MANUAL DIFF FLAG NO
[2022-03-10 14:32] LABS: Basophils Percent Auto 0.4 % (0-2); Eosinophils Percent Auto 0.1 % (0-4); Hemoglobin 13.4 g/dl (14.0-18.0); Imm Gran Abs Auto 0.03 X10*3/uL (0.00-0.03); Imm Gran Pct Auto 0.4 % (0.0-0.4); Lymphocytes Absolute Auto 1.9 X10*3/uL (1.2-4.9); Lymphocytes Percent Auto 25.4 % (20-40); Mean Corpuscular HGB Conc 31.9 g/dl (31.0-36.0); Mean Corpuscular Hemoglobin 26.4 pg (27.0-33.0); Mean Corpuscular Volume 82.8 fL (80.0-98.0); Mean Platelet Volume 10.6 fL (9.4-12.4); Monocytes Absolute Auto 0.7 X10*3/uL (0.1-1.2); Monocytes Percent Auto 9.5 % (2-11); Neutrophils Absolute Auto 4.8 x10*3/uL (2.0-8.3); Neutrophils Percent Auto 64.2 % (45-73); Platelet Count 234 X10*3/uL (160-400); Red Blood Count 5.07 X10*6/uL (4.60-5.80); White Blood Count 7.5 X10*3/uL (4.8-10.8)
== END 2022-03-10 14:00 | disposition home or self-care (01) ==
LOC: HO.LABR 13:59
PROVIDERS: Visit Provider Registered Nurse
DX: Z79.899 Other long term (current) drug therapy (principal)
CPT/HCPCS: 36415; 85025; 85048

== ENCOUNTER 2022-03-17 14:18 | Outpatient (REF) | payer MEDICARE, MEDICAID, SELFPAY ==
[2022-03-17 14:32] LABS: MANUAL DIFF FLAG NO
[2022-03-17 14:45] LABS: Basophils Percent Auto 0.4 % (0-2); Hematocrit 41.7 % (42.0-52.0); Hemoglobin 13.3 g/dl (14.0-18.0); Imm Gran Abs Auto 0.02 X10*3/uL (0.00-0.03); Imm Gran Pct Auto 0.3 % (0.0-0.4); Lymphocytes Absolute Auto 1.8 X10*3/uL (1.2-4.9); Lymphocytes Percent Auto 22.3 % (20-40); Mean Corpuscular HGB Conc 31.9 g/dl (31.0-36.0); Mean Corpuscular Hemoglobin 26.3 pg (27.0-33.0); Mean Corpuscular Volume 82.4 fL (80.0-98.0); Mean Platelet Volume 10.3 fL (9.4-12.4); Monocytes Absolute Auto 0.5 X10*3/uL (0.1-1.2); Monocytes Percent Auto 6.1 % (2-11); Neutrophils Absolute Auto 5.6 x10*3/uL (2.0-8.3); Neutrophils Percent Auto 70.9 % (45-73); Platelet Count 210 X10*3/uL (160-400); Red Blood Count 5.06 X10*6/uL (4.60-5.80); White Blood Count 7.9 X10*3/uL (4.8-10.8)
== END 2022-03-17 14:19 | disposition home or self-care (01) ==
LOC: HO.LABR 14:18
PROVIDERS: PCP Internal Medicine; Visit Provider Registered Nurse
DX: Z79.899 Other long term (current) drug therapy (principal)
CPT/HCPCS: 36415; 85025; 85048

== ENCOUNTER 2022-03-24 12:06 | Outpatient (REF) | payer MEDICARE, MEDICAID, SELFPAY ==
[2022-03-24 12:23] LABS: MANUAL DIFF FLAG NO
[2022-03-24 13:21] LABS: Basophils Percent Auto 0.4 % (0-2); Hematocrit 44.6 % (42.0-52.0); Hemoglobin 14.2 g/dl (14.0-18.0); Imm Gran Abs Auto 0.02 X10*3/uL (0.00-0.03); Imm Gran Pct Auto 0.3 % (0.0-0.4); Lymphocytes Absolute Auto 1.9 X10*3/uL (1.2-4.9); Lymphocytes Percent Auto 24.6 % (20-40); Mean Corpuscular HGB Conc 31.8 g/dl (31.0-36.0); Mean Corpuscular Hemoglobin 26.2 pg (27.0-33.0); Mean Corpuscular Volume 82.4 fL (80.0-98.0); Mean Platelet Volume 10.6 fL (9.4-12.4); Monocytes Absolute Auto 0.6 X10*3/uL (0.1-1.2); Monocytes Percent Auto 7.6 % (2-11); Neut%MD 67.1 %; Neutrophils Absolute Auto 5.1 x10*3/uL (2.0-8.3); Neutrophils Percent Auto 67.1 % (45-73); Platelet Count 251 X10*3/uL (160-400); Red Blood Count 5.41 X10*6/uL (4.60-5.80); WBCANC 7.6 X10*3/uL; White Blood Count 7.6 X10*3/uL (4.8-10.8)
[2022-03-29 15:52] LABS: Clozapine (Clozaril) 320 mcg/L; Norclozapine 219 mcg/L (25-400)
== END 2022-03-24 12:07 | disposition home or self-care (01) ==
LOC: HO.LABR 12:06
PROVIDERS: Visit Provider Registered Nurse
DX: Z79.899 Other long term (current) drug therapy (principal)
CPT/HCPCS: 36415; 80159; 85025

== ENCOUNTER 2022-03-31 12:29 | Outpatient (REF) | payer MEDICARE, MEDICAID, SELFPAY ==
[2022-03-31 12:48] LABS: MANUAL DIFF FLAG NO
[2022-03-31 13:26] LABS: Basophils Percent Auto 0.5 % (0-2); Hematocrit 44.7 % (42.0-52.0); Hemoglobin 14.1 g/dl (14.0-18.0); Imm Gran Abs Auto 0.02 X10*3/uL (0.00-0.03); Imm Gran Pct Auto 0.3 % (0.0-0.4); Lymphocytes Absolute Auto 1.5 X10*3/uL (1.2-4.9); Lymphocytes Percent Auto 24.5 % (20-40); Mean Corpuscular HGB Conc 31.5 g/dl (31.0-36.0); Mean Corpuscular Volume 82.5 fL (80.0-98.0); Mean Platelet Volume 10.5 fL (9.4-12.4); Monocytes Absolute Auto 0.5 X10*3/uL (0.1-1.2); Monocytes Percent Auto 8.6 % (2-11); Neutrophils Absolute Auto 4.1 x10*3/uL (2.0-8.3); Neutrophils Percent Auto 66.1 % (45-73); Platelet Count 255 X10*3/uL (160-400); Red Blood Count 5.42 X10*6/uL (4.60-5.80); Red Cell Distribution Width 13.9 % (11.0-16.0); White Blood Count 6.2 X10*3/uL (4.8-10.8)
== END 2022-03-31 12:30 | disposition home or self-care (01) ==
LOC: HO.LABR 12:29
PROVIDERS: Visit Provider Registered Nurse
DX: Z79.899 Other long term (current) drug therapy (principal)
CPT/HCPCS: 36415; 85025; 85048

== ENCOUNTER 2022-04-07 12:03 | Outpatient (REF) | payer MEDICARE, MEDICAID, SELFPAY ==
[2022-04-07 12:36] LABS: Baso%MD 0.5 %; Hematocrit 43.3 % (42.0-52.0); Hemoglobin 14.1 g/dl (14.0-18.0); IG%MD 0.3 %; Lymph%MD 27.9 %; Mean Corpuscular HGB Conc 32.6 g/dl (31.0-36.0); Mean Corpuscular Volume 82.8 fL (80.0-98.0); Mean Platelet Volume 10.3 fL (9.4-12.4); Mono%MD 8.3 %; Neutrophils Absolute Auto 4.1 x10*3/uL (2.0-8.3); Platelet Count 244 X10*3/uL (160-400); Red Blood Count 5.23 X10*6/uL (4.60-5.80); Red Cell Distribution Width 14.1 % (11.0-16.0); WBCANC 6.5 X10*3/uL; White Blood Count 6.5 X10*3/uL (4.8-10.8)
[2022-04-07 16:08] LABS: Band Neutrophils Percent 1 % (3-5); Basophils Abs Manual 0.1 X10*3/uL (0.0-0.2); Basophils Percent Manual 1 % (0-2); Lymphocytes Absolute Manual 1.6 X10*3/uL (1.2-4.9); Lymphocytes Percent Manual 24 % (20-40); Monocytes Absolute Manual 0.6 X10*3/uL (0.1-1.2); Monocytes Percent Manual 9 % (2-11); Neutrophils Absolute Manual 4.3 X10*3/uL (2.0-8.3); Neutrophils Percent Manual 65 % (45-73)
[2022-04-07 16:09] LABS: Hypochromasia 1+ (5-14) /OIF; Microcytosis 1+ (5-14) /OIF; Platelet Estimate NORMAL (NORMAL); Platelet Morphology Comment NORMAL; Polychromasia 1+ (0-2) /OIF; RBC Morphology NOTED; Toxic Vacuolation PRESENT
== END 2022-04-07 12:04 | disposition home or self-care (01) ==
LOC: HO.LABR 12:03
PROVIDERS: Visit Provider Registered Nurse
DX: Z79.899 Other long term (current) drug therapy (principal)
CPT/HCPCS: 36415; 85007; 85027

== ENCOUNTER 2022-04-14 11:36 | Outpatient (REF) | payer MEDICARE, MEDICAID, SELFPAY ==
[2022-04-14 12:03] LABS: MANUAL DIFF FLAG NO
[2022-04-14 12:13] LABS: Basophils Percent Auto 0.5 % (0-2); Hematocrit 42.9 % (42.0-52.0); Hemoglobin 14.2 g/dl (14.0-18.0); Imm Gran Abs Auto 0.03 X10*3/uL (0.00-0.03); Imm Gran Pct Auto 0.5 % (0.0-0.4); Lymphocytes Absolute Auto 1.6 X10*3/uL (1.2-4.9); Mean Corpuscular HGB Conc 33.1 g/dl (31.0-36.0); Mean Corpuscular Hemoglobin 27.5 pg (27.0-33.0); Mean Platelet Volume 10.5 fL (9.4-12.4); Monocytes Absolute Auto 0.5 X10*3/uL (0.1-1.2); Monocytes Percent Auto 8.1 % (2-11); Neutrophils Absolute Auto 4.2 x10*3/uL (2.0-8.3); Neutrophils Percent Auto 65.9 % (45-73); Platelet Count 233 X10*3/uL (160-400); Red Blood Count 5.17 X10*6/uL (4.60-5.80); Red Cell Distribution Width 14.2 % (11.0-16.0); White Blood Count 6.4 X10*3/uL (4.8-10.8)
[2022-04-19 16:02] LABS: Clozapine (Clozaril) 338 mcg/L; Norclozapine 225 mcg/L (25-400)
== END 2022-04-14 11:37 | disposition home or self-care (01) ==
LOC: HO.LABR 11:36
PROVIDERS: Visit Provider Registered Nurse
DX: Z72.89 Other problems related to lifestyle (principal)
CPT/HCPCS: 36415; 80159; 85025; 85048

== ENCOUNTER 2022-04-29 16:42 | Outpatient (REF) | payer MEDICARE, MEDICAID, SELFPAY ==
[2022-04-29 17:39] LABS: MANUAL DIFF FLAG NO
[2022-04-29 18:00] LABS: Basophils Percent Auto 0.4 % (0-2); Hematocrit 40.1 % (42.0-52.0); Hemoglobin 13.2 g/dl (14.0-18.0); Imm Gran Abs Auto 0.06 X10*3/uL (0.00-0.03); Imm Gran Pct Auto 0.9 % (0.0-0.4); Lymphocytes Absolute Auto 1.9 X10*3/uL (1.2-4.9); Lymphocytes Percent Auto 27.6 % (20-40); Mean Corpuscular HGB Conc 32.9 g/dl (31.0-36.0); Mean Corpuscular Volume 82.2 fL (80.0-98.0); Mean Platelet Volume 10.7 fL (9.4-12.4); Monocytes Absolute Auto 0.6 X10*3/uL (0.1-1.2); Monocytes Percent Auto 8.1 % (2-11); Neutrophils Absolute Auto 4.3 x10*3/uL (2.0-8.3); Platelet Count 250 X10*3/uL (160-400); Red Blood Count 4.88 X10*6/uL (4.60-5.80); Red Cell Distribution Width 13.7 % (11.0-16.0); WBCANC 6.8 X10*3/uL; White Blood Count 6.8 X10*3/uL (4.8-10.8)
== END 2022-04-29 16:43 | disposition home or self-care (01) ==
LOC: HO.LABR 16:42
PROVIDERS: PCP Internal Medicine; Visit Provider Registered Nurse
DX: Z79.899 Other long term (current) drug therapy (principal)
CPT/HCPCS: 36415; 85007; 85025; 85027; 85048

== ENCOUNTER 2022-05-07 09:29 | Outpatient (REF) | payer MEDICARE, MEDICAID, SELFPAY ==
[2022-05-07 09:35] LABS: MANUAL DIFF FLAG NO
[2022-05-07 10:32] LABS: Basophils Percent Auto 0.5 % (0-2); Hematocrit 41.7 % (42.0-52.0); Hemoglobin 13.5 g/dl (14.0-18.0); Imm Gran Abs Auto 0.02 X10*3/uL (0.00-0.03); Imm Gran Pct Auto 0.3 % (0.0-0.4); Lymphocytes Absolute Auto 1.6 X10*3/uL (1.2-4.9); Lymphocytes Percent Auto 26.4 % (20-40); Mean Corpuscular HGB Conc 32.4 g/dl (31.0-36.0); Mean Corpuscular Hemoglobin 26.5 pg (27.0-33.0); Mean Corpuscular Volume 81.9 fL (80.0-98.0); Mean Platelet Volume 10.6 fL (9.4-12.4); Monocytes Absolute Auto 0.5 X10*3/uL (0.1-1.2); Monocytes Percent Auto 8.3 % (2-11); Neut%MD 64.5 %; Neutrophils Percent Auto 64.5 % (45-73); Platelet Count 257 X10*3/uL (160-400); Red Blood Count 5.09 X10*6/uL (4.60-5.80); Red Cell Distribution Width 13.7 % (11.0-16.0); WBCANC 6.2 X10*3/uL; White Blood Count 6.2 X10*3/uL (4.8-10.8)
== END 2022-05-07 09:30 | disposition home or self-care (01) ==
LOC: HO.LABR 09:29
PROVIDERS: PCP Registered Nurse; Visit Provider Registered Nurse
DX: Z79.899 Other long term (current) drug therapy (principal)
CPT/HCPCS: 36415; 85025

== ENCOUNTER 2022-05-19 16:26 | Outpatient (REF) | payer MEDICARE, MEDICAID, SELFPAY ==
[2022-05-19 16:36] LABS: MANUAL DIFF FLAG NO
[2022-05-19 16:52] LABS: Basophils Percent Auto 0.5 % (0-2); Hematocrit 41.8 % (42.0-52.0); Hemoglobin 13.6 g/dl (14.0-18.0); Imm Gran Abs Auto 0.02 X10*3/uL (0.00-0.03); Imm Gran Pct Auto 0.3 % (0.0-0.4); Lymphocytes Absolute Auto 1.8 X10*3/uL (1.2-4.9); Lymphocytes Percent Auto 27.8 % (20-40); Mean Corpuscular HGB Conc 32.5 g/dl (31.0-36.0); Mean Corpuscular Hemoglobin 26.9 pg (27.0-33.0); Mean Corpuscular Volume 82.6 fL (80.0-98.0); Mean Platelet Volume 10.4 fL (9.4-12.4); Monocytes Absolute Auto 0.6 X10*3/uL (0.1-1.2); Neutrophils Percent Auto 62.4 % (45-73); Platelet Count 223 X10*3/uL (160-400); Red Blood Count 5.06 X10*6/uL (4.60-5.80); White Blood Count 6.4 X10*3/uL (4.8-10.8)
[2022-05-23 23:16] LABS: Clozapine (Clozaril) 247 mcg/L; Norclozapine 193 mcg/L (25-400)
== END 2022-05-19 16:27 | disposition home or self-care (01) ==
LOC: HO.LABR 16:26
PROVIDERS: Visit Provider Registered Nurse
DX: Z79.899 Other long term (current) drug therapy (principal)
CPT/HCPCS: 36415; 80159; 85025

== ENCOUNTER 2022-06-02 08:42 | Outpatient (REF) | payer MEDICARE, MEDICAID, SELFPAY ==
[2022-06-02 09:59] LABS: Baso%MD 0.6 %; Hemoglobin 14.2 g/dl (14.0-18.0); IG%MD 0.4 %; Lymph%MD 18.8 %; Mean Corpuscular HGB Conc 32.3 g/dl (31.0-36.0); Mean Corpuscular Hemoglobin 26.4 pg (27.0-33.0); Mean Corpuscular Volume 81.9 fL (80.0-98.0); Mean Platelet Volume 10.2 fL (9.4-12.4); Neut%MD 73.2 %; Platelet Count 234 X10*3/uL (160-400); Red Blood Count 5.37 X10*6/uL (4.60-5.80)
[2022-06-02 10:56] LABS: Atypical Lymph Absolute Manual 0.1 x10*3/uL; Atypical Lymphs Percent Manual 1 % (0-6); Band Neutrophils Percent 0 % (3-5); Lymphocytes Absolute Manual 1.1 X10*3/uL (1.2-4.9); Lymphocytes Percent Manual 16 % (20-40); Monocytes Absolute Manual 0.4 X10*3/uL (0.1-1.2); Monocytes Percent Manual 5 % (2-11); Neutrophils Absolute Manual 5.5 X10*3/uL (2.0-8.3); Neutrophils Percent Manual 78 % (45-73)
[2022-06-02 10:57] LABS: Platelet Estimate NORMAL (NORMAL); Platelet Morphology Comment NORMAL; RBC Morphology NORMAL
[2022-06-06 21:07] LABS: Clozapine (Clozaril) 232 mcg/L; Norclozapine 163 mcg/L (25-400)
== END 2022-06-02 08:43 | disposition home or self-care (01) ==
LOC: HO.LABR 08:42
PROVIDERS: Visit Provider Registered Nurse
DX: Z79.899 Other long term (current) drug therapy (principal)
CPT/HCPCS: 36415; 80159; 85007; 85027

== ENCOUNTER 2022-06-17 14:43 | Outpatient (REF) | payer MEDICARE, MEDICAID, SELFPAY ==
[2022-06-17 15:39] LABS: Baso%MD 0.3 %; Hematocrit 44.1 % (42.0-52.0); Hemoglobin 13.9 g/dl (14.0-18.0); IG%MD 0.3 %; Lymph%MD 24.3 %; Mean Corpuscular HGB Conc 31.5 g/dl (31.0-36.0); Mean Corpuscular Hemoglobin 25.9 pg (27.0-33.0); Mean Corpuscular Volume 82.1 fL (80.0-98.0); Mean Platelet Volume 10.3 fL (9.4-12.4); Neut%MD 67.1 %; Platelet Count 246 X10*3/uL (160-400); Red Blood Count 5.37 X10*6/uL (4.60-5.80); Red Cell Distribution Width 13.9 % (11.0-16.0); White Blood Count 7.6 X10*3/uL (4.8-10.8)
[2022-06-17 19:18] LABS: Atypical Lymph Absolute Manual 0.2 x10*3/uL; Atypical Lymphs Percent Manual 2 % (0-6); Band Neutrophils Percent 0 % (3-5); Lymphocytes Percent Manual 26 % (20-40); Monocytes Absolute Manual 0.3 X10*3/uL (0.1-1.2); Monocytes Percent Manual 4 % (2-11); Neutrophils Absolute Manual 5.2 X10*3/uL (2.0-8.3); Neutrophils Percent Manual 68 % (45-73)
[2022-06-17 19:20] LABS: RBC Morphology NORMAL
[2022-06-17 19:21] LABS: Platelet Estimate NORMAL (NORMAL); Platelet Morphology Comment NORMAL
== END 2022-06-17 14:44 | disposition home or self-care (01) ==
LOC: HO.LABR 14:43
PROVIDERS: PCP Registered Nurse; Visit Provider Registered Nurse
DX: F29 Unspecified psychosis not due to a substance or known physiological condition (principal); F41.1 Generalized anxiety disorder; Z79.899 Other long term (current) drug therapy
CPT/HCPCS: 36415; 85007; 85027

== ENCOUNTER 2022-06-29 11:25 | Outpatient (REF) | payer MEDICARE, MEDICAID, SELFPAY ==
[2022-06-29 11:59] LABS: Baso%MD 0.6 %; Hematocrit 44.5 % (42.0-52.0); Hemoglobin 14.3 g/dl (14.0-18.0); IG%MD 0.4 %; Lymph%MD 23.9 %; Mean Corpuscular HGB Conc 32.1 g/dl (31.0-36.0); Mean Corpuscular Hemoglobin 26.5 pg (27.0-33.0); Mean Corpuscular Volume 82.6 fL (80.0-98.0); Mean Platelet Volume 10.3 fL (9.4-12.4); Mono%MD 7.9 %; Neut%MD 67.2 %; Neutrophils Absolute Auto 5.3 x10*3/uL (2.0-8.3); Platelet Count 253 X10*3/uL (160-400); Red Blood Count 5.39 X10*6/uL (4.60-5.80); Red Cell Distribution Width 14.2 % (11.0-16.0); WBCANC 7.9 X10*3/uL; White Blood Count 7.9 X10*3/uL (4.8-10.8)
[2022-06-29 12:32] LABS: Band Neutrophils Percent 0 % (3-5); Basophils Abs Manual 0.2 X10*3/uL (0.0-0.2); Basophils Percent Manual 2 % (0-2); Lymphocytes Absolute Manual 1.6 X10*3/uL (1.2-4.9); Lymphocytes Percent Manual 20 % (20-40); Monocytes Absolute Manual 0.6 X10*3/uL (0.1-1.2); Monocytes Percent Manual 8 % (2-11); Neutrophils Absolute Manual 5.5 X10*3/uL (2.0-8.3); Neutrophils Percent Manual 70 % (45-73)
[2022-06-29 12:34] LABS: Platelet Estimate NORMAL (NORMAL); Platelet Morphology Comment NORMAL; RBC Morphology NORMAL
== END 2022-06-29 11:26 | disposition home or self-care (01) ==
LOC: HO.LABR 11:25
PROVIDERS: PCP Internal Medicine; Visit Provider Registered Nurse
DX: F29 Unspecified psychosis not due to a substance or known physiological condition (principal); F41.1 Generalized anxiety disorder; Z79.899 Other long term (current) drug therapy
CPT/HCPCS: 36415; 85007; 85027

== ENCOUNTER 2022-07-11 11:10 | Outpatient (REF) | payer MEDICARE, MEDICAID, SELFPAY ==
[2022-07-11 12:03] LABS: Baso%MD 0.3 %; Hematocrit 44.6 % (42.0-52.0); Hemoglobin 14.1 g/dl (14.0-18.0); IG%MD 0.3 %; Mean Corpuscular HGB Conc 31.6 g/dl (31.0-36.0); Mean Corpuscular Hemoglobin 25.7 pg (27.0-33.0); Mean Corpuscular Volume 81.2 fL (80.0-98.0); Mean Platelet Volume 10.8 fL (9.4-12.4); Mono%MD 7.6 %; Neut%MD 66.8 %; Neutrophils Absolute Auto 5.2 x10*3/uL (2.0-8.3); Platelet Count 254 X10*3/uL (160-400); Red Blood Count 5.49 X10*6/uL (4.60-5.80); Red Cell Distribution Width 14.2 % (11.0-16.0); WBCANC 7.8 X10*3/uL; White Blood Count 7.8 X10*3/uL (4.8-10.8)
[2022-07-11 13:18] LABS: Lymphocytes Absolute Manual 1.6 X10*3/uL (1.2-4.9); Lymphocytes Percent Manual 21 % (20-40); Monocytes Absolute Manual 0.5 X10*3/uL (0.1-1.2); Monocytes Percent Manual 6 % (2-11); Neutrophils Percent Manual 73 % (45-73)
[2022-07-11 13:21] LABS: Platelet Estimate NORMAL (NORMAL); Platelet Morphology Comment NORMAL; RBC Morphology NORMAL
[2022-07-11 13:23] LABS: Band Neutrophils Percent 0 % (3-5); Neutrophils Absolute Manual 5.7 X10*3/uL (2.0-8.3)
== END 2022-07-11 11:11 | disposition home or self-care (01) ==
LOC: HO.LABR 11:10
PROVIDERS: Visit Provider Registered Nurse
DX: F29 Unspecified psychosis not due to a substance or known physiological condition (principal); F41.1 Generalized anxiety disorder; Z79.899 Other long term (current) drug therapy
CPT/HCPCS: 36415; 85007; 85027

== ENCOUNTER 2022-07-27 16:09 | Outpatient (REF) | payer MEDICARE, MEDICAID, SELFPAY ==
[2022-07-27 16:26] LABS: MANUAL DIFF FLAG NO
[2022-07-27 17:15] LABS: Basophils Percent Auto 0.4 % (0-2); Hemoglobin 13.3 g/dl (14.0-18.0); Imm Gran Abs Auto 0.02 X10*3/uL (0.00-0.03); Imm Gran Pct Auto 0.3 % (0.0-0.4); Lymphocytes Absolute Auto 2.2 X10*3/uL (1.2-4.9); Lymphocytes Percent Auto 29.9 % (20-40); Mean Corpuscular HGB Conc 31.7 g/dl (31.0-36.0); Mean Corpuscular Hemoglobin 25.7 pg (27.0-33.0); Mean Corpuscular Volume 81.1 fL (80.0-98.0); Mean Platelet Volume 10.5 fL (9.4-12.4); Monocytes Absolute Auto 0.6 X10*3/uL (0.1-1.2); Monocytes Percent Auto 8.6 % (2-11); Neut%MD 60.8 %; Neutrophils Absolute Auto 4.4 x10*3/uL (2.0-8.3); Neutrophils Percent Auto 60.8 % (45-73); Platelet Count 246 X10*3/uL (160-400); Red Blood Count 5.18 X10*6/uL (4.60-5.80); Red Cell Distribution Width 14.3 % (11.0-16.0); WBCANC 7.2 X10*3/uL; White Blood Count 7.2 X10*3/uL (4.8-10.8)
== END 2022-07-27 16:10 | disposition home or self-care (01) ==
LOC: HO.LABR 16:09
PROVIDERS: Visit Provider Registered Nurse
DX: F29 Unspecified psychosis not due to a substance or known physiological condition (principal); F41.1 Generalized anxiety disorder; Z79.899 Other long term (current) drug therapy
CPT/HCPCS: 36415; 85025

== ENCOUNTER 2022-08-10 16:51 | Outpatient (REF) | payer MEDICARE, MEDICAID, SELFPAY ==
[2022-08-10 17:03] LABS: MANUAL DIFF FLAG NO
[2022-08-10 17:22] LABS: Basophils Percent Auto 0.4 % (0-2); Hematocrit 44.5 % (42.0-52.0); Hemoglobin 14.2 g/dl (14.0-18.0); Imm Gran Abs Auto 0.02 X10*3/uL (0.00-0.03); Imm Gran Pct Auto 0.3 % (0.0-0.4); Lymphocytes Percent Auto 28.4 % (20-40); Mean Corpuscular HGB Conc 31.9 g/dl (31.0-36.0); Mean Corpuscular Hemoglobin 26.3 pg (27.0-33.0); Mean Corpuscular Volume 82.4 fL (80.0-98.0); Mean Platelet Volume 10.5 fL (9.4-12.4); Monocytes Absolute Auto 0.6 X10*3/uL (0.1-1.2); Neut%MD 62.9 %; Neutrophils Absolute Auto 4.5 x10*3/uL (2.0-8.3); Neutrophils Percent Auto 62.9 % (45-73); Platelet Count 231 X10*3/uL (160-400); Red Cell Distribution Width 14.3 % (11.0-16.0); WBCANC 7.1 X10*3/uL; White Blood Count 7.1 X10*3/uL (4.8-10.8)
== END 2022-08-10 16:52 | disposition home or self-care (01) ==
LOC: HO.LAB 16:51
PROVIDERS: Visit Provider Registered Nurse
DX: F29 Unspecified psychosis not due to a substance or known physiological condition (principal); F41.1 Generalized anxiety disorder; Z79.899 Other long term (current) drug therapy
CPT/HCPCS: 36415; 85025

== ENCOUNTER 2022-08-23 16:31 | Outpatient (REF) | payer MEDICARE, MEDICAID, SELFPAY ==
[2022-08-23 16:44] LABS: MANUAL DIFF FLAG NO
[2022-08-23 17:53] LABS: Basophils Percent Auto 0.4 % (0-2); Hematocrit 43.9 % (42.0-52.0); Hemoglobin 14.1 g/dl (14.0-18.0); Imm Gran Abs Auto 0.03 X10*3/uL (0.00-0.03); Imm Gran Pct Auto 0.4 % (0.0-0.4); Lymphocytes Percent Auto 28.8 % (20-40); Mean Corpuscular HGB Conc 32.1 g/dl (31.0-36.0); Mean Corpuscular Hemoglobin 26.4 pg (27.0-33.0); Mean Corpuscular Volume 82.1 fL (80.0-98.0); Mean Platelet Volume 10.6 fL (9.4-12.4); Monocytes Absolute Auto 0.6 X10*3/uL (0.1-1.2); Monocytes Percent Auto 8.7 % (2-11); Neut%MD 61.7 %; Neutrophils Absolute Auto 4.2 x10*3/uL (2.0-8.3); Neutrophils Percent Auto 61.7 % (45-73); Platelet Count 240 X10*3/uL (160-400); Red Blood Count 5.35 X10*6/uL (4.60-5.80); Red Cell Distribution Width 14.5 % (11.0-16.0); WBCANC 6.8 X10*3/uL; White Blood Count 6.8 X10*3/uL (4.8-10.8)
== END 2022-08-23 16:32 | disposition home or self-care (01) ==
LOC: HO.LABR 16:31
PROVIDERS: Visit Provider Registered Nurse
DX: F29 Unspecified psychosis not due to a substance or known physiological condition (principal); F41.1 Generalized anxiety disorder; Z79.899 Other long term (current) drug therapy
CPT/HCPCS: 36415; 85025

== ENCOUNTER 2022-09-06 17:02 | Outpatient (REF) | payer MEDICARE, MEDICAID, SELFPAY ==
[2022-09-06 17:12] LABS: MANUAL DIFF FLAG NO
[2022-09-06 17:24] LABS: Basophils Percent Auto 0.4 % (0-2); Hematocrit 42.6 % (42.0-52.0); Hemoglobin 13.8 g/dl (14.0-18.0); Imm Gran Abs Auto 0.02 X10*3/uL (0.00-0.03); Imm Gran Pct Auto 0.3 % (0.0-0.4); Lymphocytes Percent Auto 26.3 % (20-40); Mean Corpuscular HGB Conc 32.4 g/dl (31.0-36.0); Mean Corpuscular Volume 80.4 fL (80.0-98.0); Mean Platelet Volume 10.6 fL (9.4-12.4); Monocytes Absolute Auto 0.6 X10*3/uL (0.1-1.2); Monocytes Percent Auto 7.7 % (2-11); Neut%MD 65.3 %; Neutrophils Absolute Auto 5.1 x10*3/uL (2.0-8.3); Neutrophils Percent Auto 65.3 % (45-73); Platelet Count 247 X10*3/uL (160-400); Red Cell Distribution Width 14.6 % (11.0-16.0); WBCANC 7.8 X10*3/uL; White Blood Count 7.8 X10*3/uL (4.8-10.8)
== END 2022-09-06 17:03 | disposition home or self-care (01) ==
LOC: HO.LABR 17:02
PROVIDERS: Visit Provider Registered Nurse
DX: F29 Unspecified psychosis not due to a substance or known physiological condition (principal); F41.1 Generalized anxiety disorder; Z79.899 Other long term (current) drug therapy
CPT/HCPCS: 36415; 85025

== ENCOUNTER 2022-09-20 12:28 | Outpatient (REF) | payer MEDICARE, MEDICAID, SELFPAY ==
[2022-09-20 13:26] LABS: MANUAL DIFF FLAG NO
[2022-09-20 13:28] LABS: Basophils Percent Auto 0.2 % (0-2); Hematocrit 43.4 % (42.0-52.0); Hemoglobin 13.8 g/dl (14.0-18.0); Imm Gran Abs Auto 0.05 X10*3/uL (0.00-0.03); Imm Gran Pct Auto 0.5 % (0.0-0.4); Lymphocytes Absolute Auto 1.7 X10*3/uL (1.2-4.9); Lymphocytes Percent Auto 16.2 % (20-40); Mean Corpuscular HGB Conc 31.8 g/dl (31.0-36.0); Mean Corpuscular Hemoglobin 26.1 pg (27.0-33.0); Mean Platelet Volume 10.8 fL (9.4-12.4); Monocytes Absolute Auto 0.6 X10*3/uL (0.1-1.2); Monocytes Percent Auto 5.7 % (2-11); Neut%MD 77.4 %; Neutrophils Absolute Auto 8.3 x10*3/uL (2.0-8.3); Neutrophils Percent Auto 77.4 % (45-73); Platelet Count 254 X10*3/uL (160-400); Red Blood Count 5.29 X10*6/uL (4.60-5.80); Red Cell Distribution Width 14.6 % (11.0-16.0); WBCANC 10.7 X10*3/uL; White Blood Count 10.7 X10*3/uL (4.8-10.8)
== END 2022-09-20 12:29 | disposition home or self-care (01) ==
LOC: HO.LABR 12:28
PROVIDERS: Visit Provider Registered Nurse
DX: F41.1 Generalized anxiety disorder (principal); F29 Unspecified psychosis not due to a substance or known physiological condition; Z79.899 Other long term (current) drug therapy
CPT/HCPCS: 36415; 85007; 85025; 85027

== ENCOUNTER 2022-10-06 16:39 | Outpatient (REF) | payer MEDICARE, MEDICAID, SELFPAY ==
[2022-10-06 16:48] LABS: MANUAL DIFF FLAG NO
[2022-10-06 17:47] LABS: Basophils Absolute Auto 0.1 X10*3/uL (0.0-0.2); Basophils Percent Auto 0.6 % (0-2); Hematocrit 42.7 % (42.0-52.0); Hemoglobin 13.8 g/dl (14.0-18.0); Imm Gran Abs Auto 0.04 X10*3/uL (0.00-0.03); Imm Gran Pct Auto 0.5 % (0.0-0.4); Lymphocytes Absolute Auto 2.3 X10*3/uL (1.2-4.9); Lymphocytes Percent Auto 28.1 % (20-40); Mean Corpuscular HGB Conc 32.3 g/dl (31.0-36.0); Mean Corpuscular Hemoglobin 26.2 pg (27.0-33.0); Mean Corpuscular Volume 81.2 fL (80.0-98.0); Mean Platelet Volume 10.6 fL (9.4-12.4); Monocytes Absolute Auto 0.6 X10*3/uL (0.1-1.2); Monocytes Percent Auto 7.2 % (2-11); Neut%MD 63.6 %; Neutrophils Absolute Auto 5.1 x10*3/uL (2.0-8.3); Neutrophils Percent Auto 63.6 % (45-73); Platelet Count 263 X10*3/uL (160-400); Red Blood Count 5.26 X10*6/uL (4.60-5.80); Red Cell Distribution Width 14.4 % (11.0-16.0)
== END 2022-10-06 16:40 | disposition home or self-care (01) ==
LOC: HO.LABR 16:39
PROVIDERS: Visit Provider Registered Nurse
DX: F29 Unspecified psychosis not due to a substance or known physiological condition (principal); F41.1 Generalized anxiety disorder; Z79.899 Other long term (current) drug therapy
CPT/HCPCS: 36415; 85025

== ENCOUNTER 2022-10-18 17:06 | Outpatient (REF) | payer MEDICARE, MEDICAID, SELFPAY ==
[2022-10-18 17:14] LABS: MANUAL DIFF FLAG NO
[2022-10-18 17:53] LABS: Basophils Percent Auto 0.5 % (0-2); Hematocrit 44.3 % (42.0-52.0); Imm Gran Abs Auto 0.03 X10*3/uL (0.00-0.03); Imm Gran Pct Auto 0.3 % (0.0-0.4); Lymphocytes Absolute Auto 2.2 X10*3/uL (1.2-4.9); Lymphocytes Percent Auto 25.8 % (20-40); Mean Corpuscular HGB Conc 31.6 g/dl (31.0-36.0); Mean Corpuscular Hemoglobin 26.2 pg (27.0-33.0); Mean Corpuscular Volume 82.8 fL (80.0-98.0); Mean Platelet Volume 10.6 fL (9.4-12.4); Monocytes Absolute Auto 0.7 X10*3/uL (0.1-1.2); Monocytes Percent Auto 8.1 % (2-11); Neutrophils Absolute Auto 5.6 x10*3/uL (2.0-8.3); Neutrophils Percent Auto 65.3 % (45-73); Platelet Count 246 X10*3/uL (160-400); Red Blood Count 5.35 X10*6/uL (4.60-5.80); Red Cell Distribution Width 14.6 % (11.0-16.0); White Blood Count 8.6 X10*3/uL (4.8-10.8)
== END 2022-10-18 17:07 | disposition home or self-care (01) ==
LOC: HO.LABR 17:06
PROVIDERS: Visit Provider Registered Nurse
DX: F29 Unspecified psychosis not due to a substance or known physiological condition (principal); F41.1 Generalized anxiety disorder; Z79.899 Other long term (current) drug therapy
CPT/HCPCS: 36415; 85025

== ENCOUNTER 2022-11-01 16:35 | Outpatient (REF) | payer MEDICARE, MEDICAID, SELFPAY ==
[2022-11-01 16:50] LABS: MANUAL DIFF FLAG NO
[2022-11-01 16:58] LABS: Basophils Percent Auto 0.4 % (0-2); Hematocrit 44.8 % (42.0-52.0); Hemoglobin 14.4 g/dl (14.0-18.0); Imm Gran Abs Auto 0.03 X10*3/uL (0.00-0.03); Imm Gran Pct Auto 0.3 % (0.0-0.4); Lymphocytes Absolute Auto 2.4 X10*3/uL (1.2-4.9); Lymphocytes Percent Auto 25.6 % (20-40); Mean Corpuscular HGB Conc 32.1 g/dl (31.0-36.0); Mean Corpuscular Hemoglobin 26.8 pg (27.0-33.0); Mean Corpuscular Volume 83.4 fL (80.0-98.0); Monocytes Absolute Auto 0.8 X10*3/uL (0.1-1.2); Monocytes Percent Auto 8.2 % (2-11); Neut%MD 65.5 %; Neutrophils Absolute Auto 6.1 x10*3/uL (2.0-8.3); Neutrophils Percent Auto 65.5 % (45-73); Platelet Count 260 X10*3/uL (160-400); Red Blood Count 5.37 X10*6/uL (4.60-5.80); Red Cell Distribution Width 14.4 % (11.0-16.0); WBCANC 9.3 X10*3/uL; White Blood Count 9.3 X10*3/uL (4.8-10.8)
== END 2022-11-01 16:36 | disposition home or self-care (01) ==
LOC: HO.LABR 16:35
PROVIDERS: Visit Provider Registered Nurse
DX: F29 Unspecified psychosis not due to a substance or known physiological condition (principal); F41.1 Generalized anxiety disorder; Z79.899 Other long term (current) drug therapy
CPT/HCPCS: 36415; 85025

== ENCOUNTER 2022-11-03 09:55 | Outpatient (REF) | payer MEDICARE, MEDICAID, SELFPAY ==
[2022-11-03 11:06] LABS: Estimated Average Glucose 100 mg/dL; Hemoglobin A1c % 5.1 %
[2022-11-03 11:25] LABS: Cholesterol 141 mg/dL; HDL Cholesterol 29 mg/dL; LDL Cholesterol Calculated 84 mg/dl; Triglycerides 141 mg/dL
== END 2022-11-03 09:56 | disposition home or self-care (01) ==
LOC: HO.LABR 09:55
PROVIDERS: PCP Internal Medicine; Visit Provider Registered Nurse
DX: F41.1 Generalized anxiety disorder (principal); E29.0 Testicular hyperfunction; Z79.899 Other long term (current) drug therapy
CPT/HCPCS: 36415; 80061; 83036

== ENCOUNTER 2022-11-15 17:00 | Outpatient (REF) | payer MEDICARE, MEDICAID, SELFPAY ==
[2022-11-15 17:10] LABS: MANUAL DIFF FLAG NO
[2022-11-15 18:09] LABS: Basophils Percent Auto 0.4 % (0-2); Hematocrit 42.2 % (42.0-52.0); Hemoglobin 13.7 g/dl (14.0-18.0); Imm Gran Abs Auto 0.02 X10*3/uL (0.00-0.03); Imm Gran Pct Auto 0.3 % (0.0-0.4); Lymphocytes Absolute Auto 2.1 X10*3/uL (1.2-4.9); Lymphocytes Percent Auto 26.7 % (20-40); Mean Corpuscular HGB Conc 32.5 g/dl (31.0-36.0); Mean Corpuscular Hemoglobin 26.5 pg (27.0-33.0); Mean Corpuscular Volume 81.6 fL (80.0-98.0); Mean Platelet Volume 10.3 fL (9.4-12.4); Monocytes Absolute Auto 0.7 X10*3/uL (0.1-1.2); Monocytes Percent Auto 8.4 % (2-11); Neut%MD 64.2 %; Neutrophils Absolute Auto 5.1 x10*3/uL (2.0-8.3); Neutrophils Percent Auto 64.2 % (45-73); Platelet Count 232 X10*3/uL (160-400); Red Blood Count 5.17 X10*6/uL (4.60-5.80); Red Cell Distribution Width 14.1 % (11.0-16.0); WBCANC 7.9 X10*3/uL; White Blood Count 7.9 X10*3/uL (4.8-10.8)
== END 2022-11-15 17:01 | disposition home or self-care (01) ==
LOC: HO.LABR 17:00
PROVIDERS: Visit Provider Registered Nurse
DX: F29 Unspecified psychosis not due to a substance or known physiological condition (principal); F41.1 Generalized anxiety disorder; Z79.899 Other long term (current) drug therapy
CPT/HCPCS: 36415; 85025

== ENCOUNTER 2022-11-29 12:35 | Outpatient (REF) | payer MEDICARE, MEDICAID, SELFPAY ==
[2022-11-29 12:45] LABS: MANUAL DIFF FLAG NO
[2022-11-29 13:46] LABS: Basophils Percent Auto 0.5 % (0-2); Hematocrit 45.1 % (42.0-52.0); Hemoglobin 14.3 g/dl (14.0-18.0); Imm Gran Abs Auto 0.05 X10*3/uL (0.00-0.03); Imm Gran Pct Auto 0.6 % (0.0-0.4); Lymphocytes Percent Auto 24.7 % (20-40); Mean Corpuscular HGB Conc 31.7 g/dl (31.0-36.0); Mean Corpuscular Hemoglobin 26.3 pg (27.0-33.0); Mean Corpuscular Volume 82.9 fL (80.0-98.0); Mean Platelet Volume 10.4 fL (9.4-12.4); Monocytes Absolute Auto 0.6 X10*3/uL (0.1-1.2); Monocytes Percent Auto 7.9 % (2-11); Neutrophils Absolute Auto 5.3 x10*3/uL (2.0-8.3); Neutrophils Percent Auto 66.3 % (45-73); Platelet Count 254 X10*3/uL (160-400); Red Blood Count 5.44 X10*6/uL (4.60-5.80); Red Cell Distribution Width 14.6 % (11.0-16.0)
== END 2022-11-29 12:36 | disposition home or self-care (01) ==
LOC: HO.LABR 12:35
PROVIDERS: Visit Provider Registered Nurse
DX: F29 Unspecified psychosis not due to a substance or known physiological condition (principal); F41.1 Generalized anxiety disorder; Z79.899 Other long term (current) drug therapy
CPT/HCPCS: 36415; 85025; 85048

== ENCOUNTER 2022-12-13 16:40 | Outpatient (REF) | payer MEDICARE, MEDICAID, SELFPAY ==
[2022-12-13 16:58] LABS: MANUAL DIFF FLAG NO
[2022-12-13 17:29] LABS: Basophils Percent Auto 0.3 % (0-2); Hematocrit 43.6 % (42.0-52.0); Hemoglobin 14.2 g/dl (14.0-18.0); Imm Gran Abs Auto 0.04 X10*3/uL (0.00-0.03); Imm Gran Pct Auto 0.4 % (0.0-0.4); Lymphocytes Absolute Auto 2.1 X10*3/uL (1.2-4.9); Lymphocytes Percent Auto 22.4 % (20-40); Mean Corpuscular HGB Conc 32.6 g/dl (31.0-36.0); Mean Corpuscular Hemoglobin 26.9 pg (27.0-33.0); Mean Corpuscular Volume 82.6 fL (80.0-98.0); Mean Platelet Volume 10.3 fL (9.4-12.4); Monocytes Absolute Auto 0.7 X10*3/uL (0.1-1.2); Neut%MD 69.9 %; Neutrophils Absolute Auto 6.5 x10*3/uL (2.0-8.3); Neutrophils Percent Auto 69.9 % (45-73); Platelet Count 241 X10*3/uL (160-400); Red Blood Count 5.28 X10*6/uL (4.60-5.80); Red Cell Distribution Width 14.3 % (11.0-16.0); WBCANC 9.4 X10*3/uL; White Blood Count 9.4 X10*3/uL (4.8-10.8)
== END 2022-12-13 16:41 | disposition home or self-care (01) ==
LOC: HO.LABR 16:40
PROVIDERS: PCP Internal Medicine; Visit Provider Registered Nurse
DX: F41.1 Generalized anxiety disorder (principal); F29 Unspecified psychosis not due to a substance or known physiological condition; Z79.899 Other long term (current) drug therapy
CPT/HCPCS: 36415; 85025

== ENCOUNTER 2023-01-04 09:54 | Outpatient (REF) | payer MEDICARE, MEDICAID, SELFPAY ==
[2023-01-04 10:16] LABS: MANUAL DIFF FLAG NO
[2023-01-04 10:25] LABS: Basophils Percent Auto 0.4 % (0-2); Hematocrit 44.2 % (42.0-52.0); Hemoglobin 14.3 g/dl (14.0-18.0); Imm Gran Abs Auto 0.03 X10*3/uL (0.00-0.03); Imm Gran Pct Auto 0.4 % (0.0-0.4); Lymphocytes Absolute Auto 1.7 X10*3/uL (1.2-4.9); Lymphocytes Percent Auto 24.1 % (20-40); Mean Corpuscular HGB Conc 32.4 g/dl (31.0-36.0); Mean Corpuscular Hemoglobin 26.7 pg (27.0-33.0); Mean Corpuscular Volume 82.6 fL (80.0-98.0); Mean Platelet Volume 10.6 fL (9.4-12.4); Monocytes Absolute Auto 0.5 X10*3/uL (0.1-1.2); Monocytes Percent Auto 6.5 % (2-11); Neutrophils Absolute Auto 4.7 x10*3/uL (2.0-8.3); Neutrophils Percent Auto 68.6 % (45-73); Platelet Count 250 X10*3/uL (160-400); Red Blood Count 5.35 X10*6/uL (4.60-5.80); Red Cell Distribution Width 13.9 % (11.0-16.0); White Blood Count 6.9 X10*3/uL (4.8-10.8)
[2023-01-04 10:40] LABS: Estimated Average Glucose 103 mg/dL; Hemoglobin A1c % 5.2 %
[2023-01-04 11:03] LABS: Cholesterol 151 mg/dL; HDL Cholesterol 37 mg/dL; LDL Cholesterol Calculated 92 mg/dl; Triglycerides 112 mg/dL
== END 2023-01-04 09:55 | disposition home or self-care (01) ==
LOC: HO.LABR 09:54
PROVIDERS: Visit Provider Registered Nurse
DX: F63.81 Intermittent explosive disorder (principal); F41.1 Generalized anxiety disorder; Z79.899 Other long term (current) drug therapy
CPT/HCPCS: 36415; 80061; 83036; 85025

== ENCOUNTER 2023-01-12 16:49 | Outpatient (REF) | payer MEDICARE, MEDICAID, SELFPAY ==
[2023-01-12 17:49] LABS: Baso%MD 0.4 %; Hematocrit 44.7 % (42.0-52.0); Hemoglobin 14.3 g/dl (14.0-18.0); IG%MD 0.4 %; Lymph%MD 22.8 %; Mean Corpuscular Volume 81.1 fL (80.0-98.0); Mean Platelet Volume 10.7 fL (9.4-12.4); Mono%MD 7.9 %; Neut%MD 68.5 %; Platelet Count 257 X10*3/uL (160-400); Red Blood Count 5.51 X10*6/uL (4.60-5.80); White Blood Count 9.4 X10*3/uL (4.8-10.8)
[2023-01-12 19:20] LABS: Band Neutrophils Percent 0 % (3-5); Lymphocytes Absolute Manual 2.5 X10*3/uL (1.2-4.9); Lymphocytes Percent Manual 27 % (20-40); Monocytes Absolute Manual 0.6 X10*3/uL (0.1-1.2); Monocytes Percent Manual 6 % (2-11); Neutrophils Absolute Manual 6.3 X10*3/uL (2.0-8.3); Neutrophils Percent Manual 67 % (45-73)
[2023-01-12 19:23] LABS: Microcytosis 1+ (5-14) /OIF; Platelet Estimate NORMAL (NORMAL); RBC Morphology NOTED
[2023-01-12 19:24] LABS: Burr Cells 1+ (0-2) /OIF; Platelet Morphology Comment NORMAL
== END 2023-01-12 16:50 | disposition home or self-care (01) ==
LOC: HO.LABR 16:49
PROVIDERS: Visit Provider Registered Nurse
DX: F41.1 Generalized anxiety disorder (principal); F63.81 Intermittent explosive disorder; Z79.899 Other long term (current) drug therapy
CPT/HCPCS: 36415; 85007; 85027; 85048

== ENCOUNTER 2023-02-07 17:25 | Outpatient (REF) | payer MEDICARE, MEDICAID, SELFPAY ==
[2023-02-07 17:38] LABS: MANUAL DIFF FLAG NO
[2023-02-07 17:51] LABS: Basophils Percent Auto 0.3 % (0-2); Hematocrit 43.8 % (42.0-52.0); Hemoglobin 14.3 g/dl (14.0-18.0); Imm Gran Abs Auto 0.03 X10*3/uL (0.00-0.03); Imm Gran Pct Auto 0.3 % (0.0-0.4); Lymphocytes Absolute Auto 2.2 X10*3/uL (1.2-4.9); Lymphocytes Percent Auto 24.2 % (20-40); Mean Corpuscular HGB Conc 32.6 g/dl (31.0-36.0); Mean Corpuscular Hemoglobin 26.5 pg (27.0-33.0); Mean Corpuscular Volume 81.1 fL (80.0-98.0); Mean Platelet Volume 10.1 fL (9.4-12.4); Monocytes Absolute Auto 0.7 X10*3/uL (0.1-1.2); Monocytes Percent Auto 7.3 % (2-11); Neutrophils Percent Auto 67.9 % (45-73); Platelet Count 264 X10*3/uL (160-400); White Blood Count 8.9 X10*3/uL (4.8-10.8)
== END 2023-02-07 17:26 | disposition home or self-care (01) ==
LOC: HO.LABR 17:25
PROVIDERS: Visit Provider Registered Nurse
DX: F41.1 Generalized anxiety disorder (principal); F63.81 Intermittent explosive disorder; Z79.899 Other long term (current) drug therapy
CPT/HCPCS: 36415; 85025

== ENCOUNTER 2023-03-07 16:38 | Outpatient (REF) | payer MEDICARE, MEDICAID, SELFPAY ==
[2023-03-07 17:07] LABS: Baso%MD 0.5 %; Hematocrit 43.5 % (42.0-52.0); Hemoglobin 13.8 g/dl (14.0-18.0); IG%MD 0.6 %; Lymph%MD 22.6 %; Mean Corpuscular HGB Conc 31.7 g/dl (31.0-36.0); Mean Corpuscular Hemoglobin 26.4 pg (27.0-33.0); Mean Corpuscular Volume 83.2 fL (80.0-98.0); Mean Platelet Volume 10.3 fL (9.4-12.4); Neut%MD 68.3 %; Neutrophils Absolute Auto 5.7 x10*3/uL (2.0-8.3); Platelet Count 258 X10*3/uL (160-400); Red Blood Count 5.23 X10*6/uL (4.60-5.80); Red Cell Distribution Width 14.2 % (11.0-16.0); WBCANC 8.3 X10*3/uL; White Blood Count 8.3 X10*3/uL (4.8-10.8)
[2023-03-07 17:43] LABS: Cholesterol 157 mg/dL; HDL Cholesterol 34 mg/dL; LDL Cholesterol Calculated 75 mg/dl; Triglycerides 241 mg/dL
[2023-03-07 18:40] LABS: Lymphocytes Absolute Manual 1.8 X10*3/uL (1.2-4.9); Lymphocytes Percent Manual 22 % (20-40); Monocytes Absolute Manual 0.7 X10*3/uL (0.1-1.2); Monocytes Percent Manual 8 % (2-11); Neutrophils Percent Manual 70 % (45-73); Platelet Estimate NORMAL (NORMAL); Platelet Morphology Comment NORMAL; RBC Morphology NORMAL
[2023-03-07 18:42] LABS: Band Neutrophils Percent 0 % (3-5); Neutrophils Absolute Manual 5.8 X10*3/uL (2.0-8.3)
[2023-03-08 05:14] LABS: Estimated Average Glucose 97 mg/dL
== END 2023-03-07 16:39 | disposition home or self-care (01) ==
LOC: HO.LABR 16:38
PROVIDERS: Visit Provider Registered Nurse
DX: F41.1 Generalized anxiety disorder (principal); F63.81 Intermittent explosive disorder; Z79.899 Other long term (current) drug therapy
CPT/HCPCS: 36415; 80061; 83036; 85007; 85027

== ENCOUNTER 2023-04-05 16:16 | Outpatient (REF) | payer MEDICARE, MEDICAID, SELFPAY ==
[2023-04-11 05:08] LABS: Clozapine (Clozaril) 155 mcg/L; Norclozapine 123 mcg/L (25-400)
== END 2023-04-05 16:17 | disposition home or self-care (01) ==
LOC: HO.LAB 16:16
PROVIDERS: Visit Provider Registered Nurse
DX: F41.1 Generalized anxiety disorder (principal); F63.81 Intermittent explosive disorder; Z79.899 Other long term (current) drug therapy
CPT/HCPCS: 36415; 80159; 85007; 85027

== ENCOUNTER 2023-05-03 14:46 | Outpatient (REF) | payer MEDICARE, MEDICAID, SELFPAY ==
[2023-05-03 14:57] LABS: MANUAL DIFF FLAG NO
[2023-05-03 15:13] LABS: Basophils Percent Auto 0.3 % (0-2); Hematocrit 44.6 % (42.0-52.0); Hemoglobin 14.3 g/dl (14.0-18.0); Imm Gran Abs Auto 0.03 X10*3/uL (0.00-0.03); Imm Gran Pct Auto 0.3 % (0.0-0.4); Lymphocytes Absolute Auto 2.3 X10*3/uL (1.2-4.9); Mean Corpuscular HGB Conc 32.1 g/dl (31.0-36.0); Mean Corpuscular Hemoglobin 26.3 pg (27.0-33.0); Mean Corpuscular Volume 82.1 fL (80.0-98.0); Mean Platelet Volume 10.5 fL (9.4-12.4); Monocytes Absolute Auto 0.8 X10*3/uL (0.1-1.2); Monocytes Percent Auto 8.4 % (2-11); Neutrophils Absolute Auto 5.8 x10*3/uL (2.0-8.3); Platelet Count 279 X10*3/uL (160-400); Red Blood Count 5.43 X10*6/uL (4.60-5.80)
[2023-05-07 07:57] LABS: Clozapine (Clozaril) 310 mcg/L; Norclozapine 260 mcg/L (25-400)
== END 2023-05-03 14:47 | disposition home or self-care (01) ==
LOC: HO.LABR 14:46
PROVIDERS: Visit Provider Registered Nurse
DX: F41.1 Generalized anxiety disorder (principal); F63.81 Intermittent explosive disorder; Z79.899 Other long term (current) drug therapy
CPT/HCPCS: 36415; 80159; 85025; 85048

== ENCOUNTER 2023-05-05 09:55 | Outpatient (REF) | payer MEDICARE, MEDICAID, SELFPAY ==
[2023-05-05 12:06] LABS: MANUAL DIFF FLAG NO
[2023-05-05 12:34] LABS: Basophils Percent Auto 0.5 % (0-2); Hematocrit 44.1 % (42.0-52.0); Hemoglobin 14.1 g/dl (14.0-18.0); Imm Gran Abs Auto 0.05 X10*3/uL (0.00-0.03); Imm Gran Pct Auto 0.6 % (0.0-0.4); Lymphocytes Absolute Auto 2.1 X10*3/uL (1.2-4.9); Lymphocytes Percent Auto 25.7 % (20-40); Mean Corpuscular Hemoglobin 26.6 pg (27.0-33.0); Mean Corpuscular Volume 83.1 fL (80.0-98.0); Mean Platelet Volume 10.5 fL (9.4-12.4); Monocytes Absolute Auto 0.5 X10*3/uL (0.1-1.2); Monocytes Percent Auto 5.5 % (2-11); Neutrophils Absolute Auto 5.5 x10*3/uL (2.0-8.3); Neutrophils Percent Auto 67.7 % (45-73); Platelet Count 258 X10*3/uL (160-400); Red Blood Count 5.31 X10*6/uL (4.60-5.80); White Blood Count 8.1 X10*3/uL (4.8-10.8)
[2023-05-05 13:43] LABS: Estimated Average Glucose 97 mg/dL
[2023-05-05 14:51] LABS: Cholesterol 154 mg/dL; HDL Cholesterol 32 mg/dL; LDL Cholesterol Calculated 97 mg/dl; Triglycerides 128 mg/dL
[2023-05-10 06:18] LABS: Clozapine (Clozaril) 360 mcg/L; Norclozapine 233 mcg/L (25-400)
== END 2023-05-05 09:56 | disposition home or self-care (01) ==
LOC: HO.LAB 09:55
PROVIDERS: Visit Provider Registered Nurse
DX: F41.1 Generalized anxiety disorder (principal); F63.81 Intermittent explosive disorder; Z79.899 Other long term (current) drug therapy
CPT/HCPCS: 36415; 80061; 80159; 83036; 85025; 85048

== ENCOUNTER 2023-06-02 14:21 | Outpatient (REF) | payer MEDICARE, MEDICAID, SELFPAY ==
[2023-06-02 14:32] LABS: MANUAL DIFF FLAG NO
[2023-06-02 14:54] LABS: Basophils Percent Auto 0.4 % (0-2); Hematocrit 43.7 % (42.0-52.0); Hemoglobin 13.7 g/dl (14.0-18.0); Imm Gran Abs Auto 0.03 X10*3/uL (0.00-0.03); Imm Gran Pct Auto 0.4 % (0.0-0.4); Lymphocytes Absolute Auto 1.9 X10*3/uL (1.2-4.9); Lymphocytes Percent Auto 23.3 % (20-40); Mean Corpuscular HGB Conc 31.4 g/dl (31.0-36.0); Mean Corpuscular Hemoglobin 25.8 pg (27.0-33.0); Mean Corpuscular Volume 82.1 fL (80.0-98.0); Mean Platelet Volume 10.2 fL (9.4-12.4); Monocytes Absolute Auto 0.4 X10*3/uL (0.1-1.2); Monocytes Percent Auto 4.9 % (2-11); Neutrophils Absolute Auto 5.7 x10*3/uL (2.0-8.3); Platelet Count 282 X10*3/uL (160-400); Red Blood Count 5.32 X10*6/uL (4.60-5.80)
== END 2023-06-02 14:22 | disposition home or self-care (01) ==
LOC: HO.LABR 14:21
PROVIDERS: Visit Provider Registered Nurse
DX: F41.1 Generalized anxiety disorder (principal); F63.81 Intermittent explosive disorder; Z79.899 Other long term (current) drug therapy
CPT/HCPCS: 36415; 85025

== ENCOUNTER 2023-06-28 13:37 | Outpatient (REF) | payer MEDICARE, MEDICAID, SELFPAY ==
[2023-06-28 14:05] LABS: Basophils Percent Auto 0.5 % (0-2); Eosinophils Absolute Auto 0.2 X10*3/uL (0.0-0.4); Eosinophils Percent Auto 2.3 % (0-4); Hematocrit 42.9 % (42.0-52.0); Hemoglobin 13.4 g/dl (14.0-18.0); Imm Gran Abs Auto 0.03 X10*3/uL (0.00-0.03); Imm Gran Pct Auto 0.5 % (0.0-0.4); Lymphocytes Absolute Auto 1.9 X10*3/uL (1.2-4.9); Lymphocytes Percent Auto 28.7 % (20-40); MANUAL DIFF FLAG NO; Mean Corpuscular HGB Conc 31.2 g/dl (31.0-36.0); Mean Corpuscular Hemoglobin 25.6 pg (27.0-33.0); Monocytes Absolute Auto 0.5 X10*3/uL (0.1-1.2); Monocytes Percent Auto 7.6 % (2-11); Neutrophils Absolute Auto 3.9 x10*3/uL (2.0-8.3); Neutrophils Percent Auto 60.4 % (45-73); Platelet Count 234 X10*3/uL (160-400); Red Blood Count 5.23 X10*6/uL (4.60-5.80); Red Cell Distribution Width 14.2 % (11.0-16.0); White Blood Count 6.5 X10*3/uL (4.8-10.8)
[2023-06-28 14:24] LABS: Cholesterol 143 mg/dL (<200); HDL Cholesterol 33 mg/dL (>40); LDL Cholesterol Calculated 74 mg/dL (<100); Triglycerides 181 mg/dL (<150)
[2023-06-28 14:45] LABS: Estimated Average Glucose 100 mg/dL; Hemoglobin A1c % 5.1 % (<6.0)
== END 2023-06-28 13:38 | disposition home or self-care (01) ==
LOC: HO.LABR 13:37
PROVIDERS: Visit Provider Registered Nurse
DX: F41.1 Generalized anxiety disorder (principal); F63.81 Intermittent explosive disorder; Z79.899 Other long term (current) drug therapy
CPT/HCPCS: 36415; 80061; 83036; 85025

== ENCOUNTER 2023-07-11 15:04 | Outpatient (REF) | payer MEDICARE, MEDICAID, SELFPAY | END 2023-07-11 15:05 | disposition home or self-care (01) | LOC: HO.LABR 15:04 | PROVIDERS: Visit Provider Registered Nurse | DX: F41.1 Generalized anxiety disorder (principal); F63.81 Intermittent explosive disorder; Z79.899 Other long term (current) drug therapy | CPT/HCPCS: 36415; 85025 ==

== ENCOUNTER 2023-07-25 15:09 | Outpatient (REF) | payer MEDICARE, MEDICAID, SELFPAY ==
[2023-07-25 15:19] LABS: MANUAL DIFF FLAG NO
[2023-07-25 15:28] LABS: Basophils Percent Auto 0.5 % (0-2); Hematocrit 43.2 % (42.0-52.0); Hemoglobin 13.8 g/dl (14.0-18.0); Imm Gran Abs Auto 0.04 X10*3/uL (0.00-0.03); Imm Gran Pct Auto 0.5 % (0.0-0.4); Mean Corpuscular HGB Conc 31.9 g/dl (31.0-36.0); Mean Corpuscular Hemoglobin 25.7 pg (27.0-33.0); Mean Corpuscular Volume 80.4 fL (80.0-98.0); Monocytes Absolute Auto 0.6 X10*3/uL (0.1-1.2); Monocytes Percent Auto 6.9 % (2-11); Neutrophils Absolute Auto 5.4 x10*3/uL (2.0-8.3); Neutrophils Percent Auto 67.1 % (45-73); Platelet Count 261 X10*3/uL (160-400); Red Blood Count 5.37 X10*6/uL (4.60-5.80); Red Cell Distribution Width 14.4 % (11.0-16.0)
== END 2023-07-25 15:10 | disposition home or self-care (01) ==
LOC: HO.LABR 15:09
PROVIDERS: Visit Provider Registered Nurse
DX: F41.1 Generalized anxiety disorder (principal); F63.81 Intermittent explosive disorder; Z79.899 Other long term (current) drug therapy
CPT/HCPCS: 36415; 85025

== ENCOUNTER 2023-09-01 14:18 | Outpatient (REF) | payer MEDICARE, MEDICAID, SELFPAY ==
[2023-09-01 15:30] LABS: Cholesterol 174 mg/dL (<200); HDL Cholesterol 32 mg/dL (>40); LDL Cholesterol Calculated 85 mg/dL (<100); Triglycerides 289 mg/dL (<150)
[2023-09-01 15:58] LABS: Estimated Average Glucose 105 mg/dL; Hemoglobin A1c % 5.3 % (<6.0)
== END 2023-09-01 14:19 | disposition home or self-care (01) ==
LOC: HO.LABR 14:18
PROVIDERS: Visit Provider Registered Nurse
DX: F41.1 Generalized anxiety disorder (principal); F63.81 Intermittent explosive disorder; Z79.899 Other long term (current) drug therapy
CPT/HCPCS: 36415; 80061; 83036

== ENCOUNTER 2023-09-06 15:15 | Outpatient (REF) | payer MEDICARE, MEDICAID, SELFPAY ==
[2023-09-06 16:13] LABS: Estimated Average Glucose 105 mg/dL; Hemoglobin A1c % 5.3 % (<6.0)
[2023-09-06 16:36] LABS: Cholesterol 156 mg/dL (<200); HDL Cholesterol 28 mg/dL (>40); LDL Cholesterol Calculated 64 mg/dL (<100); Triglycerides 324 mg/dL (<150)
== END 2023-09-06 15:16 | disposition home or self-care (01) ==
LOC: HO.LABR 15:15
PROVIDERS: PCP Registered Nurse; Visit Provider Registered Nurse
DX: F41.1 Generalized anxiety disorder (principal); F63.81 Intermittent explosive disorder; Z79.899 Other long term (current) drug therapy
CPT/HCPCS: 36415; 80061; 83036

== ENCOUNTER 2023-09-11 14:46 | Outpatient (REF) | payer MEDICARE, MEDICAID, SELFPAY ==
[2023-09-11 14:57] LABS: MANUAL DIFF FLAG NO
[2023-09-11 15:22] LABS: Basophils Percent Auto 0.5 % (0-2); Hematocrit 44.2 % (42.0-52.0); Hemoglobin 14.2 g/dl (14.0-18.0); Imm Gran Abs Auto 0.03 X10*3/uL (0.00-0.03); Imm Gran Pct Auto 0.4 % (0.0-0.4); Mean Corpuscular HGB Conc 32.1 g/dl (31.0-36.0); Mean Corpuscular Hemoglobin 26.2 pg (27.0-33.0); Mean Corpuscular Volume 81.4 fL (80.0-98.0); Mean Platelet Volume 10.4 fL (9.4-12.4); Monocytes Absolute Auto 0.5 X10*3/uL (0.1-1.2); Monocytes Percent Auto 6.9 % (2-11); Neutrophils Absolute Auto 4.9 x10*3/uL (2.0-8.3); Neutrophils Percent Auto 65.2 % (45-73); Platelet Count 280 X10*3/uL (160-400); Red Blood Count 5.43 X10*6/uL (4.60-5.80); Red Cell Distribution Width 14.4 % (11.0-16.0); White Blood Count 7.6 X10*3/uL (4.8-10.8)
== END 2023-09-11 14:47 | disposition home or self-care (01) ==
LOC: HO.LABR 14:46
PROVIDERS: Visit Provider Registered Nurse
DX: F29 Unspecified psychosis not due to a substance or known physiological condition (principal); F41.1 Generalized anxiety disorder; Z79.899 Other long term (current) drug therapy
CPT/HCPCS: 36415; 85025

== ENCOUNTER 2023-09-23 10:24 | Outpatient (REF) | payer MEDICARE, MEDICAID, SELFPAY ==
[2023-09-23 10:35] LABS: MANUAL DIFF FLAG NO
[2023-09-23 11:58] LABS: Basophils Percent Auto 0.5 % (0-2); Hematocrit 44.9 % (42.0-52.0); Hemoglobin 14.4 g/dl (14.0-18.0); Imm Gran Abs Auto 0.04 X10*3/uL (0.00-0.03); Imm Gran Pct Auto 0.5 % (0.0-0.4); Lymphocytes Absolute Auto 1.6 X10*3/uL (1.2-4.9); Lymphocytes Percent Auto 21.4 % (20-40); Mean Corpuscular HGB Conc 32.1 g/dl (31.0-36.0); Mean Corpuscular Volume 81.2 fL (80.0-98.0); Mean Platelet Volume 10.9 fL (9.4-12.4); Monocytes Absolute Auto 0.6 X10*3/uL (0.1-1.2); Monocytes Percent Auto 8.1 % (2-11); Neutrophils Absolute Auto 5.2 x10*3/uL (2.0-8.3); Neutrophils Percent Auto 69.5 % (45-73); Platelet Count 286 X10*3/uL (160-400); Red Blood Count 5.53 X10*6/uL (4.60-5.80); Red Cell Distribution Width 14.6 % (11.0-16.0); White Blood Count 7.4 X10*3/uL (4.8-10.8)
== END 2023-09-23 10:25 | disposition home or self-care (01) ==
LOC: HO.LABR 10:24
PROVIDERS: Visit Provider Registered Nurse
DX: F29 Unspecified psychosis not due to a substance or known physiological condition (principal); F41.1 Generalized anxiety disorder; Z79.899 Other long term (current) drug therapy
CPT/HCPCS: 36415; 85025

== ENCOUNTER 2023-10-07 10:34 | Outpatient (REF) | payer MEDICARE, MEDICAID, SELFPAY | END 2023-10-07 10:35 | disposition home or self-care (01) | LOC: HO.LABR 10:34 | PROVIDERS: Visit Provider Registered Nurse | DX: Z79.899 Other long term (current) drug therapy (principal) | CPT/HCPCS: 36415; 85025 ==

== ENCOUNTER 2023-10-28 10:50 | Outpatient (REF) | payer MEDICARE, MEDICAID, SELFPAY ==
[2023-10-28 11:11] LABS: MANUAL DIFF FLAG NO
[2023-10-28 12:46] LABS: Basophils Percent Auto 0.4 % (0-2); Hematocrit 45.2 % (42.0-52.0); Hemoglobin 14.7 g/dl (14.0-18.0); Imm Gran Abs Auto 0.02 X10*3/uL (0.00-0.03); Imm Gran Pct Auto 0.3 % (0.0-0.4); Lymphocytes Absolute Auto 1.7 X10*3/uL (1.2-4.9); Mean Corpuscular HGB Conc 32.5 g/dl (31.0-36.0); Mean Platelet Volume 10.4 fL (9.4-12.4); Monocytes Absolute Auto 0.6 X10*3/uL (0.1-1.2); Monocytes Percent Auto 7.5 % (2-11); Neut%MD 69.8 %; Neutrophils Absolute Auto 5.5 x10*3/uL (2.0-8.3); Neutrophils Percent Auto 69.8 % (45-73); Platelet Count 284 X10*3/uL (160-400); Red Blood Count 5.65 X10*6/uL (4.60-5.80); Red Cell Distribution Width 14.6 % (11.0-16.0); WBCANC 7.9 X10*3/uL; White Blood Count 7.9 X10*3/uL (4.8-10.8)
[2023-10-28 14:00] LABS: Estimated Average Glucose 100 mg/dL; Hemoglobin A1c % 5.1 % (<6.0)
== END 2023-10-28 10:51 | disposition home or self-care (01) ==
LOC: HO.LAB 10:50
PROVIDERS: Absent Provider Internal Medicine; PCP Internal Medicine; Visit Provider Registered Nurse
DX: R73.09 Other abnormal glucose (principal); F29 Unspecified psychosis not due to a substance or known physiological condition; F41.1 Generalized anxiety disorder; Z79.899 Other long term (current) drug therapy
CPT/HCPCS: 36415; 83036; 85025

== ENCOUNTER 2023-11-11 10:37 | Outpatient (REF) | payer MEDICARE, MEDICAID, SELFPAY ==
[2023-11-11 10:49] LABS: MANUAL DIFF FLAG NO
[2023-11-11 11:08] LABS: Basophils Percent Auto 0.4 % (0-2); Hematocrit 44.5 % (42.0-52.0); Hemoglobin 14.3 g/dl (14.0-18.0); Imm Gran Abs Auto 0.01 X10*3/uL (0.00-0.03); Imm Gran Pct Auto 0.1 % (0.0-0.4); Lymphocytes Absolute Auto 1.6 X10*3/uL (1.2-4.9); Lymphocytes Percent Auto 22.2 % (20-40); Mean Corpuscular HGB Conc 32.1 g/dl (31.0-36.0); Mean Corpuscular Hemoglobin 25.8 pg (27.0-33.0); Mean Corpuscular Volume 80.3 fL (80.0-98.0); Monocytes Absolute Auto 0.6 X10*3/uL (0.1-1.2); Monocytes Percent Auto 7.8 % (2-11); Neutrophils Percent Auto 69.5 % (45-73); Platelet Count 259 X10*3/uL (160-400); Red Blood Count 5.54 X10*6/uL (4.60-5.80); Red Cell Distribution Width 14.3 % (11.0-16.0); White Blood Count 7.2 X10*3/uL (4.8-10.8)
== END 2023-11-11 10:38 | disposition home or self-care (01) ==
LOC: HO.LABR 10:37
PROVIDERS: PCP Internal Medicine; Visit Provider Registered Nurse
DX: F29 Unspecified psychosis not due to a substance or known physiological condition (principal); F41.1 Generalized anxiety disorder; Z79.899 Other long term (current) drug therapy
CPT/HCPCS: 36415; 85025

== ENCOUNTER 2023-11-25 09:49 | Outpatient (REF) | payer MEDICARE, MEDICAID, SELFPAY ==
[2023-11-25 09:59] LABS: MANUAL DIFF FLAG NO
[2023-11-25 10:35] LABS: Basophils Percent Auto 0.4 % (0-2); Hemoglobin 14.9 g/dl (14.0-18.0); Imm Gran Abs Auto 0.03 X10*3/uL (0.00-0.03); Imm Gran Pct Auto 0.4 % (0.0-0.4); Lymphocytes Absolute Auto 1.5 X10*3/uL (1.2-4.9); Lymphocytes Percent Auto 19.8 % (20-40); Mean Corpuscular HGB Conc 32.4 g/dl (31.0-36.0); Mean Corpuscular Hemoglobin 25.7 pg (27.0-33.0); Mean Corpuscular Volume 79.4 fL (80.0-98.0); Mean Platelet Volume 10.2 fL (9.4-12.4); Monocytes Absolute Auto 0.6 X10*3/uL (0.1-1.2); Monocytes Percent Auto 7.3 % (2-11); Neutrophils Absolute Auto 5.6 x10*3/uL (2.0-8.3); Neutrophils Percent Auto 72.1 % (45-73); Platelet Count 256 X10*3/uL (160-400); Red Blood Count 5.79 X10*6/uL (4.60-5.80); Red Cell Distribution Width 14.4 % (11.0-16.0); White Blood Count 7.7 X10*3/uL (4.8-10.8)
== END 2023-11-25 09:50 | disposition home or self-care (01) ==
LOC: HO.LABR 09:49
PROVIDERS: Visit Provider Registered Nurse
DX: F29 Unspecified psychosis not due to a substance or known physiological condition (principal); F41.1 Generalized anxiety disorder; Z79.899 Other long term (current) drug therapy
CPT/HCPCS: 36415; 85025

== ENCOUNTER 2023-12-08 16:28 | Outpatient (REF) | payer MEDICARE, MEDICAID, SELFPAY ==
[2023-12-08 16:38] LABS: MANUAL DIFF FLAG NO
[2023-12-08 18:19] LABS: Basophils Percent Auto 0.5 % (0-2); Hematocrit 43.7 % (42.0-52.0); Hemoglobin 14.3 g/dl (14.0-18.0); Imm Gran Abs Auto 0.04 X10*3/uL (0.00-0.03); Imm Gran Pct Auto 0.5 % (0.0-0.4); Lymphocytes Absolute Auto 1.8 X10*3/uL (1.2-4.9); Lymphocytes Percent Auto 21.6 % (20-40); Mean Corpuscular HGB Conc 32.7 g/dl (31.0-36.0); Mean Corpuscular Hemoglobin 26.3 pg (27.0-33.0); Mean Corpuscular Volume 80.3 fL (80.0-98.0); Mean Platelet Volume 10.6 fL (9.4-12.4); Monocytes Absolute Auto 0.6 X10*3/uL (0.1-1.2); Monocytes Percent Auto 6.6 % (2-11); Neut%MD 70.8 %; Neutrophils Percent Auto 70.8 % (45-73); Platelet Count 281 X10*3/uL (160-400); Red Blood Count 5.44 X10*6/uL (4.60-5.80); Red Cell Distribution Width 14.5 % (11.0-16.0); WBCANC 8.5 X10*3/uL; White Blood Count 8.5 X10*3/uL (4.8-10.8)
== END 2023-12-08 16:29 | disposition home or self-care (01) ==
LOC: HO.LABR 16:28
PROVIDERS: Visit Provider Registered Nurse
DX: F29 Unspecified psychosis not due to a substance or known physiological condition (principal); F41.1 Generalized anxiety disorder; Z79.899 Other long term (current) drug therapy
CPT/HCPCS: 36415; 85025

== ENCOUNTER 2024-01-04 15:33 | Outpatient (REF) | payer MEDICARE, MEDICAID, SELFPAY ==
[2024-01-04 15:44] LABS: MANUAL DIFF FLAG NO
[2024-01-04 16:29] LABS: Basophils Percent Auto 0.4 % (0-2); Hemoglobin 14.9 g/dl (14.0-18.0); Imm Gran Abs Auto 0.02 X10*3/uL (0.00-0.03); Imm Gran Pct Auto 0.3 % (0.0-0.4); Lymphocytes Absolute Auto 1.6 X10*3/uL (1.2-4.9); Lymphocytes Percent Auto 22.6 % (20-40); Mean Corpuscular HGB Conc 31.7 g/dl (31.0-36.0); Mean Corpuscular Hemoglobin 26.1 pg (27.0-33.0); Mean Corpuscular Volume 82.3 fL (80.0-98.0); Mean Platelet Volume 11.1 fL (9.4-12.4); Monocytes Absolute Auto 0.5 X10*3/uL (0.1-1.2); Monocytes Percent Auto 7.4 % (2-11); Neutrophils Absolute Auto 4.8 x10*3/uL (2.0-8.3); Neutrophils Percent Auto 69.3 % (45-73); Platelet Count 185 X10*3/uL (160-400); Red Blood Count 5.71 X10*6/uL (4.60-5.80); Red Cell Distribution Width 14.7 % (11.0-16.0); White Blood Count 6.9 X10*3/uL (4.8-10.8)
== END 2024-01-04 15:34 | disposition home or self-care (01) ==
LOC: HO.LABR 15:33
PROVIDERS: Visit Provider Registered Nurse
DX: F29 Unspecified psychosis not due to a substance or known physiological condition (principal); F34.1 Dysthymic disorder; Z79.899 Other long term (current) drug therapy
CPT/HCPCS: 36415; 85025

== ENCOUNTER 2024-02-02 14:31 | Outpatient (REF) | payer MEDICARE, MEDICAID, SELFPAY ==
[2024-02-02 14:52] LABS: MANUAL DIFF FLAG NO
[2024-02-02 15:19] LABS: Basophils Percent Auto 0.3 % (0-2); Hematocrit 41.9 % (42.0-52.0); Hemoglobin 13.4 g/dl (14.0-18.0); Imm Gran Abs Auto 0.03 X10*3/uL (0.00-0.03); Imm Gran Pct Auto 0.5 % (0.0-0.4); Lymphocytes Absolute Auto 1.6 X10*3/uL (1.2-4.9); Lymphocytes Percent Auto 25.9 % (20-40); Mean Corpuscular Hemoglobin 26.1 pg (27.0-33.0); Mean Corpuscular Volume 81.7 fL (80.0-98.0); Mean Platelet Volume 10.4 fL (9.4-12.4); Monocytes Absolute Auto 0.4 X10*3/uL (0.1-1.2); Monocytes Percent Auto 5.9 % (2-11); Neut%MD 67.4 %; Neutrophils Absolute Auto 4.1 x10*3/uL (2.0-8.3); Neutrophils Percent Auto 67.4 % (45-73); Platelet Count 242 X10*3/uL (160-400); Red Blood Count 5.13 X10*6/uL (4.60-5.80); Red Cell Distribution Width 14.5 % (11.0-16.0); WBCANC 6.1 X10*3/uL; White Blood Count 6.1 X10*3/uL (4.8-10.8)
== END 2024-02-02 14:32 | disposition home or self-care (01) ==
LOC: HO.LABR 14:31
PROVIDERS: Visit Provider Registered Nurse
DX: Z79.899 Other long term (current) drug therapy (principal)
CPT/HCPCS: 36415; 85025

== ENCOUNTER 2024-03-07 13:56 | Outpatient (REF) | payer MEDICARE, MEDICAID, SELFPAY ==
[2024-03-07 14:08] LABS: MANUAL DIFF FLAG NO
[2024-03-07 14:57] LABS: Basophils Percent Auto 0.4 % (0-2); Hematocrit 42.8 % (42.0-52.0); Hemoglobin 13.7 g/dl (14.0-18.0); Imm Gran Abs Auto 0.02 X10*3/uL (0.00-0.03); Imm Gran Pct Auto 0.3 % (0.0-0.4); Lymphocytes Absolute Auto 1.8 X10*3/uL (1.2-4.9); Lymphocytes Percent Auto 23.2 % (20-40); Mean Corpuscular Hemoglobin 26.1 pg (27.0-33.0); Mean Corpuscular Volume 81.5 fL (80.0-98.0); Mean Platelet Volume 10.5 fL (9.4-12.4); Monocytes Absolute Auto 0.7 X10*3/uL (0.1-1.2); Neutrophils Absolute Auto 5.1 x10*3/uL (2.0-8.3); Neutrophils Percent Auto 67.1 % (45-73); Platelet Count 255 X10*3/uL (160-400); Red Blood Count 5.25 X10*6/uL (4.60-5.80); Red Cell Distribution Width 14.5 % (11.0-16.0); White Blood Count 7.6 X10*3/uL (4.8-10.8)
== END 2024-03-07 13:57 | disposition home or self-care (01) ==
LOC: HO.LABR 13:56
PROVIDERS: PCP Internal Medicine; Visit Provider Registered Nurse
DX: Z79.899 Other long term (current) drug therapy (principal); F29 Unspecified psychosis not due to a substance or known physiological condition; F34.1 Dysthymic disorder
CPT/HCPCS: 36415; 85025

== ENCOUNTER 2024-04-02 15:16 | Outpatient (REF) | payer MEDICAID, SELFPAY ==
[2024-04-02 15:28] LABS: MANUAL DIFF FLAG NO
[2024-04-02 15:40] LABS: Basophils Percent Auto 0.4 % (0-2); Hematocrit 42.1 % (42.0-52.0); Hemoglobin 13.6 g/dl (14.0-18.0); Imm Gran Abs Auto 0.05 X10*3/uL (0.00-0.03); Imm Gran Pct Auto 0.6 % (0.0-0.4); Lymphocytes Absolute Auto 1.8 X10*3/uL (1.2-4.9); Lymphocytes Percent Auto 21.1 % (20-40); Mean Corpuscular HGB Conc 32.3 g/dl (31.0-36.0); Mean Corpuscular Hemoglobin 26.3 pg (27.0-33.0); Mean Corpuscular Volume 81.3 fL (80.0-98.0); Mean Platelet Volume 9.9 fL (9.4-12.4); Monocytes Absolute Auto 0.5 X10*3/uL (0.1-1.2); Monocytes Percent Auto 6.3 % (2-11); Neut%MD 71.6 %; Neutrophils Absolute Auto 6.1 x10*3/uL (2.0-8.3); Neutrophils Percent Auto 71.6 % (45-73); Platelet Count 269 X10*3/uL (160-400); Red Blood Count 5.18 X10*6/uL (4.60-5.80); Red Cell Distribution Width 14.6 % (11.0-16.0); WBCANC 8.5 X10*3/uL; White Blood Count 8.5 X10*3/uL (4.8-10.8)
== END 2024-04-02 15:17 | disposition home or self-care (01) ==
LOC: HO.LABR 15:16
PROVIDERS: Visit Provider Registered Nurse
DX: Z79.899 Other long term (current) drug therapy (principal); F29 Unspecified psychosis not due to a substance or known physiological condition; F34.1 Dysthymic disorder
CPT/HCPCS: 36415; 85025

== ENCOUNTER 2024-05-08 14:38 | Outpatient (REF) | payer MEDICAID, SELFPAY ==
[2024-05-08 14:59] LABS: MANUAL DIFF FLAG NO
[2024-05-08 15:15] LABS: Basophils Percent Auto 0.4 % (0-2); Hematocrit 42.3 % (42.0-52.0); Hemoglobin 13.8 g/dl (14.0-18.0); Imm Gran Abs Auto 0.04 X10*3/uL (0.00-0.03); Imm Gran Pct Auto 0.5 % (0.0-0.4); Lymphocytes Absolute Auto 1.9 X10*3/uL (1.2-4.9); Lymphocytes Percent Auto 24.7 % (20-40); Mean Corpuscular HGB Conc 32.6 g/dl (31.0-36.0); Mean Corpuscular Hemoglobin 26.2 pg (27.0-33.0); Mean Corpuscular Volume 80.4 fL (80.0-98.0); Mean Platelet Volume 9.9 fL (9.4-12.4); Monocytes Absolute Auto 0.5 X10*3/uL (0.1-1.2); Monocytes Percent Auto 6.7 % (2-11); Neut%MD 67.7 %; Neutrophils Absolute Auto 5.2 x10*3/uL (2.0-8.3); Neutrophils Percent Auto 67.7 % (45-73); Platelet Count 241 X10*3/uL (160-400); Red Blood Count 5.26 X10*6/uL (4.60-5.80); Red Cell Distribution Width 14.4 % (11.0-16.0); WBCANC 7.7 X10*3/uL; White Blood Count 7.7 X10*3/uL (4.8-10.8)
== END 2024-05-08 14:39 | disposition home or self-care (01) ==
LOC: HO.LABR 14:38
PROVIDERS: Visit Provider Registered Nurse
DX: F29 Unspecified psychosis not due to a substance or known physiological condition (principal); F34.1 Dysthymic disorder; Z79.899 Other long term (current) drug therapy
CPT/HCPCS: 36415; 85025

== ENCOUNTER 2024-06-05 15:28 | Outpatient (REF) | payer MEDICARE, MEDICAID, SELFPAY ==
[2024-06-05 15:38] LABS: MANUAL DIFF FLAG NO
[2024-06-05 16:12] LABS: Basophils Percent Auto 0.5 % (0-2); Hematocrit 42.3 % (42.0-52.0); Hemoglobin 13.6 g/dl (14.0-18.0); Imm Gran Abs Auto 0.03 X10*3/uL (0.00-0.03); Imm Gran Pct Auto 0.4 % (0.0-0.4); Lymphocytes Absolute Auto 1.6 X10*3/uL (1.2-4.9); Lymphocytes Percent Auto 21.8 % (20-40); Mean Corpuscular HGB Conc 32.2 g/dl (31.0-36.0); Mean Corpuscular Hemoglobin 26.4 pg (27.0-33.0); Mean Corpuscular Volume 82.1 fL (80.0-98.0); Mean Platelet Volume 10.2 fL (9.4-12.4); Monocytes Absolute Auto 0.6 X10*3/uL (0.1-1.2); Monocytes Percent Auto 7.8 % (2-11); Neutrophils Absolute Auto 5.1 x10*3/uL (2.0-8.3); Neutrophils Percent Auto 69.5 % (45-73); Platelet Count 248 X10*3/uL (160-400); Red Blood Count 5.15 X10*6/uL (4.60-5.80); Red Cell Distribution Width 14.9 % (11.0-16.0); White Blood Count 7.4 X10*3/uL (4.8-10.8)
== END 2024-06-05 15:29 | disposition home or self-care (01) ==
LOC: HO.LABR 15:28
PROVIDERS: Visit Provider Registered Nurse
DX: F29 Unspecified psychosis not due to a substance or known physiological condition (principal); F34.1 Dysthymic disorder; Z79.899 Other long term (current) drug therapy
CPT/HCPCS: 36415; 85025

== ENCOUNTER 2024-06-18 10:28 | Outpatient (AMB) | payer MEDICARE, MEDICAID, SELFPAY ==
--- NOTE | 2024-06-18 10:29 | A.OFFVIS_ITS ---
Vital Signs 06/18/24 10:30 Height 5 ft 11 in Weight 296 lb 6 oz BMI 41.3 BP 132/80 Blood Pressure Location Rt brachial Position Sitting Pulse 94 Pulse Source Pulse Oximeter Pulse Oximetry (%) 98 Oxygen Delivery Method Room Air Intake Visit Reasons: Cough Allergies No Known Allergies Allergy (Verified 06/18/24 10:33) HPI HPI Cough: Details: Alexis is pleasant 29-year-old male, current smoker, with approximately 7 pack year history, with underlying exercise-induced asthma, bipolar 1 disorder and morbid obesity. He was referred by PCP for pulmonary evaluation. He currently resides at a [facility] and is accompanied by Martine web production manager. Staff has noticed an increase in dry cough, wheezing and more labored breathing over the last 2 years. He has been using albuterol MDI p.r.n. with good effect. There was also note of more noticeable dyspnea and coughing at night time. He re portedly had a home sleep study 2 years ago which was negative. He is also maintained on Singulair for asthma and allergies. He denies any recent allergy testing. He also notes intermittent symptoms of reflux not maintained on any medications. He denies any pertinent family history. Denies any occupational exposures. [facility] Medical History (Updated 06/18/24 @ 10:53 by Sindy Max NP) PTSD (post-traumatic stress disorder) Bipolar disorder Depression HTN (hypertension) Schizophrenia Social History (Updated 06/18/24 @ 10:33 by Dana Albrecht CMA) Household Members: Caregiver Housing: Other Housing Other:: long-term Do you presently have visiting nurse or other home services: Yes Alcohol intake: never Patient Tobacco Use Status: Current everyday Tobacco user Tobacco use type: Cigarette and Cigar Cigarettes Per Day: 4 Years Smoked: 8 e-Cigarette/Vaping Use: Never Used Second Hand Smoke Exposure: No service: No Sexual orientation: Straight/Heterosexual Physical Exam Vital Signs: Last Vital Signs Pulse 94 06/18/24 10:30 BP 132/80 06/18/24 10:30 Pulse Ox 98 06/18/24 10:30 Oxygen Delivery Method Room Air 06/18/24 10:30 BMI result Body Mass Index 41.3 Assessment & Plan Assessment & Plan (1) Asthma: Code(s): J45.909 - Unspecified asthma, uncomplicated Category: Medical (2) Environmental allergies: Code(s): Z91.09 - Other allergy status, other than to drugs and biological substances Category: Medical Plan Alexis's symptoms are likely related to underlying asthma. Likely would be unable to perform spirometry. Will empirically trial ICS. Discussed importance of good oral hygiene to prevent thrush. Will send for RAST. Smoking cessation discussed, patient will attempt to decrease on his own. Reviewed ways to minimize reflux. All questions were answered and patient is in agreement of plan. Will follow up to review results and response to inhaler, or sooner if needed. Orders: Orders Complete Blood Count Auto Diff Today Z91.09 - Other allergy status, other than to drugs and biological substances Resp Allergy Profile Region I Today Z91.09 - Other allergy status, other than to drugs and biological substances Immunoglobulin E Today Z91.09 - Other allergy status, other than to drugs and biological substances Other Ref Test - Misc Today Z91.09 - Other allergy status, other than to drugs and biological substances Medications: New fluticasone furoate 100 mcg/actuation (Arnuity Ellipta) 1 inh inhalation DAILY 30 ea 6RF Discontinued hydrochlorothiazide Discontinued Reason: Patient Completed Course 12.5 mg See Protocol PO DAILY 15 tabs 0RF psyllium husk (aspartame) 3.4 gram (Metamucil Fiber Singles) Discontinued Reason: Order 3.4 grams PO BEDTIME 30 ea 0RF risperidone Discontinued Reason: Patient Completed Course 2 mg PO BEDTIME 30 tabs 0RF ursodiol Discontinued Reason: Patient Completed Course 600 mg (2 x 300 mg) PO TID 90 caps 0RF losartan Discontinued Reason: Patient Completed Course 1 tab PO QAM 30 tabs 0RF Coding Level of Care Code New Pt Level 4 (68687) Diagnoses Asthma J45.909 Environmental allergies Z91.09
[2024-06-18 10:30] VITALS: BP 132/80; PULSE 94; O2SAT 98; BMI 41.3
== END 2024-06-18 11:10 | disposition home or self-care (01) ==
PROVIDERS: PCP Internal Medicine; Referring Provider Internal Medicine; Visit Provider Nurse Practitioner Family
DX: J45.909 Unspecified asthma, uncomplicated (principal); Z91.09 Other allergy status, other than to drugs and biological substances
CPT/HCPCS: 99204

== ENCOUNTER 2024-06-18 11:21 | Outpatient (REF) | payer MEDICARE, MEDICAID, SELFPAY ==
[2024-06-18 15:02] LABS: MANUAL DIFF FLAG NO
[2024-06-18 15:06] LABS: Basophils Percent Auto 0.4 % (0-2); Hematocrit 43.9 % (42.0-52.0); Hemoglobin 13.9 g/dl (14.0-18.0); Imm Gran Abs Auto 0.03 X10*3/uL (0.00-0.03); Imm Gran Pct Auto 0.4 % (0.0-0.4); Lymphocytes Absolute Auto 1.5 X10*3/uL (1.2-4.9); Lymphocytes Percent Auto 18.7 % (20-40); Mean Corpuscular HGB Conc 31.7 g/dl (31.0-36.0); Mean Corpuscular Hemoglobin 25.9 pg (27.0-33.0); Mean Corpuscular Volume 81.9 fL (80.0-98.0); Mean Platelet Volume 10.5 fL (9.4-12.4); Monocytes Absolute Auto 0.5 X10*3/uL (0.1-1.2); Monocytes Percent Auto 6.4 % (2-11); Neutrophils Absolute Auto 6.1 x10*3/uL (2.0-8.3); Neutrophils Percent Auto 74.1 % (45-73); Platelet Count 240 X10*3/uL (160-400); Red Blood Count 5.36 X10*6/uL (4.60-5.80); Red Cell Distribution Width 15.1 % (11.0-16.0); White Blood Count 8.2 X10*3/uL (4.8-10.8)
[2024-06-20 07:02] LABS: Immunoglobulin E <2 kU/L (<OR=114)
[2024-06-20 13:19] LABS: Class Alternaria alternata 0; Class Aspergillus fumigatus 0; Class Bermuda Grass 0; Class Birch 0; Class Cat Dander 0; Class Cladosporium herbarum 0; Class Cockroach 0; Class Common Ragweed 0; Class Cottonwood 0; Class Derm. pterony 0; Class Dermatophagoides farinae 0; Class Dog Dander 0; Class Elm 0; Class Maple Box Elder 0; Class Mountain Cedar 0; Class Mouse Urine Protein 0; Class Mugwort 0; Class Oak 0; Class Penicillium crysogenum 0; Class Rough Pigweed 0; Class Sheep Sorrel 0; Class Sycamore 0; Class Timothy Grass 0; Class Walnut Tree 0; Class White Ash 0; Class White Mulberry 0; D001 IgE D pteronyssinus <0.10 kU/L; D002 - IgE D farinae <0.10 kU/L; E001 - IgE Cat Dander <0.10 kU/L; E005 - IgE Dog Dander <0.10 kU/L; E072-IgE Mouse Urine <0.10 kU/L; G002 IgE Bermuda Grass <0.10 kU/L; G006 - IgE Timothy Grass <0.10 kU/L; I006-IgE Cockroach, German <0.10 kU/L; Immunoglobulin E 3 kU/L (<OR=114); M001 IgE Penicillium chrysogen <0.10 kU/L; M002 - IgE Cladosporium herbar <0.10 kU/L; M003 - IgE Aspergillus fumigat <0.10 kU/L; M006 - IgE Alternaria alternat <0.10 kU/L; T001 IgE Maple/Box Elder <0.10 kU/L; T003 IgE Common Silver Birch <0.10 kU/L; T006 - IgE Cedar, Mountain <0.10 kU/L; T007 - IgE Oak, White <0.10 kU/L; T008 IgE Elm, American <0.10 kU/L; T010 - IgE Walnut <0.10 kU/L; T011 - IgE Maple Leaf Sycamore <0.10 kU/L; T014 - IgE Cottonwood <0.10 kU/L; T015 - IgE Ash, White <0.10 kU/L; T070 - IgE White Mulberry <0.10 kU/L; W001 - IgE Ragweed, Short <0.10 kU/L; W006 - IgE Mugwort <0.10 kU/L; W014 IgE Pigweed, Common <0.10 kU/L; W018 IgE Sheep Sorrel <0.10 kU/L
== END 2024-06-18 11:22 | disposition home or self-care (01) ==
LOC: HO.WFDLDS 11:21
PROVIDERS: Visit Provider Nurse Practitioner Family
DX: J45.909 Unspecified asthma, uncomplicated (principal); F17.210 Nicotine dependence, cigarettes, uncomplicated; Z91.09 Other allergy status, other than to drugs and biological substances
CPT/HCPCS: 36415; 82785; 85025; 86003; 99202

== ENCOUNTER 2024-07-10 11:06 | Outpatient (REF) | payer MEDICARE, MEDICAID, SELFPAY ==
[2024-07-10 11:24] LABS: MANUAL DIFF FLAG NO
[2024-07-10 12:11] LABS: Basophils Percent Auto 0.3 % (0-2); Hematocrit 43.6 % (42.0-52.0); Hemoglobin 13.9 g/dl (14.0-18.0); Imm Gran Abs Auto 0.03 X10*3/uL (0.00-0.03); Imm Gran Pct Auto 0.4 % (0.0-0.4); Lymphocytes Absolute Auto 1.6 X10*3/uL (1.2-4.9); Lymphocytes Percent Auto 22.6 % (20-40); Mean Corpuscular HGB Conc 31.9 g/dl (31.0-36.0); Mean Corpuscular Hemoglobin 26.1 pg (27.0-33.0); Mean Corpuscular Volume 81.8 fL (80.0-98.0); Mean Platelet Volume 10.3 fL (9.4-12.4); Monocytes Absolute Auto 0.4 X10*3/uL (0.1-1.2); Monocytes Percent Auto 5.1 % (2-11); Neutrophils Absolute Auto 4.9 x10*3/uL (2.0-8.3); Neutrophils Percent Auto 71.6 % (45-73); Platelet Count 225 X10*3/uL (160-400); Red Blood Count 5.33 X10*6/uL (4.60-5.80); Red Cell Distribution Width 14.7 % (11.0-16.0); White Blood Count 6.9 X10*3/uL (4.8-10.8)
== END 2024-07-10 11:07 | disposition home or self-care (01) ==
LOC: HO.LABR 11:06
PROVIDERS: Visit Provider Registered Nurse
DX: Z79.899 Other long term (current) drug therapy (principal); F29 Unspecified psychosis not due to a substance or known physiological condition; F34.1 Dysthymic disorder
CPT/HCPCS: 36415; 85025

== ENCOUNTER 2024-07-30 10:54 | Outpatient (AMB) | payer MEDICARE, MEDICAID, SELFPAY ==
[2024-07-30 10:57] VITALS: BP 132/70; PULSE 99; O2SAT 98; BMI 42.0
--- NOTE | 2024-07-30 10:57 | MHC.OFFVIS ---
Vital Signs 07/30/24 10:57 Height 5 ft 11 in Weight 301 lb BMI 42.0 BP 132/70 Blood Pressure Location Rt brachial Position Sitting Pulse 99 Pulse Source Pulse Oximeter Pulse Oximetry (%) 98 Oxygen Delivery Method Room Air Intake Visit Reasons: Cough Allergies No Known Allergies Allergy (Verified 07/30/24 11:01) HPI HPI Cough: Details: Alexis is pleasant 29-year-old male, current smoker, with approximately 7 pack year history, with underlying exercise-induced asthma, bipolar 1 disorder and morbid obesity. He currently resides at a shelter and is accompanied by Martine group home paraprofessional. Staff has noticed an increase in dry cough, wheezing and more labored breathing over the last 2 years which has moderately improved with ICS, continues to use albuterol MDI at night. He denies dyspnea, wheezing or chest tightness. [facility] Medical History (Updated 07/30/24 @ 16:29 by Sindy Max NP) PTSD (post-traumatic stress disorder) Bipolar disorder Depression HTN (hypertension) Schizophrenia Social History Household Members: Caregiver Housing: Other Housing Other:: care home Do you presently have visiting nurse or other home services: Yes Alcohol intake: never Patient Tobacco Use Status: Current everyday Tobacco user Tobacco use type: Cigarette and Cigar Cigarettes Per Day: 4 Years Smoked: 8 e-Cigarette/Vaping Use: Never Used Second Hand Smoke Exposure: No service: No Sexual orientation: Straight/Heterosexual Review of Systems Const Denies chills, Denies excessive sweating, Denies fever(s), Denies headache(s) and Denies night sweats Eyes Denies dry eyes, Denies irritation and Denies itchy eyes ENT Reports Normal hearing present, Denies headache(s), Denies nasal congestion, Denies nasal discharge, Denies post nasal drip and Denies sore throat Card Denies chest pain, Denies chest pain at rest, Denies chest pain with activity, Denies claudication, Denies leg edema, Denies dyspnea, Denies dyspnea on exertion, Denies orthopnea and Denies paroxysmal nocturnal dyspnea Resp Denies chest congestion, Denies excessive phlegm production, Denies pain on inspiration, Denies pain with cough, Denies dyspnea, Denies dyspnea on exertion, Denies stridor and Denies wheezing Musc Denies myalgias Neuro Reports Normal hearing present and Denies headache(s) Endo Denies excessive sweating Hair/Lymph Denies lymphadenopathy Aller/Immun Denies itchy eyes, Denies seasonal rhinorrhea and Denies wheezing Physical Exam Vital Signs: Last Vital Signs Pulse 99 07/30/24 10:57 BP 132/70 07/30/24 10:57 Pulse Ox 98 07/30/24 10:57 Oxygen Delivery Method Room Air 07/30/24 10:57 BMI result Body Mass Index 42.0 Const General: cooperative, healthy appearing, comfortable, no acute distress, well developed and alert Nutritional Appearance: obese Orientation/consciousness: patient oriented x3 Limitations: no limitations HEENT Head: Yes normal to inspection, Yes normocephalic and Yes atraumatic Ears: hearing grossly normal bilaterally and external ears normal Eyes General: appearance normal, both eyes and all related structures Eyelids: Yes eyelids normal Sclerae: sclerae normal EOM: EOMs intact bilaterally Neck Neck: Yes normal visual inspection and Yes no lymphadenopathy Lymphatic: no lymphadenopathy noted Chest Chest palpation & inspection: normal inspection of the chest Resp Effort & Inspection: normal respiratory effort, able to speak in complete sentences, no audible wheezes, no cough, no stridor, not tachypneic, no tripod positioning and no use of accessory muscles Auscultation: diminished lung sounds Cardio Jugular venous distension: no JVD Rate: regular rate Rhythm: regular rhythm Skin Other: warm, dry General skin exam: no rashes or lesions noted Neuro General: patient oriented x3 Cranial nerves: Yes Normal hearing present Cognition (Neuro): normal cognition Gait exam (Neuro): Normal gait present Extrem General: Yes normal to inspection, Yes capillary refill normal, Yes no clubbing, cyanosis or edema and Yes no pedal edema Psych Appearance: grossly normal and well kempt Speech and movement: Normal speech and movement present and Clear speech present Affect: normal affect Attitude: cooperative Thought process: Normal thought process present Thought content: Normal thought content present Insight: Good insight present (Psych) Judgement: Good judgement present (Psych) Assessment & Plan Assessment & Plan (1) Asthma: Code(s): J45.909 - Unspecified asthma, uncomplicated Category: Medical (2) GERD (gastroesophageal reflux disease): Code(s): K21.9 - Gastro-esophageal reflux disease without esophagitis Category: Medical Plan RAST negative. He reports some improvements on ICS, continues to require MARIO 1-2 times per day. Will switch to ICS/LABA. Again reviewed ways to minimize reflux as this may be contributing to symptoms. All questions were answered and patient is in agreement of plan. Will follow up in 6-8 weeks or sooner if needed. Medications: New fluticasone propion-salmeterol 230-21 mcg/actuation (Advair HFA) 2 puffs inhalation Q12H 12 grams 6RF Discontinued fluticasone furoate 100 mcg/actuation (Arnuity Ellipta) Discontinued Reason: Patient Completed Course 1 inh inhalation DAILY 30 ea 6RF Coding Level of Care Code Est Pt Level 3 (26307) Diagnoses Asthma J45.909 GERD (gastroesophageal reflux disease) K21.9
== END 2024-07-30 11:34 | disposition home or self-care (01) ==
LOC: HO.HPSW 10:55
PROVIDERS: PCP Internal Medicine; Visit Provider Nurse Practitioner Family
DX: J45.909 Unspecified asthma, uncomplicated (principal); K21.9 Gastro-esophageal reflux disease without esophagitis
CPT/HCPCS: 99213

== ENCOUNTER → 2024-07-30 10:54 | Outpatient (BNVA) | payer MEDICARE, MEDICAID, SELFPAY | PROVIDERS: PCP Internal Medicine; Visit Provider Nurse Practitioner Family | DX: J45.909 Unspecified asthma, uncomplicated (principal); K21.9 Gastro-esophageal reflux disease without esophagitis; F17.210 Nicotine dependence, cigarettes, uncomplicated; E66.01 Morbid (severe) obesity due to excess calories; Z68.41 Body mass index [BMI] 40.0-44.9, adult | CPT/HCPCS: 99212 ==

== ENCOUNTER 2024-08-05 16:05 | Outpatient (REF) | payer MEDICARE, MEDICAID, SELFPAY ==
[2024-08-05 16:19] LABS: MANUAL DIFF FLAG NO
[2024-08-05 16:36] LABS: Basophils Percent Auto 0.6 % (0-2); Hematocrit 41.8 % (42.0-52.0); Hemoglobin 13.4 g/dl (14.0-18.0); Imm Gran Abs Auto 0.02 X10*3/uL (0.00-0.03); Imm Gran Pct Auto 0.3 % (0.0-0.4); Lymphocytes Absolute Auto 1.8 X10*3/uL (1.2-4.9); Lymphocytes Percent Auto 24.8 % (20-40); Mean Corpuscular HGB Conc 32.1 g/dl (31.0-36.0); Mean Corpuscular Hemoglobin 26.2 pg (27.0-33.0); Mean Corpuscular Volume 81.8 fL (80.0-98.0); Mean Platelet Volume 10.2 fL (9.4-12.4); Monocytes Absolute Auto 0.6 X10*3/uL (0.1-1.2); Neutrophils Absolute Auto 4.7 x10*3/uL (2.0-8.3); Neutrophils Percent Auto 66.3 % (45-73); Platelet Count 193 X10*3/uL (160-400); Red Blood Count 5.11 X10*6/uL (4.60-5.80); Red Cell Distribution Width 14.7 % (11.0-16.0); White Blood Count 7.1 X10*3/uL (4.8-10.8)
== END 2024-08-05 16:06 | disposition home or self-care (01) ==
LOC: HO.LABR 16:05
PROVIDERS: Visit Provider Registered Nurse
DX: Z79.899 Other long term (current) drug therapy (principal); F52.9 Unspecified sexual dysfunction not due to a substance or known physiological condition; F34.1 Dysthymic disorder
CPT/HCPCS: 36415; 85025

== ENCOUNTER 2024-09-10 10:54 | Outpatient (AMB) | payer MEDICARE, MEDICAID, SELFPAY ==
[2024-09-10 11:03] VITALS: BP 132/72; PULSE 101; O2SAT 97; BMI 41.7
--- NOTE | 2024-09-10 11:03 | MHC.OFFVIS ---
Vital Signs 09/10/24 11:03 Height 5 ft 11 in Weight 299 lb 2 oz BMI 41.7 BP 132/72 Blood Pressure Location Lt brachial Position Sitting Pulse 101 H Pulse Source Pulse Oximeter Pulse Oximetry (%) 97 Oxygen Delivery Method Room Air Intake Visit Reasons: Cough Allergies No Known Allergies Allergy (Verified 09/10/24 11:07) HPI HPI Cough: Details: Alexis is pleasant 29-year-old male, current smoker, with approximately 7 pack year history, with underlying exercise-induced asthma, bipolar 1 disorder and morbid obesity. He currently resides at a custodial and is accompanied by Martine, tactical response group officer. Patient and Martine report moderate improvements in dyspnea, wheezing and dry cough using increased dose of Advair, using albuterol PRN. He also notes cough is worse at night with associated reflux. [facility], [facility] Medical History (Updated 07/30/24 @ 16:29 by Sindy Max NP) PTSD (post-traumatic stress disorder) Bipolar disorder Depression HTN (hypertension) Schizophrenia Social History (Updated 09/10/24 @ 11:07 by Dana Albrecht CMA) Household Members: Caregiver Housing: Other Housing Other:: prison Do you presently have visiting nurse or other home services: Yes Alcohol intake: never Patient Tobacco Use Status: Former Tobacco user Tobacco use type: Cigarette and Cigar Cigarettes Per Day: 4 Years Smoked: 8 e-Cigarette/Vaping Use: Currently Using Second Hand Smoke Exposure: No service: No Sexual orientation: Straight/Heterosexual Review of Systems Const Denies chills, Denies excessive sweating, Denies fever(s), Denies headache(s) and Denies night sweats Eyes Denies dry eyes, Denies irritation and Denies itchy eyes ENT Reports Normal hearing present, Denies headache(s), Denies nasal congestion, Denies nasal discharge, Denies post nasal drip and Denies sore throat Card Denies chest pain, Denies chest pain at rest, Denies chest pain with activity, Denies claudication, Denies leg edema, Denies orthopnea and Denies paroxysmal nocturnal dyspnea Resp Denies chest congestion, Denies excessive phlegm production, Denies pain on inspiration, Denies pain with cough and Denies stridor Musc Denies myalgias Neuro Reports Normal hearing present and Denies headache(s) Endo Denies excessive sweating Hair/Lymph Denies lymphadenopathy Aller/Immun Denies itchy eyes and Denies seasonal rhinorrhea Physical Exam Vital Signs: Last Vital Signs Pulse 101 H 09/10/24 11:03 BP 132/72 09/10/24 11:03 Pulse Ox 97 09/10/24 11:03 Oxygen Delivery Method Room Air 09/10/24 11:03 BMI result Body Mass Index 41.7 Const General: cooperative, healthy appearing, comfortable, no acute distress, well developed and alert Nutritional Appearance: obese Orientation/consciousness: patient oriented x3 Limitations: no limitations HEENT Head: Yes normal to inspection, Yes normocephalic and Yes atraumatic Ears: hearing grossly normal bilaterally and external ears normal Eyes General: appearance normal, both eyes and all related structures Eyelids: Yes eyelids normal Sclerae: sclerae normal EOM: EOMs intact bilaterally Neck Neck: Yes normal visual inspection and Yes no lymphadenopathy Lymphatic: no lymphadenopathy noted Chest Chest palpation & inspection: normal inspection of the chest Resp Effort & Inspection: normal respiratory effort, able to speak in complete sentences, no audible wheezes, no cough, no stridor, not tachypneic, no tripod positioning and no use of accessory muscles Auscultation: clear to auscultation bilaterally Cardio Jugular venous distension: no JVD Rate: regular rate Rhythm: regular rhythm Skin Other: warm, dry General skin exam: no rashes or lesions noted Neuro General: patient oriented x3 Cranial nerves: Yes Normal hearing present Cognition (Neuro): normal cognition Gait exam (Neuro): Normal gait present Extrem General: Yes normal to inspection, Yes capillary refill normal, Yes no clubbing, cyanosis or edema and Yes no pedal edema Psych Appearance: grossly normal and well kempt Speech and movement: Normal speech and movement present and Clear speech present Affect: normal affect Attitude: cooperative Thought process: Normal thought process present Thought content: Normal thought content present Insight: Good insight present (Psych) Judgement: Good judgement present (Psych) Assessment & Plan Assessment & Plan (1) Asthma: Code(s): J45.909 - Unspecified asthma, uncomplicated Category: Medical (2) GERD (gastroesophageal reflux disease): Code(s): K21.9 - Gastro-esophageal reflux disease without esophagitis Category: Medical Plan He reports moderate improvement in symptoms using Advair and albuterol PRN, advised to continue. Patient also notes continued reflux, worse at night which may be contributing to cough. Will trial omeprazole and reviewed ways to minimize reflux. All questions were answered and patient is in agreement of plan. Will follow up in 8 weeks or sooner if needed. Medications: New omeprazole 20 mg PO DAILY 30 caps 3RF Coding Level of Care Code Est Pt Level 4 (19439) Diagnoses Asthma J45.909 GERD (gastroesophageal reflux disease) K21.9
== END 2024-09-10 11:33 | disposition home or self-care (01) ==
PROVIDERS: PCP Internal Medicine; Visit Provider Nurse Practitioner Family
DX: J45.909 Unspecified asthma, uncomplicated (principal); K21.9 Gastro-esophageal reflux disease without esophagitis
CPT/HCPCS: 99214

== ENCOUNTER → 2024-09-10 10:54 | Outpatient (BNVA) | payer MEDICARE, MEDICAID, SELFPAY | PROVIDERS: PCP Internal Medicine; Visit Provider Nurse Practitioner Family | DX: J45.909 Unspecified asthma, uncomplicated (principal); K21.9 Gastro-esophageal reflux disease without esophagitis | CPT/HCPCS: 36415; 82728; 83540; 85025; 99212 ==

== ENCOUNTER 2024-09-10 11:57 | Outpatient (REF) | payer MEDICARE, MEDICAID, SELFPAY ==
[2024-09-10 12:10] LABS: MANUAL DIFF FLAG NO
[2024-09-10 12:43] LABS: Basophils Percent Auto 0.4 % (0-2); Hematocrit 43.8 % (42.0-52.0); Hemoglobin 13.6 g/dl (14.0-18.0); Imm Gran Abs Auto 0.04 X10*3/uL (0.00-0.03); Imm Gran Pct Auto 0.5 % (0.0-0.4); Lymphocytes Absolute Auto 1.6 X10*3/uL (1.2-4.9); Lymphocytes Percent Auto 20.6 % (20-40); Mean Corpuscular HGB Conc 31.1 g/dl (31.0-36.0); Mean Corpuscular Hemoglobin 25.7 pg (27.0-33.0); Mean Corpuscular Volume 82.6 fL (80.0-98.0); Mean Platelet Volume 10.1 fL (9.4-12.4); Monocytes Absolute Auto 0.6 X10*3/uL (0.1-1.2); Monocytes Percent Auto 7.1 % (2-11); Neutrophils Absolute Auto 5.7 x10*3/uL (2.0-8.3); Neutrophils Percent Auto 71.4 % (45-73); Platelet Count 239 X10*3/uL (160-400); Red Cell Distribution Width 14.6 % (11.0-16.0); White Blood Count 7.9 X10*3/uL (4.8-10.8)
[2024-09-10 13:22] LABS: Iron 51 mcg/dL (45-160); Percent Iron Saturation 17 % (15-50); Total Iron Binding Capacity 296 mcg/dL (228-428); Unsaturated Iron Binding 245 ug/dL
[2024-09-10 13:28] LABS: Ferritin 42 ng/mL (20-250)
== END 2024-09-10 11:58 | disposition home or self-care (01) ==
LOC: HO.LABR 11:57
PROVIDERS: PCP Internal Medicine; Referring Provider Internal Medicine Hepatology; Visit Provider Registered Nurse
DX: Z13.89 Encounter for screening for other disorder (principal)
CPT/HCPCS: 36415; 82728; 83540; 85025

== ENCOUNTER 2024-10-03 16:26 | Outpatient (REF) | payer MEDICARE, MEDICAID, SELFPAY ==
[2024-10-03 16:49] LABS: MANUAL DIFF FLAG NO
[2024-10-03 17:22] LABS: Basophils Percent Auto 0.5 % (0-2); Hemoglobin 13.2 g/dl (14.0-18.0); Imm Gran Abs Auto 0.03 X10*3/uL (0.00-0.03); Imm Gran Pct Auto 0.4 % (0.0-0.4); Lymphocytes Absolute Auto 1.9 X10*3/uL (1.2-4.9); Lymphocytes Percent Auto 22.4 % (20-40); Mean Corpuscular HGB Conc 31.4 g/dl (31.0-36.0); Mean Corpuscular Hemoglobin 25.8 pg (27.0-33.0); Mean Corpuscular Volume 82.2 fL (80.0-98.0); Mean Platelet Volume 10.4 fL (9.4-12.4); Monocytes Absolute Auto 0.6 X10*3/uL (0.1-1.2); Monocytes Percent Auto 7.6 % (2-11); Neutrophils Absolute Auto 5.8 x10*3/uL (2.0-8.3); Neutrophils Percent Auto 69.1 % (45-73); Platelet Count 238 X10*3/uL (160-400); Red Blood Count 5.11 X10*6/uL (4.60-5.80); Red Cell Distribution Width 14.8 % (11.0-16.0); White Blood Count 8.3 X10*3/uL (4.8-10.8)
== END 2024-10-03 16:27 | disposition home or self-care (01) ==
LOC: HO.LABR 16:26
PROVIDERS: PCP Internal Medicine; Visit Provider Registered Nurse
DX: Z79.899 Other long term (current) drug therapy (principal); F29 Unspecified psychosis not due to a substance or known physiological condition; F34.1 Dysthymic disorder
CPT/HCPCS: 36415; 85025

== ENCOUNTER 2024-11-05 16:01 | Outpatient (REF) | payer MEDICARE, MEDICAID, SELFPAY ==
[2024-11-05 16:18] LABS: MANUAL DIFF FLAG NO
[2024-11-05 17:13] LABS: Basophils Percent Auto 0.4 % (0-2); Hematocrit 39.4 % (42.0-52.0); Hemoglobin 12.5 g/dl (14.0-18.0); Imm Gran Abs Auto 0.05 X10*3/uL (0.00-0.03); Imm Gran Pct Auto 0.7 % (0.0-0.4); Lymphocytes Absolute Auto 1.6 X10*3/uL (1.2-4.9); Lymphocytes Percent Auto 22.1 % (20-40); Mean Corpuscular HGB Conc 31.7 g/dl (31.0-36.0); Mean Corpuscular Hemoglobin 25.7 pg (27.0-33.0); Mean Corpuscular Volume 80.9 fL (80.0-98.0); Mean Platelet Volume 10.2 fL (9.4-12.4); Monocytes Absolute Auto 0.5 X10*3/uL (0.1-1.2); Monocytes Percent Auto 6.8 % (2-11); Platelet Count 248 X10*3/uL (160-400); Red Blood Count 4.87 X10*6/uL (4.60-5.80); Red Cell Distribution Width 15.3 % (11.0-16.0); WBCANC 7.2 X10*3/uL; White Blood Count 7.2 X10*3/uL (4.8-10.8)
== END 2024-11-05 16:02 | disposition home or self-care (01) ==
LOC: HO.LAB 16:01
PROVIDERS: PCP Registered Nurse; Visit Provider Registered Nurse
DX: Z79.899 Other long term (current) drug therapy (principal); Z51.81 Encounter for therapeutic drug level monitoring
CPT/HCPCS: 36415; 85025

== ENCOUNTER 2024-11-22 08:35 | Outpatient (REF) | payer MEDICARE, MEDICAID, SELFPAY ==
[2024-11-22 08:45] LABS: MANUAL DIFF FLAG NO
[2024-11-22 09:24] LABS: Basophils Percent Auto 0.6 % (0-2); Hematocrit 41.7 % (42.0-52.0); Hemoglobin 13.3 g/dl (14.0-18.0); Imm Gran Abs Auto 0.03 X10*3/uL (0.00-0.03); Imm Gran Pct Auto 0.4 % (0.0-0.4); Lymphocytes Absolute Auto 1.3 X10*3/uL (1.2-4.9); Lymphocytes Percent Auto 18.1 % (20-40); Mean Corpuscular HGB Conc 31.9 g/dl (31.0-36.0); Mean Corpuscular Hemoglobin 25.4 pg (27.0-33.0); Mean Corpuscular Volume 79.6 fL (80.0-98.0); Monocytes Absolute Auto 0.5 X10*3/uL (0.1-1.2); Monocytes Percent Auto 6.9 % (2-11); Neutrophils Absolute Auto 5.2 x10*3/uL (2.0-8.3); Platelet Count 261 X10*3/uL (160-400); Red Blood Count 5.24 X10*6/uL (4.60-5.80); Red Cell Distribution Width 14.9 % (11.0-16.0); White Blood Count 7.1 X10*3/uL (4.8-10.8)
== END 2024-11-22 08:36 | disposition home or self-care (01) ==
LOC: HO.LABR 08:35
PROVIDERS: PCP Registered Nurse; Visit Provider Registered Nurse
DX: F29 Unspecified psychosis not due to a substance or known physiological condition (principal); F39 Unspecified mood [affective] disorder
CPT/HCPCS: 36415; 85025

== ENCOUNTER 2024-11-27 07:07 | Outpatient (REF) | payer MEDICARE, MEDICAID, SELFPAY ==
[2024-11-27 08:04] LABS: Estimated Average Glucose 108 mg/dL; Hemoglobin A1C 125.4105 umol/L; Hemoglobin A1c % 5.4 % (<6.0); Total Hemoglobin (HGBA1C) 3515.1616 umol/L
[2024-11-27 08:14] LABS: Cholesterol 160 mg/dL (<200); HDL Cholesterol 34 mg/dL (>40); LDL Cholesterol Calculated 96 mg/dL (<100); Triglycerides 153 mg/dL (<150)
== END 2024-11-27 07:08 | disposition home or self-care (01) ==
LOC: HO.LAB 07:07
PROVIDERS: Visit Provider Registered Nurse
DX: F29 Unspecified psychosis not due to a substance or known physiological condition (principal); F34.1 Dysthymic disorder; Z79.899 Other long term (current) drug therapy
CPT/HCPCS: 36415; 80061; 83036

== ENCOUNTER 2024-12-03 15:05 | Outpatient (REF) | payer MEDICARE, MEDICAID, SELFPAY ==
[2024-12-03 15:36] LABS: MANUAL DIFF FLAG NO
[2024-12-03 15:55] LABS: Basophils Absolute Auto 0.1 X10*3/uL (0.0-0.2); Basophils Percent Auto 0.5 % (0-2); Hematocrit 40.8 % (42.0-52.0); Hemoglobin 12.9 g/dl (14.0-18.0); Imm Gran Abs Auto 0.06 X10*3/uL (0.00-0.03); Imm Gran Pct Auto 0.6 % (0.0-0.4); Lymphocytes Absolute Auto 1.8 X10*3/uL (1.2-4.9); Lymphocytes Percent Auto 17.9 % (20-40); Mean Corpuscular HGB Conc 31.6 g/dl (31.0-36.0); Mean Corpuscular Hemoglobin 25.3 pg (27.0-33.0); Mean Corpuscular Volume 80.2 fL (80.0-98.0); Mean Platelet Volume 9.9 fL (9.4-12.4); Monocytes Absolute Auto 0.8 X10*3/uL (0.1-1.2); Monocytes Percent Auto 7.7 % (2-11); Neutrophils Absolute Auto 7.4 x10*3/uL (2.0-8.3); Neutrophils Percent Auto 73.3 % (45-73); Platelet Count 264 X10*3/uL (160-400); Red Blood Count 5.09 X10*6/uL (4.60-5.80); Red Cell Distribution Width 14.9 % (11.0-16.0); White Blood Count 10.1 X10*3/uL (4.8-10.8)
[2024-12-08 05:39] LABS: Clozapine (Clozaril) 212 mcg/L; Norclozapine 170 mcg/L (25-400)
== END 2024-12-03 15:06 | disposition home or self-care (01) ==
LOC: HO.LABR 15:05
PROVIDERS: PCP Registered Nurse; Visit Provider Registered Nurse
DX: Z79.899 Other long term (current) drug therapy (principal); F29 Unspecified psychosis not due to a substance or known physiological condition; F34.1 Dysthymic disorder
CPT/HCPCS: 36415; 80159; 85025

== ENCOUNTER 2024-12-24 10:01 | Outpatient (AMB) | payer MEDICARE, MEDICAID, SELFPAY ==
[2024-12-24 10:12] VITALS: BP 130/70; PULSE 95; O2SAT 98; BMI 43.6
--- NOTE | 2024-12-24 10:12 | MHC.OFFVIS ---
Vital Signs 12/24/24 10:12 Height 5 ft 11 in Weight 313 lb BMI 43.6 BP 130/70 Pulse 95 Pulse Source Pulse Oximeter Pulse Oximetry (%) 98 Oxygen Delivery Method Room Air Intake Visit Reasons: Cough Car Filler Required: No [employer]: [employer] offered & declined Allergies No Known Allergies Allergy (Verified 12/24/24 10:16) Medication List - Last Reconciled 12/24/24 by Keyla Lewis LPN acetaminophen (Mapap (acetaminophen)) 650 mg PO Q6H PRN albuterol sulfate 90 mcg/actuation inhalation amlodipine 5 mg PO DAILY chlorhexidine gluconate 0.12% PO cholecalciferol (vitamin D3) (Vitamin D3) 25 mcg PO DAILY clozapine 2 tabs PO QAM clozapine 350 mg (3.5 x 100 mg) PO BEDTIME fluticasone propion-salmeterol 230-21 mcg/actuation (Advair HFA) 2 puffs inhalation Q12H lamotrigine 50 mg (2 x 25 mg) PO BEDTIME losartan 50 mg PO DAILY lovastatin 20 mg PO DAILY magnesium oxide 400 mg PO DAILY melatonin 5 mg PO BEDTIME metformin 500 mg PO BID mirtazapine 45 mg (3 x 15 mg) PO BEDTIME montelukast 1 tab PO DAILY omeprazole 20 mg PO DAILY prazosin 1 cap PO BEDTIME risperidone 1 mg PO DAILY risperidone 3 mg PO BEDTIME ursodiol mg PO HPI HPI Cough: Details: Alexis is pleasant 29-year-old male, current smoker, with approximately 7 pack year history, with underlying exercise-induced asthma, bipolar 1 disorder and morbid obesity. He currently resides at a shelter and is accompanied by Martine group rooms coordinator. At the last visit, patient was started on Omeprazole for reflux with improvements in cough however patient uis having difficulties managing a reflux diet, continuing to eat prior to sleep. He initially reported moderate improvements in dyspnea, wheezing and dry cough using increased dose of Advair, however over the last month has had increased use of albuterol MDI. He reports associated chest congestion with difficulty expectorating and productive cough. Of note, patient with h/o dizziness and vision changes, will be undergoing echo, holter and sleep study with PCP. [facility] Medical History (Updated 07/30/24 @ 16:29 by Sindy Max NP) PTSD (post-traumatic stress disorder) Bipolar disorder Depression HTN (hypertension) Schizophrenia Social History (Updated 09/10/24 @ 11:07 by Dana Albrecht CMA) Household Members: Caregiver Housing: Other Housing Other:: prison Do you presently have visiting nurse or other home services: Yes Alcohol intake: never Patient Tobacco Use Status: Former Tobacco user Tobacco use type: Cigarette and Cigar Cigarettes Per Day: 4 Years Smoked: 8 e-Cigarette/Vaping Use: Currently Using Second Hand Smoke Exposure: No service: No Sexual orientation: Straight/Heterosexual Review of Systems Const Denies chills, Denies excessive sweating, Denies fever(s), Denies headache(s) and Denies night sweats Eyes Denies dry eyes, Denies irritation and Denies itchy eyes ENT Reports Normal hearing present, Denies headache(s), Denies nasal congestion, Denies nasal discharge, Denies post nasal drip and Denies sore throat Card Denies chest pain, Denies chest pain at rest, Denies chest pain with activity, Denies claudication, Denies leg edema, Reports dyspnea on exertion, Denies orthopnea and Denies paroxysmal nocturnal dyspnea Resp Reports chest congestion, Reports cough, Denies hemoptysis, Denies excessive phlegm production, Denies pain on inspiration, Denies pain with cough, Reports dyspnea on exertion, Denies stridor and Reports wheezing Musc Denies myalgias Neuro Reports Normal hearing present and Denies headache(s) Endo Denies excessive sweating Hair/Lymph Denies lymphadenopathy Aller/Immun Denies itchy eyes, Denies seasonal rhinorrhea and Reports wheezing Physical Exam Vital Signs: Last Vital Signs Pulse 95 12/24/24 10:12 BP 130/70 12/24/24 10:12 Pulse Ox 98 12/24/24 10:12 Oxygen Delivery Method Room Air 12/24/24 10:12 BMI result Body Mass Index 43.6 Const General: cooperative, healthy appearing, no acute distress, well developed and alert Nutritional Appearance: obese Orientation/consciousness: patient oriented x3 Limitations: no limitations HEENT Head: Yes normal to inspection, Yes normocephalic and Yes atraumatic Ears: hearing grossly normal bilaterally and external ears normal Eyes General: appearance normal, both eyes and all related structures Eyelids: Yes eyelids normal Sclerae: sclerae normal EOM: EOMs intact bilaterally Neck Neck: Yes normal visual inspection and Yes no lymphadenopathy Lymphatic: no lymphadenopathy noted Chest Chest palpation & inspection: normal inspection of the chest Resp Effort & Inspection: normal respiratory effort, able to speak in complete sentences, no audible wheezes, Actively coughing, no stridor, not tachypneic, no tripod positioning and no use of accessory muscles Auscultation: diminished lung sounds Cardio Jugular venous distension: no JVD Rate: regular rate Rhythm: regular rhythm Skin Other: warm, dry General skin exam: no rashes or lesions noted Neuro General: patient oriented x3 Cranial nerves: Yes Normal hearing present Cognition (Neuro): normal cognition Gait exam (Neuro): Normal gait present Extrem General: Yes normal to inspection, Yes capillary refill normal, Yes no clubbing, cyanosis or edema and Yes no pedal edema Psych Appearance: grossly normal and well kempt Speech and movement: Normal speech and movement present and Clear speech present Affect: normal affect Attitude: cooperative Thought process: Normal thought process present Thought content: Normal thought content present Insight: Good insight present (Psych) Judgement: Good judgement present (Psych) Assessment & Plan Assessment & Plan (1) Asthma: Code(s): J45.909 - Unspecified asthma, uncomplicated Category: Medical (2) GERD (gastroesophageal reflux disease): Code(s): K21.9 - Gastro-esophageal reflux disease without esophagitis Category: Medical Plan Will treat bronchitic symptoms with azithromycin. He is aware to call if symptoms do not improve. He reports moderate improvement in symptoms using Advair and albuterol PRN, advised to continue. Will also send in nebulizer for home use with albuterol solution. PFT order placed today. Patient also notes continued reflux, worse at night which may be contributing to cough, encouraged to follow reflux diet and continue omeprazole. He is also working towards weight loss recently on Ozempic. All questions were answered and patient is in agreement of plan. Will follow up in 8 weeks or sooner if needed. Orders: Orders PFT pulmonary function test Today J45.909 - Unspecified asthma, uncomplicated Medications: New azithromycin For 250 mg dose pack: take 500 mg today (day 1), then 250 mg for 4 days (days 2-5) PO 6 tabs 0RF albuterol sulfate 2.5 mg (3 mL) inhalation Q4-6H PRN 180 mL 0RF shortness of breath or wheezing Coding Level of Care Code Est Pt Level 4 (42856) Diagnoses Asthma J45.909 GERD (gastroesophageal reflux disease) K21.9
== END 2024-12-24 10:39 | disposition home or self-care (01) ==
LOC: HO.HPSW 10:02
PROVIDERS: PCP Registered Nurse; Visit Provider Nurse Practitioner Family
DX: J45.909 Unspecified asthma, uncomplicated (principal); K21.9 Gastro-esophageal reflux disease without esophagitis
CPT/HCPCS: 99214

== ENCOUNTER → 2024-12-24 10:01 | Outpatient (BNVA) | payer MEDICARE, MEDICAID, SELFPAY | PROVIDERS: PCP Registered Nurse; Visit Provider Nurse Practitioner Family | DX: J45.909 Unspecified asthma, uncomplicated (principal); K21.9 Gastro-esophageal reflux disease without esophagitis; E66.01 Morbid (severe) obesity due to excess calories; Z68.41 Body mass index [BMI] 40.0-44.9, adult; Z87.891 Personal history of nicotine dependence | CPT/HCPCS: 99212 ==

== ENCOUNTER 2025-01-01 14:52 | Outpatient (REF) | payer MEDICARE, MEDICAID, SELFPAY ==
[2025-01-01 15:14] LABS: MANUAL DIFF FLAG NO
[2025-01-01 16:12] LABS: Basophils Percent Auto 0.5 % (0-2); Hematocrit 41.9 % (42.0-52.0); Hemoglobin 13.2 g/dl (14.0-18.0); Imm Gran Abs Auto 0.03 X10*3/uL (0.00-0.03); Imm Gran Pct Auto 0.4 % (0.0-0.4); Lymphocytes Absolute Auto 1.6 X10*3/uL (1.2-4.9); Lymphocytes Percent Auto 20.3 % (20-40); Mean Corpuscular HGB Conc 31.5 g/dl (31.0-36.0); Mean Corpuscular Volume 79.5 fL (80.0-98.0); Mean Platelet Volume 10.5 fL (9.4-12.4); Monocytes Absolute Auto 0.6 X10*3/uL (0.1-1.2); Monocytes Percent Auto 7.4 % (2-11); Neutrophils Absolute Auto 5.7 x10*3/uL (2.0-8.3); Neutrophils Percent Auto 71.4 % (45-73); Platelet Count 256 X10*3/uL (160-400); Red Blood Count 5.27 X10*6/uL (4.60-5.80); Red Cell Distribution Width 14.8 % (11.0-16.0)
[2025-01-04 07:48] LABS: Clozapine (Clozaril) 337 mcg/L; Norclozapine 268 mcg/L (25-400)
== END 2025-01-01 14:53 | disposition home or self-care (01) ==
LOC: HO.LABR 14:52
PROVIDERS: PCP Registered Nurse; Visit Provider Registered Nurse
DX: F29 Unspecified psychosis not due to a substance or known physiological condition (principal); Z79.899 Other long term (current) drug therapy
CPT/HCPCS: 36415; 80159; 85025

== ENCOUNTER 2025-02-03 13:42 | Outpatient (REF) | payer MEDICARE, MEDICAID, SELFPAY ==
[2025-02-03 13:49] LABS: MANUAL DIFF FLAG NO
[2025-02-03 14:00] LABS: Basophils Percent Auto 0.5 % (0-2); Hematocrit 43.4 % (42.0-52.0); Hemoglobin 13.6 g/dl (14.0-18.0); Imm Gran Abs Auto 0.05 X10*3/uL (0.00-0.03); Imm Gran Pct Auto 0.6 % (0.0-0.4); Lymphocytes Absolute Auto 1.9 X10*3/uL (1.2-4.9); Lymphocytes Percent Auto 21.4 % (20-40); Mean Corpuscular HGB Conc 31.3 g/dl (31.0-36.0); Mean Corpuscular Hemoglobin 24.6 pg (27.0-33.0); Mean Corpuscular Volume 78.6 fL (80.0-98.0); Mean Platelet Volume 9.8 fL (9.4-12.4); Monocytes Absolute Auto 0.6 X10*3/uL (0.1-1.2); Monocytes Percent Auto 6.7 % (2-11); Neutrophils Absolute Auto 6.1 x10*3/uL (2.0-8.3); Neutrophils Percent Auto 70.8 % (45-73); Platelet Count 273 X10*3/uL (160-400); Red Blood Count 5.52 X10*6/uL (4.60-5.80); Red Cell Distribution Width 14.9 % (11.0-16.0); White Blood Count 8.6 X10*3/uL (4.8-10.8)
== END 2025-02-03 13:43 | disposition home or self-care (01) ==
LOC: HO.LABR 13:42
PROVIDERS: PCP Registered Nurse; Visit Provider Registered Nurse
DX: Z79.899 Other long term (current) drug therapy (principal); F29 Unspecified psychosis not due to a substance or known physiological condition; F34.1 Dysthymic disorder
CPT/HCPCS: 36415; 85025

== ENCOUNTER 2025-02-04 10:59 | Outpatient (REF) | payer MEDICARE, MEDICAID, SELFPAY ==
--- NOTE | 2025-02-04 12:05 | PFT_ITS ---
Indication: Asthma Spirometry [FEV1 to FVC 89%; FEV1 3.3 L; FVC 3.79 L. No significant response to bronchodilators noted.] Lung Volumes [Total lung capacity 65% predicted; residual volume 60% predicted; expiratory reserve volume 46% predicted] Diffusion Capacity [DLCO 66% predicted] Comparisons [None] Interpretation [No obstructive ventilatory defects identified. No significant response to bronchodilators noted. The patient does have a restrictive ventilatory defect consistent moderate restrictive lung disease. Need to consider underlying parenchymal lung conditions and/or neuromuscular conditions. He does have a decreasing the expiratory reserve volume so likely some degree of hyperexpansion due to an elevated BMI. The patient does have a mild diffusion impairment. He does correct to normal when corrected for the alveolar volume. Clinical correlation warranted.] MTDD
== END 2025-02-04 11:00 | disposition home or self-care (01) ==
LOC: HO.RESP 10:59
PROVIDERS: Visit Provider Nurse Practitioner Family
DX: J45.909 Unspecified asthma, uncomplicated (principal)
CPT/HCPCS: 94010; 94640; 94727; 94729

== ENCOUNTER → 2025-02-04 12:05 | Outpatient (BNV) | payer MEDICARE, MEDICAID, SELFPAY | PROVIDERS: Visit Provider Hospitalist | DX: J45.909 Unspecified asthma, uncomplicated (principal) | CPT/HCPCS: 94060; 94727; 94729 ==

== ENCOUNTER 2025-02-06 10:54 | Outpatient (REF) | payer MEDICARE, MEDICAID, SELFPAY ==
--- NOTE | ~2025-02-06 | XR_ITS ---
EXAMINATION: XR CHEST CLINICAL INFORMATION: R05.9 - Cough, unspecified COMPARISON: None available. TECHNIQUE: 2 views of the chest were obtained. FINDINGS: No hyperinflation. No consolidation, pleural effusion or pneumothorax. Cardiomediastinal silhouette size is normal. Mild degenerative changes in the right acromioclavicular joint. Patient's large body habitus. XR/XR chest 2V IMPRESSION: No acute airspace disease. Electronically signed by: Pasquale Lopez MD 02/06/2025 11:25 AM EDT
== END 2025-02-06 10:55 | disposition home or self-care (01) ==
LOC: HO.XRAY 10:54
PROVIDERS: Visit Provider Nurse Practitioner Family
DX: R05.9 Cough, unspecified (principal)
CPT/HCPCS: 71046

== ENCOUNTER → 2025-02-06 10:58 | Outpatient (BNV) | payer MEDICARE, MEDICAID, SELFPAY | PROVIDERS: Visit Provider Radiology Diagnostic Radiology | DX: R05.9 Cough, unspecified (principal) | CPT/HCPCS: 71046 ==

== ENCOUNTER 2025-02-07 10:52 | Outpatient (AMB) | payer MEDICARE, MEDICAID, SELFPAY ==
[2025-02-07 10:56] VITALS: BP 140/82; PULSE 93; O2SAT 95; BMI 44.3
--- NOTE | 2025-02-07 10:56 | MHC.OFFVIS ---
Vital Signs 02/07/25 10:56 Height 5 ft 11 in Weight 317 lb 8 oz BMI 44.3 BP 140/82 H Blood Pressure Location Lt brachial Position Sitting Pulse 93 Pulse Source Pulse Oximeter Pulse Oximetry (%) 95 Oxygen Delivery Method Room Air Intake Visit Reasons: Cough Allergies No Known Allergies Allergy (Verified 02/07/25 11:00) HPI HPI Cough: Details: Alexis is pleasant 29-year-old male, current smoker, with approximately 7 pack year history, with underlying asthma, bipolar 1 disorder and morbid obesity. He currently resides at a halfway and is accompanied by Martine social group worker. At the last visit, patient was started on Omeprazole for reflux with improvements in cough however patient is having difficulties managing a reflux diet. He initially reported moderate improvements in dyspnea, wheezing and dry cough using increased dose of Advair, however reports worsening dyspnea and dry cough, using DuoNeb/albuterol MDI with suboptimal effect. Of note, he has holter and sleep study with PCP. Recent EKG reportedly abnormal suggestive of enlargement of right ventricle and has upcoming echo. Today he presents to review CXR and PFT. [facility] Medical History (Updated 02/07/25 @ 13:01 by Sindy Max NP) PTSD (post-traumatic stress disorder) Bipolar disorder Depression HTN (hypertension) Schizophrenia Social History (Updated 02/07/25 @ 11:01 by Dana Albrecht CMA) Household Members: Caregiver Housing: Other Housing Other:: nursing home Do you presently have visiting nurse or other home services: Yes Alcohol intake: never Patient Tobacco Use Status: Current everyday Tobacco user Tobacco use type: Cigarette and Cigar Cigarettes Per Day: 6 Years Smoked: 8 e-Cigarette/Vaping Use: Currently Using Second Hand Smoke Exposure: No service: No Sexual orientation: Straight/Heterosexual Review of Systems Const Denies chills, Denies excessive sweating, Denies fever(s), Denies headache(s) and Denies night sweats Eyes Denies dry eyes, Denies irritation and Denies itchy eyes ENT Reports Normal hearing present, Denies headache(s), Denies nasal congestion, Denies nasal discharge, Denies post nasal drip and Denies sore throat Card Denies chest pain, Denies chest pain at rest, Denies chest pain with activity, Denies claudication, Denies leg edema, Reports dyspnea on exertion and Denies paroxysmal nocturnal dyspnea Resp Reports cough, Denies hemoptysis, Denies excessive phlegm production, Denies pain on inspiration, Denies pain with cough, Reports dyspnea on exertion, Denies stridor and Reports wheezing Musc Denies myalgias Neuro Reports Normal hearing present and Denies headache(s) Endo Denies excessive sweating Hair/Lymph Denies lymphadenopathy Aller/Immun Denies itchy eyes, Denies seasonal rhinorrhea and Reports wheezing Physical Exam Vital Signs: Last Vital Signs Pulse 93 02/07/25 10:56 BP 140/82 H 02/07/25 10:56 Pulse Ox 95 02/07/25 10:56 Oxygen Delivery Method Room Air 02/07/25 10:56 BMI result Body Mass Index 44.3 Const General: cooperative, healthy appearing, no acute distress, well developed and alert Nutritional Appearance: obese Orientation/consciousness: patient oriented x3 Limitations: no limitations HEENT Other: yellowish white thick coating on tongue Head: Yes normal to inspection, Yes normocephalic and Yes atraumatic Ears: hearing grossly normal bilaterally and external ears normal Eyes General: appearance normal, both eyes and all related structures Eyelids: Yes eyelids normal Sclerae: sclerae normal EOM: EOMs intact bilaterally Neck Neck: Yes normal visual inspection and Yes no lymphadenopathy Lymphatic: no lymphadenopathy noted Chest Chest palpation & inspection: normal inspection of the chest Resp Effort & Inspection: normal respiratory effort, able to speak in complete sentences, no audible wheezes, no stridor, not tachypneic, no tripod positioning and no use of accessory muscles Auscultation: diminished lung sounds Cardio Jugular venous distension: no JVD Rate: regular rate Rhythm: regular rhythm Skin Other: warm, dry General skin exam: no rashes or lesions noted Neuro General: patient oriented x3 Cranial nerves: Yes Normal hearing present Cognition (Neuro): normal cognition Gait exam (Neuro): Normal gait present Extrem General: Yes normal to inspection, Yes capillary refill normal, Yes no clubbing, cyanosis or edema and Yes no pedal edema Psych Appearance: grossly normal and well kempt Speech and movement: Normal speech and movement present and Clear speech present Affect: normal affect Attitude: cooperative Thought process: Normal thought process present Thought content: Normal thought content present Insight: Good insight present (Psych) Judgement: Good judgement present (Psych) Assessment & Plan Assessment & Plan (1) Asthma: Code(s): J45.909 - Unspecified asthma, uncomplicated Category: Medical (2) GERD (gastroesophageal reflux disease): Code(s): K21.9 - Gastro-esophageal reflux disease without esophagitis Category: Medical (3) Cough: Code(s): R05.9 - Cough, unspecified Category: Medical Plan Reviewed CXR which was unremarkable. Reviewed PFT which revealed no obstructive ventilatory defects identified. No significant response to bronchodilators noted. The patient does have a restrictive ventilatory defect consistent moderate restrictive lung disease. Need to consider underlying parenchymal lung conditions and/or neuromuscular conditions. He does have a decreasing the expiratory reserve volume so likely some degree of hyperexpansion due to an elevated BMI. The patient does have a mild diffusion impairment. Will send for chest CT to assess for any underlying parenchymal conditions. Patient has been using ICS/LABA, MARIO and omeprazole with worsening cough and dyspnea, will treat with 5 day course of prednisone. Side effects reviewed. Patient with thrush, will send nystatin swish and swallow. Discussed importance of good oral hygiene with inhaler, which he admits to not rinsing consisently after use. All questions were answered and patient is in agreement of plan. Will follow up to review results or sooner if needed. Orders: Orders CT chest wo IV con Today R05.9 - Cough, unspecified, R94.2 - Abnormal results of pulmonary function studies Medications: New prednisone 40 mg (2 x 20 mg) PO DAILY 10 tabs 0RF prednisone 8AM 40 mg (2 x 20 mg) PO DAILY 10 tabs 0RF nystatin administer 1/2 of dose in each side of the mouth 400,000 units (4 mL) buccal QID 473 mL 0RF Coding Level of Care Code Est Pt Level 4 (20558) Diagnoses Asthma J45.909 GERD (gastroesophageal reflux disease) K21.9 Cough R05.9
== END 2025-02-07 11:45 | disposition home or self-care (01) ==
LOC: HO.HPSW 10:52
PROVIDERS: PCP Registered Nurse; Visit Provider Nurse Practitioner Family
DX: J45.909 Unspecified asthma, uncomplicated (principal); K21.9 Gastro-esophageal reflux disease without esophagitis; R05.9 Cough, unspecified
CPT/HCPCS: 99214

== ENCOUNTER → 2025-02-07 10:52 | Outpatient (BNVA) | payer MEDICARE, MEDICAID, SELFPAY | PROVIDERS: PCP Registered Nurse; Visit Provider Nurse Practitioner Family | DX: J45.909 Unspecified asthma, uncomplicated (principal); E66.01 Morbid (severe) obesity due to excess calories; K21.9 Gastro-esophageal reflux disease without esophagitis; R94.2 Abnormal results of pulmonary function studies; Z68.41 Body mass index [BMI] 40.0-44.9, adult | CPT/HCPCS: 99212 ==

== ENCOUNTER 2025-03-04 15:11 | Outpatient (REF) | payer MEDICARE, MEDICAID, SELFPAY ==
[2025-03-04 15:21] LABS: MANUAL DIFF FLAG NO
[2025-03-04 16:57] LABS: Basophils Percent Auto 0.4 % (0-2); Hematocrit 40.8 % (42.0-52.0); Hemoglobin 12.9 g/dl (14.0-18.0); Imm Gran Abs Auto 0.03 X10*3/uL (0.00-0.03); Imm Gran Pct Auto 0.4 % (0.0-0.4); Lymphocytes Percent Auto 23.8 % (20-40); Mean Corpuscular HGB Conc 31.6 g/dl (31.0-36.0); Mean Corpuscular Hemoglobin 24.5 pg (27.0-33.0); Mean Corpuscular Volume 77.6 fL (80.0-98.0); Mean Platelet Volume 10.4 fL (9.4-12.4); Monocytes Absolute Auto 0.6 X10*3/uL (0.1-1.2); Monocytes Percent Auto 6.7 % (2-11); Neut%MD 68.7 %; Neutrophils Absolute Auto 5.7 x10*3/uL (2.0-8.3); Neutrophils Percent Auto 68.7 % (45-73); Platelet Count 260 X10*3/uL (160-400); Red Blood Count 5.26 X10*6/uL (4.60-5.80); Red Cell Distribution Width 15.5 % (11.0-16.0); WBCANC 8.2 X10*3/uL; White Blood Count 8.2 X10*3/uL (4.8-10.8)
== END 2025-03-04 15:12 | disposition home or self-care (01) ==
LOC: HO.LABR 15:11
PROVIDERS: Visit Provider Registered Nurse
DX: F29 Unspecified psychosis not due to a substance or known physiological condition (principal); F34.1 Dysthymic disorder; Z79.899 Other long term (current) drug therapy
CPT/HCPCS: 36415; 85025

== ENCOUNTER → 2025-04-03 10:00 | Outpatient (BNV) | payer MEDICARE, MEDICAID, SELFPAY | PROVIDERS: Absent Provider Registered Nurse; PCP Internal Medicine; Visit Provider Radiology Diagnostic Radiology | DX: J18.0 Bronchopneumonia, unspecified organism (principal) | CPT/HCPCS: 71250 ==

== ENCOUNTER 2025-04-03 10:01 | Outpatient (REF) | payer MEDICARE, MEDICAID, SELFPAY ==
--- NOTE | ~2025-04-03 | CT_ITS ---
CLINICAL HISTORY: R05.9 - Cough, unspecified Exam: CT chest without IV contrast Comparison: CR/CO/SR - XR CHEST 2V - 02/06/25 11:16 EDT Findings: Motion blurring mildly degraded exam. Several centrilobular patchy and nodular ground-glass opacities of right upper lobe. Left lung is clear. No pleural effusion or pneumothorax. Patent central airway. Heart size is normal. Minimal pericardial effusion. Great vessels are normal in caliber. No bulky lymph nodes. Imaged lower neck, chest wall and upper abdomen are unremarkable. Unremarkable osseous structures. Impression: Right upper lobe bronchopneumonia, recommend follow-up to clearing. This document has been electronically signed by: Reema Ng MD on 04/04/2025 17:29:39
[2025-04-03 10:38] LABS: MANUAL DIFF FLAG NO
[2025-04-03 11:10] LABS: Hematocrit 40.7 % (42.0-52.0); Hemoglobin 13.1 g/dl (14.0-18.0); Imm Gran Abs Auto 0.06 X10*3/uL (0.00-0.03); Imm Gran Pct Auto 0.6 % (0.0-0.4); Lymphocytes Absolute Auto 1.6 X10*3/uL (1.2-4.9); Mean Corpuscular HGB Conc 32.2 g/dl (31.0-36.0); Mean Corpuscular Hemoglobin 24.6 pg (27.0-33.0); Mean Corpuscular Volume 76.4 fL (80.0-98.0); NRBC Abs Auto 0.000 X10*3/uL (0.0-0.012); NRBC Pct Auto 0.0 /100WBC (0.0-0.2); Platelet Count 276 X10*3/uL (160-400); Red Blood Count 5.33 X10*6/uL (4.60-5.80); White Blood Count 10.4 X10*3/uL (4.8-10.8)
== END 2025-04-03 10:02 | disposition home or self-care (01) ==
LOC: HO.CT 10:01
PROVIDERS: Absent Provider Registered Nurse; PCP Internal Medicine; Visit Provider Nurse Practitioner Family
DX: R05.9 Cough, unspecified (principal); R94.2 Abnormal results of pulmonary function studies; F34.1 Dysthymic disorder; F29 Unspecified psychosis not due to a substance or known physiological condition; Z79.899 Other long term (current) drug therapy
CPT/HCPCS: 36415; 71250; 85025

== ENCOUNTER 2025-04-16 15:57 | Outpatient (AMB) | payer MEDICARE, MEDICAID, SELFPAY ==
--- NOTE | 2025-04-16 15:59 | A.OFFVIS_ITS ---
Vital Signs 04/16/25 16:00 Height 5 ft 11 in Weight 313 lb BMI 43.6 BP 146/70 H Blood Pressure Location Rt brachial Position Sitting Pulse 97 Pulse Source Pulse Oximeter Pulse Oximetry (%) 99 Oxygen Delivery Method Room Air Intake Visit Reasons: Cough Allergies No Known Allergies Allergy (Verified 04/16/25 16:04) HPI HPI Cough: Details: Alexis is pleasant 29-year-old male, current smoker, with approximately 7 pack year history, with underlying asthma, bipolar 1 disorder and morbid obesity. He currently resides at a longterm and is accompanied by Martine director of group counseling program. Prior CXR was unremarkable, patient continued with cough despite compliance with ICS/LABA and omeprazole, ultimately sent for chest CT which revealed right upper lobe bronchopneumonia on 04/06/25. Augmentin was sent and patient reports significant improvements in cough. He has also underwent sleep study through PCP which revealed severe SOCRATES, AHI reportedly 77 and will be starting CPAP therapy through [facility]. [facility] Medical History (Updated 04/21/25 @ 10:44 by Sindy Max NP) PTSD (post-traumatic stress disorder) Bipolar disorder Depression HTN (hypertension) Schizophrenia Social History Household Members: Caregiver Housing: Other Housing Other:: intermediate Do you presently have visiting nurse or other home services: Yes Alcohol intake: never Patient Tobacco Use Status: Current everyday Tobacco user Tobacco use type: Cigarette and Cigar Cigarettes Per Day: 6 Years Smoked: 8 e-Cigarette/Vaping Use: Currently Using Second Hand Smoke Exposure: No service: No Sexual orientation: Straight/Heterosexual Review of Systems Const Denies chills, Denies excessive sweating, Denies fever(s), Denies headache(s) and Denies night sweats Eyes Denies dry eyes, Denies irritation and Denies itchy eyes ENT Reports Normal hearing present, Denies headache(s), Denies nasal congestion, Denies nasal discharge, Denies post nasal drip and Denies sore throat Card Denies chest pain, Denies chest pain at rest, Denies chest pain with activity, Denies claudication, Denies leg edema, Denies dyspnea, Denies dyspnea on exertion, Denies orthopnea and Denies paroxysmal nocturnal dyspnea Resp Denies chest congestion, Denies cough, Denies excessive phlegm production, Denies pain on inspiration, Denies pain with cough, Denies dyspnea, Denies dyspnea on exertion, Denies stridor and Denies wheezing Musc Denies myalgias Neuro Reports Normal hearing present and Denies headache(s) Endo Denies excessive sweating Hair/Lymph Denies lymphadenopathy Aller/Immun Denies itchy eyes, Denies seasonal rhinorrhea and Denies wheezing Physical Exam Vital Signs: Last Vital Signs Pulse 97 04/16/25 16:00 BP 146/70 H 04/16/25 16:00 Pulse Ox 99 04/16/25 16:00 Oxygen Delivery Method Room Air 04/16/25 16:00 BMI result Body Mass Index 43.6 Const General: cooperative, healthy appearing, comfortable, no acute distress, well developed and alert Nutritional Appearance: obese Orientation/consciousness: patient oriented x3 Limitations: no limitations HEENT Head: Yes normal to inspection, Yes normocephalic and Yes atraumatic Ears: hearing grossly normal bilaterally and external ears normal Eyes General: appearance normal, both eyes and all related structures Eyelids: Yes eyelids normal Sclerae: sclerae normal EOM: EOMs intact bilaterally Neck Neck: Yes normal visual inspection and Yes no lymphadenopathy Lymphatic: no lymphadenopathy noted Chest Chest palpation & inspection: normal inspection of the chest Resp Effort & Inspection: normal respiratory effort, able to speak in complete sentences, no audible wheezes, no cough, no stridor, not tachypneic, no tripod positioning and no use of accessory muscles Auscultation: clear to auscultation bilaterally Cardio Jugular venous distension: no JVD Rate: regular rate Rhythm: regular rhythm Skin Other: warm, dry General skin exam: no rashes or lesions noted Neuro General: patient oriented x3 Cranial nerves: Yes Normal hearing present Cognition (Neuro): normal cognition Gait exam (Neuro): Normal gait present Extrem General: Yes normal to inspection, Yes capillary refill normal, Yes no clubbing, cyanosis or edema and Yes no pedal edema Psych Appearance: grossly normal and well kempt Speech and movement: Normal speech and movement present and Clear speech present Affect: normal affect Attitude: cooperative Thought process: Normal thought process present Thought content: Normal thought content present Insight: Good insight present (Psych) Judgement: Good judgement present (Psych) Results Reviewed Results Reviewed: [address] [address] [address] Scan Report Signed Patient: Alexis Holland MR#: [id number] : 1995 Acct:[id number] Age/Sex: 29 / M ADM Date: 04/03/25 Loc: HO.CT Attending Dr: Sindy Max NP Ordering Physician: Sindy Max NP Date of Service: 04/03/25 Procedure(s): CT chest wo IV con Accession Number(s): [id number] cc: Bijal Najera MD; Sindy Max RN MEDICAL SURGICAL~ Report Number: [id number]: Total DLP = 272.00 mGy-cm CLINICAL HISTORY: R05.9 - Cough, unspecified Exam: CT chest without IV contrast Comparison: CR/AR/SR - XR CHEST 2V - 02/06/25 11:16 EDT Findings: Motion blurring mildly degraded exam. Several centrilobular patchy and nodular ground-glass opacities of right upper lobe. Left lung is clear. No pleural effusion or pneumothorax. Patent central airway. Heart size is normal. Minimal pericardial effusion. Great vessels are normal in caliber. No bulky lymph nodes. Imaged lower neck, chest wall and upper abdomen are unremarkable. Unremarkable osseous structures. Impression: Right upper lobe bronchopneumonia, recommend follow-up to clearing. This document has been electronically signed by: Reema Ng MD on 04/04/2025 17:29:39 Dictated By: Reema Ng MD Signed By: <Electronically signed by Reema Ng MD in OV> 04/04/25 1730 DD/ 172 TD/TT: 04/04/[address] Sql Developer: Assessment & Plan Assessment & Plan (1) Asthma: Code(s): J45.909 - Unspecified asthma, uncomplicated Category: Medical (2) GERD (gastroesophageal reflux disease): Code(s): K21.9 - Gastro-esophageal reflux disease without esophagitis Category: Medical (3) Cough: Code(s): R05.9 - Cough, unspecified Category: Medical Plan Since completing Augmentin patient reports overall improvements in cough. Will obtain repeat Chest CT in 6-8 weeks to assess for resolution of PNA. Encouraged patient to continue ICS/LABA, MARIO and omeprazole. May consider d/c omeprazole at next visit. Smoking cessation reviewed and patient contemplating at this time. All questions were answered and patient is in agreement of plan. Will f ollow up to review results or sooner if needed. Orders: Orders CT chest wo IV con 8 Weeks Z87.01 - Personal history of pneumonia (recurrent) Coding Level of Care Code Est Pt Level 4 (15195) Diagnoses Asthma J45.909 GERD (gastroesophageal reflux disease) K21.9 Cough R05.9
[2025-04-16 16:00] VITALS: BP 146/70; PULSE 97; O2SAT 99; BMI 43.6
== END 2025-04-16 16:23 | disposition home or self-care (01) ==
LOC: HO.HPSW 15:58
PROVIDERS: PCP Internal Medicine; Visit Provider Nurse Practitioner Family
DX: J45.909 Unspecified asthma, uncomplicated (principal); K21.9 Gastro-esophageal reflux disease without esophagitis; R05.9 Cough, unspecified
CPT/HCPCS: 99214

== ENCOUNTER → 2025-04-16 15:57 | Outpatient (BNVA) | payer MEDICARE, MEDICAID, SELFPAY | PROVIDERS: PCP Internal Medicine; Visit Provider Nurse Practitioner Family | DX: R05.9 Cough, unspecified (principal); J18.0 Bronchopneumonia, unspecified organism; J45.909 Unspecified asthma, uncomplicated; K21.9 Gastro-esophageal reflux disease without esophagitis; F17.210 Nicotine dependence, cigarettes, uncomplicated; Z71.6 Tobacco abuse counseling; Z79.899 Other long term (current) drug therapy | CPT/HCPCS: 99212 ==

== ENCOUNTER 2025-05-13 14:21 | Outpatient (REF) | payer MEDICARE, MEDICAID, SELFPAY ==
[2025-05-13 14:41] LABS: MANUAL DIFF FLAG NO
[2025-05-13 16:45] LABS: Hematocrit 41.5 % (42.0-52.0); Hemoglobin 12.7 g/dl (14.0-18.0); Imm Gran Abs Auto 0.03 X10*3/uL (0.00-0.03); Imm Gran Pct Auto 0.4 % (0.0-0.4); Lymphocytes Absolute Auto 1.5 X10*3/uL (1.2-4.9); Mean Corpuscular HGB Conc 30.6 g/dl (31.0-36.0); Mean Corpuscular Hemoglobin 24.3 pg (27.0-33.0); Mean Corpuscular Volume 79.3 fL (80.0-98.0); NRBC Abs Auto 0.000 X10*3/uL (0.0-0.012); NRBC Pct Auto 0.0 /100WBC (0.0-0.2); Neut%MD 70.2 %; Platelet Count 286 X10*3/uL (160-400); Red Blood Count 5.23 X10*6/uL (4.60-5.80); WBCANC 7.1 X10*3/uL; White Blood Count 7.1 X10*3/uL (4.8-10.8)
== END 2025-05-13 14:22 | disposition home or self-care (01) ==
LOC: HO.LABR 14:21
PROVIDERS: PCP Internal Medicine; Visit Provider Registered Nurse
DX: Z13.89 Encounter for screening for other disorder (principal)
CPT/HCPCS: 36415; 85025

== ENCOUNTER 2025-06-18 15:18 | Outpatient (REF) | payer MEDICARE, MEDICAID, SELFPAY ==
--- NOTE | ~2025-06-18 | CT_ITS ---
EXAMINATION: CT CHEST WITHOUT CONTRAST CLINICAL INFORMATION: Z87.01 - Personal history of pneumonia (recurrent) COMPARISON: April 03, 2025 TECHNIQUE: Multidetector volumetric CT imaging of the chest was done. Axial MIP volume rendering provided. Sagittal and coronal reformatted images were obtained. This CT examination was performed using dose optimization techniques as appropriate, variously including the following: *Automated exposure control *Adjustment of mA and/or kV according to patient size (this includes techniques or standardized protocols for targeted exams where dose is matched to indication/reason for exam; i.e. extremities or head) *Use of iterative reconstruction technique DLP: 280 mGy*cm FINDINGS: LUNGS: Patchy groundglass opacities are present in the prior study in the right upper lobe have resolved. Lungs are clear. MEDIASTINUM: The mediastinum is normal. CORONARY ARTERY CALCIFICATION: None visualized on this study. PLEURA: There is focal somewhat nodular thickening of the minor fissure near junction with major fissure in the lateral aspect of the right chest that appears decreased when compared to the prior. AXILLA: No lymphadenopathy. UPPER ABDOMEN: Unremarkable. OSSEOUS STRUCTURES: Unremarkable. CT/CT chest wo IV con IMPRESSION: Resolved right upper lobe pneumonia. Somewhat nodular thickening involving the posterior aspect of the right minor fissure, at junction with major fissure, laterally in the chest appears stable to decreased in size when compared to the prior and may represent scarring or intrapulmonary lymph node. Fleischner guidelines were followed. Electronically signed by: James Mauricio MD 06/18/2025 04:38 PM EDT
== END 2025-06-18 15:19 | disposition home or self-care (01) ==
LOC: HO.CT 15:18
PROVIDERS: PCP Internal Medicine; Visit Provider Nurse Practitioner Family
DX: Z87.01 Personal history of pneumonia (recurrent) (principal); Z79.899 Other long term (current) drug therapy; Z91.09 Other allergy status, other than to drugs and biological substances
CPT/HCPCS: 36415; 71250; 86003

== ENCOUNTER → 2025-06-18 15:33 | Outpatient (BNV) | payer MEDICARE, MEDICAID, SELFPAY | PROVIDERS: PCP Internal Medicine; Visit Provider Radiology Diagnostic Radiology | DX: Z87.01 Personal history of pneumonia (recurrent) (principal) | CPT/HCPCS: 71250 ==

== ENCOUNTER 2025-07-15 09:49 | Outpatient (REF) | payer MEDICARE, MEDICAID, SELFPAY ==
[2025-07-15 10:59] LABS: MANUAL DIFF FLAG NO
[2025-07-15 11:25] LABS: Hematocrit 42.7 % (42.0-52.0); Hemoglobin 13.4 g/dl (14.0-18.0); Imm Gran Abs Auto 0.03 X10*3/uL (0.00-0.03); Imm Gran Pct Auto 0.4 % (0.0-0.4); Lymphocytes Absolute Auto 1.4 X10*3/uL (1.2-4.9); Mean Corpuscular HGB Conc 31.4 g/dl (31.0-36.0); Mean Corpuscular Hemoglobin 25.0 pg (27.0-33.0); Mean Corpuscular Volume 79.7 fL (80.0-98.0); NRBC Abs Auto 0.000 X10*3/uL (0.0-0.012); NRBC Pct Auto 0.0 /100WBC (0.0-0.2); Platelet Count 259 X10*3/uL (160-400); Red Blood Count 5.36 X10*6/uL (4.60-5.80); White Blood Count 7.8 X10*3/uL (4.8-10.8)
== END 2025-07-15 09:50 | disposition home or self-care (01) ==
LOC: HO.LABR 09:49
PROVIDERS: Absent Provider Registered Nurse; PCP Internal Medicine; Visit Provider Nurse Practitioner Family
DX: J45.909 Unspecified asthma, uncomplicated (principal); F17.210 Nicotine dependence, cigarettes, uncomplicated; Z87.01 Personal history of pneumonia (recurrent); Z79.899 Other long term (current) drug therapy
CPT/HCPCS: 36415; 85025; 99212

== ENCOUNTER 2025-07-15 09:49 | Outpatient (AMB) | payer MEDICARE, MEDICAID, SELFPAY ==
--- NOTE | 2025-07-15 09:52 | MHC.OFFVIS ---
Vital Signs 07/15/25 09:53 Height 5 ft 11 in Weight 310 lb BMI 43.2 BP 138/76 Blood Pressure Location Rt brachial Position Sitting Pulse 92 Pulse Source Pulse Oximeter Pulse Oximetry (%) 96 Oxygen Delivery Method Room Air Intake Visit Reasons: Cough Allergies No Known Allergies Allergy (Verified 07/15/25 09:55) HPI HPI Cough: Details: Alexis is pleasant 30-year-old male, current smoker, with approximately 7 pack year history, with underlying asthma, bipolar 1 disorder, severe SOCRATES on CPAP (PCP) and morbid obesity. He currently resides at a intermediate and is accompanied by Martine operations research group manager. Patient reported chronic cough x 3 years, prior CXR was unremarkable, patient continued with cough despite compliance with ICS/LABA and omeprazole, ultimately sent for chest CT which revealed right upper lobe bronchopneumonia on 04/06/25. Completed a course of Augmentin, with complete resolution of symptoms. The child care group leader reports significant improvements in breathing and notes patient is working towards weight loss as well as smoking cessation, no longer vaping. He has been compliant with CPAP therapy, noting average AHI from last visit with PCP <1. Today he presents to review repeat chest CT. Denies any visits to urgent care or hospitalizations related to respiratory distress since the last visit. [facility] Medical History (Updated 07/15/25 @ 12:47 by Sindy Max NP) PTSD (post-traumatic stress disorder) Bipolar disorder Depression HTN (hypertension) Schizophrenia Social History Household Members: Caregiver Housing: Other Housing Other:: care home Do you presently have visiting nurse or other home services: Yes Alcohol intake: never Patient Tobacco Use Status: Current everyday Tobacco user Tobacco use type: Cigarette and Cigar Cigarettes Per Day: 6 Years Smoked: 8 e-Cigarette/Vaping Use: Currently Using Second Hand Smoke Exposure: No service: No Sexual orientation: Straight/Heterosexual Review of Systems Const Denies chills, Denies excessive sweating, Denies fever(s), Denies headache(s) and Denies night sweats Eyes Denies dry eyes, Denies irritation and Denies itchy eyes ENT Reports Normal hearing present, Denies headache(s), Denies nasal congestion, Denies nasal discharge, Denies post nasal drip and Denies sore throat Card Denies chest pain, Denies chest pain at rest, Denies chest pain with activity, Denies claudication, Denies leg edema, Denies dyspnea, Denies dyspnea on exertion, Denies orthopnea and Denies paroxysmal nocturnal dyspnea Resp Denies chest congestion, Denies cough, Denies excessive phlegm production, Denies pain on inspiration, Denies pain with cough, Denies dyspnea, Denies dyspnea on exertion, Denies stridor and Denies wheezing Musc Denies myalgias Neuro Reports Normal hearing present and Denies headache(s) Endo Denies excessive sweating Hair/Lymph Denies lymphadenopathy Aller/Immun Denies itchy eyes, Denies seasonal rhinorrhea and Denies wheezing Physical Exam Vital Signs: Last Vital Signs Pulse 92 07/15/25 09:53 BP 138/76 07/15/25 09:53 Pulse Ox 96 07/15/25 09:53 Oxygen Delivery Method Room Air 07/15/25 09:53 BMI result Body Mass Index 43.2 Const General: cooperative, healthy appearing, comfortable, no acute distress, well developed and alert Nutritional Appearance: obese Orientation/consciousness: patient oriented x3 Limitations: no limitations HEENT Head: Yes normal to inspection, Yes normocephalic and Yes atraumatic Ears: hearing grossly normal bilaterally and external ears normal Eyes General: appearance normal, both eyes and all related structures Eyelids: Yes eyelids normal Sclerae: sclerae normal EOM: EOMs intact bilaterally Neck Neck: Yes normal visual inspection and Yes no lymphadenopathy Lymphatic: no lymphadenopathy noted Chest Chest palpation & inspection: normal inspection of the chest Resp Effort & Inspection: normal respiratory effort, able to speak in complete sentences, no audible wheezes, no cough, no stridor, not tachypneic, no tripod positioning and no use of accessory muscles Auscultation: clear to auscultation bilaterally Cardio Jugular venous distension: no JVD Rate: regular rate Rhythm: regular rhythm Skin Other: warm, dry General skin exam: no rashes or lesions noted Neuro General: patient oriented x3 Cranial nerves: Yes Normal hearing present Cognition (Neuro): normal cognition Gait exam (Neuro): Normal gait present Extrem General: Yes normal to inspection, Yes capillary refill normal, Yes no clubbing, cyanosis or edema and Yes no pedal edema Psych Appearance: grossly normal and well kempt Speech and movement: Normal speech and movement present and Clear speech present Affect: normal affect Attitude: cooperative Thought process: Normal thought process present Thought content: Normal thought content present Insight: Good insight present (Psych) Judgement: Good judgement present (Psych) Results Reviewed Results Reviewed: [address] [address] [address] Scan Report Signed Patient: Alexis Holland MR#: [id number] : 1995 Acct:[id number] Age/Sex: 30 / M ADM Date: 06/18/25 Loc: HO.CT Attending Dr: Sindy Max NP Ordering Physician: Sindy Max NP Date of Service: 06/18/25 Procedure(s): CT chest wo IV con Accession Number(s): [id number] cc: Bijal Najera MD; Sindy Max NP~ Report Number: [id number]: Total DLP = 280.00 mGy-cm Reason for Exam: Z87.01 - Personal history of pneumonia (recurrent) EXAMINATION: CT CHEST WITHOUT CONTRAST CLINICAL INFORMATION: Z87.01 - Personal history of pneumonia (recurrent) COMPARISON: April 03, 2025 TECHNIQUE: Multidetector volumetric CT imaging of the chest was done. Axial MIP volume rendering provided. Sagittal and coronal reformatted images were obtained. This CT examination was performed using dose optimization techniques as appropriate, variously including the following: *Automated exposure control *Adjustment of mA and/or kV according to patient size (this includes techniques or standardized protocols for targeted exams where dose is matched to indication/reason for exam; i.e. extremities or head) *Use of iterative reconstruction technique DLP: 280 mGy*cm FINDINGS: LUNGS: Patchy groundglass opacities are present in the prior study in the right upper lobe have resolved. Lungs are clear. MEDIASTINUM: The mediastinum is normal. CORONARY ARTERY CALCIFICATION: None visualized on this study. PLEURA: There is focal somewhat nodular thickening of the minor fissure near junction with major fissure in the lateral aspect of the right chest that appears decreased when compared to the prior. AXILLA: No lymphadenopathy. UPPER ABDOMEN: Unremarkable. OSSEOUS STRUCTURES: Unremarkable. CT/CT chest wo IV con IMPRESSION: Resolved right upper lobe pneumonia. Somewhat nodular thickening involving the posterior aspect of the right minor fissure, at junction with major fissure, laterally in the chest appears stable to decreased in size when compared to the prior and may represent scarring or intrapulmonary lymph node. Fleischner guidelines were followed. Electronically signed by: James Mauricio MD 06/18/2025 04:38 PM EDT RP Dictated By: James Mauricio MD Signed By: <Electronically signed by James Mauricio MD in OV> 06/18/25 1638 DD/ 1537 TD/TT: 06/18/25 1605 Chapter Relations Administrator: Assessment & Plan Assessment & Plan (1) Asthma: Code(s): J45.909 - Unspecified asthma, uncomplicated Category: Medical (2) History of recent pneumonia: Code(s): Z87.01 - Personal history of pneumonia (recurrent) Category: Medical (3) Nicotine dependence, cigarettes, uncomplicated: Code(s): F17.210 - Nicotine dependence, cigarettes, uncomplicated Category: Medical Plan At this time, Alexis reports good control of respiratory symptoms on current regimen, advised to continue Advair and albuterol MDI/neb PRN. He is aware to call if symptoms change. Reviewed chest CT which revealed resolution of prior PNA. Will d/c Omeprazole at this time as cough likely related to infectious process now resolved. May restart if symptoms recur. Smoking cessation reviewed and patient working towards quitting. All questions were answered and patient is in agreement of plan. Will follow up in 3 months or sooner if needed. Coding Level of Care Code Est Pt Level 4 (91016) Diagnoses Asthma J45.909 History of recent pneumonia Z87.01 Nicotine dependence, cigarettes, uncomplicated F17.210
[2025-07-15 09:53] VITALS: BP 138/76; PULSE 92; O2SAT 96; BMI 43.2
== END 2025-07-15 10:18 | disposition home or self-care (01) ==
LOC: HO.HPSW 09:50
PROVIDERS: PCP Internal Medicine; Visit Provider Nurse Practitioner Family
DX: J45.909 Unspecified asthma, uncomplicated (principal); Z87.01 Personal history of pneumonia (recurrent); F17.210 Nicotine dependence, cigarettes, uncomplicated
CPT/HCPCS: 99214

== ENCOUNTER 2025-08-15 12:25 | Outpatient (REF) | payer MEDICARE, MEDICAID, SELFPAY ==
[2025-08-15 12:47] LABS: MANUAL DIFF FLAG NO
[2025-08-15 13:37] LABS: Hematocrit 44.3 % (42.0-52.0); Hemoglobin 14.4 g/dl (14.0-18.0); Imm Gran Abs Auto 0.02 X10*3/uL (0.00-0.03); Imm Gran Pct Auto 0.3 % (0.0-0.4); Lymphocytes Absolute Auto 1.6 X10*3/uL (1.2-4.9); Mean Corpuscular HGB Conc 32.5 g/dl (31.0-36.0); Mean Corpuscular Hemoglobin 26.0 pg (27.0-33.0); Mean Corpuscular Volume 80.1 fL (80.0-98.0); NRBC Abs Auto 0.000 X10*3/uL (0.0-0.012); NRBC Pct Auto 0.0 /100WBC (0.0-0.2); Platelet Count 240 X10*3/uL (160-400); Red Blood Count 5.53 X10*6/uL (4.60-5.80); White Blood Count 7.1 X10*3/uL (4.8-10.8)
[2025-08-15 14:07] LABS: Alanine Aminotransferase 45 U/L (0-40); Albumin Level 4.9 g/dL (3.5-5.0); Alkaline Phosphatase 105 U/L (39-117); Anion Gap 13 (12-20); Aspartate Amino Transferase 45 U/L (5-37); Blood Urea Nitrogen 12 mg/dL (9-16); Calcium 9.5 mg/dL (8.4-10.2); Carbon Dioxide 24 mmol/L (22-29); Chloride 108 mmol/L (96-108); Estimated Glomerular Filt Rate > 60; Potassium 4.2 mmol/L (3.3-5.1); Sodium 141 mmol/L (135-145); Total Protein 7.5 g/dL (6.5-8.0)
== END 2025-08-15 12:26 | disposition home or self-care (01) ==
LOC: HO.LAB 12:25
PROVIDERS: Absent Provider Registered Nurse; Visit Provider Internal Medicine Hepatology
DX: K74.3 Primary biliary cirrhosis (principal); Z79.899 Other long term (current) drug therapy
CPT/HCPCS: 36415; 80053; 82306; 85025

== ENCOUNTER 2025-09-10 16:07 | Outpatient (REF) | payer MEDICARE, MEDICAID, SELFPAY ==
[2025-09-10 16:24] LABS: MANUAL DIFF FLAG NO
[2025-09-10 16:46] LABS: Hematocrit 41.1 % (42.0-52.0); Hemoglobin 13.1 g/dl (14.0-18.0); Imm Gran Abs Auto 0.02 X10*3/uL (0.00-0.03); Imm Gran Pct Auto 0.3 % (0.0-0.4); Lymphocytes Absolute Auto 1.8 X10*3/uL (1.2-4.9); Mean Corpuscular HGB Conc 31.9 g/dl (31.0-36.0); Mean Corpuscular Hemoglobin 25.7 pg (27.0-33.0); Mean Corpuscular Volume 80.7 fL (80.0-98.0); NRBC Abs Auto 0.000 X10*3/uL (0.0-0.012); NRBC Pct Auto 0.0 /100WBC (0.0-0.2); Platelet Count 218 X10*3/uL (160-400); Red Blood Count 5.09 X10*6/uL (4.60-5.80); White Blood Count 7.5 X10*3/uL (4.8-10.8)
== END 2025-09-10 16:08 | disposition home or self-care (01) ==
LOC: HO.LABR 16:07
PROVIDERS: PCP Internal Medicine; Visit Provider Registered Nurse
DX: Z79.899 Other long term (current) drug therapy (principal)
CPT/HCPCS: 36415; 85025